=== PATIENT | female | born 1950 | race American Indian/Alaskan Native ===

== ENCOUNTER 2017-03-21 10:11 | Inpatient (IN) | payer MEDICARE ==
[~2017-03-21 10:11] MED LIST: LEVAQUIN 750MG/150ML 750 MG/150 ML BAG IV ONE
[2017-03-21] MEDS ORDERED: NORCO 5/325 PO ONE (11:21)
[2017-03-21 11:36] LABS: Basophils % (Auto) 0.8 % (0.0-1.8); Eosinophils % (Auto) 0.4 % (0.0-4.3); Hematocrit 34.4 % (30.3-42.9); Hemoglobin 10.7 gm/dl (10.1-14.3); Mean Corpuscular HGB Conc 31 % (30-34); Mean Corpuscular Hemoglobin 30 pg (28-32); Mean Corpuscular Volume 97 fl (79-97); Platelet Count 313 K/mm3 (140-440); Red Blood Count 3.55 M/mm3 (3.65-5.03); Red Cell Distribution Width 15.2 % (13.2-15.2)
[2017-03-21 11:47] LABS: INR 0.95 (0.87-1.13)
[2017-03-21 11:48] LABS: Partial Thromboplastin Time 30.9 Sec. (24.2-36.6)
[2017-03-21 11:56] LABS: Alanine Aminotransferase 14 units/L (7-56); Albumin 3.8 g/dL (3.9-5); Albumin/Globulin Ratio 1.2 %; Alkaline Phosphatase 101 units/L (35-129); Anion Gap 22 mmol/L; BUN/Creatinine Ratio 10; Blood Urea Nitrogen 46 mg/dL (7-17); Carbon Dioxide 25 mmol/L (22-30); Chloride 101.3 mmol/L (98-107); Glucose 142 mg/dL (65-100); Lipase 15 units/L (13-60); Potassium 4.8 mmol/L (3.6-5.0); Sodium 143 mmol/L (137-145)
[2017-03-21 11:59] LABS: Bilirubin,Direct < 0.2 mg/dL (0-0.2)
--- NOTE | 2017-03-21 12:02 | XRay Report ---
PORTABLE CHEST INDICATION: Hypertension. COMPARISON: 09/08/2015 FINDINGS: Portable, frontal chest radiograph now demonstrates increased hazy perihilar infiltrates bilaterally and minimal fluid or thickening along the right minor fissure. Interval right chest port removal. Mild cardiomegaly. Intact bones. CONCLUSION: New mild perihilar edema and interval central catheter removal since August 2015, as described. Thank you for the opportunity to participate in this patient's care.
--- NOTE | 2017-03-21 12:33 | Cat Scan Report ---
CT OF THE ABDOMEN AND PELVIS WITHOUT CONTRAST HISTORY: Abdominal pain. TECHNIQUE: Helical CT without contrast. Sagittal and coronal reformatted images. FINDINGS: Bilateral lung infiltrates are identified in the lower lung zones. Small to medium bilateral layering pleural effusions are also identified. Heart size is within normal limits. The liver, biliary system, pancreas, spleen, kidneys and adrenal glands are unremarkable on noncontrast CT. The aorta is normal caliber. There is a large amount of stool throughout the length of the colon and rectum. No evidence for focal inflammation or bowel obstruction. Normal appendix. The bladder is markedly distended. No bladder filling defect is appreciated. The uterus and adnexa are unremarkable. The bony structures are intact. No fracture or suspicious bony lesion. IMPRESSION: Bilateral lung infiltrates and bilateral pleural effusions. Correlate for pneumonia. CHF is thought less likely. Fecal retention. Distended bladder. Correlate for bladder outlet obstruction.
[2017-03-21] MEDS ORDERED: ROCEPHIN/NS 1 GM/50 ML 1 GM/50 ML BAG IV ONE (13:55)
[2017-03-21 13:59] LABS: Bacteria,Urine 4+ /HPF (Negative); Bilirubin,Urine NEG (Negative); Blood,Urine SM (Negative); Ketones,Urine NEG (Negative); Leukocyte Esterase,Urine LG (Negative); Nitrite,Urine NEG (Negative); Urobilinogen,Urine < 2.0 mg/dL (<2.0); WBC,Urine > 182.0 /HPF (0.0-6.0)
--- NOTE | 2017-03-21 14:02 | Emergency Department Report ---
ED General Adult HPI - General Chief complaint: Abdominal Pain Stated complaint: ABD PAIN Time Seen by Provider: 03/21/17 11:12 Source: patient Mode of arrival: Stretcher Limitations: Other - History of Present Illness Initial comments: Patient presents to the emergency room she states due to suprapubic pain and lower back pain. She states that she does not urinate. She has end-stage renal disease and today is her dialysis today. She is not complaining of fever nausea vomiting or diarrhea. She does have some occasional cough and shortness of breath. She denies chest pain. She denies any upper abdominal pain. She is in general a rather poor historian. She states that she did not go to her dialysis today but had full dialysis on Friday. She is a patient of [facility] nephrology. -: Gradual, hour(s) Location: abdomen Radiation: back (also involves the lower back perhaps the left lower flank) Quality: aching Consistency: intermittent Improves with: none Worsens with: none Associated Symptoms: denies other symptoms Treatments Prior to Arrival: none - Related Data Previous Rx's Medication Instructions Recorded Last Taken Type Aspirin [Aspirin TAB] 325 mg PO QDAY tablet 09/11/15 Unknown Rx Furosemide [Lasix TAB] 40 mg PO DAILY tablet 09/11/15 Unknown Rx Lisinopril [Zestril TAB] 20 mg PO QDAY tablet 09/11/15 Unknown Rx Simvastatin [Zocor TAB] 40 mg PO QHS tablet 09/11/15 Unknown Rx Sodium Bicarbonate 650 mg PO BID tablet 09/11/15 Unknown Rx amLODIPine [Norvasc] 10 mg PO DAILY tablet 09/11/15 Unknown Rx Allergies Allergy/AdvReac Type Severity Reaction Status Date / Time No Known Allergies Allergy Unverified 08/31/15 11:25 ED Review of Systems ROS: Stated complaint: ABD PAIN Other details as noted in HPI Constitutional: denies: chills, fever Eyes: denies: eye pain, eye discharge, vision change ENT: denies: ear pain, throat pain Respiratory: cough (very occasional), shortness of breath. denies: wheezing Cardiovascular: denies: chest pain, palpitations Endocrine: no symptoms reported Gastrointestinal: denies: abdominal pain, nausea, diarrhea Genitourinary: denies: urgency, dysuria, discharge Musculoskeletal: back pain. denies: joint swelling, arthralgia Skin: denies: rash, lesions Neurological: denies: headache, weakness, paresthesias Psychiatric: denies: anxiety, depression Hematological/Lymphatic: denies: easy bleeding, easy bruising ED Past Medical Hx - Past Medical History Hx Hypertension: Yes Hx Congestive Heart Failure: No Hx Diabetes: Yes Hx Renal Disease: Yes (MWF) Hx Asthma: No Hx COPD: No Hx Dementia: Yes Hx HIV: No - Social History Smoking Status: Never Smoker Substance Use Type: None - Medications Home Medications: Home Medications Medication Instructions Recorded Confirmed Last Taken Type Aspirin [Aspirin TAB] 325 mg PO QDAY tablet 09/11/15 Unknown Rx Furosemide [Lasix TAB] 40 mg PO DAILY tablet 09/11/15 Unknown Rx Lisinopril [Zestril TAB] 20 mg PO QDAY tablet 09/11/15 Unknown Rx Simvastatin [Zocor TAB] 40 mg PO QHS tablet 09/11/15 Unknown Rx Sodium Bicarbonate 650 mg PO BID tablet 09/11/15 Unknown Rx amLODIPine [Norvasc] 10 mg PO DAILY tablet 09/11/15 Unknown Rx ED Physical Exam - General Limitations: Other General appearance: alert, in no apparent distress - Head Head exam: Present: atraumatic, normocephalic - Eye Eye exam: Present: normal appearance, PERRL, EOMI. Absent: scleral icterus - ENT ENT exam: Present: mucous membranes moist - Neck Neck exam: Present: normal inspection. Absent: tenderness, meningismus - Respiratory Respiratory exam: Present: normal lung sounds bilaterally. Absent: respiratory distress - Cardiovascular Cardiovascular Exam: Present: regular rate, normal rhythm. Absent: systolic murmur, diastolic murmur, rubs, gallop - GI/Abdominal GI/Abdominal exam: Present: soft, distended (patient does appear to have lower abdominal distention probably secondary to a large bladder), tenderness ( minimally lower abdominal suprapubic area), normal bowel sounds, organomegaly. Absent: guarding, rebound, rigid - Extremities Exam Extremities exam: Present: normal inspection - Back Exam Back exam: Present: normal inspection, CVA tenderness (L). Absent: CVA tenderness (R), muscle spasm, paraspinal tenderness, vertebral tenderness - Neurological Exam Neurological exam: Present: alert, oriented X3, CN II-XII intact. Absent: motor sensory deficit - Psychiatric Psychiatric exam: Present: normal mood, flat affect - Skin Skin exam: Present: warm, dry, intact, normal color. Absent: rash ED Course Vital Signs 03/21/17 03/21/17 03/21/17 10:41 10:44 10:45 Temperature 99 F Pulse Rate 92 H Respiratory 16 Rate Blood Pressure 143/72 143/71 O2 Sat by Pulse 85 93 93 Oximetry 03/21/17 03/21/17 03/21/17 11:00 11:15 11:31 Temperature Pulse Rate Respiratory Rate Blood Pressure 141/78 148/88 148/88 O2 Sat by Pulse 91 91 91 Oximetry 03/21/17 03/21/17 03/21/17 11:36 11:45 12:00 Temperature Pulse Rate Respiratory 18 Rate Blood Pressure 148/88 148/88 O2 Sat by Pulse 89 88 Oximetry - Reevaluation(s) Reevaluation #1: A cath urine was ordered. This still pending. I've asked the nurse to straight cath the patient for residual volume. A CT of her abdomen showed bilateral pleural effusions. The radiologist questions whether the infiltrates are due to pneumonia or CHF. I think CHF is much more likely. I suspect the patient has bladder outlet obstruction. 03/21/17 14:02 Reevaluation #2: Patient was given ceftriaxone presumptively. Her urinalysis was consistent with UTI. Consult will be placed to [facility] nephrology 03/21/17 14:06 03/21/17 14:06 Patient was admitted by Dr. Pearson. ED Medical Decision Making - Lab Data Result diagrams: 03/21/17 11:21 03/21/17 11:21 Laboratory Results - last 24 hr 03/21/17 03/21/17 03/21/17 11:21 11:21 11:21 WBC 13.0 H RBC 3.55 L Hgb 10.7 Hct 34.4 MCV 97 MCH 30 MCHC 31 RDW 15.2 Plt Count 313 Lymph % (Auto) 13.7 [place] % (Auto) 5.2 Eos % (Auto) 0.4 Baso % (Auto) 0.8 Lymph # 1.8 Clayton # 0.7 Eos # 0.0 Baso # 0.1 Seg Neutrophils % 79.9 H Seg Neutrophils # 10.4 H PT 13.2 INR 0.95 APTT 30.9 Sodium 143 Potassium 4.8 Chloride 101.3 Carbon Dioxide 25 Anion Gap 22 BUN 46 H Creatinine 4.6 H Estimated GFR 12 BUN/Creatinine Ratio 10 Glucose 142 H Calcium 9.0 Phosphorus 3.30 Total Bilirubin 0.20 Direct Bilirubin < 0.2 Indirect Bilirubin 0.0 AST 13 ALT 14 Alkaline Phosphatase 101 NT-Pro-B Natriuret Pep 5099 H Total Protein 7.0 Albumin 3.8 L Albumin/Globulin Ratio 1.2 Lipase 15 Urine Color Urine Turbidity Urine pH Ur Specific [place] Urine Protein Urine Glucose (UA) Urine Ketones Urine Blood Urine Nitrite Urine Bilirubin Urine Urobilinogen Ur Leukocyte Esterase Urine WBC (Auto) Urine RBC (Auto) U Epithel Cells (Auto) Urine Bacteria (Auto) Urine WBC Clumps 03/21/17 12:10 WBC RBC Hgb Hct MCV MCH MCHC RDW Plt Count Lymph % (Auto) [place] % (Auto) Eos % (Auto) Baso % (Auto) Lymph # [place] # Eos # Baso # Seg Neutrophils % Seg Neutrophils # PT INR APTT Sodium Potassium Chloride Carbon Dioxide Anion Gap BUN Creatinine Estimated GFR BUN/Creatinine Ratio Glucose Calcium Phosphorus Total Bilirubin Direct Bilirubin Indirect Bilirubin AST ALT Alkaline Phosphatase NT-Pro-B Natriuret Pep Total Protein Albumin Albumin/Globulin Ratio Lipase Urine Color Yellow Urine Turbidity Clear Urine pH 5.0 Ur Specific [place] 1.011 Urine Protein 100 mg/dl Urine Glucose (UA) Neg Urine Ketones Neg Urine Blood Sm Urine Nitrite Neg Urine Bilirubin Neg Urine Urobilinogen < 2.0 Ur Leukocyte Esterase Lg Urine WBC (Auto) > 182.0 H Urine RBC (Auto) 39.0 U Epithel Cells (Auto) 3.0 Urine Bacteria (Auto) 4+ Urine WBC Clumps 3+ - EKG Data -: EKG Interpreted by Me EKG shows normal: sinus rhythm - EKG Data Interpretation: other (left axis deviation Q in V2 and poor R-wave progression) - Radiology Data Radiology results: report reviewed interpreted by me: Chest x-ray is most consistent with pulmonary edema and pneumonia. CT showed a distended bladder bilateral effusions and pulmonary infiltrates. Critical care attestation.: If time is entered above; I have spent that time in minutes in the direct care of this critically ill patient, excluding procedure time. ED Disposition Clinical Impression: Bladder outlet obstruction, End stage renal disease on dialysis Acute cystitis Qualifiers: Hematuria presence: without hematuria Qualified Code(s): N30.00 - Acute cystitis without hematuria Pulmonary edema Qualifiers: Chronicity: acute Qualified Code(s): J81.0 - Acute pulmonary edema Disposition: OP ADMIT IP TO THIS HOSP Is pt being admited?: Yes Does the pt Need Aspirin: Yes Condition: Stable Instructions: Abdominal Pain (ED), Pulmonary Edema (ED) Referrals: PRIMARY CARE, [Primary Care Provider] - 3-5 Days Time of Disposition: 14:06
[2017-03-21] MEDS ORDERED: BABY ASPIRIN PO ONE (14:07)
--- NOTE | 2017-03-21 14:20 | History and Physical Report ---
History of Present Illness Chief complaint: Im hurting, History of present illness: 66 YO Female SNF resident at [facility] with ESRD on HD (M,W,F), DM, Dementia, HTN, HLD, CVA with LHP presents to ED for evaluation. Pt unable to provide detailed history, but history taken from SNF staff, EMS, and ED staff. As per SNF staff, patient has experienced pain in her abdomen with radiation to her back over the past 24 hours, with persistent symptoms over the same time frame. No reports of fever, chills, CP,Palpitations, NVD, Syncope, Falls, Trauma , Loss of consciousness, vision loss, or recent ill contacts. Pt seen and evaluated in ED and found to have bilateral pneumonia on CXR. Pt unsure of when she last had dialysis and is unable to provide information due to confusion. Past History Past Medical History: diabetes, ESRD, hypertension, hyperlipidemia, stroke Past Surgical History: Other (LUE AVF) Social history: single. denies: smoking, alcohol abuse, prescription drug abuse , IV drug use Family history: diabetes, hypertension Medications and Allergies Allergies Allergy/AdvReac Type Severity Reaction Status Date / Time No Known Allergies Allergy Unverified 08/31/15 11:25 Home Medications Medication Instructions Recorded Confirmed Last Taken Type Aspirin [Aspirin TAB] 325 mg PO QDAY tablet 09/11/15 03/21/17 Unknown Rx Furosemide [Lasix TAB] 40 mg PO DAILY tablet 09/11/15 03/21/17 Unknown Rx Amlodipine Besylate [Norvasc] 10 mg PO DAILY 03/21/17 03/21/17 Unknown History HYDROcodone/APAP 5-325 [[place] 1 each PO Q4HR PRN 03/21/17 03/21/17 Unknown History 5/325] Insulin Aspart [NovoLOG Flexpen] See Protocol SQ PRN 03/21/17 03/21/17 Unknown History Insulin Glargine,Hum.rec.anlog 25 units SQ HS 03/21/17 03/21/17 Unknown History [Lantus] Insulin NPH/Regular [NovoLIN 70/30] 5 units SC QAM 03/21/17 03/21/17 Unknown History Latanoprost 0.005% [Xalatan 0.005%] 1 drop OP HS 03/21/17 03/21/17 Unknown History Lisinopril [Zestril] 20 mg PO DAILY 03/21/17 03/21/17 Unknown History Magnesium Hydroxide [Milk of 30 ml PO PRN PRN 03/21/17 03/21/17 Unknown History Magnesia] Nepro Carb Steady 1 can PO 4XW 03/21/17 03/21/17 Unknown History Sevelamer Carbonate [Renvela] 2 tab PO TID 03/21/17 03/21/17 Unknown History Simvastatin [Zocor] 20 mg PO HS 03/21/17 03/21/17 Unknown History Sodium Bicarbonate 650 mg PO BID 03/21/17 03/21/17 Unknown History Vit B Comp No.3/Folic/C/Biotin 1 each PO DAILY 03/21/17 03/21/17 Unknown History [Kat-Les Rx Tablet] Active Meds: Active Medications Ceftriaxone Sodium (Rocephin/Ns 1 Gm/50 Ml) 1 gm in 50 mls @ 100 mls/hr IV ONCE ONE PRN Reason: Protocol Stop: 03/21/17 14:24 Review of Systems ROS unobtainable: due to mental status Exam - Constitutional Vitals: Temp Pulse Resp BP Pulse Ox 99 F 92 H 18 148/88 88 03/21/17 10:44 03/21/17 10:44 03/21/17 11:36 03/21/17 12:00 03/21/17 12:00 General appearance: Present: mild distress, obese - EENT Eyes: Present: PERRL ENT: hearing intact, clear oral mucosa - Neck Neck: Present: supple, normal ROM - Respiratory Respiratory: bilateral: diminished - Cardiovascular Rhythm: regular Heart Sounds: Present: S1 & S2 - Extremities Extremities: pulses symmetrical, No edema Extremity abnormal: edema Peripheral Pulses: within normal limits - Abdominal General gastrointestinal: Present: soft, non-tender, non-distended, normal bowel sounds Female genitourinary: Present: normal - Integumentary Integumentary: Present: clear, warm, dry - Musculoskeletal Musculoskeletal: generalized weakness - Psychiatric Psychiatric: no intact judgment & insight, no memory intact - Neurologic Neurologic: no gait normal Results - Labs CBC & Chem 7: 03/21/17 11:21 03/21/17 11:21 Labs: Abnormal lab results 03/21/17 03/21/17 03/21/17 Range/Units 11:21 11:21 12:10 WBC 13.0 H (4.5-11.0) K/mm3 RBC 3.55 L (3.65-5.03) M/mm3 Seg Neutrophils % 79.9 H (40.0-70.0) % Seg Neutrophils # 10.4 H (1.8-7.7) K/mm3 BUN 46 H (7-17) mg/dL Creatinine 4.6 H (0.7-1.2) mg/dL Glucose 142 H (65-100) mg/dL NT-Pro-B Natriuret Pep 5099 H (0-900) pg/mL Albumin 3.8 L (3.9-5) g/dL Urine WBC (Auto) > 182.0 H (0.0-6.0) /HPF Assessment and Plan - Patient Problems (1) Pneumonia Current Visit: Yes Status: Acute Qualifiers: Pneumonia type: due to unspecified organism Aspiration pneumonia type: A Laterality: bilateral Lung location: L Plan to address problem: Pneumonia Protocol: IV abx, blood cultures, supplemental oxygen, nebs, aspiration precautions, Incentive spirometry, NIPPV as clinically indicated. (2) ESRD (end stage renal disease) on dialysis Current Visit: Yes Status: Acute Plan to address problem: Nephrology consulted in ED, Fluid restriction, dialysis as per renal team. (3) CHF (congestive heart failure) Current Visit: Yes Status: Acute Qualifiers: Congestive heart failure type: C Congestive heart failure chronicity: C Plan to address problem: Afterload reduction, fluid restriction, dialysis urgent, diuretic therapy, statin therapy, monitor uop q shift to ensure negative fluid balance. (4) Encephalopathy acute Current Visit: Yes Status: Acute Plan to address problem: Supportive care, CT head. Suspect symptoms secondary to uremia. neuro checks, (5) DVT prophylaxis Current Visit: Yes Status: Acute
[2017-03-21] MEDS ORDERED: ZOFRAN IV PRN (14:22)
[2017-03-21] MEDS ORDERED: PROVENTIL IH PRN (14:22)
[2017-03-21] MEDS ORDERED: NACL 0.9% 100 ML IV PRN (15:51)
[2017-03-21] MEDS ORDERED: LEVAQUIN 750MG/150ML 750 MG/150 ML BAG IV ONE (15:52)
[2017-03-21] MEDS ORDERED: NORCO 5/325 PO PRN (16:05)
[2017-03-21] MEDS ORDERED: MILK OF MAGNESIA PO PRN (16:05)
[2017-03-21] MEDS ORDERED: NEPRO CARB STEADY PO SCH (16:15)
[2017-03-21] MEDS ORDERED: ZESTRIL PO SCH (17:00)
[2017-03-21] MEDS ORDERED: NACL 0.9 (PRIMING MACHINE ONLY DIALYSIS) MC ONE (17:36)
[2017-03-21] MEDS: PROCRIT IV PRN (19:27)
[2017-03-21] MEDS ORDERED: NON-FORMULARY (Sevelamer Carbonate [Renvela] 2 TAB) PO SCH (20:00)
[2017-03-21] MEDS: RENVELA PO SCH (21:59)
[2017-03-21] MEDS: ZOCOR PO SCH (21:59)
[2017-03-21] MEDS: SODIUM BICARBONATE PO SCH (21:59)
[2017-03-21] MEDS ORDERED: LEVEMIR SUB-Q SCH (22:00)
[2017-03-21] MEDS ORDERED: INSULIN GLARGINE HUM REC ANLOG 25 UNIT SQ SCH (22:00)
[2017-03-22] MEDS: TYLENOL PO PRN ×2 (00:37→21:30)
[2017-03-22] MEDS ORDERED: D50W (25GM) Vial IV ONE ×2 (06:10→07:40)
[2017-03-22 06:26] LABS: Basophils % (Auto) 0.6 % (0.0-1.8); Eosinophils % (Auto) 0.2 % (0.0-4.3); Hematocrit 32.7 % (30.3-42.9); Hemoglobin 10.3 gm/dl (10.1-14.3); Mean Corpuscular HGB Conc 32 % (30-34); Mean Corpuscular Hemoglobin 30 pg (28-32); Mean Corpuscular Volume 96 fl (79-97); Platelet Count 290 K/mm3 (140-440); Red Blood Count 3.41 M/mm3 (3.65-5.03); Red Cell Distribution Width 14.7 % (13.2-15.2); White Blood Count 11.8 K/mm3 (4.5-11.0)
[2017-03-22] MEDS: LASIX IV SCH ×3 (08:02→17:18)
[2017-03-22] MEDS ORDERED: NORVASC PO SCH (10:00)
[2017-03-22] MEDS ORDERED: ROCEPHIN/NS 1 GM/50 ML 1 GM/50 ML BAG IV SCH (10:00)
[2017-03-22] MEDS: RENVELA PO SCH ×3 (11:24→17:19)
[2017-03-22] MEDS: SODIUM BICARBONATE PO SCH ×2 (11:54→22:50)
[2017-03-22] MEDS: ASPIRIN PO SCH (11:54)
[2017-03-22] MEDS: ZESTRIL PO SCH (11:55)
--- NOTE | 2017-03-22 11:59 | Consultation ---
History of Present Illness - Reason for Consult end stage renal disease Requesting physician: KENYA BOCANEGRA - History of Present Illness Patient presented to the emergency room with complaints of suprapubic pain and lower back pain. She stated that she did not urinate. She has end-stage renal disease and she undergoes dialysis at [facility] on Mondays, Wednesdays and Fridays . She is not complaining of fever nausea vomiting or diarrhea. She does have some occasional cough and shortness of breath. She denies chest pain. She denies any upper abdominal pain. She is in general a rather poor historian. She is now admitted with pneumonia. She had uneventful hemodialysis last night here Past History Past Medical History: diabetes, ESRD, hypertension, hyperlipidemia, stroke Past Surgical History: Other (LUE AVF) Social history: single. denies: smoking, alcohol abuse, prescription drug abuse , IV drug use Family history: diabetes, hypertension Medications and Allergies Allergies Allergy/AdvReac Type Severity Reaction Status Date / Time No Known Allergies Allergy Unverified 08/31/15 11:25 Home Medications Medication Instructions Recorded Confirmed Last Taken Type Aspirin [Aspirin TAB] 325 mg PO QDAY tablet 09/11/15 03/21/17 Unknown Rx Furosemide [Lasix TAB] 40 mg PO DAILY tablet 09/11/15 03/21/17 Unknown Rx Amlodipine Besylate [Norvasc] 10 mg PO DAILY 03/21/17 03/21/17 Unknown History HYDROcodone/APAP 5-325 [[place] 1 each PO Q4HR PRN 03/21/17 03/21/17 Unknown History 5/325] Insulin Aspart [NovoLOG Flexpen] See Protocol SQ PRN 03/21/17 03/21/17 Unknown History Insulin Glargine,Hum.rec.anlog 25 units SQ HS 03/21/17 03/21/17 Unknown History [Lantus] Insulin NPH/Regular [NovoLIN 70/30] 5 units SC QAM 03/21/17 03/21/17 Unknown History Latanoprost 0.005% [Xalatan 0.005%] 1 drop OP HS 03/21/17 03/21/17 Unknown History Lisinopril [Zestril] 20 mg PO DAILY 03/21/17 03/21/17 Unknown History Magnesium Hydroxide [Milk of 30 ml PO PRN PRN 03/21/17 03/21/17 Unknown History Magnesia] Nepro Carb Steady 1 can PO 4XW 03/21/17 03/21/17 Unknown History Sevelamer Carbonate [Renvela] 2 tab PO TID 03/21/17 03/21/17 Unknown History Simvastatin [Zocor] 20 mg PO HS 03/21/17 03/21/17 Unknown History Sodium Bicarbonate 650 mg PO BID 03/21/17 03/21/17 Unknown History Vit B Comp No.3/Folic/C/Biotin 1 each PO DAILY 03/21/17 03/21/17 Unknown History [Kat-Les Rx Tablet] Active Meds: Active Medications Acetaminophen (Tylenol) 650 mg PO Q4H PRN PRN Reason: Pain MILD(1-3)/Fever >100.5/HUBBARD Last Admin: 03/22/17 00:37 Dose: 650 mg Acetaminophen/Hydrocodone Bitart ([place] 5/325) 1 each PO Q4HR PRN PRN Reason: Pain Albuterol (Proventil) 2.5 mg IH Q4HRT PRN PRN Reason: Shortness Of Breath Amlodipine Besylate (Norvasc) 10 mg PO DAILY [facility] Aspirin (Aspirin) 325 mg PO QDAY [facility] Epoetin Nolan (Procrit) 10,000 unit IV HOLDEN PRN PRN Reason: hemodialysis Last Admin: 03/21/17 19:27 Dose: 10,000 unit Furosemide (Lasix) 20 mg IV 0600,1800 [facility] Last Admin: 03/22/17 11:24 Dose: Not Given Ceftriaxone Sodium (Rocephin/Ns 1 Gm/50 Ml) 1 gm in 50 mls @ 100 mls/hr IV Q24HR MARYLOU PRN Reason: Protocol Levofloxacin/Dextrose (Levaquin 500mg/100ml) 500 mg in 100 mls @ 100 mls/hr IV Q48H [facility] Sodium Chloride (Nacl 0.9%) 100 mls @ 999 mls/hr IV HOLDEN PRN PRN Reason: Hypotension Insulin Detemir (Levemir) 25 units SUB-Q QHS [facility] Last Admin: 03/21/17 23:25 Dose: 25 units Insulin Human Isoph/Insulin Regular (Novolin 70/30) 5 unit SUB-Q QAMDIAB [facility] Last Admin: 03/22/17 11:24 Dose: Not Given Lisinopril (Zestril) 20 mg PO QDAY [facility] Magnesium Hydroxide (Milk Of Magnesia) 30 ml PO PRN PRN PRN Reason: Constipation Ondansetron HCl (Zofran) 4 mg IV Q8H PRN PRN Reason: N/V unrelieved by Adina Sevelamer Carbonate (Renvela) 1,600 mg PO AC [facility] Last Admin: 03/22/17 11:24 Dose: Not Given Simvastatin (Zocor) 40 mg PO QHS [facility] Last Admin: 03/21/17 21:59 Dose: 40 mg Sodium Bicarbonate (Sodium Bicarbonate) 650 mg PO BID [facility] Last Admin: 03/21/17 21:59 Dose: 650 mg Review of Systems ROS unobtainable: due to mental status Exam - Vital Signs Vital signs: Vital Signs Pulse Ox 85 03/21/17 10:41 - General Appearance General appearance: chronically ill, frail, other (elderly -[place] female) EENT: PERRL, mucous membranes moist Neck: Present: neck supple, trachea midline Respiratory: Clear to Ascultation Heart: regular Gastrointestinal: Present: normal, normoactive bowel sounds Integumentary: no rash, other (AV fistula in her left upper arm. Good bruit and thrill) Results - Lab Results 03/22/17 04:59 03/22/17 06:06 Most recent lab results Calcium 9.0 mg/dL (8.4-10.2) 03/21/17 11:21 Phosphorus 3.30 mg/dL (2.5-4.5) 03/21/17 11:21 Assessment and Plan Impression * End-stage renal disease on maintenance hemodialysis * Pneumonia * Dementia * Hypertension * Diabetes * Anemia secondary to ESRD Recommendations * Patient had uneventful hemodialysis yesterday * Keep her on Friday, Friday and dialysis schedule for now * Antibiotic treatment as per primary team * Adjust diet and meds for ESRD state * No IV, BP venipuncture in her access arm * Procrit with dialysis * Binders with diet * Thank you very much for the consultation. Shall follow along with you
[2017-03-22] MEDS: NORVASC PO SCH (12:02)
--- NOTE | 2017-03-22 15:11 | Progress Note ---
Assessment and Plan Assessment and plan: Patient is a 66 yo woman from [facility] from ESRD on HD MWF, DM type 2, Dementia, hypertension, dyslipidemia and CVA who presented to ED with abd pains and AMS. CXR read as mild perihilar edema. CT abd/pelvis without contrast read as bilateral lung infiltrates and bilateral pleural effusions, correlate for pneumonia, CHF is less likely, fecal retention, distended bladder, correlate for bladder outlet obstruction. -Acute hypoxic respiratory failure on 3.5 liters o2: continue o2, nebs -Bilateral Aspiration pneumonia, poa: treat with abx, follow cultures -ESRD: Hemodialysis needed, renal is following -Hypoglycemia: hold insulins, given dextrose -Fecal retention: dulcolax suppository -Acute metabolic encephalopathy related to the above -Functional quadiplegia due to dementia and stroke: physical therapy -DVT prophylaxis: add sq heparin -Bladder outlet obstruction?: check bladder scan History Interval history: Patient was seen and examined. Follow-up on current diagnosis/ams. Overnight uneventful. She c/o abd pains but very vague with details. Imaging, nursing note, chart, labs and old chart reviewed. Hospitalist Physical - Physical exam Narrative exam: GEN: Thin frail chronically debilitated woman BMI 22 NAD, AWAKE, ALERT, ORIENTATED 1 HEENT: NCAT, EOMI, PERRL, OP Clear NECK: supple, no adenopathy, no thyromegaly, no JVD CVS/HEART: RRR, NORMAL S1S2, NO JVD, pulses present bilaterally CHEST/LUNGS: CTA B, Symmetrical chest expansion, good air entry bilaterally GI/Abdomen: soft, nondistended, diffuse tenderness good bowel sounds, no guarding or rebound /Bladder: no suprapubic tenderness, no CVA or paraspinal tenderness EXT/Skin: no c/c/e, no obvious rash MSK: Bilaterally is contracted Neuro: CN 2-12 grossly intact, no new focal deficits Psych: calm - Constitutional Vitals: Temp Pulse Resp BP Pulse Ox 97.7 F 76 18 178/75 100 03/22/17 12:54 03/22/17 12:51 03/22/17 12:51 03/22/17 12:51 03/22/17 12:51 General appearance: Absent: obese Results - Labs CBC & Chem 7: 03/22/17 04:59 03/22/17 06:06 Labs: Laboratory Last Values WBC 11.8 K/mm3 (4.5-11.0) H 03/22/17 04:59 RBC 3.41 M/mm3 (3.65-5.03) L 03/22/17 04:59 Hgb 10.3 gm/dl (10.1-14.3) 03/22/17 04:59 Hct 32.7 % (30.3-42.9) 03/22/17 04:59 MCV 96 fl (79-97) 03/22/17 04:59 MCH 30 pg (28-32) 03/22/17 04:59 MCHC 32 % (30-34) 03/22/17 04:59 RDW 14.7 % (13.2-15.2) 03/22/17 04:59 Plt Count 290 K/mm3 (140-440) 03/22/17 04:59 Lymph % (Auto) 25.3 % (13.4-35.0) 03/22/17 04:59 [place] % (Auto) 5.6 % (0.0-7.3) 03/22/17 04:59 Eos % (Auto) 0.2 % (0.0-4.3) 03/22/17 04:59 Baso % (Auto) 0.6 % (0.0-1.8) 03/22/17 04:59 Lymph # 3.0 K/mm3 (1.2-5.4) 03/22/17 04:59 [place] # 0.7 K/mm3 (0.0-0.8) 03/22/17 04:59 Eos # 0.0 K/mm3 (0.0-0.4) 03/22/17 04:59 Baso # 0.1 K/mm3 (0.0-0.1) 03/22/17 04:59 Seg Neutrophils % 68.3 % (40.0-70.0) 03/22/17 04:59 Seg Neutrophils # 8.1 K/mm3 (1.8-7.7) H 03/22/17 04:59 PT 13.2 Sec. (12.2-14.9) 03/21/17 11:21 INR 0.95 (0.87-1.13) 03/21/17 11:21 APTT 30.9 Sec. (24.2-36.6) 03/21/17 11:21 Sodium 143 mmol/L (137-145) 03/21/17 11:21 Potassium 4.8 mmol/L (3.6-5.0) 03/21/17 11:21 Chloride 101.3 mmol/L (98-107) 03/21/17 11:21 Carbon Dioxide 25 mmol/L (22-30) 03/21/17 11:21 Anion Gap 22 mmol/L 03/21/17 11:21 BUN 46 mg/dL (7-17) H 03/21/17 11:21 Creatinine 4.6 mg/dL (0.7-1.2) H 03/21/17 11:21 Estimated GFR 12 ml/min 03/21/17 11:21 BUN/Creatinine Ratio 10 % 03/21/17 11:21 Glucose 3 mg/dL (65-100) L* 03/22/17 06:06 POC Glucose 208 (70-105) H 03/22/17 06:12 Calcium 9.0 mg/dL (8.4-10.2) 03/21/17 11:21 Phosphorus 3.30 mg/dL (2.5-4.5) 03/21/17 11:21 Total Bilirubin 0.20 mg/dL (0.1-1.2) 03/21/17 11:21 Direct Bilirubin < 0.2 mg/dL (0-0.2) 03/21/17 11:21 Indirect Bilirubin 0.0 mg/dL 03/21/17 11:21 AST 13 units/L (5-40) 03/21/17 11:21 ALT 14 units/L (7-56) 03/21/17 11:21 Alkaline Phosphatase 101 units/L (35-129) 03/21/17 11:21 NT-Pro-B Natriuret Pep 5099 pg/mL (0-900) H 03/21/17 11:21 Total Protein 7.0 g/dL (6.3-8.2) 03/21/17 11:21 Albumin 3.8 g/dL (3.9-5) L 03/21/17 11:21 Albumin/Globulin Ratio 1.2 % 03/21/17 11:21 Lipase 15 units/L (13-60) 03/21/17 11:21 Urine Color Yellow (Yellow) 03/21/17 12:10 Urine Turbidity Clear (Clear) 03/21/17 12:10 Urine pH 5.0 (5.0-7.0) 03/21/17 12:10 Ur Specific [place] 1.011 (1.003-1.030) 03/21/17 12:10 Urine Protein 100 mg/dl mg/dL (Negative) 03/21/17 12:10 Urine Glucose (UA) Neg mg/dL (Negative) 03/21/17 12:10 Urine Ketones Neg mg/dL (Negative) 03/21/17 12:10 Urine Blood Sm (Negative) 03/21/17 12:10 Urine Nitrite Neg (Negative) 03/21/17 12:10 Urine Bilirubin Neg (Negative) 03/21/17 12:10 Urine Urobilinogen < 2.0 mg/dL (<2.0) 03/21/17 12:10 Ur Leukocyte Esterase Lg (Negative) 03/21/17 12:10 Urine WBC (Auto) > 182.0 /HPF (0.0-6.0) H 03/21/17 12:10 Urine RBC (Auto) 39.0 /HPF (0.0-6.0) 03/21/17 12:10 U Epithel Cells (Auto) 3.0 /HPF (0-13.0) 03/21/17 12:10 Urine Bacteria (Auto) 4+ /HPF (Negative) 03/21/17 12:10 Urine WBC Clumps 3+ /HPF 03/21/17 12:10
[2017-03-22] MEDS ORDERED: DULCOLAX PR ONE (16:00)
[2017-03-22] MEDS: NOVOLOG SUB-Q SCH (17:18)
[2017-03-22] MEDS ORDERED: ZOSYN/NS 4.5GM/100ML 4.5 GM/100 ML VIAL IV SCH (18:00)
[2017-03-22] MEDS: ZOCOR PO SCH (22:50)
[2017-03-23] MEDS: NOVOLOG SUB-Q SCH ×5 (00:01→22:01)
[2017-03-23] MEDS: LASIX IV SCH (06:29)
[2017-03-23 06:57] LABS: Hematocrit 28.7 % (30.3-42.9); Hemoglobin 9.3 gm/dl (10.1-14.3); Mean Corpuscular HGB Conc 32 % (30-34); Mean Corpuscular Hemoglobin 31 pg (28-32); Mean Corpuscular Volume 96 fl (79-97); Platelet Count 251 K/mm3 (140-440); Red Cell Distribution Width 15.3 % (13.2-15.2); White Blood Count 10.8 K/mm3 (4.5-11.0)
[2017-03-23 07:21] LABS: Calcium 8.4 mg/dL (8.4-10.2); Chloride 99.6 mmol/L (98-107); Potassium 4.6 mmol/L (3.6-5.0)
[2017-03-23] MEDS: NORVASC PO SCH (09:31)
[2017-03-23] MEDS: ZESTRIL PO SCH (09:32)
[2017-03-23] MEDS: ASPIRIN PO SCH (09:33)
[2017-03-23] MEDS: SODIUM BICARBONATE PO SCH ×2 (09:33→22:03)
[2017-03-23] MEDS: RENVELA PO SCH ×3 (09:33→15:56)
--- NOTE | 2017-03-23 11:52 | Progress Note ---
Assessment and Plan Impression * End-stage renal disease on maintenance hemodialysis * Pneumonia * Dementia * Hypertension * Diabetes * Anemia secondary to ESRD * Urinary retention Recommendations * Patient had uneventful hemodialysis on Friday * Keep her on Friday, Friday and dialysis schedule for now * Antibiotic treatment as per primary team * Adjust diet and meds for ESRD state * No IV, BP venipuncture in her access arm * Procrit with dialysis * Binders with diet * Approximately 250 mL of cloudy urine was collected after Churchill catheter was placed. Follow-up culture results. Patient is currently on Rocephin * Shall discontinue her Lasix Subjective Date of service: 03/23/17 Interval history: Patient is comfortable today. Appears more alert. Denies any shortness of breath. No nausea or vomiting. She currently has an indwelling Churchill catheter in place Objective - Vital Signs Vital signs: Vital Signs - 12hr 03/23/17 03/23/17 03/23/17 08:13 09:31 09:32 Temperature 97.9 F Pulse Rate 83 Respiratory 16 Rate Blood Pressure 140/63 140/63 140/63 O2 Sat by Pulse 99 Oximetry - General Appearance General appearance: well-developed, well-nourished, appears stated age EENT: PERRL, mucous membranes moist Neck: no JVD, no thyromegaly, no carotid bruit, supple Respiratory: Present: Clear to Ascultation Cardiology: regular, normal heart rate, S1S2, no murmurs Gastrointestinal: normal, normoactive bowel sounds Integumentary: no rash, other (AV fistula in her left upper arm. Good bruit and thrill) - Lab 03/23/17 06:09 03/23/17 06:09 Most recent lab results Calcium 8.4 mg/dL (8.4-10.2) 03/23/17 06:09 Phosphorus 3.30 mg/dL (2.5-4.5) 03/21/17 11:21
[2017-03-23] MEDS ORDERED: Fluarix Quad 2017-2018(36 MOS+ IM ONE (12:00)
[2017-03-23] MEDS ORDERED: PNEUMOVAX 23 IM ONE (12:00)
--- NOTE | 2017-03-23 12:06 | Progress Note ---
Assessment and Plan Assessment and plan: Patient is a 66 yo woman from [facility] from ESRD on HD MWF, DM type 2, Dementia, hypertension, dyslipidemia and CVA who presented to ED with abd pains and AMS. CXR read as mild perihilar edema. CT abd/pelvis without contrast read as bilateral lung infiltrates and bilateral pleural effusions, correlate for pneumonia, CHF is less likely, fecal retention, distended bladder, correlate for bladder outlet obstruction. -Acute hypoxic respiratory failure on 3.5 liters o2: continue o2, nebs, trying to wean o2 -Bilateral Aspiration pneumonia with sepsis, poa: treat with abx, follow cultures -ESRD: Hemodialysis needed, renal is following -Hypoglycemia, pt eats sporadically: held long acting insulins, given dextrose, now BG is very labile, add ADA -Fecal retention: dulcolax suppository -Acute metabolic encephalopathy related to the above -Functional quadiplegia due to dementia and stroke: physical therapy -DVT prophylaxis: added sq heparin -Bladder outlet obstruction: check bladder scan==>purulent drainage/Acute cystitis, poa and retention, so bonilla inserted and urine ctx sent Await urine ctx to come back, on iv rocephin for uti and renal dose Levaquin q48hr for the pneumonia History Interval history: Patient was seen and examined. Follow-up on current diagnosis/ams. Overnight uneventful. She c/o abd pains but very vague with details. Imaging, nursing note, chart, labs and old chart reviewed. Hospitalist Physical - Physical exam Narrative exam: GEN: Thin frail chronically debilitated woman BMI 22 NAD, AWAKE, ALERT, ORIENTATED 1 HEENT: NCAT, EOMI, PERRL, OP Clear NECK: supple, no adenopathy, no thyromegaly, no JVD CVS/HEART: RRR, NORMAL S1S2, NO JVD, pulses present bilaterally CHEST/LUNGS: CTA B, Symmetrical chest expansion, good air entry bilaterally GI/Abdomen: soft, nondistended, diffuse tenderness good bowel sounds, no guarding or rebound /Bladder: no suprapubic tenderness, no CVA or paraspinal tenderness EXT/Skin: no c/c/e, no obvious rash MSK: Bilaterally is contracted Neuro: CN 2-12 grossly intact, no new focal deficits Psych: calm - Constitutional Vitals: Temp Pulse Resp BP Pulse Ox 97.9 F 83 16 140/63 99 03/23/17 08:13 03/23/17 08:13 03/23/17 08:13 03/23/17 09:32 03/23/17 08:13 General appearance: Absent: obese Results - Labs CBC & Chem 7: 03/23/17 06:09 03/23/17 06:09 Labs: Laboratory Last Values WBC 10.8 K/mm3 (4.5-11.0) 03/23/17 06:09 RBC 3.00 M/mm3 (3.65-5.03) L 03/23/17 06:09 Hgb 9.3 gm/dl (10.1-14.3) L 03/23/17 06:09 Hct 28.7 % (30.3-42.9) L 03/23/17 06:09 MCV 96 fl (79-97) 03/23/17 06:09 MCH 31 pg (28-32) 03/23/17 06:09 MCHC 32 % (30-34) 03/23/17 06:09 RDW 15.3 % (13.2-15.2) H 03/23/17 06:09 Plt Count 251 K/mm3 (140-440) 03/23/17 06:09 Lymph % (Auto) 25.3 % (13.4-35.0) 03/22/17 04:59 [place] % (Auto) 5.6 % (0.0-7.3) 03/22/17 04:59 Eos % (Auto) 0.2 % (0.0-4.3) 03/22/17 04:59 Baso % (Auto) 0.6 % (0.0-1.8) 03/22/17 04:59 Lymph # 3.0 K/mm3 (1.2-5.4) 03/22/17 04:59 [place] # 0.7 K/mm3 (0.0-0.8) 03/22/17 04:59 Eos # 0.0 K/mm3 (0.0-0.4) 03/22/17 04:59 Baso # 0.1 K/mm3 (0.0-0.1) 03/22/17 04:59 Seg Neutrophils % 68.3 % (40.0-70.0) 03/22/17 04:59 Seg Neutrophils # 8.1 K/mm3 (1.8-7.7) H 03/22/17 04:59 PT 13.2 Sec. (12.2-14.9) 03/21/17 11:21 INR 0.95 (0.87-1.13) 03/21/17 11:21 APTT 30.9 Sec. (24.2-36.6) 03/21/17 11:21 Sodium 143 mmol/L (137-145) 03/23/17 06:09 Potassium 4.6 mmol/L (3.6-5.0) 03/23/17 06:09 Chloride 99.6 mmol/L (98-107) 03/23/17 06:09 Carbon Dioxide 29 mmol/L (22-30) 03/23/17 06:09 Anion Gap 19 mmol/L 03/23/17 06:09 BUN 47 mg/dL (7-17) H 03/23/17 06:09 Creatinine 4.6 mg/dL (0.7-1.2) H 03/23/17 06:09 Estimated GFR 12 ml/min 03/23/17 06:09 BUN/Creatinine Ratio 10 % 03/23/17 06:09 Glucose 86 mg/dL (65-100) 03/23/17 06:09 POC Glucose 312 (70-105) H 03/23/17 11:52 Calcium 8.4 mg/dL (8.4-10.2) 03/23/17 06:09 Phosphorus 3.30 mg/dL (2.5-4.5) 03/21/17 11:21 Total Bilirubin 0.20 mg/dL (0.1-1.2) 03/21/17 11:21 Direct Bilirubin < 0.2 mg/dL (0-0.2) 03/21/17 11:21 Indirect Bilirubin 0.0 mg/dL 03/21/17 11:21 AST 13 units/L (5-40) 03/21/17 11:21 ALT 14 units/L (7-56) 03/21/17 11:21 Alkaline Phosphatase 101 units/L (35-129) 03/21/17 11:21 NT-Pro-B Natriuret Pep 5099 pg/mL (0-900) H 03/21/17 11:21 Total Protein 7.0 g/dL (6.3-8.2) 03/21/17 11:21 Albumin 3.8 g/dL (3.9-5) L 03/21/17 11:21 Albumin/Globulin Ratio 1.2 % 03/21/17 11:21 Lipase 15 units/L (13-60) 03/21/17 11:21 Urine Color Yellow (Yellow) 03/21/17 12:10 Urine Turbidity Clear (Clear) 03/21/17 12:10 Urine pH 5.0 (5.0-7.0) 03/21/17 12:10 Ur Specific [place] 1.011 (1.003-1.030) 03/21/17 12:10 Urine Protein 100 mg/dl mg/dL (Negative) 03/21/17 12:10 Urine Glucose (UA) Neg mg/dL (Negative) 03/21/17 12:10 Urine Ketones Neg mg/dL (Negative) 03/21/17 12:10 Urine Blood Sm (Negative) 03/21/17 12:10 Urine Nitrite Neg (Negative) 03/21/17 12:10 Urine Bilirubin Neg (Negative) 03/21/17 12:10 Urine Urobilinogen < 2.0 mg/dL (<2.0) 03/21/17 12:10 Ur Leukocyte Esterase Lg (Negative) 03/21/17 12:10 Urine WBC (Auto) > 182.0 /HPF (0.0-6.0) H 03/21/17 12:10 Urine RBC (Auto) 39.0 /HPF (0.0-6.0) 03/21/17 12:10 U Epithel Cells (Auto) 3.0 /HPF (0-13.0) 03/21/17 12:10 Urine Bacteria (Auto) 4+ /HPF (Negative) 03/21/17 12:10 Urine WBC Clumps 3+ /HPF 03/21/17 12:10
[2017-03-23] MEDS: ROCEPHIN/NS 1 GM/50 ML 1 GM/50 ML BAG IV SCH (12:10)
[2017-03-23] MEDS ORDERED: LEVAQUIN 750MG/150ML 750 MG/150 ML BAG IV SCH (15:00)
[2017-03-23] MEDS: LEVAQUIN 500MG/100ML 500 MG/100 ML BAG IV SCH (15:57)
[2017-03-23] MEDS: ZOCOR PO SCH (22:03)
[2017-03-23] MEDS: HEPARIN SUB-Q SCH (22:03)
[2017-03-24 07:33] LABS: Hematocrit 28.9 % (30.3-42.9); Hemoglobin 9.7 gm/dl (10.1-14.3); Mean Corpuscular HGB Conc 34 % (30-34); Mean Corpuscular Hemoglobin 32 pg (28-32); Mean Corpuscular Volume 95 fl (79-97); Platelet Count 262 K/mm3 (140-440); Red Blood Count 3.03 M/mm3 (3.65-5.03); Red Cell Distribution Width 15.8 % (13.2-15.2); White Blood Count 7.3 K/mm3 (4.5-11.0)
[2017-03-24 07:40] LABS: Calcium 8.5 mg/dL (8.4-10.2); Chloride 97.8 mmol/L (98-107); Potassium 4.6 mmol/L (3.6-5.0)
[2017-03-24] MEDS: NOVOLOG SUB-Q SCH ×4 (07:54→23:00)
[2017-03-24] MEDS: RENVELA PO SCH ×3 (08:59→17:13)
--- NOTE | 2017-03-24 09:04 | Progress Note ---
Assessment and Plan Impression * End-stage renal disease on maintenance hemodialysis * Pneumonia * Dementia * Hypertension * Diabetes * Anemia secondary to ESRD * Urinary retention Recommendations * Patient had uneventful hemodialysis on Friday * Keep her on Friday, Friday and dialysis schedule for now * Antibiotic treatment as per primary team * Adjust diet and meds for ESRD state * No IV, BP venipuncture in her access arm * Procrit with dialysis * Binders with diet * Approximately 250 mL of cloudy urine was collected after Churchill catheter was placed. Follow-up culture results. Patient is currently on Rocephin Subjective Date of service: 03/24/17 Interval history: Patient is awake and alert. Comfortable. Denies any shortness of breath. No nausea or vomiting. No abdominal pain Objective - Vital Signs Vital signs: Vital Signs - 12hr 03/23/17 03/24/17 21:03 08:28 Temperature 98.1 F 99.4 F Pulse Rate 76 73 Respiratory 12 18 Rate Blood Pressure 150/68 146/55 O2 Sat by Pulse 93 97 Oximetry - General Appearance General appearance: chronically ill, frail, other (pleasant -[place] female) EENT: PERRL, mucous membranes moist Neck: no JVD, no thyromegaly Respiratory: Present: Clear to Ascultation Cardiology: regular, normal heart rate Gastrointestinal: normal, normoactive bowel sounds Integumentary: no rash, warm and dry, other (AV fistula in her left upper arm. Good bruit and thrill) - Lab 03/24/17 05:52 03/24/17 05:52 Most recent lab results Calcium 8.5 mg/dL (8.4-10.2) 03/24/17 05:52 Phosphorus 3.30 mg/dL (2.5-4.5) 03/21/17 11:21
[2017-03-24] MEDS: HEPARIN SUB-Q SCH ×2 (09:59→23:16)
[2017-03-24] MEDS: ZESTRIL PO SCH ×2 (09:59→15:00)
[2017-03-24] MEDS: ASPIRIN PO SCH ×2 (09:59→15:00)
[2017-03-24] MEDS: SODIUM BICARBONATE PO SCH ×2 (10:00→23:14)
[2017-03-24] MEDS: NORVASC PO SCH ×2 (10:00→15:01)
--- NOTE | 2017-03-24 10:11 | Progress Note ---
Assessment and Plan Assessment and plan: Patient is a 66 yo woman from [facility] from ESRD on HD MWF, DM type 2, Dementia, hypertension, dyslipidemia and CVA who presented to ED with abd pains and AMS. CXR read as mild perihilar edema. CT abd/pelvis without contrast read as bilateral lung infiltrates and bilateral pleural effusions, correlate for pneumonia, CHF is less likely, fecal retention, distended bladder, correlate for bladder outlet obstruction. -Acute hypoxic respiratory failure, poa on 3.5 liters o2: continue o2, nebs, trying to wean o2 -Bilateral Aspiration pneumonia with sepsis, poa: treat with abx, follow cultures -ESRD: Hemodialysis needed, renal is following -Hypoglycemia, pt eats sporadically: held long acting insulins, given dextrose, now BG is very labile, add ADA -Fecal retention: dulcolax suppository -Acute metabolic encephalopathy,poa related to the above -Functional quadiplegia due to dementia and stroke, poa: physical therapy -DVT prophylaxis: added sq heparin -Bladder outlet obstruction: check bladder scan==>purulent drainage/Acute cystitis, poa and retention, so bonilla inserted and urine ctx sent 03/22/17 18:28 - Nurse Note by ODILON ALLEN Acct Num: [id number] : 1950 Patient Age: 66 bonilla cath passed per orders , cath drained about 250ml of purulent looking urine spec, sent for culture. bladder scan done after urine passed was <10mls. Initialized on 03/22/17 18:28 - END OF NOTE Await urine ctx to come back, on iv rocephin for uti and renal dose Levaquin q48hr for the pneumonia Follow up urine ctx. I called [phone] and spoke with Tricia. Also, pt on O2 which is new, will try to wean History Interval history: Patient was seen and examined. Follow-up on current diagnosis/ams resolved. Overnight uneventful. The abd pains resolved with bonilla. Imaging, nursing note , chart, labs and old chart reviewed. Hospitalist Physical - Physical exam Narrative exam: GEN: Thin frail chronically debilitated woman BMI 22 NAD, AWAKE, ALERT, ORIENTATED 2 HEENT: NCAT, EOMI, PERRL, OP Clear NECK: supple, no adenopathy, no thyromegaly, no JVD CVS/HEART: RRR, NORMAL S1S2, NO JVD, pulses present bilaterally CHEST/LUNGS: CTA B, Symmetrical chest expansion, good air entry bilaterally GI/Abdomen: soft, nondistended, diffuse tenderness good bowel sounds, no guarding or rebound /Bladder: no suprapubic tenderness, no CVA or paraspinal tenderness EXT/Skin: no c/c/e, no obvious rash MSK: Bilaterally is contracted Neuro: CN 2-12 grossly intact, no new focal deficits Psych: calm - Constitutional Vitals: Temp Pulse Resp BP Pulse Ox 98.6 F 72 18 170/68 97 03/24/17 09:30 03/24/17 09:45 03/24/17 09:30 03/24/17 09:45 03/24/17 08:28 General appearance: Absent: obese Results - Labs CBC & Chem 7: 03/24/17 05:52 03/24/17 05:52 Labs: Laboratory Last Values WBC 7.3 K/mm3 (4.5-11.0) 03/24/17 05:52 RBC 3.03 M/mm3 (3.65-5.03) L 03/24/17 05:52 Hgb 9.7 gm/dl (10.1-14.3) L 03/24/17 05:52 Hct 28.9 % (30.3-42.9) L 03/24/17 05:52 MCV 95 fl (79-97) 03/24/17 05:52 MCH 32 pg (28-32) 03/24/17 05:52 MCHC 34 % (30-34) 03/24/17 05:52 RDW 15.8 % (13.2-15.2) H 03/24/17 05:52 Plt Count 262 K/mm3 (140-440) 03/24/17 05:52 Lymph % (Auto) 25.3 % (13.4-35.0) 03/22/17 04:59 [place] % (Auto) 5.6 % (0.0-7.3) 03/22/17 04:59 Eos % (Auto) 0.2 % (0.0-4.3) 03/22/17 04:59 Baso % (Auto) 0.6 % (0.0-1.8) 03/22/17 04:59 Lymph # 3.0 K/mm3 (1.2-5.4) 03/22/17 04:59 [place] # 0.7 K/mm3 (0.0-0.8) 03/22/17 04:59 Eos # 0.0 K/mm3 (0.0-0.4) 03/22/17 04:59 Baso # 0.1 K/mm3 (0.0-0.1) 03/22/17 04:59 Seg Neutrophils % 68.3 % (40.0-70.0) 03/22/17 04:59 Seg Neutrophils # 8.1 K/mm3 (1.8-7.7) H 03/22/17 04:59 PT 13.2 Sec. (12.2-14.9) 03/21/17 11:21 INR 0.95 (0.87-1.13) 03/21/17 11:21 APTT 30.9 Sec. (24.2-36.6) 03/21/17 11:21 Sodium 142 mmol/L (137-145) 03/24/17 05:52 Potassium 4.6 mmol/L (3.6-5.0) 03/24/17 05:52 Chloride 97.8 mmol/L (98-107) L 03/24/17 05:52 Carbon Dioxide 28 mmol/L (22-30) 03/24/17 05:52 Anion Gap 21 mmol/L 03/24/17 05:52 BUN 59 mg/dL (7-17) H 03/24/17 05:52 Creatinine 5.4 mg/dL (0.7-1.2) H 03/24/17 05:52 Estimated GFR 10 ml/min 03/24/17 05:52 BUN/Creatinine Ratio 11 % 03/24/17 05:52 Glucose 99 mg/dL (65-100) 03/24/17 05:52 POC Glucose 96 (70-105) 03/24/17 05:20 Calcium 8.5 mg/dL (8.4-10.2) 03/24/17 05:52 Phosphorus 3.30 mg/dL (2.5-4.5) 03/21/17 11:21 Total Bilirubin 0.20 mg/dL (0.1-1.2) 03/21/17 11:21 Direct Bilirubin < 0.2 mg/dL (0-0.2) 03/21/17 11:21 Indirect Bilirubin 0.0 mg/dL 03/21/17 11:21 AST 13 units/L (5-40) 03/21/17 11:21 ALT 14 units/L (7-56) 03/21/17 11:21 Alkaline Phosphatase 101 units/L (35-129) 03/21/17 11:21 NT-Pro-B Natriuret Pep 5099 pg/mL (0-900) H 03/21/17 11:21 Total Protein 7.0 g/dL (6.3-8.2) 03/21/17 11:21 Albumin 3.8 g/dL (3.9-5) L 03/21/17 11:21 Albumin/Globulin Ratio 1.2 % 03/21/17 11:21 Lipase 15 units/L (13-60) 03/21/17 11:21 Urine Color Yellow (Yellow) 03/21/17 12:10 Urine Turbidity Clear (Clear) 03/21/17 12:10 Urine pH 5.0 (5.0-7.0) 03/21/17 12:10 Ur Specific [place] 1.011 (1.003-1.030) 03/21/17 12:10 Urine Protein 100 mg/dl mg/dL (Negative) 03/21/17 12:10 Urine Glucose (UA) Neg mg/dL (Negative) 03/21/17 12:10 Urine Ketones Neg mg/dL (Negative) 03/21/17 12:10 Urine Blood Sm (Negative) 03/21/17 12:10 Urine Nitrite Neg (Negative) 03/21/17 12:10 Urine Bilirubin Neg (Negative) 03/21/17 12:10 Urine Urobilinogen < 2.0 mg/dL (<2.0) 03/21/17 12:10 Ur Leukocyte Esterase Lg (Negative) 03/21/17 12:10 Urine WBC (Auto) > 182.0 /HPF (0.0-6.0) H 03/21/17 12:10 Urine RBC (Auto) 39.0 /HPF (0.0-6.0) 03/21/17 12:10 U Epithel Cells (Auto) 3.0 /HPF (0-13.0) 03/21/17 12:10 Urine Bacteria (Auto) 4+ /HPF (Negative) 03/21/17 12:10 Urine WBC Clumps 3+ /HPF 03/21/17 12:10
[2017-03-24] MEDS ORDERED: NACL 0.9 (PRIMING MACHINE ONLY DIALYSIS) MC ONE (12:42)
[2017-03-24] MEDS: PROCRIT IV PRN (12:42)
[2017-03-24] MEDS: ROCEPHIN/NS 1 GM/50 ML 1 GM/50 ML BAG IV SCH (15:00)
[2017-03-24] MEDS: ZOCOR PO SCH (23:15)
[2017-03-25 06:08] LABS: Hematocrit 31.1 % (30.3-42.9); Hemoglobin 10.3 gm/dl (10.1-14.3); Mean Corpuscular HGB Conc 33 % (30-34); Mean Corpuscular Hemoglobin 31 pg (28-32); Mean Corpuscular Volume 95 fl (79-97); Platelet Count 269 K/mm3 (140-440); Red Blood Count 3.29 M/mm3 (3.65-5.03); Red Cell Distribution Width 15.2 % (13.2-15.2); White Blood Count 6.3 K/mm3 (4.5-11.0)
[2017-03-25 06:32] LABS: Calcium 8.8 mg/dL (8.4-10.2); Chloride 98.5 mmol/L (98-107); Potassium 4.4 mmol/L (3.6-5.0)
[2017-03-25] MEDS: NOVOLOG SUB-Q SCH ×4 (07:41→22:03)
[2017-03-25] MEDS: RENVELA PO SCH ×3 (08:23→17:33)
[2017-03-25] MEDS: ASPIRIN PO SCH (09:33)
[2017-03-25] MEDS: SODIUM BICARBONATE PO SCH ×2 (09:33→22:03)
[2017-03-25] MEDS: ZESTRIL PO SCH (09:33)
[2017-03-25] MEDS: NORVASC PO SCH (09:34)
[2017-03-25] MEDS: HEPARIN SUB-Q SCH ×2 (09:35→22:03)
--- NOTE | 2017-03-25 09:41 | Progress Note ---
Assessment and Plan Impression * End-stage renal disease on maintenance hemodialysis * Pneumonia * Dementia * Hypertension * Diabetes * Anemia secondary to ESRD * Urinary retention Recommendations * Patient had uneventful hemodialysis yesterday * Keep her on Friday, Friday and dialysis schedule for now * Antibiotic treatment as per primary team * Adjust diet and meds for ESRD state * No IV, BP venipuncture in her access arm * Procrit with dialysis * Binders with diet * Shall discontinue her Churchill catheter for now Subjective Date of service: 03/25/17 Interval history: Patient is much more alert today. Having breakfast without any difficulty. Denies any shortness of breath. No nausea or vomiting Objective - Vital Signs Vital signs: Vital Signs - 12hr 03/25/17 03/25/17 03/25/17 00:15 07:52 09:33 Temperature 97.9 F 98.0 F Pulse Rate 70 71 71 Respiratory 20 18 Rate Blood Pressure 152/73 157/67 157/67 O2 Sat by Pulse 100 100 Oximetry 03/25/17 09:34 Temperature Pulse Rate 71 Respiratory Rate Blood Pressure 157/67 O2 Sat by Pulse Oximetry - General Appearance General appearance: chronically ill, frail, other (pleasant -Portuguese female) EENT: PERRL, mucous membranes moist Neck: no JVD, no thyromegaly, no carotid bruit, supple Respiratory: Present: Clear to Ascultation Cardiology: regular, normal heart rate Gastrointestinal: normal, normoactive bowel sounds Integumentary: no rash, other (AV fistula in her left upper arm. Good bruit and thrill) - Lab 03/25/17 04:40 03/25/17 04:40 Most recent lab results Calcium 8.8 mg/dL (8.4-10.2) 03/25/17 04:40 Phosphorus 3.30 mg/dL (2.5-4.5) 03/21/17 11:21
[2017-03-25] MEDS: ROCEPHIN/NS 1 GM/50 ML 1 GM/50 ML BAG IV SCH (13:05)
[2017-03-25] MEDS: LEVAQUIN 500MG/100ML 500 MG/100 ML BAG IV SCH (14:11)
--- NOTE | 2017-03-25 16:44 | Discharge Summary ---
Providers - Providers Date of Admission: 03/21/17 14:23 Attending physician: MARICRUZ CM MD 03/22/17 15:18 Physical Therapy Evaluation and Treat [CONS] Routine Comment: Reason For Exam: limited Range of motion, cva Primary care physician: GAMING DIRECTOR Hospitalization Reason for admission: altered mental status Condition: Stable Hospital course: Patient is a 66 yo woman from [facility] from ESRD on HD MWF, DM type 2, Dementia, hypertension, dyslipidemia and CVA who presented to ED with abd pains and AMS. CXR read as mild perihilar edema. CT abd/pelvis without contrast read as bilateral lung infiltrates and bilateral pleural effusions, correlate for pneumonia, CHF is less likely, fecal retention, distended bladder, correlate for bladder outlet obstruction. Bonilla catheter was discontinued. -Acute hypoxic respiratory failure, poa on 3.5 liters o2: continue o2, nebs, this was weaned off prior to discharge. -Bilateral Aspiration pneumonia with sepsis, poa: treat with abx, follow cultures. Blood cultures were unremarkable. Patient was treated with Levaquin for total of 7 days. -ESRD: Hemodialysis needed, renal is following -Hypoglycemia, pt eats sporadically: held long acting insulins, given dextrose, now BG is very labile, add ADA -Fecal retention: dulcolax suppository -Acute metabolic encephalopathy,poa related to the above. This had resolved. Patient is conversational. She appears to be back to her baseline -Functional quadiplegia due to dementia and stroke, poa: physical therapy -Acute cystitis-secondary to enterococcus. We'll treat the patient's with nitrofurantoin 100 mg twice a day 10 days -Bladder outlet obstruction: check bladder scan==>purulent drainage/Acute cystitis, poa and retention, so bonilla inserted and now discontinued. -Secondary hyperparathyroidism -Dementia AT BASELINE -Hypertension STABLE -Diabetes: WILL DECREASE DOSE OF CORRECTION INSULIN ON DISCHARGE -Anemia secondary to ESRD [facility] Time spent for discharge: 35 MINS Core Measure Documentation - Palliative Care Palliative Care/ Comfort Measures: Not Applicable - Core Measures Any of the following diagnoses?: none - VTE Discharge Requirements Deep Vein Thrombosis/Pulmonary Embolism Present on Admission: No Exam - Physical Exam Narrative exam: GEN: Thin frail chronically debilitated woman BMI 22 NAD, AWAKE, ALERT, ORIENTATED 3 HEENT: NCAT, EOMI, PERRL, OP Clear NECK: supple, no adenopathy, no thyromegaly, no JVD CVS/HEART: RRR, NORMAL S1S2, NO JVD, pulses present bilaterally CHEST/LUNGS: CTA B, Symmetrical chest expansion, good air entry bilaterally GI/Abdomen: soft, nondistended, diffuse tenderness good bowel sounds, no guarding or rebound /Bladder: no suprapubic tenderness, no CVA or paraspinal tenderness EXT/Skin: no c/c/e, no obvious rash MSK: Bilaterally is contracted Neuro: CN 2-12 grossly intact, no new focal deficits Psych: calm - Constitutional Vitals: Temp Pulse Resp BP Pulse Ox 98.0 F 71 18 157/67 95 03/25/17 07:52 03/25/17 09:34 03/25/17 07:52 03/25/17 09:34 03/25/17 08:58 Plan Activity: advance as tolerated, fall precautions Diet: low salt Special Instructions: record daily weights, record daily BP diary Follow up with: PRIMARY CARE,MD [Primary Care Provider] - 3-5 Days Prescriptions: HYDROcodone/APAP 5-325 [[place] 5-325 mg TAB] 1 each PO Q4HR PRN #10 tablet PRN Reason: Pain Insulin Glargine,Hum.rec.anlog [Lantus] 12.5 units SQ HS 30 Days Levofloxacin [Levaquin] 750 mg PO QDAY #7 tablet Nitrofurantoin [place]/M-Cryst [Macrobid CAP] 100 mg PO Q12HR #20 capsule Sevelamer Carbonate [Renvela] 1,600 mg PO AC #30 tablet Sodium Bicarbonate 650 mg PO BID #30 tablet
--- NOTE | 2017-03-25 16:58 | Progress Note ---
Assessment and Plan Assessment and plan: Patient is a 66 yo woman from [facility] from ESRD on HD MWF, DM type 2, Dementia, hypertension, dyslipidemia and CVA who presented to ED with abd pains and AMS. CXR read as mild perihilar edema. CT abd/pelvis without contrast read as bilateral lung infiltrates and bilateral pleural effusions, correlate for pneumonia, CHF is less likely, fecal retention, distended bladder, correlate for bladder outlet obstruction. Bonilla catheter was discontinued. -Acute hypoxic respiratory failure, poa on 3.5 liters o2: continue o2, nebs, this was weaned off prior to discharge. -Bilateral Aspiration pneumonia with sepsis, poa: treat with abx, follow cultures. Blood cultures were unremarkable. Patient was treated with Levaquin for total of 7 days. -ESRD: Hemodialysis needed, renal is following -Hypoglycemia, pt eats sporadically: held long acting insulins, given dextrose, now BG is very labile, add ADA -Fecal retention: dulcolax suppository -Acute metabolic encephalopathy,poa related to the above. This had resolved today. Patient is conversational. She appears to be back to her baseline -Functional quadiplegia due to dementia and stroke, poa: physical therapy -Acute cystitis-secondary to enterococcus. We'll treat the patient's with nitrofurantoin 100 mg twice a day 10 days -Bladder outlet obstruction: check bladder scan==>purulent drainage/Acute cystitis, poa and retention, so bonilla inserted and urine ctx sent -Dementia AT BASELINE -Hypertension STABLE -Diabetes: WILL DECREASE DOSE OF SKILLED NURSING INSULIN ON DISCHARGE -Anemia secondary to ESRD Cultures just came back if we can get a hold of the admission department at the facility the patient will be able to be discharged today. History Interval history: Patient seen and examined in no acute distress. AAO X3 Hospitalist Physical - Physical exam Narrative exam: GEN: Thin frail chronically debilitated woman BMI 22 NAD, AWAKE, ALERT, ORIENTATED 3 HEENT: NCAT, EOMI, PERRL, OP Clear NECK: supple, no adenopathy, no thyromegaly, no JVD CVS/HEART: RRR, NORMAL S1S2, NO JVD, pulses present bilaterally CHEST/LUNGS: CTA B, Symmetrical chest expansion, good air entry bilaterally GI/Abdomen: soft, nondistended, diffuse tenderness good bowel sounds, no guarding or rebound /Bladder: no suprapubic tenderness, no CVA or paraspinal tenderness EXT/Skin: no c/c/e, no obvious rash MSK: Bilaterally is contracted Neuro: CN 2-12 grossly intact, no new focal deficits Psych: calm - Constitutional Vitals: Temp Pulse Resp BP Pulse Ox 98.0 F 71 18 157/67 95 03/25/17 07:52 03/25/17 09:34 03/25/17 07:52 03/25/17 09:34 03/25/17 08:58 General appearance: Absent: obese Results - Labs CBC & Chem 7: 03/25/17 04:40 03/25/17 04:40 Labs: Laboratory Last Values WBC 6.3 K/mm3 (4.5-11.0) 03/25/17 04:40 RBC 3.29 M/mm3 (3.65-5.03) L 03/25/17 04:40 Hgb 10.3 gm/dl (10.1-14.3) 03/25/17 04:40 Hct 31.1 % (30.3-42.9) 03/25/17 04:40 MCV 95 fl (79-97) 03/25/17 04:40 MCH 31 pg (28-32) 03/25/17 04:40 MCHC 33 % (30-34) 03/25/17 04:40 RDW 15.2 % (13.2-15.2) 03/25/17 04:40 Plt Count 269 K/mm3 (140-440) 03/25/17 04:40 Lymph % (Auto) 25.3 % (13.4-35.0) 03/22/17 04:59 [place] % (Auto) 5.6 % (0.0-7.3) 03/22/17 04:59 Eos % (Auto) 0.2 % (0.0-4.3) 03/22/17 04:59 Baso % (Auto) 0.6 % (0.0-1.8) 03/22/17 04:59 Lymph # 3.0 K/mm3 (1.2-5.4) 03/22/17 04:59 [place] # 0.7 K/mm3 (0.0-0.8) 03/22/17 04:59 Eos # 0.0 K/mm3 (0.0-0.4) 03/22/17 04:59 Baso # 0.1 K/mm3 (0.0-0.1) 03/22/17 04:59 Seg Neutrophils % 68.3 % (40.0-70.0) 03/22/17 04:59 Seg Neutrophils # 8.1 K/mm3 (1.8-7.7) H 03/22/17 04:59 PT 13.2 Sec. (12.2-14.9) 03/21/17 11:21 INR 0.95 (0.87-1.13) 03/21/17 11:21 APTT 30.9 Sec. (24.2-36.6) 03/21/17 11:21 Sodium 143 mmol/L (137-145) 03/25/17 04:40 Potassium 4.4 mmol/L (3.6-5.0) 03/25/17 04:40 Chloride 98.5 mmol/L (98-107) 03/25/17 04:40 Carbon Dioxide 26 mmol/L (22-30) 03/25/17 04:40 Anion Gap 23 mmol/L 03/25/17 04:40 BUN 33 mg/dL (7-17) H 03/25/17 04:40 Creatinine 3.5 mg/dL (0.7-1.2) H 03/25/17 04:40 Estimated GFR 16 ml/min 03/25/17 04:40 BUN/Creatinine Ratio 9 % 03/25/17 04:40 Glucose 86 mg/dL (65-100) 03/25/17 04:40 POC Glucose 140 (70-105) H 03/25/17 12:23 Calcium 8.8 mg/dL (8.4-10.2) 03/25/17 04:40 Phosphorus 3.30 mg/dL (2.5-4.5) 03/21/17 11:21 Total Bilirubin 0.20 mg/dL (0.1-1.2) 03/21/17 11:21 Direct Bilirubin < 0.2 mg/dL (0-0.2) 03/21/17 11:21 Indirect Bilirubin 0.0 mg/dL 03/21/17 11:21 AST 13 units/L (5-40) 03/21/17 11:21 ALT 14 units/L (7-56) 03/21/17 11:21 Alkaline Phosphatase 101 units/L (35-129) 03/21/17 11:21 NT-Pro-B Natriuret Pep 5099 pg/mL (0-900) H 03/21/17 11:21 Total Protein 7.0 g/dL (6.3-8.2) 03/21/17 11:21 Albumin 3.8 g/dL (3.9-5) L 03/21/17 11:21 Albumin/Globulin Ratio 1.2 % 03/21/17 11:21 Lipase 15 units/L (13-60) 03/21/17 11:21 Urine Color Yellow (Yellow) 03/21/17 12:10 Urine Turbidity Clear (Clear) 03/21/17 12:10 Urine pH 5.0 (5.0-7.0) 03/21/17 12:10 Ur Specific [place] 1.011 (1.003-1.030) 03/21/17 12:10 Urine Protein 100 mg/dl mg/dL (Negative) 03/21/17 12:10 Urine Glucose (UA) Neg mg/dL (Negative) 03/21/17 12:10 Urine Ketones Neg mg/dL (Negative) 03/21/17 12:10 Urine Blood Sm (Negative) 03/21/17 12:10 Urine Nitrite Neg (Negative) 03/21/17 12:10 Urine Bilirubin Neg (Negative) 03/21/17 12:10 Urine Urobilinogen < 2.0 mg/dL (<2.0) 03/21/17 12:10 Ur Leukocyte Esterase Lg (Negative) 03/21/17 12:10 Urine WBC (Auto) > 182.0 /HPF (0.0-6.0) H 03/21/17 12:10 Urine RBC (Auto) 39.0 /HPF (0.0-6.0) 03/21/17 12:10 U Epithel Cells (Auto) 3.0 /HPF (0-13.0) 03/21/17 12:10 Urine Bacteria (Auto) 4+ /HPF (Negative) 03/21/17 12:10 Urine WBC Clumps 3+ /HPF 03/21/17 12:10
[2017-03-25] MEDS: ZOCOR PO SCH (22:03)
[2017-03-26 07:36] LABS: Hematocrit 33.8 % (30.3-42.9); Hemoglobin 10.6 gm/dl (10.1-14.3); Mean Corpuscular HGB Conc 31 % (30-34); Mean Corpuscular Hemoglobin 30 pg (28-32); Mean Corpuscular Volume 95 fl (79-97); Platelet Count 284 K/mm3 (140-440); Red Blood Count 3.54 M/mm3 (3.65-5.03); Red Cell Distribution Width 15.3 % (13.2-15.2); White Blood Count 5.7 K/mm3 (4.5-11.0)
[2017-03-26 07:38] LABS: Calcium 8.9 mg/dL (8.4-10.2); Chloride 96.1 mmol/L (98-107); Potassium 4.4 mmol/L (3.6-5.0)
--- NOTE | 2017-03-26 08:58 | Progress Note ---
Assessment and Plan Assessment: * End stage renal disease * Altered mental status * UTI - Enterococcus * Anemia secondary to ESRD * Secondary hyperparathyroidism Plan: * Continue dialysis MWF * UF as tolerated * Abx per primary team - Quentin * Epogen TIW * Renal diet Subjective Date of service: 03/26/17 Interval history: Patient has no complaint today. Denies SOB. Eating well. Objective - Vital Signs Vital signs: Vital Signs - 12hr 03/25/17 03/26/17 23:17 07:23 Temperature 98.4 F 98.2 F Pulse Rate 66 69 Respiratory 18 18 Rate Blood Pressure 157/69 172/77 O2 Sat by Pulse 100 97 Oximetry - General Appearance General appearance: well-developed, well-nourished EENT: ATNC Respiratory: Present: Clear to Ascultation Cardiology: regular, S1S2 Gastrointestinal: normal, no tenderness, no distended Musculoskeletal: other (no edema) Psychiatric: cooperative - Lab 03/26/17 07:09 03/26/17 07:09 Most recent lab results Calcium 8.9 mg/dL (8.4-10.2) 03/26/17 07:09 Phosphorus 3.30 mg/dL (2.5-4.5) 03/21/17 11:21
[2017-03-26] MEDS: NOVOLOG SUB-Q SCH ×3 (09:11→20:25)
[2017-03-26] MEDS: RENVELA PO SCH ×3 (09:30→20:25)
[2017-03-26] MEDS: ROCEPHIN/NS 1 GM/50 ML 1 GM/50 ML BAG IV SCH (13:25)
[2017-03-26] MEDS ORDERED: NACL 0.9 (PRIMING MACHINE ONLY DIALYSIS) MC ONE (13:32)
[2017-03-26] MEDS: HEPARIN SUB-Q SCH (18:44)
[2017-03-26] MEDS: ASPIRIN PO SCH (18:44)
[2017-03-26] MEDS: SODIUM BICARBONATE PO SCH (18:45)
[2017-03-26] MEDS: NORVASC PO SCH (18:50)
[2017-03-26] MEDS: ZESTRIL PO SCH (18:50)
[2017-03-26 19:42] VITALS: BP 141/60
[2017-03-26] MEDS ORDERED: PRAVACHOL PO SCH (22:00)
== END 2017-03-26 21:20 | DRG 871 ==
LOC: ED 10:11 → 3A 14:23
PROVIDERS: ADMIT Internal Medicine; ATTEND Internal Medicine
PROC: 5A1D70Z Performance of Urinary Filtration, Intermittent, Less than 6 Hours Per Day (ICD-10-PCS; 2017-03-21)
PROC: 3E0234Z Introduction of Serum, Toxoid and Vaccine into Muscle, Percutaneous Approach (ICD-10-PCS; principal; 2017-03-23)
PROC: 5A1D70Z Performance of Urinary Filtration, Intermittent, Less than 6 Hours Per Day (ICD-10-PCS; 2017-03-24)
PROC: 5A1D70Z Performance of Urinary Filtration, Intermittent, Less than 6 Hours Per Day (ICD-10-PCS; 2017-03-26)
DX: A41.9 Sepsis, unspecified organism (principal); N18.6 End stage renal disease; J96.01 Acute respiratory failure with hypoxia; J69.0 Pneumonitis due to inhalation of food and vomit; G93.41 Metabolic encephalopathy; R53.2 Functional quadriplegia; I13.2 Hypertensive heart and chronic kidney disease with heart failure and with stage 5 chronic kidney disease, or end stage renal disease; N30.00 Acute cystitis without hematuria; N25.81 Secondary hyperparathyroidism of renal origin; I50.9 Heart failure, unspecified; E11.22 Type 2 diabetes mellitus with diabetic chronic kidney disease; F03.90 Unspecified dementia, unspecified severity, without behavioral disturbance, psychotic disturbance, mood disturbance, and anxiety; N32.0 Bladder-neck obstruction; D63.1 Anemia in chronic kidney disease; E78.5 Hyperlipidemia, unspecified; E11.649 Type 2 diabetes mellitus with hypoglycemia without coma; B95.2 Enterococcus as the cause of diseases classified elsewhere; K59.00 Constipation, unspecified; Z23 Encounter for immunization; Z79.899 Other long term (current) drug therapy; Z79.82 Long term (current) use of aspirin; Z86.73 Personal history of transient ischemic attack (TIA), and cerebral infarction without residual deficits; Z83.3 Family history of diabetes mellitus; Z82.49 Family history of ischemic heart disease and other diseases of the circulatory system; Z95.828 Presence of other vascular implants and grafts; Z79.4 Long term (current) use of insulin
CPT/HCPCS: 36415; 71010; 74176; 80048; 80074; 81001; 82947; 82962; 83690; 83880; 84100; 85025; 85027; 85610; 85730; 87040; 87076; 87086; 87186; 90686; 90732; 93005; 93010; 94760; 96365; 96375; G8978-GP; G8979-GP; G8980-GP; J0696; J0885; J1644; J1815; J1818; J1940; J1956; J7030

== ENCOUNTER 2017-06-23 12:37 | Outpatient (CLI) | payer MEDICARE ==
--- NOTE | 2017-06-23 14:45 | Fluoroscopy Report ---
MODIFIED BARIUM SWALLOW INDICATION: Dysphagia. COMPARISON: None similar. FINDINGS: Fluoroscopy with video provided by radiologist for speech therapist to assess the swallowing mechanism. Food items of various consistencies given. IMPRESSION: Successful modified barium swallow. Please refer to detailed report from speech pathologist. Thank you for the opportunity to participate in this patient's care.
== END 2017-06-23 12:38 | disposition home or self-care (01) ==
LOC: PT 12:37
PROVIDERS: ATTEND Internal Medicine
DX: R13.12 Dysphagia, oropharyngeal phase (principal); I12.0 Hypertensive chronic kidney disease with stage 5 chronic kidney disease or end stage renal disease; N18.6 End stage renal disease; I69.30 Unspecified sequelae of cerebral infarction; E11.9 Type 2 diabetes mellitus without complications; D64.9 Anemia, unspecified; F01.50 Vascular dementia, unspecified severity, without behavioral disturbance, psychotic disturbance, mood disturbance, and anxiety; R27.9 Unspecified lack of coordination; R26.9 Unspecified abnormalities of gait and mobility; Z99.2 Dependence on renal dialysis
CPT/HCPCS: 74230; 92611; G8996; G8997

== ENCOUNTER 2018-07-30 12:18 | Inpatient (IN) | payer MEDICARE ==
--- NOTE | 2018-07-30 14:03 | Emergency Department Report ---
ED General Adult HPI - General Chief complaint: High BP Stated complaint: HYPERTENSION Time Seen by Provider: 07/30/18 13:15 Source: EMS Mode of arrival: Stretcher Limitations: Physical Limitation - History of Present Illness Initial comments: This 70-year-old female with history of ESRD, CVA presents to ED due to elevated blood pressure during dialysis. Received 40 minutes of dialysis. Patient's blood pressure spiked to 224/105. EMS was called and patient brought to the ED. Patient is reportedly nonverbal. Home Insurance Agent: Dr Sabillon -: This afternoon Severity scale (0 -10): 0 Associated Symptoms: denies: syncope - Related Data Previous Rx's Medication Instructions Recorded Last Taken Type levETIRAcetam [Keppra TAB] 250 mg PO BID #60 tablet 01/23/18 Unknown Rx HYDROcodone/APAP 5-325 [[place] 1 each PO Q4H PRN #15 tablet 05/01/18 Unknown Rx 5-325 mg TAB] Lisinopril [Zestril TAB] 20 mg PO DAILY tablet 05/01/18 Unknown Rx levETIRAcetam [Keppra TAB] 250 mg PO BID tablet 05/01/18 Unknown Rx Aspirin [Aspirin EC] 325 mg PO DAILY #30 tablet. 05/05/18 Unknown Rx Allergies Allergy/AdvReac Type Severity Reaction Status Date / Time No Known Allergies Allergy Verified 07/30/18 12:37 ED Review of Systems ROS: Stated complaint: HYPERTENSION Other details as noted in HPI Comment: Unobtainable due to pts medical conditions (dementia, nonverbal) ED Past Medical Hx - Past Medical History Hx Hypertension: Yes Hx Heart Attack/AMI: No Hx Congestive Heart Failure: No Hx Diabetes: Yes Hx Liver Disease: No Hx Renal Disease: Yes (MWF) Hx Seizures: Yes Hx Asthma: No Hx COPD: No Hx Dementia: Yes Hx HIV: No - Social History Smoking Status: Unknown if ever smoked - Medications Home Medications: Home Medications Medication Instructions Recorded Confirmed Last Taken Type levETIRAcetam [Keppra TAB] 250 mg PO BID #60 tablet 18 04/25/18 Unknown Rx HYDROcodone/APAP 5-325 [[place] 1 each PO Q4H PRN #15 tablet 05/01/18 Unknown Rx 5-325 mg TAB] Lisinopril [Zestril TAB] 20 mg PO DAILY tablet 05/01/18 Unknown Rx levETIRAcetam [Keppra TAB] 250 mg PO BID tablet 05/01/18 Unknown Rx Aspirin [Aspirin EC] 325 mg PO DAILY #30 tablet. 05/05/18 Unknown Rx ED Physical Exam - General Limitations: Physical Limitation General appearance: alert, in no apparent distress - Head Head exam: Present: atraumatic, normocephalic - Eye Eye exam: Present: normal appearance - ENT ENT exam: Present: mucous membranes dry - Neck Neck exam: Present: normal inspection - Respiratory Respiratory exam: Present: normal lung sounds bilaterally. Absent: respiratory distress - Cardiovascular Cardiovascular Exam: Present: regular rate, normal rhythm - GI/Abdominal GI/Abdominal exam: Present: soft. Absent: distended, tenderness - Extremities Exam Extremities exam: Present: other (extremities contracted) - Neurological Exam Neurological exam: Present: alert, other (makes eye contact, looks around, nonverbal) - Psychiatric Psychiatric exam: Present: normal affect, normal mood - Skin Skin exam: Present: warm, dry, intact, normal color ED Course Vital Signs 07/30/18 07/30/18 07/30/18 12:48 12:50 13:00 Temperature 98.3 F Pulse Rate 71 69 67 Respiratory 13 12 10 L Rate Blood Pressure 186/94 198/93 O2 Sat by Pulse 100 100 99 Oximetry 07/30/18 07/30/18 07/30/18 13:16 13:30 13:46 Temperature Pulse Rate 67 69 71 Respiratory 10 L 11 L 12 Rate Blood Pressure 198/93 188/92 188/92 O2 Sat by Pulse 100 100 100 Oximetry 07/30/18 07/30/18 07/30/18 14:00 14:16 14:29 Temperature Pulse Rate 78 72 Respiratory 12 11 L 18 Rate Blood Pressure 188/92 188/92 O2 Sat by Pulse 100 100 100 Oximetry 07/30/18 07/30/18 07/30/18 14:30 14:46 14:47 Temperature Pulse Rate 72 73 74 Respiratory 12 15 Rate Blood Pressure 228/134 253/117 238/114 O2 Sat by Pulse 100 100 Oximetry - Consultations Consultation #1: 07/30/18 15:32 Spoke w/ TELEPHONE INSTALLER for Dr Sabillon's group. Will arrange dialysis. ED Medical Decision Making - Lab Data Result diagrams: 07/30/18 14:03 07/30/18 14:03 Critical care attestation.: If time is entered above; I have spent that time in minutes in the direct care of this critically ill patient, excluding procedure time. ED Disposition Clinical Impression: Hyperkalemia, ESRD (end stage renal disease) on dialysis, Hypertensive urgency Disposition: OP ADMIT IP TO THIS HOSP Is pt being admited?: Yes Condition: Stable Time of Disposition: 15:13
[2018-07-30 14:27] LABS: Basophils # (Auto) 0.1 K/mm3 (0.0-0.1); Basophils % (Auto) 1.4 % (0.0-1.8); Eosinophils # (Auto) 0.1 K/mm3 (0.0-0.4); Eosinophils % (Auto) 1.9 % (0.0-4.3); Hematocrit 45.7 % (30.3-42.9); Hemoglobin 14.5 gm/dl (10.1-14.3); Lymphocytes # (Auto) 2.3 K/mm3 (1.2-5.4); Lymphocytes % (Auto) 40.7 % (13.4-35.0); Mean Corpuscular HGB Conc 32 % (30-34); Mean Corpuscular Volume 90 fl (79-97); Monocytes # (Auto) 0.4 K/mm3 (0.0-0.8); Monocytes % (Auto) 7.1 % (0.0-7.3); Platelet Count 315 K/mm3 (140-440); Red Cell Distribution Width 16.1 % (13.2-15.2)
[2018-07-30] MEDS ORDERED: NORMODYNE IV ONE (14:38)
[2018-07-30 14:40] LABS: Calcium 9.5 mg/dL (8.4-10.2)
[2018-07-30] MEDS ORDERED: D50W (25GM) Syringe IV ONE (15:23)
[2018-07-30] MEDS ORDERED: HumuLIN R IV ONE (15:23)
[2018-07-30] MEDS ORDERED: CALCIUM CHLORIDE IV ONE (15:23)
[2018-07-30] MEDS ORDERED: ZOFRAN IV PRN (15:44)
[2018-07-30] MEDS ORDERED: PROVENTIL IH PRN (15:44)
[2018-07-30] MEDS ORDERED: SODIUM CHLORIDE FLUSH SYRINGE 10 ML IV PRN (15:44)
[2018-07-30] MEDS ORDERED: TYLENOL PO PRN (15:44)
[2018-07-30] MEDS ORDERED: MORPHINE IV PRN (15:44)
--- NOTE | 2018-07-30 15:44 | History and Physical Report ---
History of Present Illness Chief complaint: Confused History of present illness: 67 YO Female SNF resident at [facility] with ESRD on HD (M,W,F), DM, Dementia, HTN, HLD, CVA with LHP, Seizure Disorder presents to ED for evaluation. Pt is confused and unable to provide detailed history, but history taken from SNF staff, EMS, and ED staff. As per staff, the patient was undergoing routine dialysis and was found to have confusion, and elevated blood pressure (224/104). EMS notified, and upon arrival the patient was found to be in distress. The patient was transported to [facility] for further care and evaluation. Pt seen and evaluated in ED and found to have ESRD, Encephalopathy, Acidosis. No reports of fever, chills, CP,Palpitations, NVD, Syncope, Falls, Trauma, Loss of consciousness, vision loss, or recent ill contacts. Nephrology consulted in ED for urgent dialysis. Pt admitted to [facility] unit. Past History Past Medical History: diabetes, ESRD, hypertension, hyperlipidemia, stroke, other (Dementia) Past Surgical History: Other (Dialysis access) Social history: single. denies: smoking, alcohol abuse, prescription drug abuse Family history: diabetes, hypertension Medications and Allergies Allergies Allergy/AdvReac Type Severity Reaction Status Date / Time No Known Allergies Allergy Verified 07/30/18 12:37 Home Medications Medication Instructions Recorded Confirmed Last Taken Type levETIRAcetam [Keppra TAB] 250 mg PO BID #60 tablet 01/23/18 04/25/18 Unknown Rx HYDROcodone/APAP 5-325 [[place] 1 each PO Q4H PRN #15 tablet 05/01/18 Unknown Rx 5-325 mg TAB] Lisinopril [Zestril TAB] 20 mg PO DAILY tablet 05/01/18 Unknown Rx levETIRAcetam [Keppra TAB] 250 mg PO BID tablet 05/01/18 Unknown Rx Aspirin [Aspirin EC] 325 mg PO DAILY #30 tablet. 05/05/18 Unknown Rx Review of Systems ROS unobtainable: due to mental status Exam - Constitutional Vitals: Temp Pulse Resp BP Pulse Ox 98.3 F 74 15 238/114 100 07/30/18 12:50 07/30/18 14:47 07/30/18 14:46 07/30/18 14:47 07/30/18 14:46 General appearance: Present: mild distress - EENT Eyes: Present: PERRL ENT: hearing intact, clear oral mucosa - Neck Neck: Present: supple, normal ROM - Respiratory Respiratory effort: normal Respiratory: bilateral: CTA - Cardiovascular Heart Sounds: Present: S1 & S2. Absent: rub, click - Extremities Extremities: pulses symmetrical, No edema, abnormal (BUE Contracture) Peripheral Pulses: within normal limits - Abdominal General gastrointestinal: Present: soft, non-tender, non-distended, normal bowel sounds Female genitourinary: Present: normal - Integumentary Integumentary: Present: clear, dry, clammy - Musculoskeletal Musculoskeletal: generalized weakness - Psychiatric Psychiatric: no appropriate mood/affect, no intact judgment & insight, no memory intact Results - Labs CBC & Chem 7: 07/30/18 14:03 07/30/18 14:03 Labs: Abnormal lab results 07/30/18 07/30/18 Range/Units 14:03 14:03 RBC 5.10 H (3.65-5.03) M/mm3 Hgb 14.5 H (10.1-14.3) gm/dl Hct 45.7 H (30.3-42.9) % RDW 16.1 H (13.2-15.2) % Lymph % (Auto) 40.7 H (13.4-35.0) % Sodium 132 L (137-145) mmol/L Potassium 5.8 H (3.6-5.0) mmol/L Chloride 97.3 L (98-107) mmol/L Carbon Dioxide 18 L (22-30) mmol/L BUN 31 H (7-17) mg/dL Creatinine 3.4 H (0.7-1.2) mg/dL Assessment and Plan - Patient Problems (1) ESRD (end stage renal disease) on dialysis Current Visit: Yes Status: Acute Plan to address problem: Nephrology consulted in ED for urgent dialysis, strict I/O, monitor uop q shift, avoid nephrotoxic agents. (2) Severe malnutrition Current Visit: Yes Status: Acute Plan to address problem: Encourage increased protein intake. (3) Hypertensive urgency Current Visit: Yes Status: Acute Plan to address problem: IV Hydralazine prn, monitor bp q shift, continue prehospital medication (4) Encephalopathy acute Current Visit: No Status: Acute Plan to address problem: CT Head, neuro checks, seizure precautions, (5) Seizure disorder Current Visit: Yes Status: Acute Plan to address problem: Keppra level, continue scheduled keppra dosing. (6) DVT prophylaxis Current Visit: Yes Status: Acute Plan to address problem: SCD to BLE while in bed.
[2018-07-30] MEDS ORDERED: NORCO 5/325 PO PRN (16:04)
[2018-07-30] MEDS ORDERED: APRESOLINE IV PRN (16:05)
[2018-07-30] MEDS ORDERED: CATHFLO ONE (17:04)
[2018-07-30] MEDS ORDERED: WATER FOR INJ Sterile (PF) 10 ML ONE (17:05)
[2018-07-30] MEDS ORDERED: CATHFLO IV PRN (17:29)
[2018-07-30] MEDS ORDERED: NACL 0.9% 100 ML IV PRN (17:29)
--- NOTE | 2018-07-30 17:37 | Consultation ---
History of Present Illness - Reason for Consult Consult date: 07/30/18 end stage renal disease Requesting physician: KATELYN ONTIVEROS - History of Present Illness CC: ESRD /volume management /Uncontrolled HTN 67-year-old medical history significant for diabetes mellitus type 2, hypertension, dementia, end-stage renal disease on hemodialysis via a right tunneled dialysis catheter. She was transferred from [facility] dialysis units is a concern for poor responsiveness and elevated blood pressure was 200/122 dialysis staff were not able to give her oral medications today. She currently received dialysis for 15 minutes and was transferred to the hospital she received IV labetalol 20 mg IV on arrival at the emergency room. She denies any orthopnea PND doesn't have any no extremity edema she denies any fevers or chills she denies any abdominal pain. She has a history of seizure disorder. Past History Past Medical History: diabetes, ESRD, hypertension, hyperlipidemia, stroke, other (Dementia) Past Surgical History: Other (Dialysis access) Social history: single. denies: smoking, alcohol abuse, prescription drug abuse Family history: diabetes, hypertension Medications and Allergies Allergies Allergy/AdvReac Type Severity Reaction Status Date / Time No Known Allergies Allergy Verified 07/30/18 12:37 Home Medications Medication Instructions Recorded Confirmed Last Taken Type levETIRAcetam [Keppra TAB] 250 mg PO BID #60 tablet 01/23/18 07/30/18 Unknown Rx Lisinopril [Zestril TAB] 20 mg PO DAILY tablet 05/01/18 07/30/18 Unknown Rx levETIRAcetam [Keppra TAB] 250 mg PO BID tablet 05/01/18 07/30/18 Unknown Rx Aspirin [Aspirin EC] 325 mg PO DAILY #30 tablet. 05/05/18 07/30/18 Unknown Rx Acetaminophen [Tylenol] 325 mg PO Q4H PRN 07/30/18 07/30/18 Unknown History Diphenhydramine HCl [Complete 25 mg PO PRN PRN 07/30/18 07/30/18 Unknown History Allergy] Loperamide HCl [Anti-Diarrheal] 2 mg PO PRN PRN 07/30/18 07/30/18 Unknown History Nitroglycerin [Nitrostat] 0.4 mg SL PRN PRN 07/30/18 07/30/18 Unknown History Active Meds: Active Medications Acetaminophen (Tylenol) 650 mg PO Q4H PRN PRN Reason: Pain MILD(1-3)/Fever >100.5/HUBBARD Acetaminophen/Hydrocodone Bitart ([place] 5/325) 1 each PO Q4H PRN PRN Reason: Pain, Moderate (4-6) Albuterol (Proventil) 2.5 mg IH Q4HRT PRN PRN Reason: Shortness Of Breath Alteplase, Recombinant (Cathflo) 2 mg IV OHLDEN PRN PRN Reason: LINE FLUSH Aspirin (Ecotrin) 325 mg PO DAILY MARYLOU Hydralazine HCl (Apresoline) 10 mg IV Q4HR PRN PRN Reason: Hypertension Sodium Chloride (Nacl 0.9%) 100 mls @ 999 mls/hr IV HOLDEN PRN PRN Reason: Hypotension Levetiracetam (Keppra) 250 mg PO BID MARYLOU Lisinopril (Zestril) 20 mg PO DAILY MARYLOU Morphine Sulfate (Morphine) 2 mg IV Q4H PRN PRN Reason: Pain, Moderate (4-6) Ondansetron HCl (Zofran) 4 mg IV Q8H PRN PRN Reason: Nausea And Vomiting Sodium Chloride (Sodium Chloride Flush Syringe 10 Ml) 10 ml IV BID MARYLOU Sodium Chloride (Sodium Chloride Flush Syringe 10 Ml) 10 ml IV PRN PRN PRN Reason: LINE FLUSH Exam - Vital Signs Vital signs: Vital Signs Pulse Resp Pulse Ox 71 13 100 07/30/18 12:48 07/30/18 12:48 07/30/18 12:48 - General Appearance General appearance: cachectic, frail EENT: ATNC, PERRL, mucous membranes moist Neck: Present: neck supple, trachea midline Respiratory: Decreased Breath Sounds Heart: regular, S1S2 Gastrointestinal: Present: normal, normoactive bowel sounds Integumentary: no rash Neurologic: confused, other (contractures, focal weakness) Musculoskeletal: Present: deferred, other (left arm AVG. ) Psychiatric: depressed Results - Lab Results 07/30/18 14:03 07/30/18 14:03 Most recent lab results Calcium 9.5 mg/dL (8.4-10.2) 07/30/18 14:03 Assessment and Plan - Patient Problems (1) ESRD (end stage renal disease) on dialysis Current Visit: Yes Status: Acute Plan to address problem: End-stage renal disease on dialysis Has a nonfunctional left arm AV graft Has a right IJ PermCath with high alarms on dialysis machine We'll place alteplase 2 mg in each limb Ultrafiltration treatment as is tolerated (2) Hyperkalemia Current Visit: Yes Status: Acute Plan to address problem: Hyperkalemia 2/2 End stage renal disease. We'll initiate dialysis for solute clearance (3) Hypertensive urgency Current Visit: Yes Status: Acute Plan to address problem: Uncontrolled severe hypertension Received labetalol 20 mg IV and Give additional doses of labetalol 20 mg IV when necessary as needed Resume oral medications as tolerated (4) Hyponatremia Current Visit: Yes Status: Acute Plan to address problem: Hyponatremia secondary to volume overload Ultrafiltration with dialysis (5) Metabolic acidosis Current Visit: Yes Status: Acute Plan to address problem: Metabolic Acidosis secondary to renal failure We'll initiate hemodialysis as above
[2018-07-30 18:22] LABS: Hepatitis B Surface Antigen Non-Reactive (Negative); Hepatitis C Virus Antibody Non-Reactive (NonReactive)
[2018-07-30] MEDS ORDERED: NACL 0.9 (PRIMING MACHINE ONLY DIALYSIS) MC ONE ×2 (18:43→19:14)
--- NOTE | 2018-07-30 21:37 | Cat Scan Report ---
PROCEDURE: CT HEAD/BRAIN WO CON TECHNIQUE: CT images of the head were obtained without the use of IV contrast HISTORY: confusion COMPARISONS: 01/19/2018 FINDINGS: There is diffuse prominence of the ventricles and the sulci, compatible with diffuse significant invo lutional changes. Findings are similar to that seen previously. There is extensive white matter low a ttenuation, compatible with chronic microvascular ischemic changes. Intracranial arteries are symmetr ic in density. There is a small amount of fluid in the left ethmoid and right sphenoid sinuses. Masto ids are aerated IMPRESSION: Chronic microvascular ischemic changes and involutional changes. No CT evidence of acute abnormality. This document is electronically signed by Sissy Adams MD., July 30 2018 09:35:24 PM ET
[2018-07-30] MEDS ORDERED: NON-FORMULARY (Levetiracetam [Keppra Tab] 250 MG) PO SCH (22:00)
[2018-07-30] MEDS: KEPPRA PO SCH (22:56)
[2018-07-30] MEDS: SODIUM CHLORIDE FLUSH SYRINGE 10 ML IV SCH (22:56)
[2018-07-31] MEDS: KEPPRA PO SCH (10:10)
[2018-07-31] MEDS: ECOTRIN PO SCH (10:10)
--- NOTE | 2018-07-31 13:15 | Progress Note ---
Assessment and Plan - Patient Problems (1) ESRD (end stage renal disease) on dialysis Current Visit: Yes Status: Acute Plan to address problem: End-stage renal disease on dialysis Has a nonfunctional left arm AV graft Has a right IJ PermCath with high alarms on dialysis machine improved with alteplase 2 mg in each limb Ultrafiltration treatment as is tolerated Will repeat Hemodialysis in the am TTS Schedule. (2) Hyperkalemia Current Visit: Yes Status: Acute Plan to address problem: Hyperkalemia 2/2 End stage renal disease. We'll initiate dialysis for solute clearance (3) Hypertensive urgency Current Visit: Yes Status: Acute Plan to address problem: Uncontrolled severe hypertension Received labetalol 20 mg IV and Give additional doses of labetalol 20 mg IV when necessary as needed Resume oral medications as tolerated (4) Hyponatremia Current Visit: Yes Status: Acute Plan to address problem: Hyponatremia secondary to volume overload Ultrafiltration with dialysis (5) Metabolic acidosis Current Visit: Yes Status: Acute Plan to address problem: Metabolic Acidosis secondary to renal failure We'll initiate hemodialysis as above Subjective Interval history: 67-year-old medical history significant for diabetes mellitus type 2, hypertension, dementia, end-stage renal disease on hemodialysis via a right tunneled dialysis catheter. She was transferred from [facility] [place] dialysis units is a concern for poor responsiveness and elevated blood pressure was 200/122 dialysis staff were not able to give her oral medications Nephrology consulted for ESRD/volume status management Patient tolerated dialysis well yesterday 3 L fluid removed She is doing well today No complaints quite drowsy Objective - Vital Signs Vital signs: Vital Signs - 12hr 07/31/18 07/31/18 02:30 07:26 Temperature 98.4 F 99.9 F H Pulse Rate 75 75 Respiratory 18 16 Rate Blood Pressure 87/46 Blood Pressure 94/57 [Right] O2 Sat by Pulse 98 Oximetry - General Appearance General appearance: cachectic, chronically ill, frail EENT: ATNC, PERRL Neck: no JVD Respiratory: Present: Clear to Ascultation Cardiology: regular, S1S2 Gastrointestinal: normal, normoactive bowel sounds Integumentary: no rash Neurologic: confused Musculoskeletal: deferred Psychiatric: mood/affect appropriate - Lab 07/30/18 14:03 07/31/18 04:30 Most recent lab results Calcium 9.0 mg/dL (8.4-10.2) 07/31/18 04:30 Medications & Allergies - Medications Allergies/Adverse Reactions: Allergies No Known Allergies Allergy (Verified 07/30/18 12:37) Home Medications: Home Medications Medication Instructions Recorded Confirmed Last Taken Type levETIRAcetam [Keppra TAB] 250 mg PO BID #60 tablet 01/23/18 07/30/18 Unknown Rx Lisinopril [Zestril TAB] 20 mg PO DAILY tablet 05/01/18 07/30/18 Unknown Rx levETIRAcetam [Keppra TAB] 250 mg PO BID tablet 05/01/18 07/30/18 Unknown Rx Aspirin [Aspirin EC] 325 mg PO DAILY #30 tablet. 05/05/18 07/30/18 Unknown Rx Acetaminophen [Tylenol] 325 mg PO Q4H PRN 07/30/18 07/30/18 Unknown History Diphenhydramine HCl [Complete 25 mg PO PRN PRN 07/30/18 07/30/18 Unknown History Allergy] Loperamide HCl [Anti-Diarrheal] 2 mg PO PRN PRN 07/30/18 07/30/18 Unknown History Nitroglycerin [Nitrostat] 0.4 mg SL PRN PRN 07/30/18 07/30/18 Unknown History Active Medications: Generic Name Dose Route Start Last Admin Trade Name Ronalq PRN Reason Stop Dose Admin Acetaminophen 650 mg 07/30/18 15:44 07/31/18 10:10 Tylenol PO 650 mg Q4H PRN Administration Pain MILD(1-3)/Fever >100.5/HUBBARD Acetaminophen/Hydrocodone Bitart 1 each 07/30/18 16:04 [place] 5/325 PO Q4H PRN Pain, Moderate (4-6) Albuterol 2.5 mg 07/30/18 15:44 Proventil IH Q4HRT PRN Shortness Of Breath Alteplase, Recombinant 2 mg 07/30/18 17:29 Cathflo IV HOLDEN PRN LINE FLUSH Aspirin 325 mg 07/31/18 10:00 07/31/18 10:10 Ecotrin PO 325 mg DAILY MARYLOU Administration Hydralazine HCl 10 mg 07/30/18 16:05 Apresoline IV Q4HR PRN Hypertension Sodium Chloride 100 mls @ 999 mls/hr 07/30/18 17:29 Nacl 0.9% IV HOLDEN PRN Hypotension Levetiracetam 250 mg 07/30/18 22:00 07/31/18 10:10 Keppra PO 250 mg BID MARYLOU Administration Lisinopril 20 mg 07/31/18 10:00 Zestril PO DAILY MARYLOU Morphine Sulfate 2 mg 07/30/18 15:44 Morphine IV Q4H PRN Pain, Moderate (4-6) Ondansetron HCl 4 mg 07/30/18 15:44 Zofran IV Q8H PRN Nausea And Vomiting Sodium Chloride 10 ml 07/30/18 22:00 07/30/18 22:56 Sodium Chloride Flush Syringe 10 Ml IV 10 ml BID MARYLOU Administration Sodium Chloride 10 ml 07/30/18 15:44 Sodium Chloride Flush Syringe 10 Ml IV PRN PRN LINE FLUSH
--- NOTE | 2018-07-31 13:27 | Progress Note ---
Assessment and Plan Assessment and plan: 67 YO Female SNF resident at [facility] with ESRD on HD (M,W,F), DM, Dementia, HTN, HLD, CVA with LHP, Seizure Disorder presents to ED for evaluation. Pt is confused and unable to provide detailed history, but history taken from SNF staff, EMS, and ED staff. As per staff, the patient was undergoing routine dialysis and was found to have confusion, and elevated blood pressure (224/104). Per facility patient is normally able to communicate although she is bedbound. On arrival to the ED she was noted to have Hypertensive Urgency which was corrected. Imaging studies including head CT showed Chronic Microvascular changes she underwent Dialysis with 3 Liters removed. BP also improved. She had a period of documented Hypotension with SBP in the 80s but improved. Acute Metabolic Encephalopathy Seizure disorder- Pt is on Keppra outpatient. has been Unable to get medication since not eating. this morning was grinding her teeth Hypertensive urgency Hypertensive with CKD 4 DM Hyponatremia Hyperkalemia Hyponatremia Metabolic Acidosis Severe Protein Calorie Malnutrition UNSTAGEABLE SACRAL PRESSURE INJURY Plan Supportive care Aspiration precautions CHANGE KEPPRA to IV Nephrology input noted Monitor BP and avoid varied fluctuation Accucheck and insulin therapy Check MRI Brain if ABLE EEG DVT/GI prophy Rounds and discussed with Nursing staff and referring facility History Interval history: Patient admitted with AMS and Hypertensive urgency Patient seen and examined today, still non verbal which is different from her baseline of answering in one or two sentences as described by the usp. Hospitalist Physical - Physical exam Narrative exam: General appearance: Present: mild distress, non verbal, grinding her teeth - EENT Eyes: Present: PERRL ENT: hearing intact, clear oral mucosa - Neck Neck: Present: supple, normal ROM - Respiratory Respiratory effort: normal Respiratory: bilateral: CTA - Cardiovascular Heart Sounds: Present: S1 & S2. Absent: rub, click - Extremities Extremities: pulses symmetrical, No edema, abnormal (BUE Contracture) Peripheral Pulses: within normal limits - Abdominal General gastrointestinal: Present: soft, non-tender, non-distended, normal bowel sounds Female genitourinary: Present: normal - Integumentary Integumentary: Present: clear, dry, - Musculoskeletal Musculoskeletal: generalized weakness - Psychiatric Psychiatric: no appropriate mood/affect, no intact judgment & insight, no memory intact - Constitutional Vitals: Temp Pulse Resp BP Pulse Ox 99.9 F H 75 16 87/46 98 07/31/18 07:26 07/31/18 07:26 07/31/18 07:26 07/31/18 07:26 07/31/18 07:26 General appearance: Present: mild distress Results - Labs CBC & Chem 7: 07/30/18 14:03 07/31/18 04:30 Labs: Laboratory Last Values WBC 5.5 K/mm3 (4.5-11.0) 07/30/18 14:03 RBC 5.10 M/mm3 (3.65-5.03) H 07/30/18 14:03 Hgb 14.5 gm/dl (10.1-14.3) H 07/30/18 14:03 Hct 45.7 % (30.3-42.9) H 07/30/18 14:03 MCV 90 fl (79-97) 07/30/18 14:03 MCH 29 pg (28-32) 07/30/18 14:03 MCHC 32 % (30-34) 07/30/18 14:03 RDW 16.1 % (13.2-15.2) H 07/30/18 14:03 Plt Count 315 K/mm3 (140-440) 07/30/18 14:03 Lymph % (Auto) 40.7 % (13.4-35.0) H 07/30/18 14:03 [place] % (Auto) 7.1 % (0.0-7.3) 07/30/18 14:03 Eos % (Auto) 1.9 % (0.0-4.3) 07/30/18 14:03 Baso % (Auto) 1.4 % (0.0-1.8) 07/30/18 14:03 Lymph # 2.3 K/mm3 (1.2-5.4) 07/30/18 14:03 [place] # 0.4 K/mm3 (0.0-0.8) 07/30/18 14:03 Eos # 0.1 K/mm3 (0.0-0.4) 07/30/18 14:03 Baso # 0.1 K/mm3 (0.0-0.1) 07/30/18 14:03 Seg Neutrophils % 48.9 % (40.0-70.0) 07/30/18 14:03 Seg Neutrophils # 2.7 K/mm3 (1.8-7.7) 07/30/18 14:03 Sodium 134 mmol/L (137-145) L 07/31/18 04:30 Potassium 4.1 mmol/L (3.6-5.0) D 07/31/18 04:30 Chloride 96.9 mmol/L (98-107) L 07/31/18 04:30 Carbon Dioxide 20 mmol/L (22-30) L 07/31/18 04:30 Anion Gap 21 mmol/L 07/31/18 04:30 BUN 17 mg/dL (7-17) 07/31/18 04:30 Creatinine 2.2 mg/dL (0.7-1.2) H 07/31/18 04:30 Estimated GFR 27 ml/min 07/31/18 04:30 BUN/Creatinine Ratio 8 % 07/31/18 04:30 Glucose 163 mg/dL (65-100) H 07/31/18 04:30 POC Glucose 178 (70-105) H 07/31/18 11:19 Calcium 9.0 mg/dL (8.4-10.2) 07/31/18 04:30 Hepatitis A IgM Ab Non-reactive (NonReactive) 07/30/18 17:50 Hep Bs Antigen Non-reactive (Negative) 07/30/18 17:50 Hep B Core IgM Ab Non-reactive (NonReactive) 07/30/18 17:50 Hepatitis C Antibody Non-reactive (NonReactive) 07/30/18 17:50 Nutrition/Malnutrition Assess - Dietary Evaluation Nutrition/Malnutrition Findings: Nutrition Notes Start: 07/31/18 10:34 Freq: Status: Active Protocol: Document 07/31/18 10:34 SHERRY (Rec: 07/31/18 10:43 WICORINA [id number]) Nutrition Notes Need for Assessment generated from: reconciling clerk,MST Initial or Follow up Assessment Current Diagnosis CKD (stage V CKD),Diabetes, Hypertension,Stroke, Hyperlipidemia Other Pertinent Diagnosis Acute encephalopathy, hypertensive emergency, stage 3 sacral PU, Dementia Current Diet No diet ordered Labs/Tests Cr 2.2 BG 163 Pertinent Medications Reviewed Height 5 ft 5 in Weight 36.7 kg [place] Body Weight (kg) 56.81 BMI 13.4 Weight Status Underweight Subjective/Other Information Pt screened for malnutrition risk (unsure of wt loss) and low BMI. Observed breakfast tray at bedside. Per RN, pt refused to eat, but drank juice this am. RN says wants pt to receive a renal diet. Pt non-verbal. Burn Absent Trauma Absent #1 Nutrition Diagnosis Increased nutrient needs ( specify in comment below) Comments: protein Etiology increased demands of wound healing, pt is underweight As Evidenced by Signs and Symptoms pt with stage 3 PU and predicted suboptimal energy intake Is patient on ventilator? No Is Patient Ambulatory and/or Out of Bed No REE-([place]-confined to bed) 1089.444 Kcal/Kg value to use for calculation 40 Approximate Energy Requirements Using 1468 kcal/Kg Calculation Used for Recommendations Kcal/kg Additional Notes Pro needs 1.5-2g/k-73g/ day Fluid needs 1-1.5L/day Nutrition Intervention Change Diet Order: Continue Renal diet; may need mech soft or pureed restriction Goal #1 PO tolerance Goal #2 PO intakes to meet nutrient needs Goal #3 Wt maintenance and/or gain Goal #4 Wound healing Anticipated Discharge Needs: Unable to identify at this time Follow-Up By: 08/01/18 Additional Comments F/U: Diet order, PO tolerance, need for ONS
[2018-07-31] MEDS: ZESTRIL PO SCH (14:08)
[2018-07-31] MEDS: SODIUM CHLORIDE FLUSH SYRINGE 10 ML IV SCH ×2 (15:45→21:24)
[2018-07-31] MEDS: KEPPRA 750 MG in NACL 0.9% 100 ML IV SCH ×2 (15:46→21:23)
--- NOTE | 2018-08-01 09:18 | Progress Note ---
Subjective Interval history: Patient was seen today for follow-up on multiple renal related issues Events of this hospitalization noted Patient is due for dialysis today Current access is a permacath Resting comfortably in bed No acute distress Vitals labs intake output medications were reviewed Social history: Reviewed Allergies: Reviewed Family history: Reviewed Physical examination HEENT: Oral mucosa moist no pallor or icterus Neck: Supple no JVD Chest: Clear to auscultation anteriorly CVS: Regular rate and rhythm S1 and S2 heard Abdomen: Soft nontender no suprapubic masses no organomegaly appreciable Extremity: Dry skin less than 1+ peripheral edema Musculoskeletal: No joint effusion noted in knees and ankle Neurological: Alert awake Dermatology: No petechial rashes Psychiatry: No evidence of any agitation and aggression noted Assessment and plan End-stage renal disease: Patient will continue with hemodialysis treatment on Friday with a permacath She currently does have a malfunctioning AV graft in her left arm Hyperkalemia: To monitor and follow continue with hemodialysis Hypertension: Accelerated continue to monitor and adjust and follow-up on the blood pressure Secondary hyperparathyroidism: Check phosphorus and PTH level Hyponatremia mostly resulting from volume overload patient was advised to comply with treatment recommendation and fluid restriction Metabolic acidosis hemodialysis, sodium bicarbonate 39 mg twice a day while in hospital outpatient she can take quarter teaspoon of baking soda and water every day As of today, the latest labs show a hemoglobin of 14.5 potassium 4.1 BUN 17 creatinine 2.2 calcium is 9.0 blood pressure is well-controlled, We'll continue to follow and make recommendation from renal standpoint Objective - Vital Signs Vital signs: Vital Signs - 12hr 08/01/18 08/01/18 08/01/18 02:46 02:47 08:45 Temperature 98.4 F Pulse Rate 64 Pulse Rate [ 59 L Apical] Respiratory 18 18 Rate Blood Pressure 110/65 O2 Sat by Pulse 100 99 Oximetry - Lab 07/30/18 14:03 07/31/18 04:30 Most recent lab results Calcium 9.0 mg/dL (8.4-10.2) 07/31/18 04:30 Medications & Allergies - Medications Allergies/Adverse Reactions: Allergies No Known Allergies Allergy (Verified 07/30/18 12:37) Home Medications: Home Medications Medication Instructions Recorded Confirmed Last Taken Type levETIRAcetam [Keppra TAB] 250 mg PO BID #60 tablet 01/23/18 07/30/18 Unknown Rx Lisinopril [Zestril TAB] 20 mg PO DAILY tablet 05/01/18 07/30/18 Unknown Rx levETIRAcetam [Keppra TAB] 250 mg PO BID tablet 05/01/18 07/30/18 Unknown Rx Aspirin [Aspirin EC] 325 mg PO DAILY #30 tablet. 05/05/18 07/30/18 Unknown Rx Acetaminophen [Tylenol] 325 mg PO Q4H PRN 07/30/18 07/30/18 Unknown History Diphenhydramine HCl [Complete 25 mg PO PRN PRN 07/30/18 07/30/18 Unknown History Allergy] Loperamide HCl [Anti-Diarrheal] 2 mg PO PRN PRN 07/30/18 07/30/18 Unknown History Nitroglycerin [Nitrostat] 0.4 mg SL PRN PRN 07/30/18 07/30/18 Unknown History Active Medications: Generic Name Dose Route Start Last Admin Trade Name Ronalq PRN Reason Stop Dose Admin Acetaminophen 650 mg 07/30/18 15:44 07/31/18 10:10 Tylenol PO 650 mg Q4H PRN Administration Pain MILD(1-3)/Fever >100.5/HUBBARD Acetaminophen/Hydrocodone Bitart 1 each 07/30/18 16:04 [place] 5/325 PO Q4H PRN Pain, Moderate (4-6) Albuterol 2.5 mg 07/30/18 15:44 Proventil IH Q4HRT PRN Shortness Of Breath Alteplase, Recombinant 2 mg 07/30/18 17:29 Cathflo IV HOLDEN PRN LINE FLUSH Aspirin 325 mg 07/31/18 10:00 07/31/18 10:10 Ecotrin PO 325 mg DAILY MARYLOU Administration Hydralazine HCl 10 mg 07/30/18 16:05 Apresoline IV Q4HR PRN Hypertension Sodium Chloride 100 mls @ 999 mls/hr 07/30/18 17:29 Nacl 0.9% IV HOLDEN PRN Hypotension Levetiracetam 750 mg/ Sodium 107.5 mls @ 400 mls/hr 07/31/18 14:00 07/31/18 21:40 Chloride IV Infused Q12HR MARYLOU Infusion Lisinopril 20 mg 07/31/18 10:00 07/31/18 14:08 Zestril PO Not Given DAILY MARYLOU Morphine Sulfate 2 mg 07/30/18 15:44 Morphine IV Q4H PRN Pain, Moderate (4-6) Ondansetron HCl 4 mg 07/30/18 15:44 Zofran IV Q8H PRN Nausea And Vomiting Sodium Chloride 10 ml 07/30/18 22:00 07/31/18 21:24 Sodium Chloride Flush Syringe 10 Ml IV 10 ml BID MARYLOU Administration Sodium Chloride 10 ml 07/30/18 15:44 Sodium Chloride Flush Syringe 10 Ml IV PRN PRN LINE FLUSH
[2018-08-01] MEDS: KEPPRA 750 MG in NACL 0.9% 100 ML IV SCH ×2 (09:24→21:18)
[2018-08-01] MEDS: ZESTRIL PO SCH (09:27)
[2018-08-01] MEDS: SODIUM CHLORIDE FLUSH SYRINGE 10 ML IV SCH ×2 (09:27→21:18)
--- NOTE | 2018-08-01 10:54 | Progress Note ---
Assessment and Plan Assessment and plan: 67 YO Female SNF resident at [facility] with ESRD on HD (M,W,F), DM, Dementia, HTN, HLD, CVA with LHP, Seizure Disorder presents to ED for evaluation. Pt is confused and unable to provide detailed history, but history taken from SNF staff, EMS, and ED staff. As per staff, the patient was undergoing routine dialysis and was found to have confusion, and elevated blood pressure (224/104). Per facility patient is normally able to communicate although she is bedbound. On arrival to the ED she was noted to have Hypertensive Urgency which was corrected. Imaging studies including head CT showed Chronic Microvascular changes she underwent Dialysis with 3 Liters removed. BP also improved. She had a period of documented Hypotension with SBP in the 80s but improved. Acute Metabolic Encephalopathy Seizure disorder- Pt is on Keppra outpatient. Changed to IV. No further teeth grinding is noted today. Hypertensive urgency Hypertensive with CKD 4 DM Hyponatremia Hyperkalemia Hyponatremia Metabolic Acidosis Severe Protein Calorie Malnutrition UNSTAGEABLE SACRAL PRESSURE INJURY Plan Supportive care Aspiration precautions Continue Nephrology input noted Monitor BP and avoid varied fluctuation Accucheck and insulin therapy Check MRI Brain if ABLE EEG DVT/GI prophy Rounds and discussed with Nursing staff and referring facility History Interval history: Patient admitted with AMS and Hypertensive urgency Patient seen and examined today, still non verbal which is different from her baseline of answering in one or two sentences as described by the halfway. Staff been unable to get consent for MRI. Reported by nursing staff Hospitalist Physical - Physical exam Narrative exam: General appearance: Present: mild distress, non verbal, grinding her teeth - EENT Eyes: Present: PERRL ENT: hearing intact, clear oral mucosa - Neck Neck: Present: supple, normal ROM - Respiratory Respiratory effort: normal Respiratory: bilateral: CTA - Cardiovascular Heart Sounds: Present: S1 & S2. Absent: rub, click - Extremities Extremities: pulses symmetrical, No edema, abnormal (BUE Contracture) Peripheral Pulses: within normal limits - Abdominal General gastrointestinal: Present: soft, non-tender, non-distended, normal bowel sounds Female genitourinary: Present: normal - Integumentary Integumentary: Present: clear, dry, - Musculoskeletal Musculoskeletal: generalized weakness - Psychiatric Psychiatric: Limited to assess - Constitutional Vitals: Temp Pulse Resp BP Pulse Ox 98.4 F 59 L 18 91/50 99 08/01/18 02:46 08/01/18 09:27 08/01/18 08:45 08/01/18 09:27 08/01/18 08:45 General appearance: Present: mild distress Results - Labs CBC & Chem 7: 07/30/18 14:03 07/31/18 04:30 Labs: Laboratory Last Values WBC 5.5 K/mm3 (4.5-11.0) 07/30/18 14:03 RBC 5.10 M/mm3 (3.65-5.03) H 07/30/18 14:03 Hgb 14.5 gm/dl (10.1-14.3) H 07/30/18 14:03 Hct 45.7 % (30.3-42.9) H 07/30/18 14:03 MCV 90 fl (79-97) 07/30/18 14:03 MCH 29 pg (28-32) 07/30/18 14:03 MCHC 32 % (30-34) 07/30/18 14:03 RDW 16.1 % (13.2-15.2) H 07/30/18 14:03 Plt Count 315 K/mm3 (140-440) 07/30/18 14:03 Lymph % (Auto) 40.7 % (13.4-35.0) H 07/30/18 14:03 [place] % (Auto) 7.1 % (0.0-7.3) 07/30/18 14:03 Eos % (Auto) 1.9 % (0.0-4.3) 07/30/18 14:03 Baso % (Auto) 1.4 % (0.0-1.8) 07/30/18 14:03 Lymph # 2.3 K/mm3 (1.2-5.4) 07/30/18 14:03 [place] # 0.4 K/mm3 (0.0-0.8) 07/30/18 14:03 Eos # 0.1 K/mm3 (0.0-0.4) 07/30/18 14:03 Baso # 0.1 K/mm3 (0.0-0.1) 07/30/18 14:03 Seg Neutrophils % 48.9 % (40.0-70.0) 07/30/18 14:03 Seg Neutrophils # 2.7 K/mm3 (1.8-7.7) 07/30/18 14:03 Sodium 134 mmol/L (137-145) L 07/31/18 04:30 Potassium 4.1 mmol/L (3.6-5.0) D 07/31/18 04:30 Chloride 96.9 mmol/L (98-107) L 07/31/18 04:30 Carbon Dioxide 20 mmol/L (22-30) L 07/31/18 04:30 Anion Gap 21 mmol/L 07/31/18 04:30 BUN 17 mg/dL (7-17) 07/31/18 04:30 Creatinine 2.2 mg/dL (0.7-1.2) H 07/31/18 04:30 Estimated GFR 27 ml/min 07/31/18 04:30 BUN/Creatinine Ratio 8 % 07/31/18 04:30 Glucose 163 mg/dL (65-100) H 07/31/18 04:30 POC Glucose 78 (70-105) 08/01/18 08:07 Calcium 9.0 mg/dL (8.4-10.2) 07/31/18 04:30 Hepatitis A IgM Ab Non-reactive (NonReactive) 07/30/18 17:50 Hep Bs Antigen Non-reactive (Negative) 07/30/18 17:50 Hep B Core IgM Ab Non-reactive (NonReactive) 07/30/18 17:50 Hepatitis C Antibody Non-reactive (NonReactive) 07/30/18 17:50 Nutrition/Malnutrition Assess - Dietary Evaluation Nutrition/Malnutrition Findings: Nutrition Notes Start: 07/31/18 10:34 Freq: Status: Active Protocol: Document 07/31/18 10:34 SHERRY (Rec: 07/31/18 10:43 CACORINA [email or web address] [email or web address]) Nutrition Notes Need for Assessment generated from: 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 Observed breakfast tray at bedside. Per RN, pt refused to eat, but drank juice this am. RN says MD wants pt to receive a renal diet. Pt non-verbal. Burn Absent Trauma Absent #1 Nutrition Diagnosis Increased nutrient needs ( specify in comment below) Comments: protein Etiology increased demands of wound healing, pt is underweight As Evidenced by Signs and Symptoms pt with stage 3 PU and predicted suboptimal energy intake Is patient on ventilator? No Is Patient Ambulatory and/or Out of Bed No REE-([facility]-confined to bed) 1089.444 Kcal/Kg value to use for calculation 40 Approximate Energy Requirements Using 1468 kcal/Kg Calculation Used for Recommendations Kcal/kg Additional Notes Pro needs 1.5-2g/k-73g/ day Fluid needs 1-1.5L/day Nutrition Intervention Change Diet Order: Continue Renal diet; may need mech soft or pureed restriction Goal #1 PO tolerance Goal #2 PO intakes to meet nutrient needs Goal #3 Wt maintenance and/or gain Goal #4 Wound healing Anticipated Discharge Needs: Unable to identify at this time Follow-Up By: 08/01/18 Additional Comments F/U: Diet order, PO tolerance, need for ONS
[2018-08-01] MEDS ORDERED: NACL 0.9 (PRIMING MACHINE ONLY DIALYSIS) MC ONE (13:53)
[2018-08-01] MEDS: ECOTRIN PO SCH (16:34)
[2018-08-02] MEDS: ZESTRIL PO SCH (09:16)
[2018-08-02] MEDS: ECOTRIN PO SCH (09:16)
[2018-08-02] MEDS: KEPPRA 750 MG in NACL 0.9% 100 ML IV SCH ×2 (09:17→21:01)
[2018-08-02] MEDS: SODIUM CHLORIDE FLUSH SYRINGE 10 ML IV SCH ×2 (09:19→21:02)
--- NOTE | 2018-08-02 11:00 | Progress Note ---
Subjective Interval history: Patient was seen today for follow-up on multiple renal related issues Events of this hospitalization noted On hemodialysis Friday Current access is a permacath Resting comfortably in bed, has had seizure No acute distress Vitals labs intake output medications were reviewed Social history: Reviewed Allergies: Reviewed Family history: Reviewed Physical examination HEENT: Oral mucosa moist no pallor or icterus Neck: Supple no JVD Chest: Clear to auscultation anteriorly CVS: Regular rate and rhythm S1 and S2 heard Abdomen: Soft nontender no suprapubic masses no organomegaly appreciable Extremity: Dry skin less than 1+ peripheral edema Musculoskeletal: No joint effusion noted in knees and ankle Neurological: Patient is arousable Dermatology: No petechial rashes Psychiatry: No evidence of any agitation and aggression noted Assessment and plan End-stage renal disease continue with hemodialysis Friday Malfunctioning graft, patient will need to follow-up with vascular, at some point in her case Continue to monitor dialysis related labs Hyponatremia resulting from some degree of volume overload to monitor and follow Secondary hyperparathyroidism: Check phosphorus and PTH level Hyponatremia mostly resulting from volume overload patient was advised to comply with treatment recommendation and fluid restriction We'll continue to follow and make recommendation from renal standpoint Objective - Vital Signs Vital signs: Vital Signs - 12hr 08/01/18 08/02/18 08/02/18 22:00 01:16 07:32 Temperature 98.2 F 98.6 F Pulse Rate 80 69 Pulse Rate [ Apical] Respiratory 20 20 18 Rate Blood Pressure 166/83 149/68 O2 Sat by Pulse 98 100 99 Oximetry 08/02/18 08/02/18 08:18 09:16 Temperature Pulse Rate 69 Pulse Rate [ 69 Apical] Respiratory 18 Rate Blood Pressure 149/68 O2 Sat by Pulse 99 Oximetry - Lab 08/03/18 03:39 08/03/18 03:39 Most recent lab results Calcium 9.0 mg/dL (8.4-10.2) 07/31/18 04:30 Medications & Allergies - Medications Allergies/Adverse Reactions: Allergies No Known Allergies Allergy (Verified 07/30/18 12:37) Home Medications: Home Medications Medication Instructions Recorded Confirmed Last Taken Type levETIRAcetam [Keppra TAB] 250 mg PO BID #60 tablet 01/23/18 07/30/18 Unknown Rx Lisinopril [Zestril TAB] 20 mg PO DAILY tablet 05/01/18 07/30/18 Unknown Rx levETIRAcetam [Keppra TAB] 250 mg PO BID tablet 05/01/18 07/30/18 Unknown Rx Aspirin [Aspirin EC] 325 mg PO DAILY #30 tablet. 05/05/18 07/30/18 Unknown Rx Acetaminophen [Tylenol] 325 mg PO Q4H PRN 07/30/18 07/30/18 Unknown History Diphenhydramine HCl [Complete 25 mg PO PRN PRN 07/30/18 07/30/18 Unknown History Allergy] Loperamide HCl [Anti-Diarrheal] 2 mg PO PRN PRN 07/30/18 07/30/18 Unknown History Nitroglycerin [Nitrostat] 0.4 mg SL PRN PRN 07/30/18 07/30/18 Unknown History Active Medications: Generic Name Dose Route Start Last Admin Trade Name Freq PRN Reason Stop Dose Admin Acetaminophen 650 mg 07/30/18 15:44 07/31/18 10:10 Tylenol PO 650 mg Q4H PRN Administration Pain MILD(1-3)/Fever >100.5/HUBBARD Acetaminophen/Hydrocodone Bitart 1 each 07/30/18 16:04 08/02/18 09:17 [place] 5/325 PO 1 each Q4H PRN Administration Pain, Moderate (4-6) Albuterol 2.5 mg 07/30/18 15:44 Proventil IH Q4HRT PRN Shortness Of Breath Alteplase, Recombinant 2 mg 07/30/18 17:29 Cathflo IV HOLDEN PRN LINE FLUSH Aspirin 325 mg 07/31/18 10:00 08/02/18 09:16 Ecotrin PO 325 mg DAILY MARYLOU Administration Hydralazine HCl 10 mg 07/30/18 16:05 Apresoline IV Q4HR PRN Hypertension Sodium Chloride 100 mls @ 999 mls/hr 07/30/18 17:29 Nacl 0.9% IV HOLDEN PRN Hypotension Levetiracetam 750 mg/ Sodium 107.5 mls @ 400 mls/hr 07/31/18 14:00 08/02/18 09:17 Chloride IV 400 mls/hr Q12HR MARYLOU Administration Lisinopril 20 mg 07/31/18 10:00 08/02/18 09:16 Zestril PO 20 mg DAILY MARYLOU Administration Morphine Sulfate 2 mg 07/30/18 15:44 Morphine IV Q4H PRN Pain, Moderate (4-6) Ondansetron HCl 4 mg 07/30/18 15:44 Zofran IV Q8H PRN Nausea And Vomiting Sodium Chloride 10 ml 07/30/18 22:00 08/02/18 09:19 Sodium Chloride Flush Syringe 10 Ml IV 10 ml BID MARYLOU Administration Sodium Chloride 10 ml 07/30/18 15:44 Sodium Chloride Flush Syringe 10 Ml IV PRN PRN LINE FLUSH
--- NOTE | 2018-08-02 11:55 | Progress Note ---
Assessment and Plan Assessment and plan: 67 YO Female SNF resident at [facility] with ESRD on HD (M,W,F), DM, Dementia, HTN, HLD, CVA with LHP, Seizure Disorder presents to ED for evaluation. Pt is confused and unable to provide detailed history, but history taken from SNF staff, EMS, and ED staff. As per staff, the patient was undergoing routine dialysis and was found to have confusion, and elevated blood pressure (224/104). Per facility patient is normally able to communicate although she is bedbound. On arrival to the ED she was noted to have Hypertensive Urgency which was corrected. Imaging studies including head CT showed Chronic Microvascular changes she underwent Dialysis with 3 Liters removed. BP also improved. She had a period of documented Hypotension with SBP in the 80s but improved. Acute Metabolic Encephalopathy Seizure disorder- Pt is on Keppra outpatient. Changed to IV. No further teeth grinding is noted today. Hypertensive urgency Hypertensive with CKD 4 DM Hyponatremia-resolved Hyperkalemia-resolved Metabolic Acidosis-resolved Severe Protein Calorie Malnutrition UNSTAGEABLE SACRAL PRESSURE INJURY Plan Supportive care Aspiration precautions Continue Nephrology input noted, creatnine appears to be leveling off. Monitor BP and avoid varied fluctuation Accucheck and insulin therapy still awaiting MRI Brain if ABLE EEG pending DVT/GI prophy Anticipate discharge in am and continue outpatient follow up with Nephrology History Interval history: Patient admitted with AMS and Hypertensive urgency Patient seen and examined today, still non verbal which is different from her baseline of answering in one or two sentences as described by the mcc. Staff been unable to get consent for MRI. No overnight abnormalities noted. Likely remains status quo Hospitalist Physical - Physical exam Narrative exam: General appearance: Present: Mild distress chronically ill-appearing, non verbal, no further grinding her teeth - EENT Eyes: Present: PERRL ENT: hearing intact, clear oral mucosa - Neck Neck: Present: supple, normal ROM - Respiratory Respiratory effort: normal Respiratory: bilateral: CTA - Cardiovascular Heart Sounds: Present: S1 & S2. Absent: rub, click - Extremities Extremities: pulses symmetrical, No edema, abnormal (BUE Contracture) Peripheral Pulses: within normal limits - Abdominal General gastrointestinal: Present: soft, non-tender, non-distended, normal bowel sounds Female genitourinary: Present: normal - Integumentary Integumentary: Present: clear, dry, - Musculoskeletal Musculoskeletal: generalized weakness - Psychiatric Psychiatric: Limited to assess - Constitutional Vitals: Temp Pulse Resp BP Pulse Ox 98.6 F 69 18 149/68 99 08/02/18 07:32 08/02/18 10:00 08/02/18 10:00 08/02/18 09:16 08/02/18 10:00 General appearance: Present: mild distress Results - Labs CBC & Chem 7: 07/30/18 14:03 07/31/18 04:30 Labs: Laboratory Last Values WBC 5.5 K/mm3 (4.5-11.0) 07/30/18 14:03 RBC 5.10 M/mm3 (3.65-5.03) H 07/30/18 14:03 Hgb 14.5 gm/dl (10.1-14.3) H 07/30/18 14:03 Hct 45.7 % (30.3-42.9) H 07/30/18 14:03 MCV 90 fl (79-97) 07/30/18 14:03 MCH 29 pg (28-32) 07/30/18 14:03 MCHC 32 % (30-34) 07/30/18 14:03 RDW 16.1 % (13.2-15.2) H 07/30/18 14:03 Plt Count 315 K/mm3 (140-440) 07/30/18 14:03 Lymph % (Auto) 40.7 % (13.4-35.0) H 07/30/18 14:03 [place] % (Auto) 7.1 % (0.0-7.3) 07/30/18 14:03 Eos % (Auto) 1.9 % (0.0-4.3) 07/30/18 14:03 Baso % (Auto) 1.4 % (0.0-1.8) 07/30/18 14:03 Lymph # 2.3 K/mm3 (1.2-5.4) 07/30/18 14:03 [place] # 0.4 K/mm3 (0.0-0.8) 07/30/18 14:03 Eos # 0.1 K/mm3 (0.0-0.4) 07/30/18 14:03 Baso # 0.1 K/mm3 (0.0-0.1) 07/30/18 14:03 Seg Neutrophils % 48.9 % (40.0-70.0) 07/30/18 14:03 Seg Neutrophils # 2.7 K/mm3 (1.8-7.7) 07/30/18 14:03 Sodium 134 mmol/L (137-145) L 07/31/18 04:30 Potassium 4.1 mmol/L (3.6-5.0) D 07/31/18 04:30 Chloride 96.9 mmol/L (98-107) L 07/31/18 04:30 Carbon Dioxide 20 mmol/L (22-30) L 07/31/18 04:30 Anion Gap 21 mmol/L 07/31/18 04:30 BUN 17 mg/dL (7-17) 07/31/18 04:30 Creatinine 2.2 mg/dL (0.7-1.2) H 07/31/18 04:30 Estimated GFR 27 ml/min 07/31/18 04:30 BUN/Creatinine Ratio 8 % 07/31/18 04:30 Glucose 163 mg/dL (65-100) H 07/31/18 04:30 POC Glucose 85 (70-105) 08/02/18 06:35 Calcium 9.0 mg/dL (8.4-10.2) 07/31/18 04:30 Hepatitis A IgM Ab Non-reactive (NonReactive) 07/30/18 17:50 Hep Bs Antigen Non-reactive (Negative) 07/30/18 17:50 Hep B Core IgM Ab Non-reactive (NonReactive) 07/30/18 17:50 Hepatitis C Antibody Non-reactive (NonReactive) 07/30/18 17:50 Nutrition/Malnutrition Assess - Dietary Evaluation Nutrition/Malnutrition Findings: Nutrition Notes Start: 07/31/18 1 0:34 Freq: Status: Active Protocol: Document 08/01/18 13:59 SHERRY (Rec: 08/01/18 14:02 SHERRY [id number] [email or web address]) Nutrition Notes Initial or Follow up Brief Note Current Diet Renal Subjective/Other Information Pt not in room at time of visit (12:36); at HD. Per RN, pt would not wake up to eat breakfast this am. She consumed <25% of meals yesterday. Nutrition Intervention Follow-Up By: 08/03/18 Additional Comments F/U: PO intake, wt, need for ONS
[2018-08-03 04:39] LABS: Hematocrit 35.7 % (30.3-42.9); Hemoglobin 11.5 gm/dl (10.1-14.3); Mean Corpuscular HGB Conc 32 % (30-34); Mean Corpuscular Volume 91 fl (79-97); Red Blood Count 3.93 M/mm3 (3.65-5.03); Red Cell Distribution Width 15.8 % (13.2-15.2)
[2018-08-03 04:41] LABS: Platelet Count 209 K/mm3 (140-440)
[2018-08-03 05:00] LABS: Calcium 8.4 mg/dL (8.4-10.2)
--- NOTE | 2018-08-03 08:58 | Progress Note ---
Subjective Interval history: Patient was seen today for follow-up on multiple renal related issues Events of 24 hours were noted, reviewed interdisciplinary Notes Vitals labs intake output medications were reviewed Past medical history: Reviewed Allergies: Reviewed Family history/social history: Reviewed Physical examination Vitals: Reviewed HEENT: Oral mucosa moist, no pallor or icterus Neck: Supple without any thyromegaly no evidence of any JVD Chest: Essentially clear to auscultation anteriorly no crackles or wheezes Heart: Regular rate and rhythm S1 and S2 heard no S3-S4 Abdomen: Soft nontender, no organomegaly no dullness in the flank Extremity: Dry skin less than 1+ peripheral edema, pitting no peripheral discoloration or cyanosis Dermatology: No petechial rashes Psychiatric: No evidence of vegetation progression Neurological: My assessment and plan are as follows End-stage renal disease: Patient will need to continue with hemodialysis treatment 3 times a week with her right central venous catheter Continue with hemodialysis treatment on Friday, dialysis prescription was reviewed Admitted with uncontrolled hypertension continue to monitor blood pressure, blood pressure is currently well controlled to follow As far as access is concerned patient currently does have a nonfunctioning graft at some point she will benefit from seeing vascular surgery, I'm not sure currently she is a suitable candidate Continue with the hydralazine when necessary as well as lisinopril 20 mg once a day Has had seizure disorder: Currently on Keppra Nutrition: High protein diet preferably 1.5 g per KG body weight, nutritional consultation required due to dialysis status Admitted with hyperkalemia currently improved to follow Metabolic acidosis bicarbonate upon admission was 18 currently better No evidence of anemia upon admission hemoglobin was 14.5, current hemoglobin however is 11.5 story of stroke, dementia, seizure disorder currently on Keppra, workup per primary team We will continue to follow and make recommendation from renal standpoint Objective - Vital Signs Vital signs: Vital Signs - 12hr 08/03/18 08/03/18 08/03/18 02:03 07:16 08:42 Temperature 98.5 F 98.0 F Pulse Rate 65 71 Pulse Rate [ 71 Apical] Respiratory 16 20 Rate Blood Pressure 125/69 119/79 O2 Sat by Pulse 100 100 100 Oximetry - Lab 08/03/18 03:39 08/03/18 03:39 Most recent lab results Calcium 8.4 mg/dL (8.4-10.2) 08/03/18 03:39 Medications & Allergies - Medications Allergies/Adverse Reactions: Allergies No Known Allergies Allergy (Verified 07/30/18 12:37) Home Medications: Home Medications Medication Instructions Recorded Confirmed Last Taken Type levETIRAcetam [Keppra TAB] 250 mg PO BID #60 tablet 01/23/18 07/30/18 Unknown Rx Lisinopril [Zestril TAB] 20 mg PO DAILY tablet 05/01/18 07/30/18 Unknown Rx levETIRAcetam [Keppra TAB] 250 mg PO BID tablet 05/01/18 07/30/18 Unknown Rx Aspirin [Aspirin EC] 325 mg PO DAILY #30 tablet. 05/05/18 07/30/18 Unknown Rx Acetaminophen [Tylenol] 325 mg PO Q4H PRN 07/30/18 07/30/18 Unknown History Diphenhydramine HCl [Complete 25 mg PO PRN PRN 07/30/18 07/30/18 Unknown History Allergy] Loperamide HCl [Anti-Diarrheal] 2 mg PO PRN PRN 07/30/18 07/30/18 Unknown History Nitroglycerin [Nitrostat] 0.4 mg SL PRN PRN 07/30/18 07/30/18 Unknown History Active Medications: Generic Name Dose Route Start Last Admin Trade Name Ronalq PRN Reason Stop Dose Admin Acetaminophen 650 mg 07/30/18 15:44 07/31/18 10:10 Tylenol PO 650 mg Q4H PRN Administration Pain MILD(1-3)/Fever >100.5/HUBBARD Acetaminophen/Hydrocodone Bitart 1 each 07/30/18 16:04 08/02/18 09:17 [place] 5/325 PO 1 each Q4H PRN Administration Pain, Moderate (4-6) Albuterol 2.5 mg 07/30/18 15:44 Proventil IH Q4HRT PRN Shortness Of Breath Alteplase, Recombinant 2 mg 07/30/18 17:29 Cathflo IV HOLDEN PRN LINE FLUSH Aspirin 325 mg 07/31/18 10:00 08/02/18 09:16 Ecotrin PO 325 mg DAILY MARYLOU Administration Hydralazine HCl 10 mg 07/30/18 16:05 Apresoline IV Q4HR PRN Hypertension Sodium Chloride 100 mls @ 999 mls/hr 07/30/18 17:29 Nacl 0.9% IV HOLDEN PRN Hypotension Levetiracetam 750 mg/ Sodium 107.5 mls @ 400 mls/hr 07/31/18 14:00 08/02/18 21:01 Chloride IV 400 mls/hr Q12HR MARYLOU Administration Lisinopril 20 mg 07/31/18 10:00 08/02/18 09:16 Zestril PO 20 mg DAILY MARYLOU Administration Morphine Sulfate 2 mg 07/30/18 15:44 Morphine IV Q4H PRN Pain, Moderate (4-6) Ondansetron HCl 4 mg 07/30/18 15:44 Zofran IV Q8H PRN Nausea And Vomiting Sodium Chloride 10 ml 07/30/18 22:00 08/02/18 21:02 Sodium Chloride Flush Syringe 10 Ml IV 10 ml BID MARYLOU Administration Sodium Chloride 10 ml 07/30/18 15:44 Sodium Chloride Flush Syringe 10 Ml IV PRN PRN LINE FLUSH
[2018-08-03] MEDS: ECOTRIN PO SCH (09:48)
[2018-08-03] MEDS: ZESTRIL PO SCH (09:48)
[2018-08-03] MEDS: KEPPRA 750 MG in NACL 0.9% 100 ML IV SCH (09:49)
[2018-08-03] MEDS: SODIUM CHLORIDE FLUSH SYRINGE 10 ML IV SCH (09:49)
--- NOTE | 2018-08-03 10:07 | Discharge Summary ---
Providers - Providers Date of Admission: 07/30/18 15:44 Attending physician: MARICRUZ CM MD 07/30/18 15:10 Consult to Physician [CONS] Stat Comment: SPOKE TO DR. MUÑOZ/ELIECER Consulting Provider: ANYI PATRICK Physician Instructions: Reason For Exam: dialysis 07/31/18 10:19 Consult to Wound/ET Nurse [CONS] Routine Reason For Exam: wound eval 07/31/18 11:23 Physical Therapy Evaluation and Treat [CONS] Routine Comment: Reason For Exam: weakness [facility] Reason for admission: AMS Condition: Stable Hospital course: 67 YO Female SNF resident at [facility] with ESRD on HD (M,W,F), DM, Dementia, HTN, HLD, CVA with LHP, Seizure Disorder presents to ED for evaluation. Pt is confused and unable to provide detailed history, but history taken from SNF staff, EMS, and ED staff. As per staff, the patient was undergoing routine dialysis and was found to have confusion, and elevated blood pressure (224/104). Per facility patient is normally able to communicate although she is bedbound. On arrival to the ED she was noted to have Hypertensive Urgency which was corrected. Imaging studies including head CT showed Chronic Microvascular changes she underwent Dialysis with 3 Liters removed. BP also improved. She had a period of documented Hypotension with SBP in the 80s but improved. During hospitalization the patient was Started on IV keppra with slow resolution of her symptoms, today she is speaking and asking for pain medication. We will adjust her Keppra upward she was also seen by Nephrology with noted improvement of her renal function, and also with recommendation of vascular evaluation outpatient for AV Graft and fistula. Mri brain revealed no acute pathology but showed marked global cortical atrophy and ventriculomegaly. A chronic left posterior parietal lobe infarct and chronic lacunar infarts of the left taco and right cerebellum, with Moderate chronic white matter microangipathy Acute Metabolic Encephalopathy Seizure disorder- Pt is on Keppra outpatient. Changed to IV. No further teeth grinding is noted today. Hypertensive urgency Hypertensive with CKD 4 ESRD DM Hyponatremia-resolved Hyperkalemia-resolved Metabolic Acidosis-resolved Severe Protein Calorie Malnutrition UNSTAGEABLE SACRAL PRESSURE INJURY Disposition: DC/TX-03 SNF W [facility] CERT Time spent for discharge: 35 mins Core Measure Documentation - Palliative Care Palliative Care/ Comfort Measures: Not Applicable - Core Measures Any of the following diagnoses?: none - VTE Discharge Requirements Deep Vein Thrombosis/Pulmonary Embolism Present on Admission: No Exam - Physical Exam Narrative exam: General appearance: Present: Mild distress chronically ill-appearing, verbal today - EENT Eyes: Present: PERRL ENT: hearing intact, clear oral mucosa - Neck Neck: Present: supple, normal ROM - Respiratory Respiratory effort: normal Respiratory: bilateral: CTA - Cardiovascular Heart Sounds: Present: S1 & S2. Absent: rub, click - Extremities Extremities: pulses symmetrical, No edema, abnormal (BUE Contracture) Peripheral Pulses: within normal limits - Abdominal General gastrointestinal: Present: soft, non-tender, non-distended, normal bowel sounds Female genitourinary: Present: normal - Integumentary Integumentary: Present: clear, dry, - Musculoskeletal Musculoskeletal: generalized weakness - Psychiatric Psychiatric: Limited to assess - Constitutional Vitals: Temp Pulse Resp BP Pulse Ox 98.0 F 71 20 119/79 100 08/03/18 07:16 08/03/18 09:48 08/03/18 07:16 08/03/18 09:48 08/03/18 08:42 Plan Activity: advance as tolerated, fall precautions Diet: low fat, diabetic Special Instructions: record daily BP diary, record blood sugar diary Follow up with: PRIMARY CARE, [Referring] - 7 Days ANA ZHOU MD [Staff Physician] - 7 Days Prescriptions: levETIRAcetam [Keppra TAB] 500 mg PO BID #60 tablet HYDROcodone/APAP 5-325 [[place] 5-325 mg TAB] 1 each PO Q6HR PRN #14 tablet PRN Reason: Pain, Moderate (4-6)
--- NOTE | 2018-08-03 13:02 | Magnetic Resonance Report ---
MRI BRAIN WITHOUT CONTRAST: 08/03/18 CLINICAL: Altered mental status. COMPARISON: CT head 07/30/18 TECHNIQUE: Axial diffusion, T1, T2, gradient echo T2*, coronal and axial FLAIR and sagittal T1 sequences on a 1.5 [place] magnet. FINDINGS: Pronounced diffuse enlargement of sulci and ventricles. The left lateral ventricle is larger than the right. No restricted diffusion. A chronic left posterior parietal infarct with encephalomalacia. No mass or mass effect. No hemorrhage, edema or extra-axial collection. No microbleeds on the gradient echo sequence. Moderate bilateral periventricular white matter hyperintensities FLAIR and T2. The brainstem is small. A chronic left pontine lacunar infarct. A chronic lacunar infarct of the right cerebellum. Moderate cerebellar atrophy with sulcal enlargement. Intact vascular flow voids. Normal pituitary and optic chiasm. Normal sinuses. The orbits, and soft tissues are normal. Normal calvarium and skull base. IMPRESSION: 1. Marked global cortical atrophy and ventriculomegaly. 2. No evidence of acute/subacute infarct or hemorrhage. 3. A chronic left posterior parietal lobe infarct. 4. Chronic lacunar infarcts of the left taco and right cerebellum. 5. Moderate chronic white matter microangiopathy.
[2018-08-03 14:24] VITALS: BP 128/65
== END 2018-08-03 18:15 | DRG 70 ==
LOC: ED 12:18 → 2B-ACE 15:44
PROVIDERS: ADMIT Internal Medicine; ATTEND Internal Medicine
PROC: 5A1D70Z Performance of Urinary Filtration, Intermittent, Less than 6 Hours Per Day (ICD-10-PCS; principal; 2018-07-30)
PROC: 5A1D70Z Performance of Urinary Filtration, Intermittent, Less than 6 Hours Per Day (ICD-10-PCS; 2018-08-01)
DX: G93.41 Metabolic encephalopathy (principal); N18.6 End stage renal disease; E43 Unspecified severe protein-calorie malnutrition; I12.0 Hypertensive chronic kidney disease with stage 5 chronic kidney disease or end stage renal disease; E87.1 Hypo-osmolality and hyponatremia; E87.2 Acidosis; N25.81 Secondary hyperparathyroidism of renal origin; I69.354 Hemiplegia and hemiparesis following cerebral infarction affecting left non-dominant side; Z68.1 Body mass index [BMI] 19.9 or less, adult; T82.590A Other mechanical complication of surgically created arteriovenous fistula, initial encounter; E87.5 Hyperkalemia; I16.0 Hypertensive urgency; G40.909 Epilepsy, unspecified, not intractable, without status epilepticus; E11.22 Type 2 diabetes mellitus with diabetic chronic kidney disease; F03.90 Unspecified dementia, unspecified severity, without behavioral disturbance, psychotic disturbance, mood disturbance, and anxiety; L89.150 Pressure ulcer of sacral region, unstageable; Y83.2 Surgical operation with anastomosis, bypass or graft as the cause of abnormal reaction of the patient, or of later complication, without mention of misadventure at the time of the procedure; Z79.899 Other long term (current) drug therapy; Z99.2 Dependence on renal dialysis; Z79.82 Long term (current) use of aspirin; Z74.01 Bed confinement status; Z82.49 Family history of ischemic heart disease and other diseases of the circulatory system; Z83.3 Family history of diabetes mellitus; Y92.89 Other specified places as the place of occurrence of the external cause
CPT/HCPCS: 36415; 70450; 70551; 80048; 80074; 80177; 82962; 85025; 85027; 95819; 96374; G0378; J1953; J2997; J7030

== ENCOUNTER 2018-08-18 13:36 | Emergency (ER) | payer MEDICARE ==
--- NOTE | 2018-08-18 15:06 | Emergency Department Report ---
HPI - General Chief Complaint: High BP Time Seen by Provider: 08/18/18 13:49 - HPI HPI: 67-year-old female presents to the emergency department via EMS from her dialysis with complaint of very elevated blood pressure. The patient apparently got about 1 hour of dialysis completed before they stopped it and sent her in for further evaluation. The patient has a past medical history of this end-stage renal disease, CHF, hypertension and some type of CVA versus encephalopathy. The patient has some level of confusion but per EMS this is her baseline mental status. The patient says that she lives in a correction. She denies any other complaints at this time. Previous records show that the patient's retanner is Dr. Choudhury. ED Past Medical Hx - Past Medical History Previous Medical History?: Yes Hx Hypertension: Yes Hx CVA: Yes (multiple) Hx Heart Attack/AMI: No Hx Congestive Heart Failure: No Hx Diabetes: Yes Hx Liver Disease: No Hx Renal Disease: Yes (MWF) Hx Seizures: Yes Hx Asthma: No Hx COPD: No Hx Dementia: Yes Hx HIV: No - Social History Smoking Status: Unknown if ever smoked - Medications Home Medications: Home Medications Medication Instructions Recorded Confirmed Last Taken Type Lisinopril [Zestril TAB] 20 mg PO DAILY tablet 05/01/18 08/18/18 Unknown Rx Aspirin [Aspirin EC] 325 mg PO DAILY #30 tablet. 05/05/18 08/18/18 Unknown Rx Acetaminophen [Tylenol] 325 mg PO Q4H PRN 07/30/18 08/18/18 Unknown History Diphenhydramine HCl [Complete 25 mg PO PRN PRN 07/30/18 08/18/18 Unknown History Allergy] Loperamide HCl [Anti-Diarrheal] 2 mg PO PRN PRN 07/30/18 08/18/18 Unknown History Nitroglycerin [Nitrostat] 0.4 mg SL PRN PRN 07/30/18 08/18/18 Unknown History levETIRAcetam [Keppra TAB] 500 mg PO BID #60 tablet 08/03/18 08/18/18 Unknown Rx ED Review of Systems ROS: Stated complaint: BODY PAIN Other details as noted in HPI Comment: Unobtainable due to pts medical conditions Physical Exam - Physical Exam Vital Signs: Vital Signs 08/18/18 13:43 Temperature 98.6 F Pulse Rate 68 Respiratory 14 Rate Blood Pressure 175/72 O2 Sat by Pulse 99 Oximetry Physical Exam: GENERAL: The patient is well-developed well-nourished. HEENT: Normocephalic. Atraumatic. Patient has moist mucous membranes. EYES: Extraocular motions are intact. Pupils are equal and reactive to light bilaterally. NECK: Supple. Trachea is midline. CHEST/LUNGS: Clear to auscultation. There is no respiratory distress noted. Right sided chest port in place. HEART/CARDIOVASCULAR: Regular. There is no tachycardia. There is no obvious murmur. ABDOMEN: Abdomen is soft, nontender. Patient has normal bowel sounds. There is no abdominal distention. SKIN: Skin is warm and dry. NEURO: The patient is awake, alert and cooperative. AAO2 to person and place but not time. MUSCULOSKELETAL: There is no tenderness or deformity. There is no evidence of acute injury. ED Course Vital Signs 08/18/18 13:43 Temperature 98.6 F Pulse Rate 68 Respiratory 14 Rate Blood Pressure 175/72 O2 Sat by Pulse 99 Oximetry - Consultations Consultation #1: 08/18/18 16:07 I spoke with the nephrology nurse practitioner, Etelvina, on behalf of Dr. Choudhury. The patient's blood pressure is better controlled. Labs do not show any significant electrolyte abnormalities or uremia. Chest x-ray does not show any volume overload. Vital signs are stable and the patient does not have any complaints or signs of respiratory distress. Therefore the patient can be safely discharged back to her correction and continue with her normal dialysis regimen. ED Medical Decision Making - Lab Data Result diagrams: 08/18/18 15:03 08/18/18 15:03 - Radiology Data Radiology results: image reviewed - Medical Decision Making This patient was sent in from dialysis secondary to elevated blood pressure to the point where they only did one hour of dialysis for her. The patient is AAO [address] but not time, but this is her baseline mental status from some questionable previous CVA versus encephalopathy. The patient is awake and cooperative and has no current complaints. Labs were mostly unremarkable. She does have some renal insufficiency but there are no signs of any uremia and she does not have any significant electrolyte abnormalities. Her blood pressure came down to a much more reasonable level without any antihypertensive medications in the emergency department. Chest x-ray did not show any pleural effusions or signs of significant volume overload, or any other acute process. For all these reasons, I contacted nephrology who agrees that the patient appears safe for discharge home at this time and can continue outpatient dialysis regiment. - Differential Diagnosis volume overload, CHF, Pneumonia Critical Care Time: No Critical care attestation.: If time is entered above; I have spent that time in minutes in the direct care of this critically ill patient, excluding procedure time. ED Disposition Clinical Impression: ESRD (end stage renal disease) on dialysis HTN (hypertension) Qualifiers: Hypertension type: essential hypertension Qualified Code(s): I10 - Essential (primary) hypertension Disposition: DC-01 TO HOME OR SELFCARE Is pt being admited?: No Condition: Stable Instructions: Chronic Kidney Disease (ED), Hypertension (ED) Additional Instructions: Please follow-up with your retanner and continue with your normal dialysis regiment. Return to the emergency Department with any worsening of your symptoms or any acute distress. Referrals: ANYI PATRICK MD [Staff Physician] - 2-3 Days Time of Disposition: 16:09
[2018-08-18 15:26] LABS: Basophils % (Auto) 0.5 % (0.0-1.8); Eosinophils # (Auto) 0.1 K/mm3 (0.0-0.4); Eosinophils % (Auto) 1.5 % (0.0-4.3); Hematocrit 36.2 % (30.3-42.9); Hemoglobin 11.7 gm/dl (10.1-14.3); Lymphocytes # (Auto) 1.4 K/mm3 (1.2-5.4); Lymphocytes % (Auto) 24.8 % (13.4-35.0); Mean Corpuscular HGB Conc 32 % (30-34); Mean Corpuscular Volume 90 fl (79-97); Monocytes # (Auto) 0.4 K/mm3 (0.0-0.8); Monocytes % (Auto) 6.4 % (0.0-7.3); Platelet Count 359 K/mm3 (140-440); Red Blood Count 4.03 M/mm3 (3.65-5.03); Red Cell Distribution Width 16.1 % (13.2-15.2)
[2018-08-18 15:35] LABS: Calcium 8.7 mg/dL (8.4-10.2)
--- NOTE | 2018-08-18 17:14 | XRay Report ---
PROCEDURES: XR CHEST 1V AP TECHNIQUE: AP portable view of the chest. HISTORY: HTN, dialysis COMPARISON: CXR 01/19/2018 FINDINGS: Lines, tubes, and devices: Double-lumen right jugular dialysis catheter terminates in the distal supe rior vena cava Lungs and pleura: Trachea is normal in position. Lungs are clear of infiltrate, pleural effusion, vas cular congestion, or pneumothorax. Cardiomediastinal silhouette: Cardiac and mediastinal silhouettes are unremarkable. Other: Bony structures are intact. IMPRESSION: No acute cardiopulmonary process seen.No change. This document is electronically signed by Queenie Ochoa MD., August 18 2018 05:12:48 PM ET
[2018-08-18 18:01] VITALS: BP 166/74
== END 2018-08-18 18:02 | disposition home or self-care (01) ==
LOC: ED 13:36
DX: I12.0 Hypertensive chronic kidney disease with stage 5 chronic kidney disease or end stage renal disease (principal); N18.6 End stage renal disease; E11.22 Type 2 diabetes mellitus with diabetic chronic kidney disease; Z99.2 Dependence on renal dialysis; Z79.82 Long term (current) use of aspirin
CPT/HCPCS: 36415; 71045; 80048; 85025; 99284

== ENCOUNTER 2018-10-13 12:36 | Inpatient (IN) | payer MEDICARE ==
--- NOTE | 2018-10-13 13:35 | Emergency Department Report ---
ED General Adult HPI - General Chief complaint: Medical Clearance Stated complaint: VASCULAR SITE NOT WORKING Time Seen by Provider: 10/13/18 13:06 Source: EMS Mode of arrival: Stretcher Limitations: Other - History of Present Illness Initial comments: 67-year-old female sent from dialysis due to Vas-Cath not working. However patient found to be hypotensive. EMS reports patient has decubitus ulcer present. Patient is nonverbal. -: This afternoon Severity scale (0 -10): 0 - Related Data Home Medications Medication Instructions Recorded Confirmed Last Taken Loperamide HCl [Anti-Diarrheal] 2 mg PO Q6H PRN 07/30/18 10/13/18 Unknown Nitroglycerin [Nitrostat] 0.4 mg SL Q5M PRN 07/30/18 10/13/18 Unknown Acetaminophen [Tylenol] 325 mg FEEDTUBE Q6HR PRN 10/13/18 10/13/18 Unknown Carvedilol [Coreg] 25 mg FEEDTUBE BID 10/13/18 10/13/18 Unknown Esomeprazole Magnesium [NexIUM] 40 mg PO QDAY 10/13/18 10/13/18 Unknown HYDROcodone/APAP 5-325 [[place] 1 each FEEDTUBE Q6HR PRN 10/13/18 10/13/18 Unknown 5/325] Insulin Glargine,Hum.rec.anlog 15 units SUB-Q HS 10/13/18 10/13/18 Unknown [Basaglar Kwikpen U-100] Linagliptin [Tradjenta] 5 mg PO QDAY 10/13/18 10/13/18 Unknown amLODIPine [Norvasc] 10 mg FEEDTUBE DAILY 10/13/18 10/13/18 Unknown Previous Rx's Medication Instructions Recorded Last Taken Type Aspirin [Aspirin EC] 325 mg PO DAILY #30 tablet. 05/05/18 Unknown Rx levETIRAcetam [Keppra TAB] 500 mg PO BID #60 tablet 08/03/18 Unknown Rx Allergies Allergy/AdvReac Type Severity Reaction Status Date / Time No Known Allergies Allergy Verified 07/30/18 12:37 ED Review of Systems ROS: Stated complaint: VASCULAR SITE NOT WORKING Other details as noted in HPI Comment: Unobtainable due to pts medical conditions ED Past Medical Hx - Past Medical History Hx Hypertension: Yes Hx CVA: Yes (multiple) Hx Heart Attack/AMI: No Hx Congestive Heart Failure: No Hx Diabetes: Yes Hx Liver Disease: No Hx Renal Disease: Yes (MWF) Hx Seizures: Yes Hx Asthma: No Hx COPD: No Hx Dementia: Yes Hx HIV: No - Social History Smoking Status: Unknown if ever smoked - Medications Home Medications: Home Medications Medication Instructions Recorded Confirmed Last Taken Type Aspirin [Aspirin EC] 325 mg PO DAILY #30 tablet. 05/05/18 10/13/18 Unknown Rx Loperamide HCl [Anti-Diarrheal] 2 mg PO Q6H PRN 07/30/18 10/13/18 Unknown History Nitroglycerin [Nitrostat] 0.4 mg SL Q5M PRN 07/30/18 10/13/18 Unknown History levETIRAcetam [Keppra TAB] 500 mg PO BID #60 tablet 08/03/18 10/13/18 Unknown Rx Acetaminophen [Tylenol] 325 mg FEEDTUBE Q6HR PRN 10/13/18 10/13/18 Unknown Hi story Carvedilol [Coreg] 25 mg FEEDTUBE BID 10/13/18 10/13/18 Unknown History Esomeprazole Magnesium [NexIUM] 40 mg PO QDAY 10/13/18 10/13/18 Unknown History HYDROcodone/APAP 5-325 [[place] 1 each FEEDTUBE Q6HR PRN 10/13/18 10/13/18 Unknown History 5/325] Insulin Glargine,Hum.rec.anlog 15 units SUB-Q HS 10/13/18 10/13/18 Unknown History [Basaglar Kwikpen U-100] Linagliptin [Tradjenta] 5 mg PO QDAY 10/13/18 10/13/18 Unknown History amLODIPine [Norvasc] 10 mg FEEDTUBE DAILY 10/13/18 10/13/18 Unknown History ED Physical Exam - General Limitations: Other General appearance: alert - Head Head exam: Present: atraumatic, normocephalic - Eye Eye exam: Present: normal appearance - ENT ENT exam: Present: mucous membranes dry - Neck Neck exam: Present: normal inspection - Respiratory Respiratory exam: Present: normal lung sounds bilaterally, other (VasCath present right anterior chest wall). Absent: respiratory distress - Cardiovascular Cardiovascular Exam: Present: normal rhythm, bradycardia - GI/Abdominal GI/Abdominal exam: Present: soft, other (PEG tube in place). Absent: distended, tenderness - Extremities Exam Extremities exam: Present: other (contractures present) - Neurological Exam Neurological exam: Present: other (awake, looks around, nonverbal) - Psychiatric Psychiatric exam: Present: normal affect, normal mood - Skin Skin exam: Present: other (large, foul-smelling sacral decubitus ulcer with purulent discharge present) ED Course Vital Signs 10/13/18 10/13/18 10/13/18 12:59 13:38 14:46 Temperature 97.8 F 96.8 F L Pulse Rate 54 L 47 L Respiratory 18 16 Rate Blood Pressure 88/55 82/47 [Right] O2 Sat by Pulse 100 95 Oximetry 10/13/18 10/13/18 16:51 17:43 Temperature 94.1 F L Pulse Rate 48 L 51 L Respiratory 12 12 Rate Blood Pressure 103/45 103/43 [Right] O2 Sat by Pulse 100 100 Oximetry - Consultations Consultation #1: 10/13/18 15:50 Spoke w/ Etelvina Clayton NP, aware that pt is here in the ED. Consultation #2: 10/13/18 16:06 Spoke w/ MYRA Sheets for vascular. Aware of pt and vas cath complication. States will call Dr Cheng - Central Line Placement Right Femoral Consent Obtained: emergent situation Time Out Performed: Yes Patient Placed on Monitor/Pulse Ox: Yes Prep: mask, gown, gloves Central Line Prep: Chlorhexidine scrub, sterile drapes applied Local Anesthesia Used: Lidocaine 1% Amount of Anesthesia Used (mls): 3 Ultrasound Used for Placement: No Central Line Lumen Inserted: triple Bloods Obtained for Lab: No Central Line Position: good blood return, all ports aspirated, flus, sutured in place with nyl Dressing Applied: Tegaderm Patient Tolerated Procedure: well Complications: none ED Medical Decision Making - Lab Data Result diagrams: 10/13/18 13:28 10/13/18 13:28 - Radiology Data Radiology results: report reviewed, image reviewed - Medical Decision Making 67-year-old female with end-stage renal disease presents from dialysis due to vas cath not working, found to be in septic shock likely due to infected sacral decubitus ulcer. No need for emergent dialysis at this time as patient is not hypokalemia, potassium is actually 2.8, and patient is in no respiratory distress, chest x-ray shows no evidence of pulmonary edema and O2 sats are normal. Patient found to have elevated wbc's with elevated lactic acid at 2.5 patient given 30 mL/kg fluid bolus, however no response to blood pressure, so ce ntral line was placed and patient placed on Levophed. Blood cultures obtained, vancomycin and cefepime given. Nephrology and vascular surgery both consulted and are aware of the patient. Patient admitted to Dr. Quispe, hospitalist. - Differential Diagnosis sepsis, dehydration, hyperkalemia Critical Care Time: Yes (60) Critical care attestation.: If time is entered above; I have spent that time in minutes in the direct care of this critically ill patient, excluding procedure time. Critical Care Time: 60 min ED Disposition Clinical Impression: Sepsis, Infected decubitus ulcer, Dialysis catheter clot or failure, Anemia, Hypotension, Hypokalemia Disposition: 09 OP ADMIT IP TO THIS HOSP Is pt being admited?: Yes Condition: Stable Referrals: PRIMARY CARE, [Primary Care Provider] - 3-5 Days Time of Disposition: 14:44
[2018-10-13] MEDS ORDERED: NACL 0.9% 1000 ML IV ONE (13:47)
[2018-10-13 13:48] LABS: Hemoglobin 6.1 gm/dl (10.1-14.3); Mean Corpuscular HGB Conc 31 % (30-34); Mean Corpuscular Volume 86 fl (79-97); Platelet Count 469 K/mm3 (140-440)
--- NOTE | 2018-10-13 13:48 | XRay Report ---
AP CHEST: HISTORY: Sepsis alert AP view of the chest demonstrates a normal mediastinal and cardiac contour with clear lungs and normal bony and soft tissue structures. Right IJ venous catheter is unchanged since 08/18/18. IMPRESSION: Unremarkable AP chest.
[2018-10-13 13:55] LABS: Hematocrit 19.9 % (30.3-42.9)
[2018-10-13 14:11] LABS: Albumin 1.4 g/dL (3.9-5); Calcium 8.2 mg/dL (8.4-10.2)
[2018-10-13] MEDS ORDERED: MAXIPIME/NS 1 GM/100 ML 1 GM/100 ML BAG IV ONE (14:15)
[2018-10-13 14:38] LABS: Anisocytosis 1+; Basophils % (Manual) 0 % (0.0-1.8); Eosinophils % (Manual) 0 % (0.0-4.3); Monocytes % (Manual) 0 % (0.0-7.3); Platelet Estimate Consistent w Auto; Total Cells Counted 100; Toxic Granulation 1+
[2018-10-13] MEDS ORDERED: VANCOMYCIN/NS 1 GM/250 ML 1 GM/250 ML BAG IV ONE (15:00)
[2018-10-13] MEDS ORDERED: LEVOPHED DRIP 4 MG/NS 250 ML 4 MG/250 ML BAG IV ONE ×2 (15:58→21:05)
[2018-10-13] MEDS: LEVOPHED DRIP 4 MG/NS 250 ML 4 MG/250 ML BAG IV SCH ×2 (16:06→18:52)
[2018-10-13] MEDS ORDERED: K-DUR PO ONE (16:07)
--- NOTE | 2018-10-13 16:22 | Event Note ---
Date: 10/13/[address] Alvarez. catheter not working but no need for STAT intereaction. Patient is septic from decubitis.
[2018-10-13] MEDS ORDERED: NACL 0.9% 250ML 250 ML ONE (17:12)
--- NOTE | 2018-10-13 17:35 | Consultation ---
History of Present Illness - History of Present Illness 67-year-old lady with medical history significant for hypertension, end-stage renal disease from dialysis unit for malfunctioning right IJ PermCath at [facility] [place] she was found to be hypotensive in the emergency room found to also have a large decubitus ulcer has received fluid boluses, 1.3 L also found to have elevated lactic acid. She remained persistently hypotensive and was started on vasopressin support does not appear to be in any respiratory distress. She was found to be hypokalemic as well . She has been started on broad spectrum antibiotics Medications and Allergies Allergies Allergy/AdvReac Type Severity Reaction Status Date / Time No Known Allergies Allergy Verified 07/30/18 12:37 Home Medications Medication Instructions Recorded Confirmed Last Taken Type Aspirin [Aspirin EC] 325 mg PO DAILY #30 tablet. 05/05/18 10/13/18 Unknown Rx Loperamide HCl [Anti-Diarrheal] 2 mg PO Q6H PRN 07/30/18 10/13/18 Unknown History Nitroglycerin [Nitrostat] 0.4 mg SL Q5M PRN 07/30/18 10/13/18 Unknown History levETIRAcetam [Keppra TAB] 500 mg PO BID #60 tablet 08/03/18 10/13/18 Unknown Rx Acetaminophen [Tylenol] 325 mg FEEDTUBE Q6HR PRN 10/13/18 10/13/18 Unknown History Carvedilol [Coreg] 25 mg FEEDTUBE BID 10/13/18 10/13/18 Unknown History Esomeprazole Magnesium [NexIUM] 40 mg PO QDAY 10/13/18 10/13/18 Unknown History HYDROcodone/APAP 5-325 [[place] 1 each FEEDTUBE Q6HR PRN 10/13/18 10/13/18 Unknown History 5/325] Insulin Glargine,Hum.rec.anlog 15 units SUB-Q HS 10/13/18 10/13/18 Unknown History [Basaglar Kwikpen U-100] Linagliptin [Tradjenta] 5 mg PO QDAY 10/13/18 10/13/18 Unknown History amLODIPine [Norvasc] 10 mg FEEDTUBE DAILY 10/13/18 10/13/18 Unknown History Active Meds: Active Medications Norepinephrine (Levophed Drip 4 Mg/Ns 250 Ml) 4 mg in 250 mls @ 7.5 mls/hr IV TITR MARYLOU; Protocol Last Titration: 10/13/18 16:45 Dose: 25 mcg/min, 93.75 mls/hr Documented by: Review of Systems ROS unobtainable: due to mental status Exam - Vital Signs Vital signs: Vital Signs Temp Pulse Resp BP Pulse Ox 97.8 F 54 L 18 88/55 100 10/13/18 12:59 10/13/18 12:59 10/13/18 12:59 10/13/18 12:59 10/13/18 12:59 - General Appearance General appearance: cachectic, chronically ill, frail EENT: ATNC, PERRL, mucous membranes dry Neck: Present: neck supple Respiratory: Decreased Breath Sounds Heart: regular, S1S2 Gastrointestinal: Present: normal, normoactive bowel sounds Integumentary: no rash Neurologic: no focal deficit, alert and oriented x3 Psychiatric: mood/affect appropriate Results - Lab Results 10/13/18 13:28 10/13/18 13:28 Most recent lab results Calcium 8.2 mg/dL (8.4-10.2) L 10/13/18 13:28 Assessment and Plan - Patient Problems (1) End stage renal disease Current Visit: Yes Status: Acute Plan to address problem: End-stage renal disease Currently hypotensive we'll hold off hemodialysis Will need dialysis catheter exchange (2) Shock Current Visit: Yes Status: Acute Plan to address problem: Septic Shock Elevated lactic acid Received 1.3 L of fluid will give additional 500 mL bolus Fluid boluses Started on as vasopressor Continue antibiotics Source query infected decubitus ulcer (3) Anemia Current Visit: Yes Status: Acute Plan to address problem: Severe anemia Hb: 6g/dl transfuse 2 units of PRBC monitor CBC monitor for bleeding. (4) Dialysis catheter clot or failure Current Visit: Yes Status: Acute Plan to address problem: Dialysis catheter clot When needed tunneled dialysis catheter Exchange in the a.m. if the blood pressures are better Appreciated vascular surgery involvement (5) Hypokalemia Current Visit: Yes Status: Acute Plan to address problem: Hypokalemia We'll give 20 Me Q's potassium chloride IV Recheck renal function panel
[2018-10-13] MEDS ORDERED: NACL 0.9% 250ML 250 ML IV ONE (17:44)
[2018-10-13] MEDS ORDERED: NACL 0.9% 500 ML 500 ML IV NR (17:44)
[2018-10-13 18:10] LABS: Bilirubin,Urine NEG (Negative); Blood,Urine SM (Negative); Color,Urine Amber (Yellow); Urobilinogen,Urine < 2.0 mg/dL (<2.0)
[2018-10-13 18:14] LABS: Protein,Urine >500 mg/dL (Negative)
--- NOTE | 2018-10-13 19:51 | History and Physical Report ---
History of Present Illness Date of examination: 10/13/18 Date of admission: 10/13/18 Chief complaint: Hypotension and Malfunctioning Vas cath History of present illness: 67-year-old femalewith pmh of seizure disorder IDDM HTN Gerd sent from dialysis due to Vas-Cath not working.Patient found to be hypotensive. EMS reports patient has decubitus ulcer present. Patient is nonverbal.No fever or chills.Patient from [place]--[facility] .Patient not DNR.No family at bedside. Past Medical History Hypertension: Yes CVA: Yes (multiple) Diabetes: Yes Renal Disease: Yes (MWF) Seizures: Yes Dementia: Yes Past Surgical History Unavailable Social History No smoking [place] resident Family History Unavailable Medications Home Medications: Home Medications Medication Instructions Recorded Confirmed Last Taken Type Aspirin [Aspirin EC] 325 mg PO DAILY #30 tablet. 05/05/18 10/13/18 Unknown Rx Loperamide HCl [Anti-Diarrheal] 2 mg PO Q6H PRN 07/30/18 10/13/18 Unknown History Nitroglycerin [Nitrostat] 0.4 mg SL Q5M PRN 07/30/18 10/13/18 Unknown History levETIRAcetam [Keppra TAB] 500 mg PO BID #60 tablet 08/03/18 10/13/18 Unknown Rx Acetaminophen [Tylenol] 325 mg FEEDTUBE Q6HR PRN 10/13/18 10/13/18 Unknown History Carvedilol [Coreg] 25 mg FEEDTUBE BID 10/13/18 10/13/18 Unknown History Esomeprazole Magnesium [NexIUM] 40 mg PO QDAY 10/13/18 10/13/18 Unknown History HYDROcodone/APAP 5-325 [[place] 1 each FEEDTUBE Q6HR PRN 10/13/18 10/13/18 Unknown History 5/325] Insulin Glargine,Hum.rec.anlog 15 units SUB-Q HS 10/13/18 10/13/18 Unknown History [[place] U-100] Linagliptin [Tradjenta] 5 mg PO QDAY 10/13/18 10/13/18 Unknown History amLODIPine [Norvasc] 10 mg FEEDTUBE DAILY 10/13/18 10/13/18 Unknown History Review of Systems ROS: Stated complaint: VASCULAR SITE NOT WORKING Other details as noted in HPI Comment: Unobtainable due to pts medical conditions Medications and Allergies Allergies Allergy/AdvReac Type Severity Reaction Status Date / Time No Known Allergies Allergy Verified 07/30/18 12:37 Home Medications Medication Instructions Recorded Confirmed Last Taken Type Aspirin [Aspirin EC] 325 mg PO DAILY #30 tablet.dr 05/05/18 10/13/18 Unknown Rx Loperamide HCl [Anti-Diarrheal] 2 mg PO Q6H PRN 07/30/18 10/13/18 Unknown History Nitroglycerin [Nitrostat] 0.4 mg SL Q5M PRN 07/30/18 10/13/18 Unknown History levETIRAcetam [Keppra TAB] 500 mg PO BID #60 tablet 08/03/18 10/13/18 Unknown Rx Acetaminophen [Tylenol] 325 mg FEEDTUBE Q6HR PRN 10/13/18 10/13/18 Unknown History Carvedilol [Coreg] 25 mg FEEDTUBE BID 10/13/18 10/13/18 Unknown History Esomeprazole Magnesium [NexIUM] 40 mg PO QDAY 10/13/18 10/13/18 Unknown History HYDROcodone/APAP 5-325 [[place] 1 each FEEDTUBE Q6HR PRN 10/13/18 10/13/18 Unknown History 5/325] Insulin Glargine,Hum.rec.anlog 15 units SUB-Q HS 10/13/18 10/13/18 Unknown History [Basaglar Kwikpen U-100] Linagliptin [Tradjenta] 5 mg PO QDAY 10/13/18 10/13/18 Unknown History amLODIPine [Norvasc] 10 mg FEEDTUBE DAILY 10/13/18 10/13/18 Unknown History Active Meds: Active Medications Norepinephrine (Levophed Drip 4 Mg/Ns 250 Ml) 4 mg in 250 mls @ 7.5 mls/hr IV TITR MARYLOU; Protocol Last Admin: 10/13/18 18:52 Dose: 30 mcg/min, 112.5 mls/hr Documented by: Sodium Chloride (Nacl 0.9% 500 Ml) 500 mls @ 0 mls/hr IV ONCE NR Stop: 10/13/18 23:59 Cefazolin Sodium (Ancef/Sterile Water 2 Gm/20 Ml) 2 gm in 20 mls @ 80 mls/hr IV PREOP NR; Protocol Stop: 10/14/18 23:59 Exam - Constitutional Vitals: Temp Pulse Resp BP Pulse Ox 94.1 F L 50 L 12 95/32 100 10/13/18 17:43 10/13/18 18:30 10/13/18 18:30 10/13/18 18:30 10/13/18 18:30 General appearance: Present: mild distress, well-nourished - EENT Eyes: Present: PERRL ENT: hearing intact, clear oral mucosa - Neck Neck: Present: supple, normal ROM - Respiratory Respiratory effort: normal Respiratory: bilateral: CTA - Cardiovascular Heart rate: 98 Rhythm: regular Heart Sounds: Present: S1 & S2. 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.Patient very Lethargic and decreased responsiveness) - Allied Health Allied health notes reviewed: nursing, case management Results - Labs CBC & Chem 7: 10/13/18 13:28 10/13/18 13:28 Labs: Laboratory Last Values WBC 29.1 K/mm3 (4.5-11.0) H 10/13/18 13:28 RBC 2.30 M/mm3 (3.65-5.03) L 10/13/18 13:28 Hgb 6.1 gm/dl (10.1-14.3) L 10/13/18 13:28 Hct 19.9 % (30.3-42.9) L* 10/13/18 13:28 MCV 86 fl (79-97) 10/13/18 13:28 MCH 26 pg (28-32) L 10/13/18 13:28 MCHC 31 % (30-34) 10/13/18 13:28 RDW 19.0 % (13.2-15.2) H 10/13/18 13:28 Plt Count 469 K/mm3 (140-440) H 10/13/18 13:28 Add Manual Diff Complete 10/13/18 13:28 Total Counted 100 10/13/18 13:28 Seg Neutrophils % Technical Proposal Writer 10/13/18 13:28 Seg Neuts % (Manual) 96.0 % (40.0-70.0) H 10/13/18 13:28 0 % 10/13/18 13:28 4.0 % (13.4-35.0) L 10/13/18 13:28 Reactive Lymphs % (Man) 0 % 10/13/18 13:28 0 % (0.0-7.3) 10/13/18 13:28 0 % (0.0-4.3) 10/13/18 13:28 0 % (0.0-1.8) 10/13/18 13:28 0 % 10/13/18 13:28 0 % 10/13/18 13:28 0 % 10/13/18 13:28 0 % 10/13/18 13:28 Nucleated RBC % Not Reportable 10/13/18 13:28 Seg Neutrophils # Man 27.9 K/mm3 (1.8-7.7) H 10/13/18 13:28 Band Neutrophils # 0.0 K/mm3 10/13/18 13:28 1.2 K/mm3 (1.2-5.4) 10/13/18 13:28 Abs React Lymphs (Man) 0.0 K/mm3 10/13/18 13:28 0.0 K/mm3 (0.0-0.8) 10/13/18 13:28 0.0 K/mm3 (0.0-0.4) 10/13/18 13:28 0.0 K/mm3 (0.0-0.1) 10/13/18 13:28 0.0 K/mm3 10/13/18 13:28 0.0 K/mm3 10/13/18 13:28 0.0 K/mm3 10/13/18 13:28 Blast Cells # 0.0 K/mm3 10/13/18 13:28 WBC Morphology Not Reportable 10/13/18 13:28 Hypersegmented Neuts Not Reportable 10/13/18 13:28 Hyposegmented Neuts Not Reportable 10/13/18 13:28 Hypogranular Neuts Not Reportable 10/13/18 13:28 Not Reportable 10/13/18 13:28 1+ 10/13/18 13:28 Not Reportable 10/13/18 13:28 Not Reportable 10/13/18 13:28 Not Reportable 10/13/18 13:28 Not Reportable 10/13/18 13:28 Consistent w auto 10/13/18 13:28 Not Reportable 10/13/18 13:28 Plt Clumps, EDTA Not Reportable 10/13/18 13:28 Not Reportable 10/13/18 13:28 Not Reportable 10/13/18 13:28 Not Reportable 10/13/18 13:28 Plt Morphology Comment Not Reportable 10/13/18 13:28 RBC Morphology Not Reportable 10/13/18 13:28 Dimorphic RBCs Not Reportable 10/13/18 13:28 Not Reportable 10/13/18 13:28 Not Reportable 10/13/18 13:28 Not Reportable 10/13/18 13:28 1+ 10/13/18 13:28 Not Reportable 10/13/18 13:28 Not Reportable 10/13/18 13:28 Not Reportable 10/13/18 13:28 Not Reportable 10/13/18 13:28 Not Reportable 10/13/18 13:28 Not Reportable 10/13/18 13:28 Not Reportable 10/13/18 13:28 Not Reportable 10/13/18 13:28 Not Reportable 10/13/18 13:28 Not Reportable 10/13/18 13:28 Not Reportable 10/13/18 13:28 Not Reportable 10/13/18 13:28 Not Reportable 10/13/18 13:28 Not Reportable 10/13/18 13:28 Not Reportable 10/13/18 13:28 Acanthocytes (Spur) Not Reportable 10/13/18 13:28 Rouleaux Not Reportable 10/13/18 13:28 Not Reportable 10/13/18 13:28 Not Reportable 10/13/18 13:28 Not Reportable 10/13/18 13:28 Not Reportable 10/13/18 13:28 Hem Pathologist Commnt No 10/13/18 13:28 Sodium 124 mmol/L (137-145) L 10/13/18 13:28 Potassium 2.8 mmol/L (3.6-5.0) L* 10/13/18 13:28 Chloride 90.1 mmol/L (98-107) L 10/13/18 13:28 Carbon Dioxide 19 mmol/L (22-30) L 10/13/18 13:28 18 mmol/L 10/13/18 13:28 BUN 60 mg/dL (7-17) H 10/13/18 13:28 2.4 mg/dL (0.7-1.2) H 10/13/18 13:28 Estimated GFR 24 ml/min 10/13/18 13:28 25 % 10/13/18 13:28 Glucose 274 mg/dL (65-100) H 10/13/18 13:28 Lactic Acid 2.40 mmol/L (0.7-2.0) H* 10/13/18 16:59 Calcium 8.2 mg/dL (8.4-10.2) L 10/13/18 13:28 0.30 mg/dL (0.1-1.2) 10/13/18 13:28 AST 12 units/L (5-40) 10/13/18 13:28 ALT 16 units/L (7-56) 10/13/18 13:28 94 units/L (35-129) 10/13/18 13:28 5.4 g/dL (6.3-8.2) L 10/13/18 13:28 1.4 g/dL (3.9-5) L 10/13/18 13:28 0.4 % 10/13/18 13:28 Jennifer (Yellow) 10/13/18 17:43 Cloudy (Clear) 10/13/18 17:43 5.0 (5.0-7.0) 10/13/18 17:43 Ur Specific [place] 1.019 (1.003-1.030) 10/13/18 17:43 >500 mg/dL (Negative) 10/13/18 17:43 150 mg/dL (Negative) 10/13/18 17:43 Tr mg/dL (Negative) 10/13/18 17:43 Sm (Negative) 10/13/18 17:43 Neg (Negative) 10/13/18 17:43 Neg (Negative) 10/13/18 17:43 < 2.0 mg/dL (<2.0) 10/13/18 17:43 Ur Leukocyte Esterase Sm (Negative) 10/13/18 17:43 36.0 /HPF (0.0-6.0) H 10/13/18 17:43 13.0 /HPF (0.0-6.0) 10/13/18 17:43 U Epithel Cells (Auto) 81.0 /HPF (0-13.0) H 10/13/18 17:43 Blood Type A POSITIVE 10/13/18 14:50 Antibody Screen Negative 10/13/18 14:50 Crossmatch See Detail 10/13/18 14:50 - Imaging and Cardiology EKG: report reviewed (Sinus Bradycardia LVH 54/min) Chest x-ray: report reviewed (NAF) Assessment and Plan Advance Directives: Yes (Full code) VTE prophylaxis?: Chemical Plan of care discussed with patient/family: Yes - Patient Problems (1) Sepsis Current Visit: Yes Status: Acute Qualifiers: Sepsis type: sepsis due to unspecified organism Qualified Code(s): A41.9 - Sepsis, unspecified organism Plan to address problem: Patient in septic shock Vasopressors initiated IV abx in the form of Cefepime and IV Vancomycin ordered ID consult requested Blood cultures pending (2) Anemia Current Visit: Yes Status: Acute Qualifiers: Anemia type: unspecified type Qualified Code(s): D64.9 - Anemia, unspecified Plan to address problem: To transfuse 2 units of PRBC (3) Dialysis catheter clot or failure Current Visit: Yes Status: Acute Plan to address problem: Vascular surgery consulted (4) End stage renal disease Current Visit: Yes Status: Chronic Plan to address problem: COnt HD once Vascath replaced (5) Hypokalemia Current Visit: Yes Status: Acute Plan to address problem: Supplemented (6) Hypotension Current Visit: Yes Status: Acute Qualifiers: Hypotension type: unspecified hypotension type Qualified Code(s): I95.9 - Hypotension, unspecified Plan to address problem: Sec to sepsis IV FLuids and IV abx (7) Infected decubitus ulcer Current Visit: Yes Status: Chronic Qualifiers: Pressure injury stage: stage 4 Qualified Code(s): L89.94 - Pressure ulcer of unspecified site, stage 4; L08.9 - Local infection of the skin and subcutaneous tissue, unspecified Plan to address problem: Wound care nd surgery consult requested (8) Hyponatremia Current Visit: Yes Status: Acute Plan to address problem: IV NS for now Check serum osmolarity (9) IDDM (insulin dependent diabetes mellitus) Current Visit: Yes Status: Chronic Plan to address problem: Coverage for now Check A1c (10) Seizure disorder Current Visit: Yes Status: Chronic Plan to address problem: Cont Keppra in IV form Patient is NPO (11) HTN (hypertension) Current Visit: No Status: Chronic Qualifiers: Hypertension type: essential hypertension Qualified Code(s): I10 - Essential (primary) hypertension Plan to address problem: Hold antihypertensives (12) DVT prophylaxis Current Visit: No Status: Acute Plan to address problem: On Heparin and GI prophylaxis
[2018-10-13] MEDS ORDERED: ZOFRAN IV PRN (19:52)
[2018-10-13] MEDS ORDERED: SODIUM CHLORIDE FLUSH SYRINGE 10 ML IV PRN (19:52)
[2018-10-13] MEDS ORDERED: TYLENOL PO PRN (19:52)
[2018-10-13] MEDS ORDERED: NACL 0.9% 1000 ML 1,000 ML IV SCH (20:00)
[2018-10-13] MEDS ORDERED: MORPHINE IV PRN (20:03)
[2018-10-13] MEDS ORDERED: IMODIUM PO PRN (20:13)
[2018-10-13] MEDS ORDERED: TYLENOL FEEDTUBE PRN (20:13)
[2018-10-13] MEDS ORDERED: NON-FORMULARY (Esomeprazole Magnesium [Nexium] 40 MG) PO SCH (20:15)
[2018-10-13] MEDS ORDERED: HumaLOG SUB-Q ONE (20:15)
[2018-10-13] MEDS ORDERED: VANCOMYCIN PHARMACY TO DOSE IV SCH (21:00)
[2018-10-13] MEDS ORDERED: MAXIPIME/NS 1 GM/100 ML 1 GM/100 ML BAG IV SCH (22:00)
[2018-10-13] MEDS ORDERED: KEPPRA PO SCH (22:00)
[2018-10-13] MEDS: ECOTRIN PO SCH (22:56)
[2018-10-13] MEDS: PROTONIX PO SCH (22:58)
[2018-10-13] MEDS: SODIUM CHLORIDE FLUSH SYRINGE 10 ML IV SCH (22:59)
[2018-10-13] MEDS: KEPPRA 500 MG in NACL 0.9% 100 ML IV SCH (23:15)
[2018-10-14] MEDS ORDERED: LEVOPHED DRIP 4 MG/NS 250 ML 4 MG/250 ML BAG IV ONE (00:26)
[2018-10-14] MEDS: HEPARIN SUB-Q SCH ×3 (00:31→22:00)
[2018-10-14] MEDS ORDERED: HEPARIN ONE (00:32)
[2018-10-14 04:55] LABS: Mean Corpuscular HGB Conc 32 % (30-34); Mean Corpuscular Volume 85 fl (79-97); Platelet Count 450 K/mm3 (140-440); Red Blood Count 3.67 M/mm3 (3.65-5.03); Red Cell Distribution Width 17.7 % (13.2-15.2)
[2018-10-14 05:18] LABS: Albumin 1.4 g/dL (3.9-5); Calcium 7.9 mg/dL (8.4-10.2)
[2018-10-14] MEDS: LEVOPHED DRIP 4 MG/NS 250 ML 4 MG/250 ML BAG IV SCH ×2 (06:18→08:03)
[2018-10-14] MEDS: KCL 10MEQ/100ML 10 MEQ/100 ML BAG IV SCH ×4 (06:18→10:00)
[2018-10-14] MEDS ORDERED: ANCEF/STERILE WATER 2 GM/20 ML 2 GM/20 ML SYRINGE IV NR (08:00)
[2018-10-14] MEDS ORDERED: SUBLIMAZE ONE (08:24)
[2018-10-14] MEDS ORDERED: VERSED ONE (08:24)
[2018-10-14] MEDS ORDERED: ANCEF/STERILE WATER 2 GM/20 ML 0 GM/0 ML SYRINGE IV ONE ×2 (08:25→11:27)
[2018-10-14] MEDS ORDERED: NACL 0.9% 250ML 0 ML ONE (08:25)
[2018-10-14] MEDS ORDERED: HEPARIN/NS 5000 UNIT/500ML(CATH LAB) 0 ML IR ONE (08:25)
[2018-10-14] MEDS ORDERED: XYLOCAINE 2% INFILTRATI ONE (08:27)
--- NOTE | 2018-10-14 09:33 | Consultation ---
History of Present Illness - Reason for Consult Consult date: 10/14/18 Hypotension, Sepsis Requesting physician: NABEEL WOLF - History of Present Illness 67 y/o female, nonverbal, presented to ED from HD after a malfunctioning Vascath. In ED patient found to be hypotensive. Given fluid bolus but no response so central line placed and started on levophed. BP is better now. DId not get HD yesterday. No change or replacement catheter either. Renal consulted. Patient opens eyes to name call but will not speak. Past History Past Medical History: ESRD, seizures, other (unable to obtain as patient is nonverbal) Past Surgical History: Other (vascath placement, others I am not able to obtain as patient is nonverbal) Social history: other (unable to obtain) Family history: other (unable to obtain) Medications and Allergies Allergies Allergy/AdvReac Type Severity Reaction Status Date / Time No Known Allergies Allergy Verified 07/30/18 12:37 Home Medications Medication Instructions Recorded Confirmed Last Taken Type Aspirin [Aspirin EC] 325 mg PO DAILY #30 tablet. 05/05/18 10/13/18 Unknown Rx Loperamide HCl [Anti-Diarrheal] 2 mg PO Q6H PRN 07/30/18 10/13/18 Unknown History Nitroglycerin [Nitrostat] 0.4 mg SL Q5M PRN 07/30/18 10/13/18 Unknown History levETIRAcetam [Keppra TAB] 500 mg PO BID #60 tablet 08/03/18 10/13/18 Unknown Rx Acetaminophen [Tylenol] 325 mg FEEDTUBE Q6HR PRN 10/13/18 10/13/18 Unknown History Carvedilol [Coreg] 25 mg FEEDTUBE BID 10/13/18 10/13/18 Unknown History Esomeprazole Magnesium [NexIUM] 40 mg PO QDAY 10/13/18 10/13/18 Unknown History HYDROcodone/APAP 5-325 [[place] 1 each FEEDTUBE Q6HR PRN 10/13/18 10/13/18 Unknown History 5/325] Insulin Glargine,Hum.rec.anlog 15 units SUB-Q HS 10/13/18 10/13/18 Unknown History [Basaglar Kwikpen U-100] Linagliptin [Tradjenta] 5 mg PO QDAY 10/13/18 10/13/18 Unknown History amLODIPine [Norvasc] 10 mg FEEDTUBE DAILY 10/13/18 10/13/18 Unknown History Active Meds: Active Medications Acetaminophen (Tylenol) 325 mg FEEDTUBE Q6HR PRN PRN Reason: Pain, Moderate (4-6) Aspirin (Ecotrin) 325 mg PO DAILY MARYLOU Last Admin: 10/13/18 22:56 Dose: Not Given Documented by: Heparin Sodium (Porcine) (Heparin) 5,000 unit SUB-Q Q12HR MARYLOU Last Admin: 10/14/18 00:31 Dose: 5,000 unit Documented by: Norepinephrine (Levophed Drip 4 Mg/Ns 250 Ml) 4 mg in 250 mls @ 7.5 mls/hr IV TITR MARYLOU; Protocol Stop: 10/14/18 15:59 Last Titration: 10/14/18 09:18 Dose: 18 mcg/min, 67.5 mls/hr Documented by: Cefazolin Sodium (Ancef/Sterile Water 2 Gm/20 Ml) 2 gm in 20 mls @ 80 mls/hr IV PREOP NR; Protocol Stop: 10/14/18 23:59 Levetiracetam 500 mg/ Sodium (Chloride) 105 mls @ 393.75 mls/hr IV Q12HR MARYLOU Last Admin: 10/13/18 23:15 Dose: 393.75 mls/hr Documented by: Potassium Chloride (Kcl 10meq/100ml) 10 meq in 100 mls @ 100 mls/hr IV Q1H MARYLOU Stop: 10/14/18 09:59 Last Admin: 10/14/18 08:50 Dose: 100 mls/hr Documented by: Cefepime HCl (Maxipime/Ns 1 Gm/100 Ml) 1 gm in 100 mls @ 200 mls/hr IV Q24HR MARYLOU; Protocol Norepinephrine 8 mg/ Sodium (Chloride) 250 mls @ 3.75 mls/hr IV TITR MARYLOU; Protocol Insulin Human Lispro (Humalog) 0 unit SUB-Q Q6HR MARYLOU; Protocol Linagliptin (Tradjenta) 5 mg PO QDAY MARYLOU Loperamide HCl (Imodium) 2 mg PO Q6H PRN PRN Reason: Diarrhea Morphine Sulfate (Morphine) 2 mg IV Q4H PRN PRN Reason: Pain, Moderate (4-6) Ondansetron HCl (Zofran) 4 mg IV Q8H PRN PRN Reason: Nausea And Vomiting Pantoprazole Sodium (Protonix) 40 mg PO DAILY COUNT INCLUDES THE [facility] Last Admin: 10/13/18 22:58 Dose: Not Given Documented by: Sodium Chloride (Sodium Chloride Flush Syringe 10 Ml) 10 ml IV BID COUNT INCLUDES THE [facility] Last Admin: 10/13/18 22:59 Dose: 10 ml Documented by: Sodium Chloride (Sodium Chloride Flush Syringe 10 Ml) 10 ml IV PRN PRN PRN Reason: LINE FLUSH Exam - Constitutional Vitals: Temp Pulse Resp BP Pulse Ox 97.7 F 64 12 116/52 100 10/14/18 08:00 10/14/18 09:00 10/14/18 09:00 10/14/18 09:00 10/14/18 09:00 General appearance: Present: no acute distress, well-nourished - EENT Eyes: Present: EOM intact ENT: hearing intact, other (white cream on bilateral ears) - Neck Neck: Present: supple - Respiratory Respiratory effort: normal Respiratory: bilateral: CTA - Cardiovascular Rhythm: regular Heart Sounds: Present: S1 & S2 - Abdominal General gastrointestinal: Present: soft, non-tender Results - Labs CBC & Chem 7: 10/14/18 04:35 10/14/18 04:35 Labs: Abnormal lab results 10/13/18 10/13/18 10/13/18 Range/Units 13:28 13:28 13:28 WBC 29.1 H (4.5-11.0) K/mm3 RBC 2.30 L (3.65-5.03) M/mm3 Hgb 6.1 L (10.1-14.3) gm/dl Hct 19.9 L* (30.3-42.9) % MCH 26 L (28-32) pg RDW 19.0 H (13.2-15.2) % Plt Count 469 H (140-440) K/mm3 Seg Neuts % (Manual) 96.0 H (40.0-70.0) % Lymphocytes % (Manual) 4.0 L (13.4-35.0) % Seg Neutrophils # Man 27.9 H (1.8-7.7) K/mm3 Sodium 124 L (137-145) mmol/L Potassium 2.8 L* (3.6-5.0) mmol/L Chloride 90.1 L (98-107) mmol/L Carbon Dioxide 19 L (22-30) mmol/L BUN 60 H (7-17) mg/dL Creatinine 2.4 H (0.7-1.2) mg/dL Glucose 274 H (65-100) mg/dL POC Glucose (70-105) Hemoglobin A1c (4-6) % Lactic Acid 2.50 H* (0.7-2.0) mmol/L Calcium 8.2 L (8.4-10.2) mg/dL AST (5-40) units/L Total Protein 5.4 L (6.3-8.2) g/dL Albumin 1.4 L (3.9-5) g/dL Urine WBC (Auto) (0.0-6.0) /HPF U Epithel Cells (Auto) (0-13.0) /HPF Crossmatch 10/13/18 10/13/18 10/13/18 Range/Units 13:28 14:50 14:50 WBC (4.5-11.0) K/mm3 RBC (3.65-5.03) M/mm3 Hgb (10.1-14.3) gm/dl Hct (30.3-42.9) % MCH (28-32) pg RDW (13.2-15.2) % Plt Count (140-440) K/mm3 Seg Neuts % (Manual) (40.0-70.0) % Lymphocytes % (Manual) (13.4-35.0) % Seg Neutrophils # Man (1.8-7.7) K/mm3 Sodium (137-145) mmol/L Potassium (3.6-5.0) mmol/L Chloride (98-107) mmol/L Carbon Dioxide (22-30) mmol/L BUN (7-17) mg/dL Creatinine (0.7-1.2) mg/dL Glucose (65-100) mg/dL POC Glucose (70-105) Hemoglobin A1c 6.9 H (4-6) % Lactic Acid 2.30 H* (0.7-2.0) mmol/L Calcium (8.4-10.2) mg/dL AST (5-40) units/L Total Protein (6.3-8.2) g/dL Albumin (3.9-5) g/dL Urine WBC (Auto) (0.0-6.0) /HPF U Epithel Cells (Auto) (0-13.0) /HPF Crossmatch See Detail 10/13/18 10/13/18 10/13/18 Range/Units 16:59 17:43 22:12 WBC (4.5-11.0) K/mm3 RBC (3.65-5.03) M/mm3 Hgb (10.1-14.3) gm/dl Hct (30.3-42.9) % MCH (28-32) pg RDW (13.2-15.2) % Plt Count (140-440) K/mm3 Seg Neuts % (Manual) (40.0-70.0) % Lymphocytes % (Manual) (13.4-35.0) % Seg Neutrophils # Man (1.8-7.7) K/mm3 Sodium (137-145) mmol/L Potassium (3.6-5.0) mmol/L Chloride (98-107) mmol/L Carbon Dioxide (22-30) mmol/L BUN (7-17) mg/dL Creatinine (0.7-1.2) mg/dL Glucose (65-100) mg/dL POC Glucose 153 H (70-105) Hemoglobin A1c (4-6) % Lactic Acid 2.40 H* (0.7-2.0) mmol/L Calcium (8.4-10.2) mg/dL AST (5-40) units/L Total Protein (6.3-8.2) g/dL Albumin (3.9-5) g/dL Urine WBC (Auto) 36.0 H (0.0-6.0) /HPF U Epithel Cells (Auto) 81.0 H (0-13.0) /HPF Crossmatch 10/14/18 10/14/18 10/14/18 Range/Units 04:35 04:35 07:54 WBC 27.7 H (4.5-11.0) K/mm3 RBC (3.65-5.03) M/mm3 Hgb 10.0 L D (10.1-14.3) gm/dl Hct (30.3-42.9) % MCH 27 L (28-32) pg RDW 17.7 H (13.2-15.2) % Plt Count 450 H (140-440) K/mm3 Seg Neuts % (Manual) (40.0-70.0) % Lymphocytes % (Manual) (13.4-35.0) % Seg Neutrophils # Man (1.8-7.7) K/mm3 Sodium 129 L (137-145) mmol/L Potassium 3.3 L (3.6-5.0) mmol/L Chloride 96.9 L (98-107) mmol/L Carbon Dioxide 17 L (22-30) mmol/L BUN 60 H (7-17) mg/dL Creatinine 2.3 H (0.7-1.2) mg/dL Glucose 186 H (65-100) mg/dL POC Glucose 204 H (70-105) Hemoglobin A1c (4-6) % Lactic Acid (0.7-2.0) mmol/L Calcium 7.9 L (8.4-10.2) mg/dL AST 84 H (5-40) units/L Total Protein 5.8 L (6.3-8.2) g/dL Albumin 1.4 L (3.9-5) g/dL Urine WBC (Auto) (0.0-6.0) /HPF U Epithel Cells (Auto) (0-13.0) /HPF Crossmatch - Imaging and Cardiology Chest x-ray: image reviewed (clear CXR) Assessment and Plan 67 female with ESRD on HD and history of seizure disorder, nonverbal, admitted w ith hypotension, anemia and concern for sepsis from possible urinary source. 1. Will discuss on rounds but suggest that cefepime may be to broad of an abx. Will ask pharmacy their opinion 2. Will also given more normal saline boluses in an attempt to wean Vasopressor therapy 3. Patient was transfused 2 units of PRBC's on yesterday. Hemoglobin over responded which suggest that the 6 was wrong. Will continue to monitor. Hold on any further transfusion as of now. 4. Resume home medication regimen, minus any antihypertensives 5.
[2018-10-14] MEDS: SODIUM CHLORIDE FLUSH SYRINGE 10 ML IV SCH ×2 (10:00→22:01)
[2018-10-14] MEDS ORDERED: MAXIPIME/NS 1 GM/100 ML 1 GM/100 ML BAG IV SCH (10:00)
[2018-10-14] MEDS: HumaLOG SUB-Q SCH ×3 (10:00→17:47)
[2018-10-14] MEDS: KEPPRA 500 MG in NACL 0.9% 100 ML IV SCH ×2 (10:20→22:00)
[2018-10-14] MEDS: TRADJENTA PO SCH (10:20)
[2018-10-14 10:21] LABS: Basophils % (Manual) 0 % (0.0-1.8); Total Cells Counted 100
[2018-10-14 10:22] LABS: Anisocytosis 1+; Platelet Estimate Consistent w Auto
[2018-10-14] MEDS: PROTONIX PO SCH (10:27)
[2018-10-14] MEDS: ECOTRIN PO SCH (10:28)
[2018-10-14] MEDS: PREVACID SOLUTAB FEEDTUBE SCH (10:30)
[2018-10-14] MEDS: NACL 0.9% 1000 ML 1,000 ML IV SCH ×2 (10:31→12:47)
[2018-10-14] MEDS: DAKIN'S FULL STRENGTH TP SCH ×2 (11:00→22:09)
[2018-10-14] MEDS ORDERED: HEPARIN/NS 5000 UNIT/500ML(CATH LAB) 500 ML IR ONE (11:09)
[2018-10-14] MEDS ORDERED: XYLOCAINE 1%/ EPI 1:100,000 INFILTRATI ONE (11:11)
[2018-10-14] MEDS: HEPARIN 10,000 UNITS/10 ML ONE ×4 (11:30→11:36)
--- NOTE | 2018-10-14 11:34 | Consultation ---
History of Present Illness Consult date: 10/14/18 - History of present illness History of present illness: 1130am : Came to see patient, but patient is off the floor for testing/procedure. Called NOK at phone number documented in chart - goes straight to VM. Left message. Confirmed with nursing that we do not have any additional phone numbers listed and family not at bedside. Will return later today. Returned to see patient at 2pm. 67 yo F with hx of ESRD on HD presented to ER with nonfunctioning HD access. She was found to be septic and source felt to be sacral wound. The patient is nonverbal and all history is obtained from the chart. The patient was seen by wound care last on 08/01/18 at which time she had a stage 2-3 wound on the buttock. The wound has significantly broken down since then. The patient has a PEG tube. On admission she was found to be hypotensive and started on pressors. She was also found to be anemic with Hb of 6. She has since received 2 Units of PRBC. Past History Past Medical History: ESRD, seizures, other (unable to obtain as patient is nonverbal) Past Surgical History: Other (vascath placement, PEG, others I am not able to obtain as patient is nonverbal) Social history: other (unable to obtain) Family history: other (unable to obtain) Medications and Allergies Allergies Allergy/AdvReac Type Severity Reaction Status Date / Time No Known Allergies Allergy Verified 07/30/18 12:37 Home Medications Medication Instructions Recorded Confirmed Last Taken Type Aspirin [Aspirin EC] 325 mg PO DAILY #30 tablet. 05/05/18 10/13/18 Unknown Rx Loperamide HCl [Anti-Diarrheal] 2 mg PO Q6H PRN 07/30/18 10/13/18 Unknown History Nitroglycerin [Nitrostat] 0.4 mg SL Q5M PRN 07/30/18 10/13/18 Unknown History levETIRAcetam [Keppra TAB] 500 mg PO BID #60 tablet 08/03/18 10/13/18 Unknown Rx Acetaminophen [Tylenol] 325 mg FEEDTUBE Q6HR PRN 10/13/18 10/13/18 Unknown History Carvedilol [Coreg] 25 mg FEEDTUBE BID 10/13/18 10/13/18 Unknown History Esomeprazole Magnesium [NexIUM] 40 mg PO QDAY 10/13/18 10/13/18 Unknown History HYDROcodone/APAP 5-325 [[place] 1 each FEEDTUBE Q6HR PRN 10/13/18 10/13/18 Unknown History 5/325] Insulin Glargine,Hum.rec.anlog 15 units SUB-Q HS 10/13/18 10/13/18 Unknown History [Basaglar Kwikpen U-100] Linagliptin [Tradjenta] 5 mg PO QDAY 10/13/18 10/13/18 Unknown History amLODIPine [Norvasc] 10 mg FEEDTUBE DAILY 10/13/18 10/13/18 Unknown History Active Meds: Active Medications Acetaminophen (Tylenol) 325 mg FEEDTUBE Q6HR PRN PRN Reason: Pain, Moderate (4-6) Aspirin (Ecotrin) 325 mg PO DAILY MARYLOU Last Admin: 10/14/18 10:28 Dose: 325 mg Documented by: Heparin Sodium (Porcine) (Heparin) 5,000 unit SUB-Q Q12HR MARYLOU Last Admin: 10/14/18 00:31 Dose: 5,000 unit Documented by: Norepinephrine (Levophed Drip 4 Mg/Ns 250 Ml) 4 mg in 250 mls @ 7.5 mls/hr IV TITR MARYLOU; Protocol Stop: 10/14/18 15:59 Last Titration: 10/14/18 10:30 Dose: 14 mcg/min, 52.5 mls/hr Documented by: Cefazolin Sodium (Ancef/Sterile Water 2 Gm/20 Ml) 2 gm in 20 mls @ 80 mls/hr IV PREOP NR; Protocol Stop: 10/14/18 23:59 Levetiracetam 500 mg/ Sodium (Chloride) 105 mls @ 393.75 mls/hr IV Q12HR MARYLOU Last Admin: 10/14/18 10:20 Dose: 393.75 mls/hr Documented by: Cefepime HCl (Maxipime/Ns 1 Gm/100 Ml) 1 gm in 100 mls @ 200 mls/hr IV Q24HR MARYLOU; Protocol Last Admin: 10/14/18 10:20 Dose: 200 mls/hr Documented by: Norepinephrine 8 mg/ Sodium (Chloride) 250 mls @ 3.75 mls/hr IV TITR MARYLOU; Protocol Sodium Chloride (Nacl 0.9% 1000 Ml) 1,000 mls @ 999 mls/hr IV Q1H [facility] Stop: 10/14/18 12:59 Last Admin: 10/14/18 10:31 Dose: 999 mls/hr Documented by: Insulin Human Lispro (Humalog) 0 unit SUB-Q Q6HR [facility]; Protocol Last Admin: 10/14/18 10:00 Dose: 3 unit Documented by: Lansoprazole (Prevacid Solutab) 30 mg FEEDTUBE QDAY [facility] Last Admin: 10/14/18 10:30 Dose: 30 mg Documented by: Lidocaine HCl (Xylocaine Topical 4%) 2.5 ml TP ONCE ONE Stop: 10/14/18 12:01 Linagliptin (Tradjenta) 5 mg PO QDAY [facility] Last Admin: 10/14/18 10:20 Dose: 5 mg Documented by: Loperamide HCl (Imodium) 2 mg PO Q6H PRN PRN Reason: Diarrhea Morphine Sulfate (Morphine) 2 mg IV Q4H PRN PRN Reason: Pain, Moderate (4-6) Ondansetron HCl (Zofran) 4 mg IV Q8H PRN PRN Reason: Nausea And Vomiting Sodium Chloride (Sodium Chloride Flush Syringe 10 Ml) 10 ml IV BID [facility] Last Admin: 10/13/18 22:59 Dose: 10 ml Documented by: Sodium Chloride (Sodium Chloride Flush Syringe 10 Ml) 10 ml IV PRN PRN PRN Reason: LINE FLUSH Sodium Hypochlorite (Dakin's Full Strength) 1 applic TP Q12H [facility] Review of Systems ROS unobtainable: due to mental status Exam Vital Signs Temp Pulse Resp BP Pulse Ox 97.8 F 54 L 18 88/55 100 10/13/18 12:59 10/13/18 12:59 10/13/18 12:59 10/13/18 12:59 10/13/18 12:59 Narrative exam: Gen: Patient unresponsive CV: s1, s2+ resp: even and unlabored Abd: soft, NT, ND Ext: no c/c/e Sacrum: Large, extensive stage 4 sacral decubitus ulcer with necrotic, foul smelling tissue covering 100% of the wound base. +Undermining. + Purulent drainage. Necrosis of surrounding skin. Inferior portion of wound is close to rectum. Rectal: Patient with stool impaction. Disimpaction performed which yielded a large quantity of stool. Results - Labs 10/14/18 04:35 10/14/18 04:35 Abnormal lab results 10/13/18 10/13/18 10/13/18 Range/Units 13:28 13:28 13:28 WBC 29.1 H (4.5-11.0) K/mm3 RBC 2.30 L (3.65-5.03) M/mm3 Hgb 6.1 L (10.1-14.3) gm/dl Hct 19.9 L* (30.3-42.9) % MCH 26 L (28-32) pg RDW 19.0 H (13.2-15.2) % Plt Count 469 H (140-440) K/mm3 Seg Neuts % (Manual) 96.0 H (40.0-70.0) % Lymphocytes % (Manual) 4.0 L (13.4-35.0) % Seg Neutrophils # Man 27.9 H (1.8-7.7) K/mm3 Lymphocytes # (Manual) (1.2-5.4) K/mm3 Sodium 124 L (137-145) mmol/L Potassium 2.8 L* (3.6-5.0) mmol/L Chloride 90.1 L (98-107) mmol/L Carbon Dioxide 19 L (22-30) mmol/L BUN 60 H (7-17) mg/dL Creatinine 2.4 H (0.7-1.2) mg/dL Glucose 274 H (65-100) mg/dL POC Glucose (70-105) Hemoglobin A1c (4-6) % Lactic Acid 2.50 H* (0.7-2.0) mmol/L Calcium 8.2 L (8.4-10.2) mg/dL AST (5-40) units/L Total Protein 5.4 L (6.3-8.2) g/dL Albumin 1.4 L (3.9-5) g/dL Urine WBC (Auto) (0.0-6.0) /HPF U Epithel Cells (Auto) (0-13.0) /HPF Crossmatch 10/13/18 10/13/18 10/13/18 Range/Units 13:28 14:50 14:50 WBC (4.5-11.0) K/mm3 RBC (3.65-5.03) M/mm3 Hgb (10.1-14.3) gm/dl Hct (30.3-42.9) % MCH (28-32) pg RDW (13.2-15.2) % Plt Count (140-440) K/mm3 Seg Neuts % (Manual) (40.0-70.0) % Lymphocytes % (Manual) (13.4-35.0) % Seg Neutrophils # Man (1.8-7.7) K/mm3 Lymphocytes # (Manual) (1.2-5.4) K/mm3 Sodium (137-145) mmol/L Potassium (3.6-5.0) mmol/L Chloride (98-107) mmol/L Carbon Dioxide (22-30) mmol/L BUN (7-17) mg/dL Creatinine (0.7-1.2) mg/dL Glucose (65-100) mg/dL POC Glucose (70-105) Hemoglobin A1c 6.9 H (4-6) % Lactic Acid 2.30 H* (0.7-2.0) mmol/L Calcium (8.4-10.2) mg/dL AST (5-40) units/L Total Protein (6.3-8.2) g/dL Albumin (3.9-5) g/dL Urine WBC (Auto) (0.0-6.0) /HPF U Epithel Cells (Auto) (0-13.0) /HPF Crossmatch See Detail 10/13/18 10/13/18 10/13/18 Range/Units 16:59 17:43 22:12 WBC (4.5-11.0) K/mm3 RBC (3.65-5.03) M/mm3 Hgb (10.1-14.3) gm/dl Hct (30.3-42.9) % MCH (28-32) pg RDW (13.2-15.2) % Plt Count (140-440) K/mm3 Seg Neuts % (Manual) (40.0-70.0) % Lymphocytes % (Manual) (13.4-35.0) % Seg Neutrophils # Man (1.8-7.7) K/mm3 Lymphocytes # (Manual) (1.2-5.4) K/mm3 Sodium (137-145) mmol/L Potassium (3.6-5.0) mmol/L Chloride (98-107) mmol/L Carbon Dioxide (22-30) mmol/L BUN (7-17) mg/dL Creatinine (0.7-1.2) mg/dL Glucose (65-100) mg/dL POC Glucose 153 H (70-105) Hemoglobin A1c (4-6) % Lactic Acid 2.40 H* (0.7-2.0) mmol/L Calcium (8.4-10.2) mg/dL AST (5-40) units/L Total Protein (6.3-8.2) g/dL Albumin (3.9-5) g/dL Urine WBC (Auto) 36.0 H (0.0-6.0) /HPF U Epithel Cells (Auto) 81.0 H (0-13.0) /HPF Crossmatch 10/14/18 10/14/18 10/14/18 Range/Units 04:35 04:35 07:54 WBC 27.7 H (4.5-11.0) K/mm3 RBC (3.65-5.03) M/mm3 Hgb 10.0 L D (10.1-14.3) gm/dl Hct (30.3-42.9) % MCH 27 L (28-32) pg RDW 17.7 H (13.2-15.2) % Plt Count 450 H (140-440) K/mm3 Seg Neuts % (Manual) 96.0 H (40.0-70.0) % Lymphocytes % (Manual) 1.0 L (13.4-35.0) % Seg Neutrophils # Man 26.6 H (1.8-7.7) K/mm3 Lymphocytes # (Manual) 0.3 L (1.2-5.4) K/mm3 Sodium 129 L (137-145) mmol/L Potassium 3.3 L (3.6-5.0) mmol/L Chloride 96.9 L (98-107) mmol/L Carbon Dioxide 17 L (22-30) mmol/L BUN 60 H (7-17) mg/dL Creatinine 2.3 H (0.7-1.2) mg/dL Glucose 186 H (65-100) mg/dL POC Glucose 204 H (70-105) Hemoglobin A1c (4-6) % Lactic Acid (0.7-2.0) mmol/L Calcium 7.9 L (8.4-10.2) mg/dL AST 84 H (5-40) units/L Total Protein 5.8 L (6.3-8.2) g/dL Albumin 1.4 L (3.9-5) g/dL Urine WBC (Auto) (0.0-6.0) /HPF U Epithel Cells (Auto) (0-13.0) /HPF Crossmatch Diabetes panel 10/13/18 10/13/18 10/14/18 Range/Units 13:28 13:28 04:35 Sodium 124 L 129 L (137-145) mmol/L Potassium 2.8 L* 3.3 L (3.6-5.0) mmol/L Chloride 90.1 L 96.9 L (98-107) mmol/L Carbon Dioxide 19 L 17 L (22-30) mmol/L BUN 60 H 60 H (7-17) mg/dL Creatinine 2.4 H 2.3 H (0.7-1.2) mg/dL Glucose 274 H 186 H (65-100) mg/dL Hemoglobin A1c 6.9 H (4-6) % Calcium 8.2 L 7.9 L (8.4-10.2) mg/dL AST 12 84 H (5-40) units/L ALT 16 50 (7-56) units/L Alkaline Phosphatase 94 99 (35-129) units/L Total Protein 5.4 L 5.8 L (6.3-8.2) g/dL Albumin 1.4 L 1.4 L (3.9-5) g/dL Calcium panel 10/13/18 10/14/18 Range/Units 13:28 04:35 Calcium 8.2 L 7.9 L (8.4-10.2) mg/dL Albumin 1.4 L 1.4 L (3.9-5) g/dL Pituitary panel 10/13/18 10/14/18 Range/Units 13:28 04:35 Sodium 124 L 129 L (137-145) mmol/L Potassium 2.8 L* 3.3 L (3.6-5.0) mmol/L Chloride 90.1 L 96.9 L (98-107) mmol/L Carbon Dioxide 19 L 17 L (22-30) mmol/L BUN 60 H 60 H (7-17) mg/dL Creatinine 2.4 H 2.3 H (0.7-1.2) mg/dL Glucose 274 H 186 H (65-100) mg/dL Calcium 8.2 L 7.9 L (8.4-10.2) mg/dL Adrenal panel 10/13/18 10/14/18 Range/Units 13:28 04:35 Sodium 124 L 129 L (137-145) mmol/L Potassium 2.8 L* 3.3 L (3.6-5.0) mmol/L Chloride 90.1 L 96.9 L (98-107) mmol/L Carbon Dioxide 19 L 17 L (22-30) mmol/L BUN 60 H 60 H (7-17) mg/dL Creatinine 2.4 H 2.3 H (0.7-1.2) mg/dL Glucose 274 H 186 H (65-100) mg/dL Calcium 8.2 L 7.9 L (8.4-10.2) mg/dL Total Bilirubin 0.30 0.50 (0.1-1.2) mg/dL AST 12 84 H (5-40) units/L ALT 16 50 (7-56) units/L Alkaline Phosphatase 94 99 (35-129) units/L Total Protein 5.4 L 5.8 L (6.3-8.2) g/dL Albumin 1.4 L 1.4 L (3.9-5) g/dL Assessment and Plan 67 yo F with 1. infected stage 4 sacral wound 2. clinical osteomyelitis 3. septic shock 2/2 #1 4. anemia 5. malnutrition - albumin 1.4 Plan: 1. Wound will need debridement. Will attempt bedside debridement as patient is on Levophed with multiple medical comorbidities. Consent obtained from patient's son William Rodriguez over the telephone and witnessed by RN. 2. continue IV abx, ID on board 3. offloading 4. nutrition consult, resume TF once pressors are weaned 5. continue dakins packing after debridement as ordered by cell liner 6. If family wants aggressive measures, patient will likely need diverting colostomy. I believe that wound healing potential is very low. Will discuss with family. Hospice may be best alternative. Thank you, please call with questions.
--- NOTE | 2018-10-14 11:59 | Operative Report ---
Operative Report Operative Report: Date of procedure: 10/14/2018 Pre-operative diagnosis: malfunction of hemodialysis catheter Post-operative diagnosis: Same Procedure name(s): Complete replacement of tunneled centrally inserted dialysis catheter via same venous access site, fluoroscopic supervision interpretation Surgeon: Danis Castillo MD Ups Driver: None Anesthesia: Local EBL: Minimal Specimen(s): Catheter discarded Complications: None Findings: Old permacath successfully removed in toto and discarded. The catheter seated slightly deeper in the right atrium. Good function. Catheter ready for use. Procedure: Patient in the supine position with head rotated to the left the right anterior neck and chest were prepped and draped using standard sterile technique. The skin overlying the catheter exit site was palpated over the anterior chest and was anesthetized. Using a combination of blunt and sharp dissection through that anesthetized skin the subcutaneous tissue and the cuff was dissected free and the adhesions dissected free and the catheter for removal. I then advanced stiff Glidewire in each lumen of the catheter and advanced them fluoroscopically through the right atrium into the inferior vena cava. The old catheter was removed maintaining the wire access to the venous lumen. A 19 cm glidepath catheter was inserted retrograde over the wires and seated within the right atrium approximately 1-1/2-2 cm deep within the original catheter was seated. Catheter length and configuration was adjusted fluoroscopically. Both limbs were then aspirated flushed and primed using 1600 units of heparin per limb. Sterile caps were applied. A cerclage suture of 4-0 Monocryl was used to exit site and provide hemostasis and anchoring for the catheter. The exit site was dressed with a Biopatch followed by Tegaderm. Confirmatory x-ray shows good position of the catheter in it. It is ready for u se. The patient returned to the outpatient area in stable condition having tolerated the procedure well.
[2018-10-14] MEDS ORDERED: XYLOCAINE TOPICAL 4% TP ONE (12:00)
[2018-10-14] MEDS: LEVOPHED 8 MG in NACL 0.9% 250ML 242 ML IV SCH ×2 (12:30→17:46)
--- NOTE | 2018-10-14 14:16 | Progress Note ---
Assessment and Plan - Patient Problems (1) End stage renal disease Current Visit: Yes Status: Chronic Plan to address problem: End-stage renal disease Currently hypotensive we'll hold off hemodialysis again today We'll plan for hemodialysis in the a.m. hopefully hemodynamics improved (2) Shock Current Visit: Yes Status: Acute Plan to address problem: Septic Shock Elevated lactic acid now resolved Received 1.3 L of fluid will give additional 500 mL bolus Received Fluid boluses Remains on vasopressor Continue antibiotics Source query infected decubitus ulcer (3) Anemia Current Visit: Yes Status: Acute Qualifiers: Anemia type: unspecified type Qualified Code(s): D64.9 - Anemia, unspecified Plan to address problem: Severe anemia Hb: 6g/dl Received 2 units of PRBC repeat hemoglobin 10 g per DL monitor CBC monitor for bleeding. (4) Dialysis catheter clot or failure Current Visit: Yes Status: Acute Plan to address problem: Dialysis catheter clot Status post tunneled dialysis catheter Exchange Appreciated vascular surgery involvement (5) Hypokalemia Current Visit: Yes Status: Acute Plan to address problem: Hypokalemia improved We'll hold additional potassium chloride supplementation Repeat dialysis in the a.m. Subjective Interval history: 67-year-old lady with medical history significant for hypertension, end-stage renal disease from dialysis unit for malfunctioning right IJ PermCath at [facility] she was found to be hypotensive in the emergency room found to also have a large decubitus ulcer has received fluid boluses, 1.3 L also found to have elevated lactic acid. She is status post PermCath exchange today still hypotensive on pressors Received blood transfusion yesterday hemoglobin much improved Lactate levels also improved remains drowsy nonverbal Objective - Vital Signs Vital signs: Vital Signs - 12hr 10/14/18 10/14/18 10/14/18 02:20 02:30 02:40 Temperature Pulse Rate 68 68 65 Pulse Rate [ From Monitor] Pulse Rate [ Left] Pulse Rate [ Right] Respiratory 12 14 15 Rate Blood Pressure 113/45 113/45 113/45 O2 Sat by Pulse 100 100 100 Oximetry 10/14/18 10/14/18 10/14/18 02:50 03:00 03:10 Temperature Pulse Rate 67 67 67 Pulse Rate [ From Monitor] Pulse Rate [ Left] Pulse Rate [ Right] Respiratory 13 18 15 Rate Blood Pressure 113/45 121/53 113/45 O2 Sat by Pulse 100 100 100 Oximetry 10/14/18 10/14/18 10/14/18 03:20 03:30 03:40 Temperature Pulse Rate 65 67 67 Pulse Rate [ From Monitor] Pulse Rate [ Left] Pulse Rate [ Right] Respiratory 14 14 19 Rate Blood Pressure 113/45 113/45 113/45 O2 Sat by Pulse 100 100 100 Oximetry 10/14/18 10/14/18 10/14/18 03:50 04:00 04:10 Temperature 99.6 F Pulse Rate 67 65 66 Pulse Rate [ From Monitor] Pulse Rate [ Left] Pulse Rate [ Right] Respiratory 15 14 17 Rate Blood Pressure 113/45 122/55 122/55 O2 Sat by Pulse 100 100 100 Oximetry 10/14/18 10/14/18 10/14/18 04:20 04:30 04:40 Temperature Pulse Rate 65 65 66 Pulse Rate [ From Monitor] Pulse Rate [ Left] Pulse Rate [ Right] Respiratory 15 14 22 Rate Blood Pressure 122/55 122/55 122/55 O2 Sat by Pulse 100 100 100 Oximetry 10/14/18 10/14/18 10/14/18 04:50 05:00 05:10 Temperature Pulse Rate 64 65 67 Pulse Rate [ From Monitor] Pulse Rate [ Left] Pulse Rate [ Right] Respiratory 16 15 14 Rate Blood Pressure 122/55 89/41 89/41 O2 Sat by Pulse 99 99 100 Oximetry 10/14/18 10/14/18 10/14/18 05:20 05:30 05:40 Temperature Pulse Rate 66 67 66 Pulse Rate [ From Monitor] Pulse Rate [ Left] Pulse Rate [ Right] Respiratory 15 15 14 Rate Blood Pressure 122/55 122/55 122/55 O2 Sat by Pulse 99 100 100 Oximetry 10/14/18 10/14/18 10/14/18 05:50 06:00 06:10 Temperature Pulse Rate 66 65 65 Pulse Rate [ 69 From Monitor] Pulse Rate [ 69 Left] Pulse Rate [ 69 Right] Respiratory 14 13 13 Rate Blood Pressure 122/55 122/54 122/54 O2 Sat by Pulse 100 100 100 Oximetry 10/14/18 10/14/18 10/14/18 06:20 06:30 06:40 Temperature Pulse Rate 68 66 67 Pulse Rate [ From Monitor] Pulse Rate [ Left] Pulse Rate [ Right] Respiratory 15 15 10 L Rate Blood Pressure 122/54 122/54 122/54 O2 Sat by Pulse 100 100 100 Oximetry 10/14/18 10/14/18 10/14/18 06:50 07:00 07:10 Temperature Pulse Rate 67 63 63 Pulse Rate [ From Monitor] Pulse Rate [ Left] Pulse Rate [ Right] Respiratory 17 16 14 Rate Blood Pressure 122/54 82/41 82/41 O2 Sat by Pulse 100 100 99 Oximetry 10/14/18 10/14/18 10/14/18 07:20 07:30 07:40 Temperature Pulse Rate 62 65 Pulse Rate [ From Monitor] Pulse Rate [ Left] Pulse Rate [ Right] Respiratory 15 18 Rate Blood Pressure 82/41 82/41 147/63 O2 Sat by Pulse 99 100 100 Oximetry 10/14/18 10/14/18 10/14/18 07:50 08:00 08:10 Temperature 97.7 F Pulse Rate 63 66 65 Pulse Rate [ 66 From Monitor] Pulse Rate [ Left] Pulse Rate [ Right] Respiratory 20 15 14 Rate Blood Pressure 139/59 119/58 128/57 O2 Sat by Pulse 100 100 100 Oximetry 10/14/18 10/14/18 10/14/18 08:20 08:30 08:40 Temperature Pulse Rate 65 64 65 Pulse Rate [ From Monitor] Pulse Rate [ Left] Pulse Rate [ Right] Respiratory 14 13 13 Rate Blood Pressure 112/55 124/54 124/54 O2 Sat by Pulse 100 100 100 Oximetry 10/14/18 10/14/18 10/14/18 08:50 09:00 09:10 Temperature Pulse Rate 64 64 64 Pulse Rate [ From Monitor] Pulse Rate [ Left] Pulse Rate [ Right] Respiratory 16 12 13 Rate Blood Pressure 112/55 116/52 116/52 O2 Sat by Pulse 100 100 100 Oximetry 10/14/18 10/14/18 10/14/18 09:20 09:30 09:40 Temperature Pulse Rate 64 64 64 Pulse Rate [ From Monitor] Pulse Rate [ Left] Pulse Rate [ Right] Respiratory 14 13 12 Rate Blood Pressure 121/56 109/51 109/51 O2 Sat by Pulse 100 100 100 Oximetry 10/14/18 10/14/18 10/14/18 09:50 10:00 10:10 Temperature Pulse Rate 65 65 Pulse Rate [ From Monitor] Pulse Rate [ Left] Pulse Rate [ Right] Respiratory 14 16 Rate Blood Pressure 109/51 120/54 120/54 O2 Sat by Pulse 100 100 100 Oximetry 10/14/18 10/14/18 10/14/18 10:20 10:30 10:40 Temperature Pulse Rate 63 63 63 Pulse Rate [ From Monitor] Pulse Rate [ Left] Pulse Rate [ Right] Respiratory 17 14 14 Rate Blood Pressure 114/52 103/46 103/46 O2 Sat by Pulse 100 100 100 Oximetry 10/14/18 10/14/18 10/14/18 12:00 12:03 12:10 Temperature 97.5 F L Pulse Rate 57 L 56 L Pulse Rate [ From Monitor] Pulse Rate [ Left] Pulse Rate [ Right] Respiratory 13 11 L Rate Blood Pressure 104/41 O2 Sat by Pulse 100 100 Oximetry - General Appearance General appearance: chronically ill, frail EENT: ATNC, PERRL Neck: no JVD Respiratory: Present: Decreased Breath Sounds Cardiology: regular, S1S2 Gastrointestinal: normal, normoactive bowel sounds Integumentary: no rash Neurologic: no focal deficit Psychiatric: mood/affect appropriate - Lab 10/14/18 04:35 10/14/18 04:35 Most recent lab results Calcium 7.9 mg/dL (8.4-10.2) L 10/14/18 04:35 - Imaging Chest x-ray: image reviewed (I reviewed chest x-ray clear lung martinez) Medications & Allergies - Medications Allergies/Adverse Reactions: Allergies No Known Allergies Allergy (Verified 07/30/18 12:37) Home Medications: Home Medications Medication Instructions Recorded Confirmed Last Taken Type Aspirin [Aspirin EC] 325 mg PO DAILY #30 tablet. 05/05/18 10/13/18 Unknown Rx Loperamide HCl [Anti-Diarrheal] 2 mg PO Q6H PRN 07/30/18 10/13/18 Unknown History Nitroglycerin [Nitrostat] 0.4 mg SL Q5M PRN 07/30/18 10/13/18 Unknown History levETIRAcetam [Keppra TAB] 500 mg PO BID #60 tablet 08/03/18 10/13/18 Unknown Rx Acetaminophen [Tylenol] 325 mg FEEDTUBE Q6HR PRN 10/13/18 10/13/18 Unknown History Carvedilol [Coreg] 25 mg FEEDTUBE BID 10/13/18 10/13/18 Unknown History Esomeprazole Magnesium [NexIUM] 40 mg PO QDAY 10/13/18 10/13/18 Unknown History HYDROcodone/APAP 5-325 [[place] 1 each FEEDTUBE Q6HR PRN 10/13/18 10/13/18 Unknown History 5/325] Insulin Glargine,Hum.rec.anlog 15 units SUB-Q HS 10/13/18 10/13/18 Unknown History [Basaglar Kwikpen U-100] Linagliptin [Tradjenta] 5 mg PO QDAY 10/13/18 10/13/18 Unknown History amLODIPine [Norvasc] 10 mg FEEDTUBE DAILY 10/13/18 10/13/18 Unknown History Active Medications: Generic Name Dose Route Start Last Admin Trade Name Freq PRN Reason Stop Dose Admin Acetaminophen 325 mg 10/13/18 20:13 Tylenol FEEDTUBE Q6HR PRN Pain, Moderate (4-6) Aspirin 325 mg 10/13/18 21:00 10/14/18 10:28 Ecotrin PO 325 mg DAILY MARYLOU Administration Heparin Sodium (Porcine) 5,000 unit 10/13/18 22:00 10/14/18 00:31 Heparin SUB-Q 5,000 unit Q12HR MARYLOU Administration Norepinephrine 4 mg in 250 mls @ 7.5 mls/hr 10/13/18 16:00 10/14/18 12:15 Levophed Drip 4 Mg/Ns 250 Ml IV 10/14/18 15:59 Infused TITR MARYLOU Titration Protocol 2 MCG/MIN Cefazolin Sodium 2 gm in 20 mls @ 80 mls/hr 10/14/18 08:00 Ancef/Sterile Water 2 Gm/20 Ml IV 10/14/18 23:59 PREOP NR Protocol Levetiracetam 500 mg/ Sodium 105 mls @ 393.75 mls/hr 10/13/18 23:00 10/14/18 10:20 Chloride IV 393.75 mls/hr Q12HR MARYLOU Administration Cefepime HCl 1 gm in 100 mls @ 200 mls/hr 10/14/18 10:00 10/14/18 10:20 Maxipime/Ns 1 Gm/100 Ml IV 200 mls/hr Q24HR MARYLOU Administration Protocol Norepinephrine 8 mg/ Sodium 250 mls @ 3.75 mls/hr 10/14/18 08:00 10/14/18 14:04 Chloride IV 10 mcg/min TITR MARYLOU 18.75 mls/hr Titration Protocol 2 MCG/MIN Insulin Human Lispro 0 unit 10/14/18 09:00 10/14/18 12:40 Humalog SUB-Q Not Given Q6HR MARYLOU Protocol Lansoprazole 30 mg 10/14/18 11:00 10/14/18 10:30 Prevacid Solutab FEEDTUBE 30 mg QDAY MARYLOU Administration Linagliptin 5 mg 10/14/18 10:00 10/14/18 10:20 Tradjenta PO 5 mg QDAY MARYLOU Administration Loperamide HCl 2 mg 10/13/18 20:13 Imodium PO Q6H PRN Diarrhea Morphine Sulfate 2 mg 10/13/18 20:03 Morphine IV Q4H PRN Pain, Moderate (4-6) Ondansetron HCl 4 mg 10/13/18 19:52 Zofran IV Q8H PRN Nausea And Vomiting Sodium Chloride 10 ml 10/13/18 22:00 10/14/18 10:00 Sodium Chloride Flush Syringe 10 Ml IV 10 ml BID MARYLOU Administration Sodium Chloride 10 ml 10/13/18 19:52 Sodium Chloride Flush Syringe 10 Ml IV PRN PRN LINE FLUSH Sodium Hypochlorite 1 applic 10/14/18 10:00 10/14/18 11:00 Dakin's Full Strength TP 1 applicatio Q12H MARYLOU Administration
--- NOTE | 2018-10-14 14:50 | Procedure Note ---
Date of procedure: 10/14/18 Pre-op diagnosis: infected sacral wound Post-op diagnosis: same Procedure: Open excisional debridement of infected and necrotic stage 4 sacral decubitus ulcer Findings: Time out performed. Patient placed in lateral decubitus position. Lidocaine 4% topical applied to wound. Wound bed with large amount of necrotic, foul smelling tissue down to bone and purulent drainage. The wound was prepped with betadine in sterile fashion. Necrotic tissue at the wound base was debrided sharply using foreceps and scissors. There was an abscess cavity encountered at the cephalad portion of the wound at 12 oclock from which a large amount of pus was drained. Deep cultures obtained. Approximately 30% of the necrotic tissue was able to be debrided at the bedside. There was also a large amount of necrotic skin especially at the right lateral aspect of the wound. The wound was cleansed and hemostasis ensured. The wound was packed with dakins moistened kerlex x1 piece and covered with a sacral foam dressing. Due to the extensive nature of the wound, it was decided to stop debridement here and consider more debridement in the operating room if the NOK agreed. I called the patient's son William Rodriguez at [phone] to give him an update and left a voice message. Wound measurement predebridement: 33W74T7 cm Post debridement: 78T73S3.2cm The patient tolerated the procedure well. All sharps were disposed of appropriately. Anesthesia: local Surgeon: ANNA PATTEN Estimated blood loss: minimal Pathology: list (wound cultures) Specimen disposition: to lab Condition: stable Disposition: no change
--- NOTE | 2018-10-14 15:00 | Consultation ---
History of Present Illness - Reason for Consult Consult date: 10/14/18 sepsis Requesting physician: NABEEL WOLF - History of Present Illness 67 y/o female with history of ESRD on HD (M,W,F), Diabetes, Dementia with marked cortical atrophy and ventriculomegaly, HTN, HLD, CVA with LHP, Seizure Disorder, recurrent UTIs admitted on 10/13/2018 from HD center due to Vas-Cath not working. Patient found also to be hypotensive. EMS reports patient has decubitus ulcer present. Patient is nonverbal. No fever or chills reported. Patient brogught from [facility]. Of note, recently admitted in July 2018 due to confusion and elevated blood pressure found to have hypertensive urgency and seizures. She was noted to have a unstagable sacral pressure injuri. In the ED, temp 97.8, HR 54, R 18, O2 100 BP 88/55. WBC 29. Hg 6.1, Plat 469. Na 124. Creat 2.4. Lactate 2.5. UA 36 wbc, small LE. Blood cultures 10/13/2018 no growth today. CXR neg. Review of Systems: unable to obtain Past History Past Medical History: ESRD, seizures, other (unable to obtain as patient is nonverbal) Past Surgical History: Other (vascath placement, PEG, others I am not able to obtain as patient is nonverbal) Social history: other (unable to obtain) Family history: other (unable to obtain) Medications and Allergies Allergies Allergy/AdvReac Type Severity Reaction Status Date / Time No Known Allergies Allergy Verified 07/30/18 12:37 Home Medications Medication Instructions Recorded Confirmed Last Taken Type Aspirin [Aspirin EC] 325 mg PO DAILY #30 tablet. 05/05/18 10/13/18 Unknown Rx Loperamide HCl [Anti-Diarrheal] 2 mg PO Q6H PRN 07/30/18 10/13/18 Unknown History Nitroglycerin [Nitrostat] 0.4 mg SL Q5M PRN 07/30/18 10/13/18 Unknown History levETIRAcetam [Keppra TAB] 500 mg PO BID #60 tablet 08/03/18 10/13/18 Unknown Rx Acetaminophen [Tylenol] 325 mg FEEDTUBE Q6HR PRN 10/13/18 10/13/18 Unknown History Carvedilol [Coreg] 25 mg FEEDTUBE BID 10/13/18 10/13/18 Unknown History Esomeprazole Magnesium [NexIUM] 40 mg PO QDAY 10/13/18 10/13/18 Unknown History HYDROcodone/APAP 5-325 [[place] 1 each FEEDTUBE Q6HR PRN 10/13/18 10/13/18 Unknown History 5/325] Insulin Glargine,Hum.rec.anlog 15 units SUB-Q HS 10/13/18 10/13/18 Unknown History [Basaglar Kwikpen U-100] Linagliptin [Tradjenta] 5 mg PO QDAY 10/13/18 10/13/18 Unknown History amLODIPine [Norvasc] 10 mg FEEDTUBE DAILY 10/13/18 10/13/18 Unknown History Active Meds: Active Medications Acetaminophen (Tylenol) 325 mg FEEDTUBE Q6HR PRN PRN Reason: Pain, Moderate (4-6) Aspirin (Ecotrin) 325 mg PO DAILY MARYLOU Last Admin: 10/14/18 10:28 Dose: 325 mg Documented by: Heparin Sodium (Porcine) (Heparin) 5,000 unit SUB-Q Q12HR MARYLOU Last Admin: 10/14/18 00:31 Dose: 5,000 unit Documented by: Norepinephrine (Levophed Drip 4 Mg/Ns 250 Ml) 4 mg in 250 mls @ 7.5 mls/hr IV TITR MARYLOU; Protocol Stop: 10/14/18 15:59 Last Titration: 10/14/18 12:15 Dose: Infused Documented by: Cefazolin Sodium (Ancef/Sterile Water 2 Gm/20 Ml) 2 gm in 20 mls @ 80 mls/hr IV PREOP NR; Protocol Stop: 10/14/18 23:59 Levetiracetam 500 mg/ Sodium (Chloride) 105 mls @ 393.75 mls/hr IV Q12HR MARYLOU Last Admin: 10/14/18 10:20 Dose: 393.75 mls/hr Documented by: Cefepime HCl (Maxipime/Ns 1 Gm/100 Ml) 1 gm in 100 mls @ 200 mls/hr IV Q24HR MARYLOU; Protocol Last Admin: 10/14/18 10:20 Dose: 200 mls/hr Documented by: Norepinephrine 8 mg/ Sodium (Chloride) 250 mls @ 3.75 mls/hr IV TITR MARYLOU; Protocol Last Titration: 10/14/18 14:30 Dose: 8 mcg/min, 15 mls/hr Documented by: Insulin Human Lispro (Humalog) 0 unit SUB-Q Q6HR [facility]; Protocol Last Admin: 10/14/18 12:40 Dose: Not Given Documented by: Lansoprazole (Prevacid Solutab) 30 mg FEEDTUBE QDAY [facility] Last Admin: 10/14/18 10:30 Dose: 30 mg Documented by: Linagliptin (Tradjenta) 5 mg PO QDAY [facility] Last Admin: 10/14/18 10:20 Dose: 5 mg Documented by: Loperamide HCl (Imodium) 2 mg PO Q6H PRN PRN Reason: Diarrhea Morphine Sulfate (Morphine) 2 mg IV Q4H PRN PRN Reason: Pain, Moderate (4-6) Ondansetron HCl (Zofran) 4 mg IV Q8H PRN PRN Reason: Nausea And Vomiting Sodium Chloride (Sodium Chloride Flush Syringe 10 Ml) 10 ml IV BID [facility] Last Admin: 10/14/18 10:00 Dose: 10 ml Documented by: Sodium Chloride (Sodium Chloride Flush Syringe 10 Ml) 10 ml IV PRN PRN PRN Reason: LINE FLUSH Sodium Hypochlorite (Dakin's Full Strength) 1 applic TP Q12H [facility] Last Admin: 10/14/18 11:00 Dose: 1 applicatio Documented by: Physical Examination - Physical Exam Narrative exam: General appearance: somnolent non verbal Eyes: anicteric sclerae, moist conjunctivae; no lid-lag; PERRLA HENT: Atraumatic; oropharynx limited Neck: Trachea midline; supple, no thyromegaly or lymphadenopathy Lungs: CTA CV: bradycardic Abdomen: Soft, non-tender +PEG Extremities: no edema Skin: see woudn care eval Psych: no agitated Neuro: somnolent right fem TLC right SC vas cath WOUND CARE CONSULT -UNSTAGEABLE SACRAL PRESSURE ULCER. WOUND MEASURES [id number]. NECROTIC TISSUE EXTENDS ONTO THE RIGHT BUTTOCK. COVERED WITH BLACK SOFT NECROTIC TISSUE. FOUL ODOR. THERE IS A SMALL AREA OF UNDERMINING AT 30CLOCK THAT MEASURES 3CM. PERIWOUND SKIN IS DENUDED AND HAS SCATTERED DTI. ERYTHEMA NOTED. LARGE AMOUNT OF YELLOW DRAINAGE. CLEANSED WITH WOUND CLEANSER. PACKED WITH DAKINS MOISTENED GAUZE. COVERED WITH 4X4 GAUZE, THEN TELFA. - Constitutional Vitals: Vital Signs Temp Pulse Resp BP Pulse Ox 97.5 F L 52 L 12 123/59 100 10/14/18 12:00 10/14/18 14:20 10/14/18 14:20 10/14/18 14:20 10/14/18 14:20 Temperature -Last 24 Hours Temperature 97.5 F Temperature 97.7 F Temperature 99.6 F Temperature 98.9 F Temperature 98.4 F Temperature 95.9 F Temperature 95 F Temperature 94.1 F Results - Labs CBC & Chem 7: 10/14/18 04:35 10/14/18 04:35 Labs: Abnormal lab results 10/13/18 10/13/18 10/13/18 Range/Units 13:28 14:50 14:50 WBC (4.5-11.0) K/mm3 Hgb (10.1-14.3) gm/dl MCH (28-32) pg RDW (13.2-15.2) % Plt Count (140-440) K/mm3 Seg Neuts % (Manual) (40.0-70.0) % Lymphocytes % (Manual) (13.4-35.0) % Seg Neutrophils # Man (1.8-7.7) K/mm3 Lymphocytes # (Manual) (1.2-5.4) K/mm3 Sodium (137-145) mmol/L Potassium (3.6-5.0) mmol/L Chloride (98-107) mmol/L Carbon Dioxide (22-30) mmol/L BUN (7-17) mg/dL Creatinine (0.7-1.2) mg/dL Glucose (65-100) mg/dL POC Glucose (70-105) Hemoglobin A1c 6.9 H (4-6) % Lactic Acid 2.30 H* (0.7-2.0) mmol/L Calcium (8.4-10.2) mg/dL AST (5-40) units/L Total Protein (6.3-8.2) g/dL Albumin (3.9-5) g/dL Urine WBC (Auto) (0.0-6.0) /HPF U Epithel Cells (Auto) (0-13.0) /HPF Crossmatch See Detail 10/13/18 10/13/18 10/13/18 Range/Units 16:59 17:43 22:12 WBC (4.5-11.0) K/mm3 Hgb (10.1-14.3) gm/dl MCH (28-32) pg RDW (13.2-15.2) % Plt Count (140-440) K/mm3 Seg Neuts % (Manual) (40.0-70.0) % Lymphocytes % (Manual) (13.4-35.0) % Seg Neutrophils # Man (1.8-7.7) K/mm3 Lymphocytes # (Manual) (1.2-5.4) K/mm3 Sodium (137-145) mmol/L Potassium (3.6-5.0) mmol/L Chloride (98-107) mmol/L Carbon Dioxide (22-30) mmol/L BUN (7-17) mg/dL Creatinine (0.7-1.2) mg/dL Glucose (65-100) mg/dL POC Glucose 153 H (70-105) Hemoglobin A1c (4-6) % Lactic Acid 2.40 H* (0.7-2.0) mmol/L Calcium (8.4-10.2) mg/dL AST (5-40) units/L Total Protein (6.3-8.2) g/dL Albumin (3.9-5) g/dL Urine WBC (Auto) 36.0 H (0.0-6.0) /HPF U Epithel Cells (Auto) 81.0 H (0-13.0) /HPF Crossmatch 10/14/18 10/14/18 10/14/18 Range/Units 04:35 04:35 07:54 WBC 27.7 H (4.5-11.0) K/mm3 Hgb 10.0 L D (10.1-14.3) gm/dl MCH 27 L (28-32) pg RDW 17.7 H (13.2-15.2) % Plt Count 450 H (140-440) K/mm3 Seg Neuts % (Manual) 96.0 H (40.0-70.0) % Lymphocytes % (Manual) 1.0 L (13.4-35.0) % Seg Neutrophils # Man 26.6 H (1.8-7.7) K/mm3 Lymphocytes # (Manual) 0.3 L (1.2-5.4) K/mm3 Sodium 129 L (137-145) mmol/L Potassium 3.3 L (3.6-5.0) mmol/L Chloride 96.9 L (98-107) mmol/L Carbon Dioxide 17 L (22-30) mmol/L BUN 60 H (7-17) mg/dL Creatinine 2.3 H (0.7-1.2) mg/dL Glucose 186 H (65-100) mg/dL POC Glucose 204 H (70-105) Hemoglobin A1c (4-6) % Lactic Acid (0.7-2.0) mmol/L Calcium 7.9 L (8.4-10.2) mg/dL AST 84 H (5-40) units/L Total Protein 5.8 L (6.3-8.2) g/dL Albumin 1.4 L (3.9-5) g/dL Urine WBC (Auto) (0.0-6.0) /HPF U Epithel Cells (Auto) (0-13.0) /HPF Crossmatch 10/14/18 Range/Units 12:28 WBC (4.5-11.0) K/mm3 Hgb (10.1-14.3) gm/dl MCH (28-32) pg RDW (13.2-15.2) % Plt Count (140-440) K/mm3 Seg Neuts % (Manual) (40.0-70.0) % Lymphocytes % (Manual) (13.4-35.0) % Seg Neutrophils # Man (1.8-7.7) K/mm3 Lymphocytes # (Manual) (1.2-5.4) K/mm3 Sodium (137-145) mmol/L Potassium (3.6-5.0) mmol/L Chloride (98-107) mmol/L Carbon Dioxide (22-30) mmol/L BUN (7-17) mg/dL Creatinine (0.7-1.2) mg/dL Glucose (65-100) mg/dL POC Glucose 152 H (70-105) Hemoglobin A1c (4-6) % Lactic Acid (0.7-2.0) mmol/L Calcium (8.4-10.2) mg/dL AST (5-40) units/L Total Protein (6.3-8.2) g/dL Albumin (3.9-5) g/dL Urine WBC (Auto) (0.0-6.0) /HPF U Epithel Cells (Auto) (0-13.0) /HPF Crossmatch Assessment and Plan Cultures: Blood cultures 10/13/2018 no growth so far. Assessment: 67 y/o female with history of ESRD on HD (M,W,F), Diabetes, Dementia with marked cortical atrophy and ventriculomegaly, HTN, HLD, CVA with LHP, Seizure Disorder, recurrent UTIs admitted on 10/13/2018 from HD center due to Vas-Cath not working. Patient found also to be hypotensive. EMS reports patient has decubitus ulcer present. 1) Severe Sepsis with septic shock: Present on admission, manifested by tachycardia, leukocytosis, increased lactate and AMS. Etiology most likely complicated sacral pressure skin and soft tissue infection +/- UTI. Blood cultures 10/13/2018 no growth today. 2) Extensive complicated sacral pressure skin and soft tissue infection? necrotizing infection ? abscess. S/p bedside debridement. 3) Acute encephalopathy: from severe sepsis and hyponatremia. 4) ESRD: renally adjusted all antibiotics 5) Hyponatremia 6) UTI: history of recurrent UTIs, previous E faecium UTI. Recommendations: - follow-up blood cultures - CT pelvis when stable - obtain deep wound culture - Surgery on board, appreciate debridement - stop cefazolin - start meropemen renallya djusted and vacnomycin with PK consult until clinically stable - CRP - may need diverting colostomy - remove femoral TLC Will follow. Elin Garcia MD Infectious Diseases Accessories Repairer [facility] ([facility] M [phone] O [phone]
[2018-10-14] MEDS ORDERED: SODIUM BICARBONATE FEEDTUBE PRN (15:42)
[2018-10-14] MEDS ORDERED: PANCREAZE DR 10,500 UNIT FEEDTUBE PRN (15:42)
[2018-10-14] MEDS ORDERED: SIMPLE SYRUP FEEDTUBE PRN ×2 (15:42)
--- NOTE | 2018-10-14 15:54 | Progress Note ---
Assessment and Plan Assessment and plan: 1) septic shock secondary to infected decubitus ulcer versus UTI - Patient is on IV meropenem and vancomycin renally dosed - Patient is on pressors and IV fluids Leucocytosis - will follow CBC in the morning (2) Anemia - transfused 2 units of PRBC - Hemoglobin is 6.9 on admission and 10 posttransfusion - Follow H&H (3) Dialysis catheter clot or failure Vascular surgery consulted (4) End stage renal disease - Nephrology consulted (5) Hypokalemia Supplemented (6) Hypotension - Due to septic shock - Management as above (7) Infected decubitus ulcer - Status post debridement by surgery (8) Hyponatremia Current Visit: Yes Status: Acute Plan to address problem: IV NS for now Check serum osmolarity (9) IDDM (insulin dependent diabetes mellitus) - SSI coverage - hemoglobin A1c 6.9 (10) Seizure disorder - continue IV keppra (11) HTN (hypertension) Hold antihypertensives (12) DVT prophylaxis On Heparin and GI prophylaxis The high probability of a clinically significant, sudden or life threatening deterioration of the [Neurology, CV] system(s) required my full and direct attention, intervention and personal management. The aggregate critical care time was [34] minutes. This time is in addition to time spent performing reported procedures but includes the following: [x] Data Review and interpretation [x] Patient assessment and monitoring of vital signs [x] Documentation [x] Medication orders and management History Interval history: Patient was seen and evaluated as a bedside, patient is noncommunicative at baseline, extremities are contracted. Hospitalist Physical - Physical exam Narrative exam: Not in cardiopulmonary distress. Vital signs as documented. Head exam is unremarkable. No scleral icterus . Neck is without jugular venous distension, thyromegaly, or carotid bruits. Lungs are clear to auscultation. Cardiac exam reveals regular rate and Rhythm. Abdominal exam reveals normal bowel sounds. Extremities are contracted. EDUCATIONAL TECHNOLOGIST: Noncommunicative, contracted extremities. - Constitutional Vitals: Temp Pulse Resp BP Pulse Ox 97.5 F L 52 L 12 123/59 100 10/14/18 12:00 10/14/18 14:20 10/14/18 14:20 10/14/18 14:20 10/14/18 14:20 General appearance: Present: no acute distress, well-nourished Results - Labs CBC & Chem 7: 10/14/18 04:35 10/14/18 04:35 Labs: Laboratory Last Values WBC 27.7 K/mm3 (4.5-11.0) H 10/14/18 04:35 RBC 3.67 M/mm3 (3.65-5.03) 10/14/18 04:35 Hgb 10.0 gm/dl (10.1-14.3) L D 10/14/18 04:35 Hct 31.0 % (30.3-42.9) D 10/14/18 04:35 MCV 85 fl (79-97) 10/14/18 04:35 MCH 27 pg (28-32) L 10/14/18 04:35 MCHC 32 % (30-34) 10/14/18 04:35 RDW 17.7 % (13.2-15.2) H 10/14/18 04:35 Plt Count 450 K/mm3 (140-440) H 10/14/18 04:35 Add Manual Diff Complete 10/14/18 04:35 Total Counted 100 10/14/18 04:35 Seg Neutrophils % Surface Boss 10/14/18 04:35 Seg Neuts % (Manual) 96.0 % (40.0-70.0) H 10/14/18 04:35 0 % 10/14/18 04:35 1.0 % (13.4-35.0) L 10/14/18 04:35 Reactive Lymphs % (Man) 0 % 10/14/18 04:35 2.0 % (0.0-7.3) 10/14/18 04:35 1.0 % (0.0-4.3) 10/14/18 04:35 0 % (0.0-1.8) 10/14/18 04:35 0 % 10/14/18 04:35 0 % 10/14/18 04:35 0 % 10/14/18 04:35 0 % 10/14/18 04:35 Nucleated RBC % Not Reportable 10/14/18 04:35 Seg Neutrophils # Man 26.6 K/mm3 (1.8-7.7) H 10/14/18 04:35 Band Neutrophils # 0.0 K/mm3 10/14/18 04:35 0.3 K/mm3 (1.2-5.4) L 10/14/18 04:35 Abs React Lymphs (Man) 0.0 K/mm3 10/14/18 04:35 0.6 K/mm3 (0.0-0.8) 10/14/18 04:35 0.3 K/mm3 (0.0-0.4) 10/14/18 04:35 0.0 K/mm3 (0.0-0.1) 10/14/18 04:35 0.0 K/mm3 10/14/18 04:35 0.0 K/mm3 10/14/18 04:35 0.0 K/mm3 10/14/18 04:35 Blast Cells # 0.0 K/mm3 10/14/18 04:35 WBC Morphology Not Reportable 10/14/18 04:35 WBC Morphology TNR 10/14/18 04:35 Hypersegmented Neuts Not Reportable 10/14/18 04:35 Hyposegmented Neuts Not Reportable 10/14/18 04:35 Hypogranular Neuts Not Reportable 10/14/18 04:35 Not Reportable 10/14/18 04:35 Not Reportable 10/14/18 04:35 Not Reportable 10/14/18 04:35 Not Reportable 10/14/18 04:35 Not Reportable 10/14/18 04:35 Not Reportable 10/14/18 04:35 Consistent w auto 10/14/18 04:35 Not Reportable 10/14/18 04:35 Plt Clumps, EDTA Not Reportable 10/14/18 04:35 Not Reportable 10/14/18 04:35 Not Reportable 10/14/18 04:35 Not Reportable 10/14/18 04:35 Plt Morphology Comment Not Reportable 10/14/18 04:35 RBC Morphology Not Reportable 10/14/18 04:35 Dimorphic RBCs Not Reportable 10/14/18 04:35 Not Reportable 10/14/18 04:35 Not Reportable 10/14/18 04:35 Not Reportable 10/14/18 04:35 1+ 10/14/18 04:35 Not Reportable 10/14/18 04:35 Not Reportable 10/14/18 04:35 Not Reportable 10/14/18 04:35 Not Reportable 10/14/18 04:35 Not Reportable 10/14/18 04:35 Not Reportable 10/14/18 04:35 Not Reportable 10/14/18 04:35 Not Reportable 10/14/18 04:35 Not Reportable 10/14/18 04:35 Not Reportable 10/14/18 04:35 Not Reportable 10/14/18 04:35 Not Reportable 10/14/18 04:35 Not Reportable 10/14/18 04:35 Not Reportable 10/14/18 04:35 Not Reportable 10/14/18 04:35 Acanthocytes (Spur) Not Reportable 10/14/18 04:35 Rouleaux Not Reportable 10/14/18 04:35 Not Reportable 10/14/18 04:35 Not Reportable 10/14/18 04:35 Not Reportable 10/14/18 04:35 Not Reportable 10/14/18 04:35 Hem Pathologist Commnt No 10/14/18 04:35 Sodium 129 mmol/L (137-145) L 10/14/18 04:35 Potassium 3.3 mmol/L (3.6-5.0) L 10/14/18 04:35 Chloride 96.9 mmol/L (98-107) L 10/14/18 04:35 Carbon Dioxide 17 mmol/L (22-30) L 10/14/18 04:35 18 mmol/L 10/14/18 04:35 BUN 60 mg/dL (7-17) H 10/14/18 04:35 2.3 mg/dL (0.7-1.2) H 10/14/18 04:35 Estimated GFR 26 ml/min 10/14/18 04:35 26 % 10/14/18 04:35 Glucose 186 mg/dL (65-100) H 10/14/18 04:35 POC Glucose 152 (70-105) H 10/14/18 12:28 6.9 % (4-6) H 10/13/18 13:28 288 Mosm/kg 10/14/18 07:30 Lactic Acid 1.60 mmol/L (0.7-2.0) 10/13/18 19:44 Calcium 7.9 mg/dL (8.4-10.2) L 10/14/18 04:35 0.50 mg/dL (0.1-1.2) 10/14/18 04:35 AST 84 units/L (5-40) H 10/14/18 04:35 ALT 50 units/L (7-56) 10/14/18 04:35 99 units/L (35-129) 10/14/18 04:35 5.8 g/dL (6.3-8.2) L 10/14/18 04:35 1.4 g/dL (3.9-5) L 10/14/18 04:35 0.3 % 10/14/18 04:35 Jennifer (Yellow) 10/13/18 17:43 Cloudy (Clear) 10/13/18 17:43 5.0 (5.0-7.0) 10/13/18 17:43 Ur Specific [place] 1.019 (1.003-1.030) 10/13/18 17:43 >500 mg/dL (Negative) 10/13/18 17:43 150 mg/dL (Negative) 10/13/18 17:43 Tr mg/dL (Negative) 10/13/18 17:43 Sm (Negative) 10/13/18 17:43 Neg (Negative) 10/13/18 17:43 Neg (Negative) 10/13/18 17:43 < 2.0 mg/dL (<2.0) 10/13/18 17:43 Ur Leukocyte Esterase Sm (Negative) 10/13/18 17:43 36.0 /HPF (0.0-6.0) H 10/13/18 17:43 13.0 /HPF (0.0-6.0) 10/13/18 17:43 U Epithel Cells (Auto) 81.0 /HPF (0-13.0) H 10/13/18 17:43 Blood Type A POSITIVE 10/13/18 14:50 Antibody Screen Negative 10/13/18 14:50 Crossmatch See Detail 10/13/18 14:50 Active Medications - Current Medications Current Medications: Generic Name Dose Route Start Last Admin Trade Name Freq PRN Reason Stop Dose Admin Acetaminophen 325 mg 10/13/18 20:13 Tylenol FEEDTUBE Q6HR PRN Pain, Moderate (4-6) Lipase/Protease/Amylase 1 each 10/14/18 15:[address] 10,500 Unit FEEDTUBE PRN PRN For Clogged Feeding Tube Aspirin 325 mg 10/13/18 21:00 10/14/18 10:28 Ecotrin PO 325 mg DAILY MARYLOU Administration Heparin Sodium (Porcine) 5,000 unit 10/13/18 22:00 10/14/18 00:31 Heparin SUB-Q 5,000 unit Q12HR MARYLOU Administration Norepinephrine 4 mg in 250 mls @ 7.5 mls/hr 10/13/18 16:00 10/14/18 12:15 Levophed Drip 4 Mg/Ns 250 Ml IV 10/14/18 15:59 Infused TITR MARYLOU Titration Protocol 2 MCG/MIN Cefazolin Sodium 2 gm in 20 mls @ 80 mls/hr 10/14/18 08:00 Ancef/Sterile Water 2 Gm/20 Ml IV 10/14/18 23:59 PREOP NR Protocol Levetiracetam 500 mg/ Sodium 105 mls @ 393.75 mls/hr 10/13/18 23:00 10/14/18 10:20 Chloride IV 393.75 mls/hr Q12HR MARYLOU Administration Cefepime HCl 1 gm in 100 mls @ 200 mls/hr 10/14/18 10:00 10/14/18 10:20 Maxipime/Ns 1 Gm/100 Ml IV 200 mls/hr Q24HR MARYLOU Administration Protocol Norepinephrine 8 mg/ Sodium 250 mls @ 3.75 mls/hr 10/14/18 08:00 10/14/18 15:45 Chloride IV 6 mcg/min TITR MARYLOU 11.25 mls/hr Titration Protocol 2 MCG/MIN Insulin Human Lispro 0 unit 10/14/18 09:00 10/14/18 12:40 Humalog SUB-Q Not Given Q6HR MARYLOU Protocol Lansoprazole 30 mg 10/14/18 11:00 10/14/18 10:30 Prevacid Solutab FEEDTUBE 30 mg QDAY MARYLOU Administration Linagliptin 5 mg 10/14/18 10:00 10/14/18 10:20 Tradjenta PO 5 mg QDAY MARYLOU Administration Loperamide HCl 2 mg 10/13/18 20:13 Imodium PO Q6H PRN Diarrhea Morphine Sulfate 2 mg 10/13/18 20:03 Morphine IV Q4H PRN Pain, Moderate (4-6) Ondansetron HCl 4 mg 10/13/18 19:52 Zofran IV Q8H PRN Nausea And Vomiting Simple Syrup 15 ml 10/14/18 15:42 Simple Syrup FEEDTUBE PRN PRN Hypoglycemia Simple Syrup 30 ml 10/14/18 15:42 Simple Syrup FEEDTUBE PRN PRN Hypoglycemia Sodium Bicarbonate 325 mg 10/14/18 15:42 Sodium Bicarbonate FEEDTUBE PRN PRN For Clogged Feeding Tube Sodium Chloride 10 ml 10/13/18 22:00 10/14/18 10:00 Sodium Chloride Flush Syringe 10 Ml IV 10 ml BID MARYLOU Administration Sodium Chloride 10 ml 10/13/18 19:52 Sodium Chloride Flush Syringe 10 Ml IV PRN PRN LINE FLUSH Sodium Hypochlorite 1 applic 10/14/18 10:00 10/14/18 11:00 Dakin's Full Strength TP 1 applicatio Q12H MARYLOU Administration Nutrition/Malnutrition Assess - Dietary Evaluation Nutrition/Malnutrition Findings: Nutrition Notes Start: 10/14/18 15:30 Freq: Status: Active Protocol: Document 10/14/18 15:30 RM (Rec: 10/14/18 15:41 RM [id number]) Nutrition Notes Need for Assessment generated from: MD Order Initial or Follow up Assessment Current Diagnosis Sepsis,Hypertension Other Pertinent Diagnosis ESRD on HD,PEG,GERD, Hx CVA, infected PU Current Diet Renal diet Labs/Tests Reviewed Pertinent Medications Levophed Height 5 ft Weight 54.431 kg Nutrioso Body Weight (kg) 45.45 BMI 23.4 Subjective/Other Information Consulted for TF recommendation. Burn Absent Trauma Absent Nutrition Diagnosis Inadequate oral intake Etiology Hx CVA As Evidenced by Signs and Symptoms pt requiring enteral nutrition to meet nutritional needs Is patient on ventilator? No Is Patient Ambulatory and/or Out of Bed No REE-([facility]-confined to bed) 1206.756 Calculation Used for Recommendations [facility] Additional Notes Protein Need:65-109g (1.2-2g/ kg) Fluid Needs: 1 ml/kcal Nutrition Intervention Nutrition Support: Nepro at 30 ml/hr. Water flush of 150 mls q 4 hrs . Kcal 1,296 Protein (gm) 58 Fluid (mL) 523 Goal #1 TF tolerance Goal #2 Meet at least 80% of calorie and protein needs via TF Anticipated Discharge Needs: TF Follow-Up By: 10/16/18 Additional Comments Follow for new TF
[2018-10-15] MEDS: HumaLOG SUB-Q SCH ×3 (00:49→11:16)
[2018-10-15] MEDS: LEVOPHED 8 MG in NACL 0.9% 250ML 242 ML IV SCH (02:36)
--- NOTE | 2018-10-15 08:06 | Progress Note ---
Assessment and Plan Cultures: Blood cultures 10/13/2018 no growth so far. Assessment: 67 y/o female with history of ESRD on HD (M,W,F), Diabetes, Dementia with marked cortical atrophy and ventriculomegaly, HTN, HLD, CVA with LHP, Seizure Disorder, recurrent UTIs admitted on 10/13/2018 from HD center due to Vas-Cath not working. Patient found also to be hypotensive. EMS reports patient has decubitus ulcer present. 1) Severe Sepsis with septic shock: still on levophed. Etiology most likely complicated sacral pressure skin and soft tissue infection +/- UTI. Blood cultures 10/13/2018 no growth today. 2) Extensive complicated sacral pressure skin and soft tissue infection? necrotizing infection ? abscess. S/p bedside debridement. 3) Acute encephalopathy: from severe sepsis and hyponatremia. 4) ESRD: renally adjusted all antibiotics 5) Hyponatremia 6) UTI: history of recurrent UTIs, previous E faecium UTI. Recommendations: - follow-up blood cultures, urine and wound cultures - CT pelvis when stable - Surgery on board, appreciate debridement - continue meropemen renally adjusted and vancomycin with PK consult until clinically stable - may need diverting colostomy - remove femoral TLC and OK to place a PICC Will follow. Elin Garcia MD Infectious Diseases Radar Operator [facility] ([facility]) M [phone] O [phone] Subjective Date of service: 10/15/18 Principal diagnosis: septic shock Interval history: Remains on pressors levophed at 2, no fever. Still somnolent ROS unable to obtain Objective - Exam Narrative Exam: General appearance: somnolent non verbal Eyes: anicteric sclerae, moist conjunctivae; no lid-lag; PERRLA HENT: Atraumatic; oropharynx limited Neck: Trachea midline; supple, no thyromegaly or lymphadenopathy Lungs: CTA CV: bradycardic Abdomen: Soft, non-tender +PEG Extremities: no edema Skin: see woudn care eval Psych: no agitated Neuro: somnolent right fem TLC right SC vas cath WOUND CARE CONSULT -UNSTAGEABLE SACRAL PRESSURE ULCER. WOUND MEASURES [id number]. NECROTIC TISSUE EXTENDS ONTO THE RIGHT BUTTOCK. COVERED WITH BLACK SOFT NECROTIC TISSUE. FOUL ODOR. THERE IS A SMALL AREA OF UNDERMINING AT 30CLOCK THAT MEASURES 3CM. PERIWOUND SKIN IS DENUDED AND HAS SCATTERED DTI. ERYTHEMA NOTED. LARGE AMOUNT OF YELLOW DRAINAGE. CLEANSED WITH WOUND CLEANSER. PACKED WITH DAKINS MOISTENED GAUZE. COVERED WITH 4X4 GAUZE, THEN TELFA. - Constitutional Vitals: Vital Signs Temp Pulse Resp BP Pulse Ox 98.8 F 61 22 98/47 100 10/15/18 04:00 10/15/18 07:30 10/15/18 07:30 10/15/18 07:30 10/15/18 07:30 Temperature -Last 24 Hours Temperature 98.8 F Temperature 98.6 F Temperature 98.6 F Temperature 98.7 F Temperature 98.0 F Temperature 97.5 F - Labs CBC & Chem 7: 10/14/18 04:35 10/14/18 04:35 Labs: Abnormal lab results 10/14/18 10/14/18 10/14/18 Range/Units 04:35 12:28 16:38 Seg Neuts % (Manual) 96.0 H (40.0-70.0) % Lymphocytes % (Manual) 1.0 L (13.4-35.0) % Seg Neutrophils # Man 26.6 H (1.8-7.7) K/mm3 Lymphocytes # (Manual) 0.3 L (1.2-5.4) K/mm3 POC Glucose 152 H 121 H (70-105) 10/14/18 10/15/18 Range/Units 23:29 06:19 Seg Neuts % (Manual) (40.0-70.0) % Lymphocytes % (Manual) (13.4-35.0) % Seg Neutrophils # Man (1.8-7.7) K/mm3 Lymphocytes # (Manual) (1.2-5.4) K/mm3 POC Glucose 126 H 153 H (70-105)
[2018-10-15 08:25] LABS: Hematocrit 26.6 % (30.3-42.9); Hemoglobin 8.5 gm/dl (10.1-14.3); Mean Corpuscular HGB Conc 32 % (30-34); Mean Corpuscular Volume 84 fl (79-97); Platelet Count 353 K/mm3 (140-440); Red Blood Count 3.16 M/mm3 (3.65-5.03); Red Cell Distribution Width 17.8 % (13.2-15.2)
[2018-10-15 08:42] LABS: Albumin 1.4 g/dL (3.9-5); C-Reactive Protein 26.4 mg/dL (0.00-1.30); Calcium 7.3 mg/dL (8.4-10.2)
[2018-10-15] MEDS: LACTATED RINGERS 1,000 ML IV SCH (08:47)
[2018-10-15] MEDS: KEPPRA 500 MG in NACL 0.9% 100 ML IV SCH ×2 (09:24→23:00)
[2018-10-15] MEDS: ECOTRIN PO SCH (09:26)
[2018-10-15] MEDS: HEPARIN SUB-Q SCH ×2 (09:26→23:00)
[2018-10-15] MEDS: PREVACID SOLUTAB FEEDTUBE SCH (09:26)
[2018-10-15] MEDS: TRADJENTA PO SCH (09:27)
[2018-10-15] MEDS: SODIUM CHLORIDE FLUSH SYRINGE 10 ML IV SCH ×2 (09:27→23:09)
[2018-10-15] MEDS: DAKIN'S FULL STRENGTH TP SCH ×2 (09:27→23:10)
[2018-10-15] MEDS ORDERED: NACL 0.9% 1000 ML 1,000 ML IV SCH (10:00)
[2018-10-15] MEDS ORDERED: SODIUM BICARBONATE ONE (10:20)
[2018-10-15 10:32] LABS: Anisocytosis 1+; Basophils % (Manual) 0 % (0.0-1.8); Eosinophils % (Manual) 0 % (0.0-4.3); Platelet Estimate Consistent w Auto; Poikilocytosis 1+; Total Cells Counted 100
--- NOTE | 2018-10-15 11:14 | Progress Note ---
Assessment and Plan 67 female with ESRD on HD and history of seizure disorder, nonverbal, admitted with hypotension, anemia and concern for sepsis from possible urinary source. 1. ID following and reviewed their note. Patient unfortunately is not a candidate for picc line secondary to her contractures. Fem line is the only access we have at this point. 2. Spoke with renal at bedside, they are ok with a MAP of 60 and wish for no further fluid boluses. They will attempt HD today. 3. Renal will decide if they want to transfuse more blood. Levo remains at bedside in case it is needed during HD 4. Resume home medication regimen, minus any antihypertensives 5. If patient tolerates HD and does not require pressors during or after, will transfer out of unit. [facility]. 6. If unable to declog peg tube, patient will need GI consult for replacement tube. CCT 31 minutes. Subjective Date of service: 10/15/18 Principal diagnosis: septic shock Interval history: Had wound debrided yesterday. Also had new vascath placed on yesterday. Sche duled for HD today. Remains on room air. Still on low dose levo at 2mcgs this am. No family present. Renal at bedside. Objective - Constitutional Vitals: Vital Signs - 12hr 10/14/18 10/14/18 10/14/18 23:10 23:20 23:30 Temperature Pulse Rate 57 L 57 L 57 L Pulse Rate [ From Monitor] Respiratory 18 18 19 Rate Blood Pressure 103/50 99/51 95/51 O2 Sat by Pulse 100 100 100 Oximetry O2 Sat by Pulse Oximetry [ Bilateral Throughout] 10/14/18 10/14/18 10/15/18 23:40 23:50 00:00 Temperature 98.6 F Pulse Rate 57 L 57 L 58 L Pulse Rate [ From Monitor] Respiratory 18 19 18 Rate Blood Pressure 95/51 97/51 97/47 O2 Sat by Pulse 100 100 100 Oximetry O2 Sat by Pulse Oximetry [ Bilateral Throughout] 10/15/18 10/15/18 10/15/18 00:10 00:20 00:28 Temperature Pulse Rate 57 L 57 L Pulse Rate [ 57 L From Monitor] Respiratory 17 15 16 Rate Blood Pressure 97/47 95/52 O2 Sat by Pulse 100 100 100 Oximetry O2 Sat by Pulse Oximetry [ Bilateral Throughout] 05/10/15/18 10/15/18 00:30 00:40 00:50 Temperature Pulse Rate 57 L 57 L 57 L Pulse Rate [ From Monitor] Respiratory 18 16 15 Rate Blood Pressure 96/50 96/50 92/46 O2 Sat by Pulse 100 100 100 Oximetry O2 Sat by Pulse Oximetry [ Bilateral Throughout] 10/15/18 10/15/18 10/15/18 01:00 01:10 01:20 Temperature Pulse Rate 57 L 55 L 57 L Pulse Rate [ From Monitor] Respiratory 17 14 16 Rate Blood Pressure 91/49 91/49 101/48 O2 Sat by Pulse 100 100 100 Oximetry O2 Sat by Pulse Oximetry [ Bilateral Throughout] 10/15/18 10/15/18 10/15/18 01:30 01:40 01:50 Temperature Pulse Rate 55 L 55 L 55 L Pulse Rate [ From Monitor] Respiratory 13 14 13 Rate Blood Pressure 94/47 94/47 94/49 O2 Sat by Pulse 99 100 100 Oximetry O2 Sat by Pulse Oximetry [ Bilateral Throughout] 10/15/18 10/15/18 10/15/18 02:00 02:10 02:20 Temperature Pulse Rate 55 L 54 L 56 L Pulse Rate [ From Monitor] Respiratory 12 17 15 Rate Blood Pressure 103/49 103/49 93/49 O2 Sat by Pulse 100 100 100 Oximetry O2 Sat by Pulse Oximetry [ Bilateral Throughout] 10/15/18 10/15/18 10/15/18 02:30 02:40 02:50 Temperature Pulse Rate 57 L 57 L 58 L Pulse Rate [ From Monitor] Respiratory 18 13 19 Rate Blood Pressure 96/49 96/49 91/44 O2 Sat by Pulse 100 100 100 Oximetry O2 Sat by Pulse Oximetry [ Bilateral Throughout] 10/15/18 10/15/18 10/15/18 03:00 03:10 03:20 Temperature Pulse Rate 63 61 57 L Pulse Rate [ From Monitor] Respiratory 19 19 13 Rate Blood Pressure 118/58 118/58 109/52 O2 Sat by Pulse 100 100 100 Oximetry O2 Sat by Pulse Oximetry [ Bilateral Throughout] 10/15/18 10/15/18 10/15/18 03:30 03:40 03:50 Temperature Pulse Rate 57 L 57 L 63 Pulse Rate [ From Monitor] Respiratory 19 20 19 Rate Blood Pressure 113/47 113/47 116/44 O2 Sat by Pulse 100 100 97 Oximetry O2 Sat by Pulse Oximetry [ Bilateral Throughout] 10/15/18 10/15/18 10/15/18 04:00 04:10 04:20 Temperature 98.8 F Pulse Rate 63 58 L 67 Pulse Rate [ From Monitor] Respiratory 15 19 21 Rate Blood Pressure 122/52 122/52 116/44 O2 Sat by Pulse 100 97 99 Oximetry O2 Sat by Pulse Oximetry [ Bilateral Throughout] 10/15/18 10/15/18 10/15/18 04:30 04:40 04:50 Temperature Pulse Rate 66 53 L 63 Pulse Rate [ From Monitor] Respiratory 22 17 17 Rate Blood Pressure 102/49 102/49 96/46 O2 Sat by Pulse 98 98 99 Oximetry O2 Sat by Pulse Oximetry [ Bilateral Throughout] 10/15/18 10/15/18 10/15/18 05:00 05:10 05:20 Temperature Pulse Rate 61 59 L 58 L Pulse Rate [ 58 L From Monitor] Respiratory 16 17 17 Rate Blood Pressure 87/39 87/39 87/39 O2 Sat by Pulse 100 99 99 Oximetry O2 Sat by Pulse Oximetry [ Bilateral Throughout] 10/15/18 10/15/18 10/15/18 05:30 05:40 05:50 Temperature Pulse Rate 57 L 57 L 57 L Pulse Rate [ From Monitor] Respiratory 16 15 14 Rate Blood Pressure 78/40 79/43 78/40 O2 Sat by Pulse 100 100 100 Oximetry O2 Sat by Pulse Oximetry [ Bilateral Throughout] 10/15/18 10/15/18 10/15/18 06:00 06:10 06:20 Temperature Pulse Rate 57 L 58 L 60 Pulse Rate [ From Monitor] Respiratory 11 L 14 17 Rate Blood Pressure 100/48 100/48 108/53 O2 Sat by Pulse 100 100 98 Oximetry O2 Sat by Pulse Oximetry [ Bilateral Throughout] 10/15/18 10/15/18 10/15/18 06:30 06:40 06:50 Temperature Pulse Rate 59 L 58 L 61 Pulse Rate [ From Monitor] Respiratory 16 15 13 Rate Blood Pressure 111/52 111/52 111/52 O2 Sat by Pulse 100 100 100 Oximetry O2 Sat by Pulse Oximetry [ Bilateral Throughout] 10/15/18 10/15/18 10/15/18 07:00 07:10 07:20 Temperature Pulse Rate 61 61 59 L Pulse Rate [ From Monitor] Respiratory 15 17 14 Rate Blood Pressure 98/47 98/47 94/46 O2 Sat by Pulse 100 99 100 Oximetry O2 Sat by Pulse Oximetry [ Bilateral Throughout] 10/15/18 10/15/18 10/15/18 07:30 07:40 07:50 Temperature Pulse Rate 61 57 L 59 L Pulse Rate [ From Monitor] Respiratory 22 12 15 Rate Blood Pressure 98/47 98/47 99/54 O2 Sat by Pulse 100 100 100 Oximetry O2 Sat by Pulse Oximetry [ Bilateral Throughout] 10/15/18 10/15/18 10/15/18 08:00 08:10 08:20 Temperature 95.5 F L Pulse Rate 65 69 70 Pulse Rate [ 69 From Monitor] Respiratory 18 15 16 Rate Blood Pressure 104/52 104/52 110/51 O2 Sat by Pulse 100 100 99 Oximetry O2 Sat by Pulse Oximetry [ Bilateral Throughout] 10/15/18 10/15/18 10/15/18 08:30 08:40 08:50 Temperature Pulse Rate 68 67 67 Pulse Rate [ From Monitor] Respiratory 16 18 16 Rate Blood Pressure 115/52 115/52 91/35 O2 Sat by Pulse 100 100 99 Oximetry O2 Sat by Pulse Oximetry [ Bilateral Throughout] 10/15/18 10/15/18 10/15/18 09:00 09:10 09:20 Temperature Pulse Rate 64 56 L 66 Pulse Rate [ From Monitor] Respiratory 11 L 17 16 Rate Blood Pressure 91/35 105/39 99/52 O2 Sat by Pulse 99 99 100 Oximetry O2 Sat by Pulse Oximetry [ Bilateral Throughout] 10/15/18 10/15/18 10/15/18 09:30 09:40 09:50 Temperature Pulse Rate 65 62 60 Pulse Rate [ From Monitor] Respiratory 17 14 16 Rate Blood Pressure 92/53 88/46 91/44 O2 Sat by Pulse 98 100 99 Oximetry O2 Sat by Pulse Oximetry [ Bilateral Throughout] 10/15/18 10/15/18 10/15/18 10:00 10:10 10:20 Temperature Pulse Rate 63 59 L 58 L Pulse Rate [ From Monitor] Respiratory 18 18 15 Rate Blood Pressure 91/44 101/69 110/85 O2 Sat by Pulse 99 98 100 Oximetry O2 Sat by Pulse Oximetry [ Bilateral Throughout] 10/15/18 10/15/18 10/15/18 10:30 10:40 10:45 Temperature 98.5 F Pulse Rate 57 L 57 L 61 Pulse Rate [ From Monitor] Respiratory 16 Rate Blood Pressure 99/55 99/55 109/58 O2 Sat by Pulse Oximetry O2 Sat by Pulse 100 Oximetry [ Bilateral Throughout] 10/15/18 11:00 Temperature Pulse Rate 64 Pulse Rate [ From Monitor] Respiratory Rate Blood Pressure 114/51 O2 Sat by Pulse Oximetry O2 Sat by Pulse Oximetry [ Bilateral Throughout] General appearance: Present: no acute distress, other (nonverbal) - EENT ENT: hearing intact - Neck Neck: supple, normal ROM - Respiratory Respiratory effort: normal Respiratory: bilateral: CTA - Breasts Breasts: deferred - Cardiovascular Rhythm: regular Heart Sounds: Present: S1 & S2 - Gastrointestinal General gastrointestinal: Present: soft, other (peg in place but clogged at the moment) - Labs CBC & Chem 7: 10/15/18 08:00 10/15/18 08:00 Labs: Abnormal lab results 10/14/18 10/14/18 10/14/18 Range/Units 12:28 16:38 23:29 WBC (4.5-11.0) K/mm3 RBC (3.65-5.03) M/mm3 Hgb (10.1-14.3) gm/dl Hct (30.3-42.9) % MCH (28-32) pg RDW (13.2-15.2) % Seg Neuts % (Manual) (40.0-70.0) % Lymphocytes % (Manual) (13.4-35.0) % Seg Neutrophils # Man (1.8-7.7) K/mm3 Lymphocytes # (Manual) (1.2-5.4) K/mm3 Sodium (137-145) mmol/L Potassium (3.6-5.0) mmol/L Carbon Dioxide (22-30) mmol/L BUN (7-17) mg/dL Creatinine (0.7-1.2) mg/dL Glucose (65-100) mg/dL POC Glucose 152 H 121 H 126 H (70-105) Calcium (8.4-10.2) mg/dL C-Reactive Protein (0.00-1.30) mg/dL Total Protein (6.3-8.2) g/dL Albumin (3.9-5) g/dL 10/15/18 10/15/18 10/15/18 Range/Units 06:19 08:00 08:00 WBC 23.4 H (4.5-11.0) K/mm3 RBC 3.16 L (3.65-5.03) M/mm3 Hgb 8.5 L (10.1-14.3) gm/dl Hct 26.6 L (30.3-42.9) % MCH 27 L (28-32) pg RDW 17.8 H (13.2-15.2) % Seg Neuts % (Manual) 98.0 H (40.0-70.0) % Lymphocytes % (Manual) 1.0 L (13.4-35.0) % Seg Neutrophils # Man 22.9 H (1.8-7.7) K/mm3 Lymphocytes # (Manual) 0.2 L (1.2-5.4) K/mm3 Sodium 129 L (137-145) mmol/L Potassium 3.5 L (3.6-5.0) mmol/L Carbon Dioxide 15 L (22-30) mmol/L BUN 63 H (7-17) mg/dL Creatinine 2.4 H (0.7-1.2) mg/dL Glucose 152 H (65-100) mg/dL POC Glucose 153 H (70-105) Calcium 7.3 L (8.4-10.2) mg/dL C-Reactive Protein 26.40 H (0.00-1.30) mg/dL Total Protein 5.1 L (6.3-8.2) g/dL Albumin 1.4 L (3.9-5) g/dL Medications & Allergies - Medications Allergies/Adverse Reactions: Allergies No Known Allergies Allergy (Verified 07/30/18 12:37) Home Medications: Home Medications Medication Instructions Recorded Confirmed Last Taken Type Aspirin [Aspirin EC] 325 mg PO DAILY #30 tablet. 05/05/18 10/13/18 Unknown Rx Loperamide HCl [Anti-Diarrheal] 2 mg PO Q6H PRN 07/30/18 10/13/18 Unknown History Nitroglycerin [Nitrostat] 0.4 mg SL Q5M PRN 07/30/18 10/13/18 Unknown History levETIRAcetam [Keppra TAB] 500 mg PO BID #60 tablet 08/03/18 10/13/18 Unknown Rx Acetaminophen [Tylenol] 325 mg FEEDTUBE Q6HR PRN 10/13/18 10/13/18 Unknown History Carvedilol [Coreg] 25 mg FEEDTUBE BID 10/13/18 10/13/18 Unknown History Esomeprazole Magnesium [NexIUM] 40 mg PO QDAY 10/13/18 10/13/18 Unknown History HYDROcodone/APAP 5-325 [[place] 1 each FEEDTUBE Q6HR PRN 10/13/18 10/13/18 Unknown History 5/325] Insulin Glargine,Hum.rec.anlog 15 units SUB-Q HS 10/13/18 10/13/18 Unknown History [Basaglar Kwikpen U-100] Linagliptin [Tradjenta] 5 mg PO QDAY 10/13/18 10/13/18 Unknown History amLODIPine [Norvasc] 10 mg FEEDTUBE DAILY 10/13/18 10/13/18 Unknown History Active Medications: Generic Name Dose Route Start Last Admin Trade Name Freq PRN Reason Stop Dose Admin Acetaminophen 325 mg 10/13/18 20:13 Tylenol FEEDTUBE Q6HR PRN Pain, Moderate (4-6) Lipase/Protease/Amylase 1 each 10/14/18 15:42 10/15/18 10:19 Pancreazjane Jiang 10,500 Unit FEEDTUBE 1 each PRN PRN Administration For Clogged Feeding Tube Aspirin 325 mg 10/13/18 21:00 10/15/18 09:26 Ecotrin PO 325 mg DAILY MARYLOU Administration Heparin Sodium (Porcine) 5,000 unit 10/13/18 22:00 10/15/18 09:26 Heparin SUB-Q 5,000 unit Q12HR MARYLOU Administration Levetiracetam 500 mg/ Sodium 105 mls @ 393.75 mls/hr 10/13/18 23:00 10/15/18 09:24 Chloride IV 393.75 mls/hr Q12HR MARYLOU Administration Norepinephrine 8 mg/ Sodium 250 mls @ 3.75 mls/hr 10/14/18 08:00 10/15/18 08:30 Chloride IV 0 mcg/min TITR MARYLOU 0 mls/hr Titration Protocol 2 MCG/MIN Lactated Ringer's 1,000 mls @ 999 mls/hr 10/15/18 09:00 10/15/18 08:47 Lactated Ringers IV 10/16/18 10:01 999 mls/hr DIRECT MARYLOU Administration Vancomycin HCl 1 gm in 250 mls @ 167.007 mls/hr 10/15/18 16:00 Vancomycin/Ns 1 Gm/250 Ml IV 10/15/18 17:29 ONCE ONE Meropenem 500 mg in 50 mls @ 50 mls/hr 10/15/18 14:00 Merrem/Ns 500 Mg/50 Ml IV QPM MARYLOU Sodium Chloride 1,000 mls @ 0 mls/hr 10/15/18 10:00 Nacl 0.9% 1000 Ml IV 10/16/18 10:01 ONCE MARYLOU As Directed Insulin Human Lispro 0 unit 10/14/18 09:00 10/15/18 06:40 Humalog SUB-Q 2 unit Q6HR MARYLOU Administration Protocol Lansoprazole 30 mg 10/14/18 11:00 10/15/18 09:26 Prevacid Solutab FEEDTUBE 30 mg QDAY MARYLOU Administration Linagliptin 5 mg 10/14/18 10:00 10/15/18 09:27 Tradjenta PO 5 mg QDAY MARYLOU Administration Loperamide HCl 2 mg 10/13/18 20:13 Imodium PO Q6H PRN Diarrhea Morphine Sulfate 2 mg 10/13/18 20:03 10/15/18 08:46 Morphine IV 2 mg Q4H PRN Administration Pain, Moderate (4-6) Ondansetron HCl 4 mg 10/13/18 19:52 Zofran IV Q8H PRN Nausea And Vomiting Simple Syrup 15 ml 10/14/18 15:42 Simple Syrup FEEDTUBE PRN PRN Hypoglycemia Simple Syrup 30 ml 10/14/18 15:42 Simple Syrup FEEDTUBE PRN PRN Hypoglycemia Sodium Bicarbonate 325 mg 10/14/18 15:42 10/15/18 10:19 Sodium Bicarbonate FEEDTUBE 325 mg PRN PRN Administration For Clogged Feeding Tube Sodium Chloride 10 ml 10/13/18 22:00 10/15/18 09:27 Sodium Chloride Flush Syringe 10 Ml IV 10 ml BID MARYLOU Administration Sodium Chloride 10 ml 10/13/18 19:52 Sodium Chloride Flush Syringe 10 Ml IV PRN PRN LINE FLUSH Sodium Hypochlorite 1 applic 10/14/18 10:00 10/15/18 09:27 Dakin's Full Strength TP 1 applicatio Q12H MARYLOU Administration
--- NOTE | 2018-10-15 11:59 | Event Note ---
Date: 10/15/18 Pt admitted with malfunctioning RIJ PC, and sepsis from sacral wound abscess. S/p bedside debridement by Gen Surg/wound care surgeon. RIJ PC exchanged by Dr Castillo, POD 1. Pt on HD currently. Catheter is functioning adequately without issue. No signs of bleeding from catheter exit site. No obvious erythema or induration appreciated. Supportive care/Medical management per the other services. No vascular surgery intervention recommended at this time.
[2018-10-15] MEDS ORDERED: MERREM/NS 500 MG/50 ML 500 MG/50 ML BAG IV SCH ×2 (14:00→18:00)
--- NOTE | 2018-10-15 14:50 | Progress Note ---
Assessment and Plan - Patient Problems (1) End stage renal disease Current Visit: Yes Status: Chronic Plan to address problem: End-stage renal disease Hemodynamics improved Will plan for hemodialysis today. (2) Shock Current Visit: Yes Status: Acute Plan to address problem: Septic Shock Elevated lactic acid now resolved Received over 2L on admission wean off vasopressor Goal MAP 60 Continue antibiotics Would avoid further IVF given anarsaca. Source query infected decubitus ulcer (3) Anemia Current Visit: Yes Status: Acute Qualifiers: Anemia type: unspecified type Qualified Code(s): D64.9 - Anemia, unspecified Plan to address problem: Severe anemia Hb: 6g/dl Received 2 units of PRBC repeat hemoglobin 10 g per DL recheck today ; 8.5g/dl monitor CBC monitor for bleeding. (4) Dialysis catheter clot or failure Current Visit: Yes Status: Acute Plan to address problem: Dialysis catheter clot Status post tunneled dialysis catheter Exchange Appreciated vascular surgery involvement (5) Hypokalemia Current Visit: Yes Status: Acute Plan to address problem: Hypokalemia improved We'll hold additional potassium chloride supplementation Subjective Principal diagnosis: septic shock Interval history: 67-year-old lady with medical history significant for hypertension, end-stage renal disease from dialysis unit for malfunctioning right IJ PermCath at [facility] she was found to be hypotensive in the emergency room found to also have a large decubitus ulcer has received fluid boluses, 1.3 L also found to have elevated lactic acid. She is status post PermCath exchange Discussed with nursing staff , plan to wean off levophed today Would avoid further IVF. Lactate levels also improved remains drowsy nonverbal Objective - Vital Signs Vital signs: Vital Signs - 12hr 10/15/18 10/15/18 10/15/18 02:50 03:00 03:10 Temperature Pulse Rate 58 L 63 61 Pulse Rate [ From Monitor] Respiratory 19 19 19 Rate Blood Pressure 91/44 118/58 118/58 O2 Sat by Pulse 100 100 100 Oximetry O2 Sat by Pulse Oximetry [ Bilateral Throughout] 10/15/18 10/15/18 10/15/18 03:20 03:30 03:40 Temperature Pulse Rate 57 L 57 L 57 L Pulse Rate [ From Monitor] Respiratory 13 19 20 Rate Blood Pressure 109/52 113/47 113/47 O2 Sat by Pulse 100 100 100 Oximetry O2 Sat by Pulse Oximetry [ Bilateral Throughout] 10/15/18 10/15/18 10/15/18 03:50 04:00 04:10 Temperature 98.8 F Pulse Rate 63 63 58 L Pulse Rate [ From Monitor] Respiratory 19 15 19 Rate Blood Pressure 116/44 122/52 122/52 O2 Sat by Pulse 97 100 97 Oximetry O2 Sat by Pulse Oximetry [ Bilateral Throughout] 10/15/18 10/15/18 10/15/18 04:20 04:30 04:40 Temperature Pulse Rate 67 66 53 L Pulse Rate [ From Monitor] Respiratory 21 22 17 Rate Blood Pressure 116/44 102/49 102/49 O2 Sat by Pulse 99 98 98 Oximetry O2 Sat by Pulse Oximetry [ Bilateral Throughout] 10/15/18 10/15/18 10/15/18 04:50 05:00 05:10 Temperature Pulse Rate 63 61 59 L Pulse Rate [ 58 L From Monitor] Respiratory 17 16 17 Rate Blood Pressure 96/46 87/39 87/39 O2 Sat by Pulse 99 100 99 Oximetry O2 Sat by Pulse Oximetry [ Bilateral Throughout] 10/15/18 10/15/18 10/15/18 05:20 05:30 05:40 Temperature Pulse Rate 58 L 57 L 57 L Pulse Rate [ From Monitor] Respiratory 17 16 15 Rate Blood Pressure 87/39 78/40 79/43 O2 Sat by Pulse 99 100 100 Oximetry O2 Sat by Pulse Oximetry [ Bilateral Throughout] 10/15/18 10/15/18 10/15/18 05:50 06:00 06:10 Temperature Pulse Rate 57 L 57 L 58 L Pulse Rate [ From Monitor] Respiratory 14 11 L 14 Rate Blood Pressure 78/40 100/48 100/48 O2 Sat by Pulse 100 100 100 Oximetry O2 Sat by Pulse Oximetry [ Bilateral Throughout] 10/15/18 10/15/18 10/15/18 06:20 06:30 06:40 Temperature Pulse Rate 60 59 L 58 L Pulse Rate [ From Monitor] Respiratory 17 16 15 Rate Blood Pressure 108/53 111/52 111/52 O2 Sat by Pulse 98 100 100 Oximetry O2 Sat by Pulse Oximetry [ Bilateral Throughout] 10/15/18 10/15/18 10/15/18 06:50 07:00 07:10 Temperature Pulse Rate 61 61 61 Pulse Rate [ From Monitor] Respiratory 13 15 17 Rate Blood Pressure 111/52 98/47 98/47 O2 Sat by Pulse 100 100 99 Oximetry O2 Sat by Pulse Oximetry [ Bilateral Throughout] 10/15/18 10/15/18 10/15/18 07:20 07:30 07:40 Temperature Pulse Rate 59 L 61 57 L Pulse Rate [ From Monitor] Respiratory 14 22 12 Rate Blood Pressure 94/46 98/47 98/47 O2 Sat by Pulse 100 100 100 Oximetry O2 Sat by Pulse Oximetry [ Bilateral Throughout] 10/15/18 10/15/18 10/15/18 07:50 08:00 08:10 Temperature 95.5 F L Pulse Rate 59 L 65 69 Pulse Rate [ 69 From Monitor] Respiratory 15 18 15 Rate Blood Pressure 99/54 104/52 104/52 O2 Sat by Pulse 100 100 100 Oximetry O2 Sat by Pulse Oximetry [ Bilateral Throughout] 10/15/18 10/15/18 10/15/18 08:20 08:30 08:40 Temperature Pulse Rate 70 68 67 Pulse Rate [ From Monitor] Respiratory 16 16 18 Rate Blood Pressure 110/51 115/52 115/52 O2 Sat by Pulse 99 100 100 Oximetry O2 Sat by Pulse Oximetry [ Bilateral Throughout] 10/15/18 10/15/18 10/15/18 08:50 09:00 09:10 Temperature Pulse Rate 67 64 56 L Pulse Rate [ From Monitor] Respiratory 16 11 L 17 Rate Blood Pressure 91/35 91/35 105/39 O2 Sat by Pulse 99 99 99 Oximetry O2 Sat by Pulse Oximetry [ Bilateral Throughout] 10/15/18 10/15/18 10/15/18 09:20 09:30 09:40 Temperature Pulse Rate 66 65 62 Pulse Rate [ From Monitor] Respiratory 16 17 14 Rate Blood Pressure 99/52 92/53 88/46 O2 Sat by Pulse 100 98 100 Oximetry O2 Sat by Pulse Oximetry [ Bilateral Throughout] 10/15/18 10/15/18 10/15/18 09:50 10:00 10:10 Temperature Pulse Rate 60 63 59 L Pulse Rate [ From Monitor] Respiratory 16 18 18 Rate Blood Pressure 91/44 91/44 101/69 O2 Sat by Pulse 99 99 98 Oximetry O2 Sat by Pulse Oximetry [ Bilateral Throughout] 10/15/18 10/15/18 10/15/18 10:20 10:30 10:40 Temperature 98.5 F Pulse Rate 58 L 58 L 58 L Pulse Rate [ From Monitor] Respiratory 15 14 16 Rate Blood Pressure 110/85 88/47 99/55 O2 Sat by Pulse 100 100 100 Oximetry O2 Sat by Pulse 100 Oximetry [ Bilateral Throughout] 10/15/18 10/15/18 10/15/18 10:45 10:50 11:00 Temperature Pulse Rate 61 61 64 Pulse Rate [ From Monitor] Respiratory 14 15 Rate Blood Pressure 109/58 109/58 114/51 O2 Sat by Pulse 100 100 Oximetry O2 Sat by Pulse Oximetry [ Bilateral Throughout] 10/15/18 10/15/18 10/15/18 11:10 11:15 11:20 Temperature Pulse Rate 65 63 64 Pulse Rate [ From Monitor] Respiratory 16 14 Rate Blood Pressure 114/51 102/51 102/51 O2 Sat by Pulse 100 100 Oximetry O2 Sat by Pulse Oximetry [ Bilateral Throughout] 10/15/18 10/15/18 10/15/18 11:30 11:35 11:40 Temperature Pulse Rate 61 59 L 59 L Pulse Rate [ From Monitor] Respiratory 11 L 11 L Rate Blood Pressure 94/46 103/52 103/52 O2 Sat by Pulse 100 100 Oximetry O2 Sat by Pulse Oximetry [ Bilateral Throughout] 10/15/18 10/15/18 10/15/18 11:43 11:50 11:55 Temperature Pulse Rate 59 L 59 L 59 L Pulse Rate [ From Monitor] Respiratory 17 Rate Blood Pressure 82/62 96/54 96/54 O2 Sat by Pulse 100 Oximetry O2 Sat by Pulse Oximetry [ Bilateral Throughout] 10/15/18 10/15/18 10/15/18 12:00 12:10 12:15 Temperature Pulse Rate 58 L 57 L 58 L Pulse Rate [ From Monitor] Respiratory 15 13 Rate Blood Pressure 101/56 101/56 102/52 O2 Sat by Pulse 100 100 Oximetry O2 Sat by Pulse Oximetry [ Bilateral Throughout] 10/15/18 10/15/18 10/15/18 12:20 12:30 12:31 Temperature Pulse Rate 57 L 55 L 64 Pulse Rate [ From Monitor] Respiratory 13 16 Rate Blood Pressure 102/52 105/50 105/50 O2 Sat by Pulse 100 100 Oximetry O2 Sat by Pulse Oximetry [ Bilateral Throughout] 10/15/18 10/15/18 10/15/18 12:40 12:45 12:50 Temperature Pulse Rate 62 64 64 Pulse Rate [ From Monitor] Respiratory 13 15 Rate Blood Pressure 105/50 126/61 126/61 O2 Sat by Pulse 100 100 Oximetry O2 Sat by Pulse Oximetry [ Bilateral Throughout] 10/15/18 10/15/18 10/15/18 13:00 13:15 13:30 Temperature Pulse Rate 64 64 66 Pulse Rate [ From Monitor] Respiratory 15 Rate Blood Pressure 130/60 104/53 115/46 O2 Sat by Pulse 100 Oximetry O2 Sat by Pulse Oximetry [ Bilateral Throughout] 10/15/18 10/15/18 13:45 14:00 Temperature Pulse Rate 67 67 Pulse Rate [ From Monitor] Respiratory Rate Blood Pressure 126/54 116/55 O2 Sat by Pulse Oximetry O2 Sat by Pulse Oximetry [ Bilateral Throughout] - General Appearance General appearance: well-developed, well-nourished EENT: ATNC, PERRL, mucous membranes moist Neck: no JVD, JVD Respiratory: Present: Clear to Ascultation Cardiology: regular, S1S2 Gastrointestinal: normal, normoactive bowel sounds Integumentary: no rash Neurologic: no focal deficit, CN 3-12 intact Psychiatric: mood/affect appropriate - Lab 10/15/18 08:00 10/15/18 08:00 Most recent lab results Calcium 7.3 mg/dL (8.4-10.2) L 10/15/18 08:00 Medications & Allergies - Medications Allergies/Adverse Reactions: Allergies No Known Allergies Allergy (Verified 07/30/18 12:37) Home Medications: Home Medications Medication Instructions Recorded Confirmed Last Taken Type Aspirin [Aspirin EC] 325 mg PO DAILY #30 tablet. 05/05/18 10/13/18 Unknown Rx Loperamide HCl [Anti-Diarrheal] 2 mg PO Q6H PRN 07/30/18 10/13/18 Unknown History Nitroglycerin [Nitrostat] 0.4 mg SL Q5M PRN 07/30/18 10/13/18 Unknown History levETIRAcetam [Keppra TAB] 500 mg PO BID #60 tablet 08/03/18 10/13/18 Unknown Rx Acetaminophen [Tylenol] 325 mg FEEDTUBE Q6HR PRN 10/13/18 10/13/18 Unknown History Carvedilol [Coreg] 25 mg FEEDTUBE BID 10/13/18 10/13/18 Unknown History Esomeprazole Magnesium [NexIUM] 40 mg PO QDAY 10/13/18 10/13/18 Unknown History HYDROcodone/APAP 5-325 [[place] 1 each FEEDTUBE Q6HR PRN 10/13/18 10/13/18 Unknown History 5/325] Insulin Glargine,Hum.rec.anlog 15 units SUB-Q HS 10/13/18 10/13/18 Unknown History [Basaglar Kwikpen U-100] Linagliptin [Tradjenta] 5 mg PO QDAY 10/13/18 10/13/18 Unknown History amLODIPine [Norvasc] 10 mg FEEDTUBE DAILY 10/13/18 10/13/18 Unknown History Active Medications: Generic Name Dose Route Start Last Admin Trade Name Freq PRN Reason Stop Dose Admin Acetaminophen 325 mg 10/13/18 20:13 Tylenol FEEDTUBE Q6HR PRN Pain, Moderate (4-6) Lipase/Protease/Amylase 1 each 10/14/18 15:42 10/15/18 10:19 Pancrenereida Jiang 10,500 Unit FEEDTUBE 1 each PRN PRN Administration For Clogged Feeding Tube Aspirin 325 mg 10/13/18 21:00 10/15/18 09:26 Ecotrin PO 325 mg DAILY MARYLOU Administration Heparin Sodium (Porcine) 5,000 unit 10/13/18 22:00 10/15/18 09:26 Heparin SUB-Q 5,000 unit Q12HR MARYLOU Administration Levetiracetam 500 mg/ Sodium 105 mls @ 393.75 mls/hr 10/13/18 23:00 10/15/18 09:24 Chloride IV 393.75 mls/hr Q12HR MARYLOU Administration Norepinephrine 8 mg/ Sodium 250 mls @ 3.75 mls/hr 10/14/18 08:00 10/15/18 08:30 Chloride IV 0 mcg/min TITR MARYLOU 0 mls/hr Titration Protocol 2 MCG/MIN Lactated Ringer's 1,000 mls @ 999 mls/hr 10/15/18 09:00 10/15/18 08:47 Lactated Ringers IV 10/16/18 10:01 999 mls/hr DIRECT MARYLOU Administration Vancomycin HCl 1 gm in 250 mls @ 167.007 mls/hr 10/15/18 16:00 Vancomycin/Ns 1 Gm/250 Ml IV 10/15/18 17:29 ONCE ONE Meropenem 500 mg in 50 mls @ 50 mls/hr 10/15/18 14:00 Merrem/Ns 500 Mg/50 Ml IV QPM MARYLOU Sodium Chloride 1,000 mls @ 0 mls/hr 10/15/18 10:00 Nacl 0.9% 1000 Ml IV 10/16/18 10:01 ONCE MARYLOU As Directed Insulin Human Lispro 0 unit 10/14/18 09:00 10/15/18 11:16 Humalog SUB-Q Not Given Q6HR [facility] Protocol Lansoprazole 30 mg 10/14/18 11:00 10/15/18 09:26 Prevacid Solutab FEEDTUBE 30 mg QDAY AMRYLOU Administration Linagliptin 5 mg 10/14/18 10:00 10/15/18 09:27 Tradjenta PO 5 mg QDAY MARYLOU Administration Loperamide HCl 2 mg 10/13/18 20:13 Imodium PO Q6H PRN Diarrhea Morphine Sulfate 2 mg 10/13/18 20:03 10/15/18 08:46 Morphine IV 2 mg Q4H PRN Administration Pain, Moderate (4-6) Ondansetron HCl 4 mg 10/13/18 19:52 Zofran IV Q8H PRN Nausea And Vomiting Simple Syrup 15 ml 10/14/18 15:42 Simple Syrup FEEDTUBE PRN PRN Hypoglycemia Simple Syrup 30 ml 10/14/18 15:42 Simple Syrup FEEDTUBE PRN PRN Hypoglycemia Sodium Bicarbonate 325 mg 10/14/18 15:42 10/15/18 10:19 Sodium Bicarbonate FEEDTUBE 325 mg PRN PRN Administration For Clogged Feeding Tube Sodium Chloride 10 ml 10/13/18 22:00 10/15/18 09:27 Sodium Chloride Flush Syringe 10 Ml IV 10 ml BID MARYLOU Administration Sodium Chloride 10 ml 10/13/18 19:52 Sodium Chloride Flush Syringe 10 Ml IV PRN PRN LINE FLUSH Sodium Hypochlorite 1 applic 10/14/18 10:00 10/15/18 09:27 Dakin's Full Strength TP 1 applicatio Q12H MARYLOU Administration
--- NOTE | 2018-10-15 15:01 | Event Note ---
Date: 10/15/18 Spoke with patient's son William Rodriguez regarding sacral wound. I explained to him that the wound is very extensive, goes to the bone, and infected. I explained that if we were to proceed with aggressive wound care, she would need a wide debridement which would significantly increase size of the wound. Also, she would need a diverting colostomy because the wound is very close to the rectum. Due to the patient's comorbid conditions, bedbound status, and very poor nutrition I explained to him that I do not feel the wound will ever heal. He understands. I recommend hospice. He will speak with his aunt and call back tomorrow.
--- NOTE | 2018-10-15 15:21 | Progress Note ---
Assessment and Plan Assessment and plan: 1) septic shock secondary to infected decubitus ulcer versus UTI - Patient is on IV meropenem and vancomycin renally dosed - Patient is off pressors and blood pressure is holding - Septic shock resolving Leucocytosis - will follow CBC in the morning (2) Anemia - transfused 2 units of PRBC - Hemoglobin is 6.9 on admission and 10 posttransfusion, the latest one was 8.5 - Follow H&H (3) Dialysis catheter clot or failure Vascular surgery consulted (4) End stage renal disease - Nephrology consulted (5) Hypokalemia Supplemented (6) Hypotension - Due to septic shock - Management as above (7) Infected decubitus ulcer - Status post debridement by surgery (8) Hyponatremia Current Visit: Yes Status: Acute Plan to address problem: IV NS for now Check serum osmolarity (9) IDDM (insulin dependent diabetes mellitus) - SSI coverage - hemoglobin A1c 6.9 (10) Seizure disorder - continue IV keppra (11) HTN (hypertension) Hold antihypertensives (12) DVT prophylaxis On Heparin and GI prophylaxis Disposition; transfer to MICU History Interval history: Patient was seen and evaluated as a bedside, patient is noncommunicative at baseline, extremities are contracted. Hospitalist Physical - Physical exam Narrative exam: Not in cardiopulmonary distress. Vital signs as documented. Head exam is unremarkable. No scleral icterus . Neck is without jugular venous distension, thyromegaly, or carotid bruits. Lungs are clear to auscultation. Cardiac exam reveals regular rate and Rhythm. Abdominal exam reveals normal bowel sounds. Extremities are contracted. SOLUTION COORDINATOR: Noncommunicative, contracted extremities. - Constitutional Vitals: Temp Pulse Resp BP Pulse Ox 98.5 F 68 14 117/55 100 10/15/18 14:54 10/15/18 14:54 10/15/18 14:54 10/15/18 14:54 10/15/18 14:54 General appearance: Present: no acute distress, other (nonverbal) Results - Labs CBC & Chem 7: 10/15/18 08:00 10/15/18 08:00 Labs: Laboratory Last Values WBC 23.4 K/mm3 (4.5-11.0) H 10/15/18 08:00 RBC 3.16 M/mm3 (3.65-5.03) L 10/15/18 08:00 Hgb 8.5 gm/dl (10.1-14.3) L 10/15/18 08:00 Hct 26.6 % (30.3-42.9) L 10/15/18 08:00 MCV 84 fl (79-97) 10/15/18 08:00 MCH 27 pg (28-32) L 10/15/18 08:00 MCHC 32 % (30-34) 10/15/18 08:00 RDW 17.8 % (13.2-15.2) H 10/15/18 08:00 Plt Count 353 K/mm3 (140-440) 10/15/18 08:00 Add Manual Diff Complete 10/15/18 08:00 Total Counted 100 10/15/18 08:00 Seg Neutrophils % Supervisor Residential 10/15/18 08:00 Seg Neuts % (Manual) 98.0 % (40.0-70.0) H 10/15/18 08:00 0 % 10/15/18 08:00 1.0 % (13.4-35.0) L 10/15/18 08:00 Reactive Lymphs % (Man) 0 % 10/15/18 08:00 1.0 % (0.0-7.3) 10/15/18 08:00 0 % (0.0-4.3) 10/15/18 08:00 0 % (0.0-1.8) 10/15/18 08:00 0 % 10/15/18 08:00 0 % 10/15/18 08:00 0 % 10/15/18 08:00 0 % 10/15/18 08:00 Nucleated RBC % Not Reportable 10/15/18 08:00 Seg Neutrophils # Man 22.9 K/mm3 (1.8-7.7) H 10/15/18 08:00 Band Neutrophils # 0.0 K/mm3 10/15/18 08:00 0.2 K/mm3 (1.2-5.4) L 10/15/18 08:00 Abs React Lymphs (Man) 0.0 K/mm3 10/15/18 08:00 0.2 K/mm3 (0.0-0.8) 10/15/18 08:00 0.0 K/mm3 (0.0-0.4) 10/15/18 08:00 0.0 K/mm3 (0.0-0.1) 10/15/18 08:00 0.0 K/mm3 10/15/18 08:00 0.0 K/mm3 10/15/18 08:00 0.0 K/mm3 10/15/18 08:00 Blast Cells # 0.0 K/mm3 10/15/18 08:00 WBC Morphology Not Reportable 10/15/18 08:00 Hypersegmented Neuts Not Reportable 10/15/18 08:00 Hyposegmented Neuts Not Reportable 10/15/18 08:00 Hypogranular Neuts Not Reportable 10/15/18 08:00 Not Reportable 10/15/18 08:00 Not Reportable 10/15/18 08:00 Not Reportable 10/15/18 08:00 Not Reportable 10/15/18 08:00 Not Reportable 10/15/18 08:00 Not Reportable 10/15/18 08:00 Consistent w auto 10/15/18 08:00 Not Reportable 10/15/18 08:00 Plt Clumps, EDTA Not Reportable 10/15/18 08:00 Not Reportable 10/15/18 08:00 Not Reportable 10/15/18 08:00 Not Reportable 10/15/18 08:00 Plt Morphology Comment Not Reportable 10/15/18 08:00 RBC Morphology Not Reportable 10/15/18 08:00 Dimorphic RBCs Not Reportable 10/15/18 08:00 Not Reportable 10/15/18 08:00 Not Reportable 10/15/18 08:00 1+ 10/15/18 08:00 1+ 10/15/18 08:00 Not Reportable 10/15/18 08:00 Not Reportable 10/15/18 08:00 Not Reportable 10/15/18 08:00 Not Reportable 10/15/18 08:00 Not Reportable 10/15/18 08:00 Not Reportable 10/15/18 08:00 Not Reportable 10/15/18 08:00 Not Reportable 10/15/18 08:00 Not Reportable 10/15/18 08:00 Not Reportable 10/15/18 08:00 Not Reportable 10/15/18 08:00 Not Reportable 10/15/18 08:00 Not Reportable 10/15/18 08:00 Not Reportable 10/15/18 08:00 Not Reportable 10/15/18 08:00 Acanthocytes (Spur) Not Reportable 10/15/18 08:00 Rouleaux Not Reportable 10/15/18 08:00 Not Reportable 10/15/18 08:00 Not Reportable 10/15/18 08:00 Not Reportable 10/15/18 08:00 Not Reportable 10/15/18 08:00 Hem Pathologist Commnt No 10/15/18 08:00 Sodium 129 mmol/L (137-145) L 10/15/18 08:00 Potassium 3.5 mmol/L (3.6-5.0) L 10/15/18 08:00 Chloride 98.9 mmol/L (98-107) 10/15/18 08:00 Carbon Dioxide 15 mmol/L (22-30) L 10/15/18 08:00 19 mmol/L 10/15/18 08:00 BUN 63 mg/dL (7-17) H 10/15/18 08:00 2.4 mg/dL (0.7-1.2) H 10/15/18 08:00 Estimated GFR 24 ml/min 10/15/18 08:00 26 % 10/15/18 08:00 Glucose 152 mg/dL (65-100) H 10/15/18 08:00 POC Glucose 127 (70-105) H 10/15/18 10:51 6.9 % (4-6) H 10/13/18 13:28 288 Mosm/kg 10/14/18 07:30 Lactic Acid 1.60 mmol/L (0.7-2.0) 10/13/18 19:44 Calcium 7.3 mg/dL (8.4-10.2) L 10/15/18 08:00 0.30 mg/dL (0.1-1.2) 10/15/18 08:00 AST 26 units/L (5-40) 10/15/18 08:00 ALT 36 units/L (7-56) 10/15/18 08:00 96 units/L (35-129) 10/15/18 08:00 26.40 mg/dL (0.00-1.30) H 10/15/18 08:00 5.1 g/dL (6.3-8.2) L 10/15/18 08:00 1.4 g/dL (3.9-5) L 10/15/18 08:00 0.4 % 10/15/18 08:00 Jennifer (Yellow) 10/13/18 17:43 Cloudy (Clear) 10/13/18 17:43 5.0 (5.0-7.0) 10/13/18 17:43 Ur Specific [place] 1.019 (1.003-1.030) 10/13/18 17:43 >500 mg/dL (Negative) 10/13/18 17:43 150 mg/dL (Negative) 10/13/18 17:43 Tr mg/dL (Negative) 10/13/18 17:43 Sm (Negative) 10/13/18 17:43 Neg (Negative) 10/13/18 17:43 Neg (Negative) 10/13/18 17:43 < 2.0 mg/dL (<2.0) 10/13/18 17:43 Ur Leukocyte Esterase Sm (Negative) 10/13/18 17:43 36.0 /HPF (0.0-6.0) H 10/13/18 17:43 13.0 /HPF (0.0-6.0) 10/13/18 17:43 U Epithel Cells (Auto) 81.0 /HPF (0-13.0) H 10/13/18 17:43 Random Vancomycin 9.4 ug/mL (0-40.0) 10/15/18 06:20 Blood Type A POSITIVE 10/13/18 14:50 Antibody Screen Negative 10/13/18 14:50 Crossmatch See Detail 10/13/18 14:50 Active Medications - Current Medications Current Medications: Generic Name Dose Route Start Last Admin Trade Name Freq PRN Reason Stop Dose Admin Acetaminophen 325 mg 10/13/18 20:13 Tylenol FEEDTUBE Q6HR PRN Pain, Moderate (4-6) Lipase/Protease/Amylase 1 each 10/14/18 15:42 10/15/18 10:19 Pancreaze 10,500 Unit FEEDTUBE 1 each PRN PRN Administration For Clogged Feeding Tube Aspirin 325 mg 10/13/18 21:00 10/15/18 09:26 Ecotrin PO 325 mg DAILY MARYLOU Administration Heparin Sodium (Porcine) 5,000 unit 10/13/18 22:00 10/15/18 09:26 Heparin SUB-Q 5,000 unit Q12HR MARYLOU Administration Levetiracetam 500 mg/ Sodium 105 mls @ 393.75 mls/hr 10/13/18 23:00 10/15/18 09:24 Chloride IV 393.75 mls/hr Q12HR MARYLOU Administration Norepinephrine 8 mg/ Sodium 250 mls @ 3.75 mls/hr 10/14/18 08:00 10/15/18 08:30 Chloride IV 0 mcg/min TITR MARYLOU 0 mls/hr Titration Protocol 2 MCG/MIN Lactated Ringer's 1,000 mls @ 999 mls/hr 10/15/18 09:00 10/15/18 08:47 Lactated Ringers IV 10/16/18 10:01 999 mls/hr DIRECT MARYLOU Administration Vancomycin HCl 1 gm in 250 mls @ 167.007 mls/hr 10/15/18 16:00 Vancomycin/Ns 1 Gm/250 Ml IV 10/15/18 17:29 ONCE ONE Meropenem 500 mg in 50 mls @ 50 mls/hr 10/15/18 14:00 Merrem/Ns 500 Mg/50 Ml IV QPM MARYLOU Sodium Chloride 1,000 mls @ 0 mls/hr 10/15/18 10:00 Nacl 0.9% 1000 Ml IV 10/16/18 10:01 ONCE MARYLOU As Directed Insulin Human Lispro 0 unit 10/14/18 09:00 10/15/18 11:16 Humalog SUB-Q Not Given Q6HR [facility] Protocol Lansoprazole 30 mg 10/14/18 11:00 10/15/18 09:26 Prevacid Solutab FEEDTUBE 30 mg QDAY MARYLOU Administration Linagliptin 5 mg 10/14/18 10:00 10/15/18 09:27 Tradjenta PO 5 mg QDAY MARYLOU Administration Loperamide HCl 2 mg 10/13/18 20:13 Imodium PO Q6H PRN Diarrhea Morphine Sulfate 2 mg 10/13/18 20:03 10/15/18 08:46 Morphine IV 2 mg Q4H PRN Administration Pain, Moderate (4-6) Ondansetron HCl 4 mg 10/13/18 19:52 Zofran IV Q8H PRN Nausea And Vomiting Simple Syrup 15 ml 10/14/18 15:42 Simple Syrup FEEDTUBE PRN PRN Hypoglycemia Simple Syrup 30 ml 10/14/18 15:42 Simple Syrup FEEDTUBE PRN PRN Hypoglycemia Sodium Bicarbonate 325 mg 10/14/18 15:42 10/15/18 10:19 Sodium Bicarbonate FEEDTUBE 325 mg PRN PRN Administration For Clogged Feeding Tube Sodium Chloride 10 ml 10/13/18 22:00 10/15/18 09:27 Sodium Chloride Flush Syringe 10 Ml IV 10 ml BID MARYLOU Administration Sodium Chloride 10 ml 10/13/18 19:52 Sodium Chloride Flush Syringe 10 Ml IV PRN PRN LINE FLUSH Sodium Hypochlorite 1 applic 10/14/18 10:00 10/15/18 09:27 Dakin's Full Strength TP 1 applicatio Q12H MARYLOU Administration Nutrition/Malnutrition Assess - Dietary Evaluation Nutrition/Malnutrition Findings: Nutrition Notes Start: 10/14/18 15:30 Freq: Status: Active Protocol: Document 10/14/18 15:30 RM (Rec: 10/14/18 15:41 RM [id number]) Nutrition Notes Need for Assessment generated from: MD Order Initial or Follow up Assessment Current Diagnosis Sepsis,Hypertension Other Pertinent Diagnosis ESRD on HD,PEG,GERD, Hx CVA, infected PU Current Diet Renal diet Labs/Tests Reviewed Pertinent Medications Levophed Height 5 ft Weight 54.431 kg [place] Body Weight (kg) 45.45 BMI 23.4 Subjective/Other Information Consulted for TF recommendation. Burn Absent Trauma Absent #1 Nutrition Diagnosis Inadequate oral intake Etiology Hx CVA As Evidenced by Signs and Symptoms pt requiring enteral nutrition to meet nutritional needs Is patient on ventilator? No Is Patient Ambulatory and/or Out of Bed No REE-([facility]-confined to bed) 1206.756 Calculation Used for Recommendations [facility] Additional Notes Protein Need:65-109g (1.2-2g/ kg) Fluid Needs: 1 ml/kcal Nutrition Intervention Nutrition Support: Nepro at 30 ml/hr. Water flush of 150 mls q 4 hrs . Kcal 1,296 Protein (gm) 58 Fluid (mL) 523 Goal #1 TF tolerance Goal #2 Meet at least 80% of calorie and protein needs via TF Anticipated Discharge Needs: TF Follow-Up By: 10/16/18 Additional Comments Follow for new TF
[2018-10-15] MEDS ORDERED: VANCOMYCIN/NS 1 GM/250 ML 1 GM/250 ML BAG IV ONE (16:00)
[2018-10-16] MEDS: HumaLOG SUB-Q SCH ×4 (00:30→18:30)
[2018-10-16] MEDS: LACTATED RINGERS 1,000 ML IV SCH (00:41)
[2018-10-16 05:20] LABS: Hematocrit 25.2 % (30.3-42.9); Mean Corpuscular HGB Conc 32 % (30-34); Mean Corpuscular Volume 84 fl (79-97); Platelet Count 285 K/mm3 (140-440)
[2018-10-16 05:47] LABS: Calcium 7.1 mg/dL (8.4-10.2)
[2018-10-16 06:55] LABS: Basophils % (Manual) 0 % (0.0-1.8); Eosinophils % (Manual) 0 % (0.0-4.3); Total Cells Counted 100
[2018-10-16 06:56] LABS: Anisocytosis 1+; Large Platelets 1+; Ovalocytes Few; Target Cells 1+
[2018-10-16 06:58] LABS: Hypochromasia 1+; Platelet Clumps 1+; Platelet Estimate Consistent w Auto
[2018-10-16] MEDS: HEPARIN SUB-Q SCH ×2 (10:08→21:27)
[2018-10-16] MEDS: SODIUM CHLORIDE FLUSH SYRINGE 10 ML IV SCH ×2 (10:30→21:25)
[2018-10-16] MEDS: ECOTRIN PO SCH (10:30)
[2018-10-16] MEDS: TRADJENTA PO SCH (10:30)
[2018-10-16] MEDS: PREVACID SOLUTAB FEEDTUBE SCH (10:30)
[2018-10-16] MEDS: DAKIN'S FULL STRENGTH TP SCH ×2 (10:45→21:26)
[2018-10-16] MEDS: KEPPRA 500 MG in NACL 0.9% 100 ML IV SCH ×2 (11:00→22:49)
--- NOTE | 2018-10-16 11:17 | Progress Note ---
Assessment and Plan Cultures: Blood cultures 10/13/2018 no growth so far. Urine cultures 10/13/2018 no growth so far. Assessment: 67 y/o female with history of ESRD on HD (M,W,F), Diabetes, Dementia with marked cortical atrophy and ventriculomegaly, HTN, HLD, CVA with LHP, Seizure Disorder, recurrent UTIs admitted on 10/13/2018 from HD center due to Vas-Cath not working. Patient found also to be hypotensive. EMS reports patient has decubitus ulcer present. 1) Severe Sepsis with septic shock: off pressors, leukocytosis better. Etiology most likely complicated sacral pressure skin and soft tissue infection +/- UTI. Blood cultures 10/13/2018 no growth today. 2) Extensive complicated sacral pressure skin and soft tissue infection? necrotizing infection ? abscess. S/p bedside debridement. No wound cultures available. 3) Acute encephalopathy: from severe sepsis and hyponatremia. Some better. 4) ESRD: renally adjusted all antibiotics 5) Hyponatremia: improving. 6) UTI: history of recurrent UTIs, previous E faecium UTI. Recommendations: - Surgery discussed with family about considering hospice as patient's comorbid conditions, bedbound status, and very poor nutrition needing extensive debridement and diverting colostomy with no possibility of healing. I agree with hospice. - follow-up blood cultures, urine and wound cultures - CT pelvis if family wants aggressive management - stop meropemen D3 - start cefepime renally adjusted, falgyl IV and continue vancomycin with PK consult - remove femoral TLC and OK to place a PICC Will follow. Dr Mejia will be covering this weekend Elin Garcia MD Infectious Diseases Product Delivery Specialist [facility] [phone] O [phone] Subjective Date of service: 10/16/18 Principal diagnosis: septic shock Interval history: Patient is more alert, now in IMCU no pressors for over 24h, no fever. ROS unable to obtain Objective - Exam Narrative Exam: General appearance: somnolent non verbal Eyes: anicteric sclerae, moist conjunctivae; no lid-lag; PERRLA HENT: Atraumatic; oropharynx limited Neck: Trachea midline; supple, no thyromegaly or lymphadenopathy Lungs: CTA CV: bradycardic Abdomen: Soft, non-tender +PEG Extremities: no edema Skin: see wound care eval Psych: no agitated Neuro: somnolent right fem TLC right SC vas cath WOUND CARE CONSULT -UNSTAGEABLE SACRAL PRESSURE ULCER. WOUND MEASURES [id number]. NECROTIC TISSUE EXTENDS ONTO THE RIGHT BUTTOCK. COVERED WITH BLACK SOFT NECROTIC TISSUE. FOUL ODOR. THERE IS A SMALL AREA OF UNDERMINING AT 30CLOCK THAT MEASURES 3CM. PERIWOUND SKIN IS DENUDED AND HAS SCATTERED DTI. ERYTHEMA NOTED. LARGE AMOUNT OF YELLOW DRAINAGE. CLEANSED WITH WOUND CLEANSER. PACKED WITH DAKINS MOISTENED GAUZE. COVERED WITH 4X4 GAUZE, THEN TELFA. - Constitutional Vitals: Vital Signs Temp Pulse Resp BP Pulse Ox 98.3 F 65 17 100/46 100 10/16/18 08:00 10/16/18 09:00 10/16/18 09:00 10/16/18 09:00 10/16/18 09:00 Temperature -Last 24 Hours Temperature 98.3 F Temperature 97.8 F Temperature 97.5 F Temperature 97.8 F Temperature 96.1 F Temperature 98.5 F Temperature 96 F - Labs CBC & Chem 7: 10/16/18 04:43 10/16/18 04:43 Labs: Abnormal lab results 10/15/18 10/15/18 10/15/18 Range/Units 10:51 18:29 23:27 WBC (4.5-11.0) K/mm3 RBC (3.65-5.03) M/mm3 Hgb (10.1-14.3) gm/dl Hct (30.3-42.9) % MCH (28-32) pg RDW (13.2-15.2) % Seg Neuts % (Manual) (40.0-70.0) % Lymphocytes % (Manual) (13.4-35.0) % Seg Neutrophils # Man (1.8-7.7) K/mm3 Lymphocytes # (Manual) (1.2-5.4) K/mm3 Sodium (137-145) mmol/L Carbon Dioxide (22-30) mmol/L BUN (7-17) mg/dL Creatinine (0.7-1.2) mg/dL Glucose (65-100) mg/dL POC Glucose 127 H 123 H 114 H (70-105) Calcium (8.4-10.2) mg/dL 10/16/18 10/16/18 10/16/18 Range/Units 04:43 04:43 06:36 WBC 20.2 H (4.5-11.0) K/mm3 RBC 3.00 L (3.65-5.03) M/mm3 Hgb 8.0 L (10.1-14.3) gm/dl Hct 25.2 L (30.3-42.9) % MCH 27 L (28-32) pg RDW 18.0 H (13.2-15.2) % Seg Neuts % (Manual) 95.0 H (40.0-70.0) % Lymphocytes % (Manual) 3.0 L (13.4-35.0) % Seg Neutrophils # Man 19.2 H (1.8-7.7) K/mm3 Lymphocytes # (Manual) 0.6 L (1.2-5.4) K/mm3 Sodium 134 L (137-145) mmol/L Carbon Dioxide 19 L (22-30) mmol/L BUN 26 H (7-17) mg/dL Creatinine 1.4 H (0.7-1.2) mg/dL Glucose 106 H (65-100) mg/dL POC Glucose 135 H (70-105) Calcium 7.1 L (8.4-10.2) mg/dL
--- NOTE | 2018-10-16 11:37 | Progress Note ---
Assessment and Plan 67 female with ESRD on HD and history of seizure disorder, nonverbal, admitted with hypotension, anemia and concern for sepsis from possible urinary source. 1. ID following and reviewed their note. Patient unfortunately is not a candidate for picc line secondary to her contractures. Fem line is the only access we have at this point. 2. Spoke with renal at bedside. Suggested that the given blood tomorrow during HD or else she may require pressors again. They were in agreement. 3. Will not take off list in case she does need to come back to unit but other kaye, following from a distance. CCT 31 minutes. Subjective Date of service: 10/16/18 Principal diagnosis: septic shock Interval history: Patient transferred out of ICU. She did require pressors during HD but these were weaned off when HD was complete. Objective - Constitutional Vitals: Vital Signs - 12hr 10/15/18 10/15/18 10/16/18 23:40 23:50 00:00 Temperature Pulse Rate 65 65 65 Pulse Rate [ 65 From Monitor] Respiratory 17 19 18 Rate Blood Pressure 105/50 105/50 96/50 O2 Sat by Pulse 100 100 100 Oximetry 10/16/18 10/16/18 10/16/18 00:10 00:20 00:30 Temperature 97.5 F L Pulse Rate 65 66 64 Pulse Rate [ From Monitor] Respiratory 17 17 17 Rate Blood Pressure 96/50 96/50 96/50 O2 Sat by Pulse 100 99 100 Oximetry 10/16/18 10/16/18 10/16/18 00:40 00:50 01:00 Temperature Pulse Rate 65 66 65 Pulse Rate [ From Monitor] Respiratory 17 18 18 Rate Blood Pressure 96/50 96/50 96/50 O2 Sat by Pulse 100 100 99 Oximetry 10/16/18 10/16/18 10/16/18 01:10 01:20 01:30 Temperature Pulse Rate 64 64 66 Pulse Rate [ From Monitor] Respiratory 17 17 17 Rate Blood Pressure 100/46 100/46 100/46 O2 Sat by Pulse 100 100 100 Oximetry 10/16/18 10/16/18 10/16/18 01:40 01:50 02:00 Temperature Pulse Rate 64 65 65 Pulse Rate [ From Monitor] Respiratory 17 17 17 Rate Blood Pressure 100/46 100/46 99/47 O2 Sat by Pulse 100 100 99 Oximetry 10/16/18 10/16/18 10/16/18 02:10 02:20 02:30 Temperature Pulse Rate 64 64 64 Pulse Rate [ From Monitor] Respiratory 16 16 18 Rate Blood Pressure 99/47 99/47 99/47 O2 Sat by Pulse 100 99 100 Oximetry 10/16/18 10/16/18 10/16/18 02:40 02:50 03:00 Temperature Pulse Rate 65 65 66 Pulse Rate [ From Monitor] Respiratory 14 17 17 Rate Blood Pressure 99/47 99/47 99/47 O2 Sat by Pulse 100 100 100 Oximetry 10/16/18 10/16/18 10/16/18 03:10 03:20 03:22 Temperature Pulse Rate 64 64 66 Pulse Rate [ From Monitor] Respiratory 19 17 Rate Blood Pressure 99/47 99/47 O2 Sat by Pulse 100 99 Oximetry 10/16/18 10/16/18 10/16/18 03:30 03:40 03:50 Temperature Pulse Rate 65 66 65 Pulse Rate [ From Monitor] Respiratory 16 16 17 Rate Blood Pressure 99/47 99/47 99/47 O2 Sat by Pulse 100 100 100 Oximetry 10/16/18 10/16/18 10/16/18 04:00 04:10 04:20 Temperature 97.8 F Pulse Rate 66 64 64 Pulse Rate [ 66 From Monitor] Respiratory 18 16 16 Rate Blood Pressure 99/47 104/52 104/52 O2 Sat by Pulse 100 100 100 Oximetry 10/16/18 10/16/18 10/16/18 04:30 04:40 04:50 Temperature Pulse Rate 64 66 65 Pulse Rate [ From Monitor] Respiratory 16 16 16 Rate Blood Pressure 104/52 99/47 99/47 O2 Sat by Pulse 100 100 100 Oximetry 10/16/18 10/16/18 10/16/18 05:00 05:10 05:20 Temperature Pulse Rate 66 65 64 Pulse Rate [ From Monitor] Respiratory 17 16 17 Rate Blood Pressure 101/51 101/51 101/51 O2 Sat by Pulse 100 100 100 Oximetry 10/16/18 10/16/18 10/16/18 05:30 05:40 05:50 Temperature Pulse Rate 65 66 65 Pulse Rate [ From Monitor] Respiratory 18 16 16 Rate Blood Pressure 101/51 101/51 101/51 O2 Sat by Pulse 100 100 100 Oximetry 10/16/18 10/16/18 10/16/18 06:00 06:10 06:20 Temperature Pulse Rate 63 65 65 Pulse Rate [ From Monitor] Respiratory 15 15 16 Rate Blood Pressure 102/47 101/51 101/51 O2 Sat by Pulse 100 99 100 Oximetry 10/16/18 10/16/18 10/16/18 07:00 08:00 09:00 Temperature 98.3 F Pulse Rate 63 65 65 Pulse Rate [ 64 From Monitor] Respiratory 17 16 17 Rate Blood Pressure 102/47 100/46 100/46 O2 Sat by Pulse 100 100 100 Oximetry 10/16/18 10/16/18 10:00 11:00 Temperature Pulse Rate 65 66 Pulse Rate [ From Monitor] Respiratory 16 15 Rate Blood Pressure 107/51 107/51 O2 Sat by Pulse 100 99 Oximetry - Labs CBC & Chem 7: 10/16/18 04:43 10/16/18 04:43 Labs: Abnormal lab results 10/15/18 10/15/18 10/15/18 Range/Units 10:51 18:29 23:27 WBC (4.5-11.0) K/mm3 RBC (3.65-5.03) M/mm3 Hgb (10.1-14.3) gm/dl Hct (30.3-42.9) % MCH (28-32) pg RDW (13.2-15.2) % Seg Neuts % (Manual) (40.0-70.0) % Lymphocytes % (Manual) (13.4-35.0) % Seg Neutrophils # Man (1.8-7.7) K/mm3 Lymphocytes # (Manual) (1.2-5.4) K/mm3 Sodium (137-145) mmol/L Carbon Dioxide (22-30) mmol/L BUN (7-17) mg/dL Creatinine (0.7-1.2) mg/dL Glucose (65-100) mg/dL POC Glucose 127 H 123 H 114 H (70-105) Calcium (8.4-10.2) mg/dL 10/16/18 10/16/18 10/16/18 Range/Units 04:43 04:43 06:36 WBC 20.2 H (4.5-11.0) K/mm3 RBC 3.00 L (3.65-5.03) M/mm3 Hgb 8.0 L (10.1-14.3) gm/dl Hct 25.2 L (30.3-42.9) % MCH 27 L (28-32) pg RDW 18.0 H (13.2-15.2) % Seg Neuts % (Manual) 95.0 H (40.0-70.0) % Lymphocytes % (Manual) 3.0 L (13.4-35.0) % Seg Neutrophils # Man 19.2 H (1.8-7.7) K/mm3 Lymphocytes # (Manual) 0.6 L (1.2-5.4) K/mm3 Sodium 134 L (137-145) mmol/L Carbon Dioxide 19 L (22-30) mmol/L BUN 26 H (7-17) mg/dL Creatinine 1.4 H (0.7-1.2) mg/dL Glucose 106 H (65-100) mg/dL POC Glucose 135 H (70-105) Calcium 7.1 L (8.4-10.2) mg/dL Medications & Allergies - Medications Allergies/Adverse Reactions: Allergies No Known Allergies Allergy (Verified 07/30/18 12:37) Home Medications: Home Medications Medication Instructions Recorded Confirmed Last Taken Type Aspirin [Aspirin EC] 325 mg PO DAILY #30 tablet. 05/05/18 10/13/18 Unknown Rx Loperamide HCl [Anti-Diarrheal] 2 mg PO Q6H PRN 07/30/18 10/13/18 Unknown History Nitroglycerin [Nitrostat] 0.4 mg SL Q5M PRN 07/30/18 10/13/18 Unknown History levETIRAcetam [Keppra TAB] 500 mg PO BID #60 tablet 08/03/18 10/13/18 Unknown Rx Acetaminophen [Tylenol] 325 mg FEEDTUBE Q6HR PRN 10/13/18 10/13/18 Unknown Hist ory Carvedilol [Coreg] 25 mg FEEDTUBE BID 10/13/18 10/13/18 Unknown History Esomeprazole Magnesium [NexIUM] 40 mg PO QDAY 10/13/18 10/13/18 Unknown History HYDROcodone/APAP 5-325 [[place] 1 each FEEDTUBE Q6HR PRN 10/13/18 10/13/18 Unknown History 5/325] Insulin Glargine,Hum.rec.anlog 15 units SUB-Q HS 10/13/18 10/13/18 Unknown History [[place] U-100] Linagliptin [Tradjenta] 5 mg PO QDAY 10/13/18 10/13/18 Unknown History amLODIPine [Norvasc] 10 mg FEEDTUBE DAILY 10/13/18 10/13/18 Unknown History Active Medications: Generic Name Dose Route Start Last Admin Trade Name Freq PRN Reason Stop Dose Admin Acetaminophen 325 mg 10/13/18 20:13 Tylenol FEEDTUBE Q6HR PRN Pain, Moderate (4-6) Lipase/Protease/Amylase 1 each 10/14/18 15:42 10/15/18 10:[address] 10,500 Unit FEEDTUBE 1 each PRN PRN Administration For Clogged Feeding Tube Aspirin 325 mg 10/13/18 21:00 10/15/18 09:26 Ecotrin PO 325 mg DAILY MARYLOU Administration Heparin Sodium (Porcine) 5,000 unit 10/13/18 22:00 10/16/18 10:08 Heparin SUB-Q 5,000 unit Q12HR MARYLOU Administration Levetiracetam 500 mg/ Sodium 105 mls @ 393.75 mls/hr 10/13/18 23:00 10/15/18 23:00 Chloride IV 393.75 mls/hr Q12HR MARYLOU Administration Cefepime HCl 1 gm in 100 mls @ 200 mls/hr 10/16/18 12:00 Maxipime/Ns 1 Gm/100 Ml IV Q24HR MARYLOU Protocol Metronidazole 500 mg in 100 mls @ 100 mls/hr 10/16/18 14:00 Flagyl 500 Mg/100 Ml IV Q8HR MARYLOU Protocol Insulin Human Lispro 0 unit 10/14/18 09:00 10/16/18 06:32 Humalog SUB-Q Not Given Q6HR MARYLOU Protocol Lansoprazole 30 mg 10/14/18 11:00 10/15/18 09:26 Prevacid Solutab FEEDTUBE 30 mg QDAY MARYLOU Administration Linagliptin 5 mg 10/14/18 10:00 10/15/18 09:27 Tradjenta PO 5 mg QDAY MARYLOU Administration Loperamide HCl 2 mg 10/13/18 20:13 Imodium PO Q6H PRN Diarrhea Morphine Sulfate 2 mg 10/13/18 20:03 10/15/18 08:46 Morphine IV 2 mg Q4H PRN Administration Pain, Moderate (4-6) Ondansetron HCl 4 mg 10/13/18 19:52 Zofran IV Q8H PRN Nausea And Vomiting Simple Syrup 15 ml 10/14/18 15:42 Simple Syrup FEEDTUBE PRN PRN Hypoglycemia Simple Syrup 30 ml 10/14/18 15:42 Simple Syrup FEEDTUBE PRN PRN Hypoglycemia Sodium Bicarbonate 325 mg 10/14/18 15:42 10/15/18 10:19 Sodium Bicarbonate FEEDTUBE 325 mg PRN PRN Administration For Clogged Feeding Tube Sodium Chloride 10 ml 10/13/18 22:00 10/15/18 23:09 Sodium Chloride Flush Syringe 10 Ml IV 10 ml BID MARYLOU Administration Sodium Chloride 10 ml 10/13/18 19:52 Sodium Chloride Flush Syringe 10 Ml IV PRN PRN LINE FLUSH Sodium Hypochlorite 1 applic 10/14/18 10:00 10/15/18 23:10 Sharonin's Full Strength TP 1 applicatio Q12H MARYLOU Administration
[2018-10-16] MEDS ORDERED: MAXIPIME/NS 1 GM/100 ML 1 GM/100 ML BAG IV SCH (12:00)
--- NOTE | 2018-10-16 14:04 | Progress Note ---
Assessment and Plan Assessment and plan: 1) septic shock secondary to infected decubitus ulcer versus UTI - Patient is on IV meropenem and vancomycin renally dosed - Patient is off pressors and blood pressure is holding - Septic shock resolving Leucocytosis - will follow CBC in the morning (2) Anemia - transfused 2 units of PRBC - Hemoglobin is 6.9 on admission and 10 posttransfusion, the latest one was 8.5 - Follow H&H (3) Dialysis catheter clot or failure Vascular surgery consulted (4) End stage renal disease - Nephrology consulted (5) Hypokalemia Supplemented (6) Hypotension - Due to septic shock - Management as above (7) Infected decubitus ulcer - Status post debridement by surgery (8) Hyponatremia Current Visit: Yes Status: Acute Plan to address problem: IV NS for now Check serum osmolarity (9) IDDM (insulin dependent diabetes mellitus) - SSI coverage - hemoglobin A1c 6.9 (10) Seizure disorder - continue IV keppra (11) HTN (hypertension) Hold antihypertensives PEG tube malfunction - GI consulted (12) DVT prophylaxis On Heparin and GI prophylaxis Disposition; transfer to MICU History Interval history: Patient was seen and evaluated at the bedside, patient is noncommunicative at baseline, extremities are contracted. Hospitalist Physical - Physical exam Narrative exam: Not in cardiopulmonary distress. Vital signs as documented. Head exam is unremarkable. No scleral icterus . Neck is without jugular venous distension, thyromegaly, or carotid bruits. Lungs are clear to auscultation. Cardiac exam reveals regular rate and Rhythm. Abdominal exam reveals normal bowel sounds. Extremities are contracted. 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 - Constitutional Vitals: Temp Pulse Resp BP Pulse Ox 98.0 F 66 15 107/51 99 10/16/18 11:44 10/16/18 11:00 10/16/18 11:00 10/16/18 11:00 10/16/18 11:00 General appearance: Present: no acute distress, other (nonverbal) Results - Labs CBC & Chem 7: 10/16/18 04:43 10/16/18 04:43 Labs: Laboratory Last Values WBC 20.2 K/mm3 (4.5-11.0) H 10/16/18 04:43 RBC 3.00 M/mm3 (3.65-5.03) L 10/16/18 04:43 Hgb 8.0 gm/dl (10.1-14.3) L 10/16/18 04:43 Hct 25.2 % (30.3-42.9) L 10/16/18 04:43 MCV 84 fl (79-97) 10/16/18 04:43 MCH 27 pg (28-32) L 10/16/18 04:43 MCHC 32 % (30-34) 10/16/18 04:43 RDW 18.0 % (13.2-15.2) H 10/16/18 04:43 Plt Count 285 K/mm3 (140-440) 10/16/18 04:43 Add Manual Diff Complete 10/16/18 04:43 Total Counted 100 10/16/18 04:43 Seg Neutrophils % Perioperative Tech 10/16/18 04:43 Seg Neuts % (Manual) 95.0 % (40.0-70.0) H 10/16/18 04:43 0 % 10/16/18 04:43 3.0 % (13.4-35.0) L 10/16/18 04:43 Reactive Lymphs % (Man) 0 % 10/16/18 04:43 2.0 % (0.0-7.3) 10/16/18 04:43 0 % (0.0-4.3) 10/16/18 04:43 0 % (0.0-1.8) 10/16/18 04:43 0 % 10/16/18 04:43 0 % 10/16/18 04:43 0 % 10/16/18 04:43 0 % 10/16/18 04:43 Nucleated RBC % Not Reportable 10/16/18 04:43 Seg Neutrophils # Man 19.2 K/mm3 (1.8-7.7) H 10/16/18 04:43 Band Neutrophils # 0.0 K/mm3 10/16/18 04:43 0.6 K/mm3 (1.2-5.4) L 10/16/18 04:43 Abs React Lymphs (Man) 0.0 K/mm3 10/16/18 04:43 0.4 K/mm3 (0.0-0.8) 10/16/18 04:43 0.0 K/mm3 (0.0-0.4) 10/16/18 04:43 0.0 K/mm3 (0.0-0.1) 10/16/18 04:43 0.0 K/mm3 10/16/18 04:43 0.0 K/mm3 10/16/18 04:43 0.0 K/mm3 10/16/18 04:43 Blast Cells # 0.0 K/mm3 10/16/18 04:43 WBC Morphology Not Reportable 10/16/18 04:43 WBC Morphology TNR 10/16/18 04:43 Hypersegmented Neuts Not Reportable 10/16/18 04:43 Hyposegmented Neuts Not Reportable 10/16/18 04:43 Hypogranular Neuts Not Reportable 10/16/18 04:43 Not Reportable 10/16/18 04:43 Not Reportable 10/16/18 04:43 Not Reportable 10/16/18 04:43 Not Reportable 10/16/18 04:43 Not Reportable 10/16/18 04:43 Not Reportable 10/16/18 04:43 Consistent w auto 10/16/18 04:43 1+ 10/16/18 04:43 Plt Clumps, EDTA Not Reportable 10/16/18 04:43 1+ 10/16/18 04:43 Not Reportable 10/16/18 04:43 Not Reportable 10/16/18 04:43 Plt Morphology Comment Not Reportable 10/16/18 04:43 RBC Morphology Not Reportable 10/16/18 04:43 Dimorphic RBCs Not Reportable 10/16/18 04:43 Not Reportable 10/16/18 04:43 1+ 10/16/18 04:43 Not Reportable 10/16/18 04:43 1+ 10/16/18 04:43 Not Reportable 10/16/18 04:43 Not Reportable 10/16/18 04:43 Not Reportable 10/16/18 04:43 Not Reportable 10/16/18 04:43 Not Reportable 10/16/18 04:43 1+ 10/16/18 04:43 Not Reportable 10/16/18 04:43 Few 10/16/18 04:43 Not Reportable 10/16/18 04:43 Not Reportable 10/16/18 04:43 Not Reportable 10/16/18 04:43 Not Reportable 10/16/18 04:43 Not Reportable 10/16/18 04:43 Not Reportable 10/16/18 04:43 Not Reportable 10/16/18 04:43 Acanthocytes (Spur) Not Reportable 10/16/18 04:43 Rouleaux Not Reportable 10/16/18 04:43 Not Reportable 10/16/18 04:43 Not Reportable 10/16/18 04:43 Not Reportable 10/16/18 04:43 Not Reportable 10/16/18 04:43 Hem Pathologist Commnt No 10/16/18 04:43 Sodium 134 mmol/L (137-145) L 10/16/18 04:43 Potassium 3.9 mmol/L (3.6-5.0) 10/16/18 04:43 Chloride 101.1 mmol/L (98-107) 10/16/18 04:43 Carbon Dioxide 19 mmol/L (22-30) L 10/16/18 04:43 18 mmol/L 10/16/18 04:43 BUN 26 mg/dL (7-17) H 10/16/18 04:43 1.4 mg/dL (0.7-1.2) H 10/16/18 04:43 Estimated GFR 45 ml/min 10/16/18 04:43 19 % 10/16/18 04:43 Glucose 106 mg/dL (65-100) H 10/16/18 04:43 POC Glucose 127 (70-105) H 10/16/18 11:44 6.9 % (4-6) H 10/13/18 13:28 288 Mosm/kg 10/14/18 07:30 Lactic Acid 1.60 mmol/L (0.7-2.0) 10/13/18 19:44 Calcium 7.1 mg/dL (8.4-10.2) L 10/16/18 04:43 0.30 mg/dL (0.1-1.2) 10/15/18 08:00 AST 26 units/L (5-40) 10/15/18 08:00 ALT 36 units/L (7-56) 10/15/18 08:00 96 units/L (35-129) 10/15/18 08:00 26.40 mg/dL (0.00-1.30) H 10/15/18 08:00 5.1 g/dL (6.3-8.2) L 10/15/18 08:00 1.4 g/dL (3.9-5) L 10/15/18 08:00 0.4 % 10/15/18 08:00 Jennifer (Yellow) 10/13/18 17:43 Cloudy (Clear) 10/13/18 17:43 5.0 (5.0-7.0) 10/13/18 17:43 Ur Specific [place] 1.019 (1.003-1.030) 10/13/18 17:43 >500 mg/dL (Negative) 10/13/18 17:43 150 mg/dL (Negative) 10/13/18 17:43 Tr mg/dL (Negative) 10/13/18 17:43 Sm (Negative) 10/13/18 17:43 Neg (Negative) 10/13/18 17:43 Neg (Negative) 10/13/18 17:43 < 2.0 mg/dL (<2.0) 10/13/18 17:43 Ur Leukocyte Esterase Sm (Negative) 10/13/18 17:43 36.0 /HPF (0.0-6.0) H 10/13/18 17:43 13.0 /HPF (0.0-6.0) 10/13/18 17:43 U Epithel Cells (Auto) 81.0 /HPF (0-13.0) H 10/13/18 17:43 Random Vancomycin 9.4 ug/mL (0-40.0) 10/15/18 06:20 Blood Type A POSITIVE 10/13/18 14:50 Antibody Screen Negative 10/13/18 14:50 Crossmatch See Detail 10/13/18 14:50 Active Medications - Current Medications Current Medications: Generic Name Dose Route Start Last Admin Trade Name Freq PRN Reason Stop Dose Admin Acetaminophen 325 mg 10/13/18 20:13 Tylenol FEEDTUBE Q6HR PRN Pain, Moderate (4-6) Lipase/Protease/Amylase 1 each 10/14/18 15:42 10/15/18 10:[address] 10,500 Unit FEEDTUBE 1 each PRN PRN Administration For Clogged Feeding Tube Aspirin 325 mg 10/13/18 21:00 05/23/19 09:26 Ecotrin PO 325 mg DAILY MARYLOU Administration Heparin Sodium (Porcine) 5,000 unit 10/13/18 22:00 10/16/18 10:08 Heparin SUB-Q 5,000 unit Q12HR MARYLOU Administration Levetiracetam 500 mg/ Sodium 105 mls @ 393.75 mls/hr 10/13/18 23:00 10/15/18 23:00 Chloride IV 393.75 mls/hr Q12HR MARYLOU Administration Metronidazole 500 mg in 100 mls @ 100 mls/hr 10/16/18 14:00 Flagyl 500 Mg/100 Ml IV Q8H [facility] Protocol Cefepime HCl 1 gm in 100 mls @ 200 mls/hr 10/16/18 14:00 Maxipime/Ns 1 Gm/100 Ml IV Q24H [facility] Protocol Insulin Human Lispro 0 unit 10/14/18 09:00 10/16/18 12:00 Humalog SUB-Q Not Given Q6HR [facility] Protocol Lansoprazole 30 mg 10/14/18 11:00 10/15/18 09:26 Prevacid Solutab FEEDTUBE 30 mg QDAY MARYLOU Administration Linagliptin 5 mg 10/14/18 10:00 10/15/18 09:27 Tradjenta PO 5 mg QDAY MARYLOU Administration Loperamide HCl 2 mg 10/13/18 20:13 Imodium PO Q6H PRN Diarrhea Morphine Sulfate 2 mg 10/13/18 20:03 10/15/18 08:46 Morphine IV 2 mg Q4H PRN Administration Pain, Moderate (4-6) Ondansetron HCl 4 mg 10/13/18 19:52 Zofran IV Q8H PRN Nausea And Vomiting Simple Syrup 15 ml 10/14/18 15:42 Simple Syrup FEEDTUBE PRN PRN Hypoglycemia Simple Syrup 30 ml 10/14/18 15:42 Simple Syrup FEEDTUBE PRN PRN Hypoglycemia Sodium Bicarbonate 325 mg 10/14/18 15:42 10/15/18 10:19 Sodium Bicarbonate FEEDTUBE 325 mg PRN PRN Administration For Clogged Feeding Tube Sodium Chloride 10 ml 10/13/18 22:00 10/15/18 23:09 Sodium Chloride Flush Syringe 10 Ml IV 10 ml BID MARYLOU Administration Sodium Chloride 10 ml 10/13/18 19:52 Sodium Chloride Flush Syringe 10 Ml IV PRN PRN LINE FLUSH Sodium Hypochlorite 1 applic 10/14/18 10:00 10/15/18 23:10 Dakin's Full Strength TP 1 applicatio Q12H MARYLOU Administration Nutrition/Malnutrition Assess - Dietary Evaluation Nutrition/Malnutrition Findings: Nutrition Notes Start: 10/14/18 1 5:30 Freq: Status: Active Protocol: Document 10/14/18 15:30 RM (Rec: 10/14/18 15:41 RM [id number]) Nutrition Notes Need for Assessment generated from: MD Order Initial or Follow up Assessment Current Diagnosis Sepsis,Hypertension Other Pertinent Diagnosis ESRD on HD,PEG,GERD, Hx CVA, infected PU Current Diet Renal diet Labs/Tests Reviewed Pertinent Medications Levophed Height 5 ft Weight 54.431 kg [place] Body Weight (kg) 45.45 BMI 23.4 Subjective/Other Information Consulted for TF recommendation. Burn Absent Trauma Absent #1 Nutrition Diagnosis Inadequate oral intake Etiology Hx CVA As Evidenced by Signs and Symptoms pt requiring enteral nutrition to meet nutritional needs Is patient on ventilator? No Is Patient Ambulatory and/or Out of Bed No REE-([facility]-confined to bed) 1206.756 [facility] Additional Notes Protein Need:65-109g (1.2-2g/ kg) Fluid Needs: 1 ml/kcal Nutrition Intervention Nutrition Support: Nepro at 30 ml/hr. Water flush of 150 mls q 4 hrs . Kcal 1,296 Protein (gm) 58 Fluid (mL) 523 Goal #1 TF tolerance Goal #2 Meet at least 80% of calorie and protein needs via TF Anticipated Discharge Needs: TF Follow-Up By: 10/16/18 Additional Comments Follow for new TF
[2018-10-16] MEDS: FLAGYL 500 MG/100 ML 500 MG/100 ML BAG IV SCH ×2 (14:42→21:23)
[2018-10-16] MEDS: MAXIPIME/NS 1 GM/100 ML 1 GM/100 ML BAG IV SCH (14:42)
--- NOTE | 2018-10-16 14:50 | Progress Note ---
Assessment and Plan - Patient Problems (1) End stage renal disease Current Visit: Yes Status: Chronic Plan to address problem: End-stage renal disease Hemodynamics improved Will plan for hemodialysis tomorrow. (2) Shock Current Visit: Yes Status: Acute Plan to address problem: Septic Shock Elevated lactic acid now resolved Received over 2L on admission wean off vasopressor Goal MAP 60 Continue antibiotics Would avoid further IVF given anarsaca. Source query infected decubitus ulcer okay to transfuse 1 unit of PRBC with hemodialysis. (3) Anemia Current Visit: Yes Status: Acute Qualifiers: Anemia type: unspecified type Qualified Code(s): D64.9 - Anemia, unspecified Plan to address problem: Severe anemia Hb: 6g/dl Received 2 units of PRBC repeat hemoglobin 10 g per DL recheck today ; 8g/dl monitor CBC monitor for bleeding. (4) Dialysis catheter clot or failure Current Visit: Yes Status: Acute Plan to address problem: Dialysis catheter clot Status post tunneled dialysis catheter Exchange Appreciated vascular surgery involvement Subjective Principal diagnosis: septic shock Interval history: 67-year-old lady with medical history significant for hypertension, end-stage renal disease from dialysis unit for malfunctioning right IJ PermCath at [facility] she was found to be hypotensive in the emergency room found to also have a large decubitus ulcer has received fluid boluses, 1.3 L also found to have elevated lactic acid. She is status post PermCath exchange off pressors today tolerated dialysis yesterday No orthopnea or PND. Objective - Vital Signs Vital signs: Vital Signs - 12hr 10/16/18 10/16/18 10/16/18 02:50 03:00 03:10 Temperature Pulse Rate 65 66 64 Pulse Rate [ From Monitor] Respiratory 17 17 19 Rate Blood Pressure 99/47 99/47 99/47 O2 Sat by Pulse 100 100 100 Oximetry 10/16/18 10/16/18 10/16/18 03:20 03:22 03:30 Temperature Pulse Rate 64 66 65 Pulse Rate [ From Monitor] Respiratory 17 16 Rate Blood Pressure 99/47 99/47 O2 Sat by Pulse 99 100 Oximetry 10/16/18 10/16/18 10/16/18 03:40 03:50 04:00 Temperature 97.8 F Pulse Rate 66 65 66 Pulse Rate [ 66 From Monitor] Respiratory 16 17 18 Rate Blood Pressure 99/47 99/47 99/47 O2 Sat by Pulse 100 100 100 Oximetry 10/16/18 10/16/18 10/16/18 04:10 04:20 04:30 Temperature Pulse Rate 64 64 64 Pulse Rate [ From Monitor] Respiratory 16 16 16 Rate Blood Pressure 104/52 104/52 104/52 O2 Sat by Pulse 100 100 100 Oximetry 10/16/18 10/16/18 10/16/18 04:40 04:50 05:00 Temperature Pulse Rate 66 65 66 Pulse Rate [ From Monitor] Respiratory 16 16 17 Rate Blood Pressure 99/47 99/47 101/51 O2 Sat by Pulse 100 100 100 Oximetry 10/16/18 10/16/18 10/16/18 05:10 05:20 05:30 Temperature Pulse Rate 65 64 65 Pulse Rate [ From Monitor] Respiratory 16 17 18 Rate Blood Pressure 101/51 101/51 101/51 O2 Sat by Pulse 100 100 100 Oximetry 10/16/18 10/16/18 10/16/18 05:40 05:50 06:00 Temperature Pulse Rate 66 65 63 Pulse Rate [ From Monitor] Respiratory 16 16 15 Rate Blood Pressure 101/51 101/51 102/47 O2 Sat by Pulse 100 100 100 Oximetry 10/16/18 10/16/18 10/16/18 06:10 06:20 07:00 Temperature Pulse Rate 65 65 63 Pulse Rate [ From Monitor] Respiratory 15 16 17 Rate Blood Pressure 101/51 101/51 102/47 O2 Sat by Pulse 99 100 100 Oximetry 10/16/18 10/16/18 10/16/18 08:00 09:00 10:00 Temperature 98.3 F Pulse Rate 65 65 65 Pulse Rate [ 64 From Monitor] Respiratory 16 17 16 Rate Blood Pressure 100/46 100/46 107/51 O2 Sat by Pulse 100 100 100 Oximetry 10/16/18 10/16/18 11:00 11:44 Temperature 98.0 F Pulse Rate 66 Pulse Rate [ From Monitor] Respiratory 15 Rate Blood Pressure 107/51 O2 Sat by Pulse 99 Oximetry - General Appearance General appearance: well-developed, well-nourished EENT: ATNC, PERRL, mucous membranes moist Neck: JVD Respiratory: Present: Clear to Ascultation Cardiology: regular, S1S2 Gastrointestinal: normal, normoactive bowel sounds Integumentary: no rash Neurologic: no focal deficit, alert and oriented x3 Psychiatric: mood/affect appropriate - Lab 10/16/18 04:43 10/16/18 04:43 Most recent lab results Calcium 7.1 mg/dL (8.4-10.2) L 10/16/18 04:43 - Imaging Chest x-ray: image reviewed (I reviewed Chest x ray without overt edema. ) Medications & Allergies - Medications Allergies/Adverse Reactions: Allergies No Known Allergies Allergy (Verified 07/30/18 12:37) Home Medications: Home Medications Medication Instructions Recorded Confirmed Last Taken Type Aspirin [Aspirin EC] 325 mg PO DAILY #30 tablet. 05/05/18 10/13/18 Unknown Rx Loperamide HCl [Anti-Diarrheal] 2 mg PO Q6H PRN 07/30/18 10/13/18 Unknown History Nitroglycerin [Nitrostat] 0.4 mg SL Q5M PRN 07/30/18 10/13/18 Unknown History levETIRAcetam [Keppra TAB] 500 mg PO BID #60 tablet 08/03/18 10/13/18 Unknown Rx Acetaminophen [Tylenol] 325 mg FEEDTUBE Q6HR PRN 10/13/18 10/13/18 Unknown History Carvedilol [Coreg] 25 mg FEEDTUBE BID 10/13/18 10/13/18 Unknown History Esomeprazole Magnesium [NexIUM] 40 mg PO QDAY 10/13/18 10/13/18 Unknown History HYDROcodone/APAP 5-325 [[place] 1 each FEEDTUBE Q6HR PRN 10/13/18 10/13/18 Unknown History 5/325] Insulin Glargine,Hum.rec.anlog 15 units SUB-Q HS 10/13/18 10/13/18 Unknown History [Basaglar Kwikpen U-100] Linagliptin [Tradjenta] 5 mg PO QDAY 10/13/18 10/13/18 Unknown History amLODIPine [Norvasc] 10 mg FEEDTUBE DAILY 10/13/18 10/13/18 Unknown History Active Medications: Generic Name Dose Route Start Last Admin Trade Name Freq PRN Reason Stop Dose Admin Acetaminophen 325 mg 10/13/18 20:13 Tylenol FEEDTUBE Q6HR PRN Pain, Moderate (4-6) Lipase/Protease/Amylase 1 each 10/14/18 15:42 10/15/18 10:19 Bradley Jiang 10,500 Unit FEEDTUBE 1 each PRN PRN Administration For Clogged Feeding Tube Aspirin 325 mg 10/13/18 21:00 10/15/18 09:26 Ecotrin PO 325 mg DAILY MARYLOU Administration Heparin Sodium (Porcine) 5,000 unit 10/13/18 22:00 10/16/18 10:08 Heparin SUB-Q 5,000 unit Q12HR MARYLOU Administration Levetiracetam 500 mg/ Sodium 105 mls @ 393.75 mls/hr 10/13/18 23:00 10/15/18 23:00 Chloride IV 393.75 mls/hr Q12HR MARYLOU Administration Metronidazole 500 mg in 100 mls @ 100 mls/hr 10/16/18 14:00 10/16/18 14:42 Flagyl 500 Mg/100 Ml IV 100 mls/hr Q8H MARYLOU Administration Protocol Cefepime HCl 1 gm in 100 mls @ 200 mls/hr 10/16/18 14:00 10/16/18 14:42 Maxipime/Ns 1 Gm/100 Ml IV 200 mls/hr Q24H MARYLOU Administration Protocol Insulin Human Lispro 0 unit 10/14/18 09:00 10/16/18 12:00 Humalog SUB-Q Not Given Q6HR [facility] Protocol Lansoprazole 30 mg 10/14/18 11:00 10/15/18 09:26 Prevacid Solutab FEEDTUBE 30 mg QDAY MARYLOU Administration Linagliptin 5 mg 10/14/18 10:00 10/15/18 09:27 Tradjenta PO 5 mg QDAY MARYLOU Administration Loperamide HCl 2 mg 10/13/18 20:13 Imodium PO Q6H PRN Diarrhea Morphine Sulfate 2 mg 10/13/18 20:03 10/15/18 08:46 Morphine IV 2 mg Q4H PRN Administration Pain, Moderate (4-6) Ondansetron HCl 4 mg 10/13/18 19:52 Zofran IV Q8H PRN Nausea And Vomiting Simple Syrup 15 ml 10/14/18 15:42 Simple Syrup FEEDTUBE PRN PRN Hypoglycemia Simple Syrup 30 ml 10/14/18 15:42 Simple Syrup FEEDTUBE PRN PRN Hypoglycemia Sodium Bicarbonate 325 mg 10/14/18 15:42 10/15/18 10:19 Sodium Bicarbonate FEEDTUBE 325 mg PRN PRN Administration For Clogged Feeding Tube Sodium Chloride 10 ml 10/13/18 22:00 10/15/18 23:09 Sodium Chloride Flush Syringe 10 Ml IV 10 ml BID MARYLOU Administration Sodium Chloride 10 ml 10/13/18 19:52 Sodium Chloride Flush Syringe 10 Ml IV PRN PRN LINE FLUSH Sodium Hypochlorite 1 applic 10/14/18 10:00 10/16/18 10:45 Dakin's Full Strength TP 1 applicatio Q12H MARYLOU Administration
--- NOTE | 2018-10-16 15:37 | Event Note ---
Date: 10/16/18 Spoke with William Rodriguez (patient's son) over the telephone to give him an update on patient and answer any other questions he had. He requested that I speak with his aunt Viry Canela [phone]. I spoke with Ms. Canela and explained to her the patient's condition and my recommendations about further care. I explained that the patient has a very large and infected sacral wound which will require extensive debridement, diverting colostomy, and aggressive nutrition to have any chance to heal. Even with those aggressive measures, I do not feel the wound will heal. She understood. I advised her to consider hospice. She had some questions regarding hospice that I was unable to answer. I informed her that I would have social services call her. I spoke with Orin, social services, and asked her to provide the hospice information to the family. She will call Mr. Rodriguez and if permitted speak with Ms. Canela. Will await family decision.
[2018-10-17 05:10] LABS: Hemoglobin 8.2 gm/dl (10.1-14.3); Mean Corpuscular HGB Conc 33 % (30-34); Mean Corpuscular Volume 84 fl (79-97); Platelet Count 377 K/mm3 (140-440); Red Blood Count 2.97 M/mm3 (3.65-5.03); Red Cell Distribution Width 17.8 % (13.2-15.2)
[2018-10-17] MEDS: HumaLOG SUB-Q SCH ×4 (05:12→18:41)
[2018-10-17] MEDS: FLAGYL 500 MG/100 ML 500 MG/100 ML BAG IV SCH ×3 (05:16→22:05)
[2018-10-17 05:31] LABS: Calcium 7.8 mg/dL (8.4-10.2)
[2018-10-17 08:40] LABS: Band Neutrophils # (Manual) 0.6 K/mm3; Basophils % (Manual) 0 % (0.0-1.8); Eosinophils % (Manual) 0 % (0.0-4.3); Total Cells Counted 100
[2018-10-17 08:41] LABS: Anisocytosis 1+; Hypochromasia 1+; Ovalocytes Few
[2018-10-17] MEDS: DAKIN'S FULL STRENGTH TP SCH ×2 (09:54→22:04)
[2018-10-17] MEDS: PREVACID SOLUTAB FEEDTUBE SCH (09:55)
[2018-10-17] MEDS: ECOTRIN PO SCH (09:55)
[2018-10-17] MEDS: HEPARIN SUB-Q SCH ×2 (09:55→22:05)
[2018-10-17] MEDS: SODIUM CHLORIDE FLUSH SYRINGE 10 ML IV SCH ×2 (09:56→22:05)
[2018-10-17] MEDS: TRADJENTA PO SCH (09:56)
[2018-10-17] MEDS: KEPPRA 500 MG in NACL 0.9% 100 ML IV SCH ×4 (10:30→21:48)
--- NOTE | 2018-10-17 11:50 | Progress Note ---
Assessment and Plan 67 female with ESRD on HD and history of seizure disorder, nonverbal, admitted with hypotension, anemia and concern for sepsis from possible urinary source. Spoke with my ICU charge to be aware in the event that patient drops BP on HD. I would suggest to just stop HD and not transfer to unit as BP would likely come up but the charge will call if level of care needs to change. I do agree with surgery in regards to hospice recommendation. Otherwise, same recs as below from yesterday 10/16 note. 1. ID following and reviewed their note. Patient unfortunately is not a candidate for picc line secondary to her contractures. Fem line is the only access we have at this point. 2. Spoke with renal at bedside. Suggested that the given blood tomorrow during HD or else she may require pressors again. They were in agreement. 3. Will not take off list in case she does need to come back to unit but other kaye, following from a distance. CCT 31 minutes. Subjective Date of service: 10/17/18 Principal diagnosis: septic shock Interval history: Stable BP but on the low side for ESRD. Reviewed surgery note from yesterday. Patient is still scheduled for HD today. No blood transfusion appears to be ordered. Objective - Constitutional Vitals: Vital Signs - 12hr 10/17/18 10/17/18 10/17/18 00:00 01:00 02:00 Temperature Pulse Rate 68 68 68 Pulse Rate [ 67 From Monitor] Respiratory 17 17 16 Rate Blood Pressure 127/46 136/43 126/51 O2 Sat by Pulse 100 99 100 Oximetry 10/17/18 10/17/18 10/17/18 03:00 03:47 04:00 Temperature 100.2 F H Pulse Rate 68 71 Pulse Rate [ 70 From Monitor] Respiratory 16 16 Rate Blood Pressure 114/46 114/46 O2 Sat by Pulse 100 100 Oximetry 10/17/18 10/17/18 10/17/18 05:00 06:00 07:00 Temperature Pulse Rate 69 67 68 Pulse Rate [ From Monitor] Respiratory 20 18 17 Rate Blood Pressure 124/55 109/49 107/48 O2 Sat by Pulse 99 98 99 Oximetry 10/17/18 10/17/18 10/17/18 08:00 09:00 10:00 Temperature 99 F Pulse Rate 69 70 71 Pulse Rate [ 69 From Monitor] Respiratory 14 18 18 Rate Blood Pressure 116/46 116/46 116/50 O2 Sat by Pulse 98 98 98 Oximetry - Labs CBC & Chem 7: 10/17/18 04:51 10/17/18 04:51 Labs: Abnormal lab results 10/17/18 10/17/18 10/17/18 Range/Units 04:51 04:51 05:14 WBC 19.5 H (4.5-11.0) K/mm3 RBC 2.97 L (3.65-5.03) M/mm3 Hgb 8.2 L (10.1-14.3) gm/dl Hct 25.0 L (30.3-42.9) % RDW 17.8 H (13.2-15.2) % Seg Neuts % (Manual) 93.0 H (40.0-70.0) % Lymphocytes % (Manual) 3.0 L (13.4-35.0) % Seg Neutrophils # Man 18.1 H (1.8-7.7) K/mm3 Lymphocytes # (Manual) 0.6 L (1.2-5.4) K/mm3 Potassium 3.5 L (3.6-5.0) mmol/L Carbon Dioxide 20 L (22-30) mmol/L BUN 33 H (7-17) mg/dL Creatinine 1.8 H (0.7-1.2) mg/dL Glucose 150 H (65-100) mg/dL POC Glucose 143 H (70-105) Calcium 7.8 L (8.4-10.2) mg/dL Medications & Allergies - Medications Allergies/Adverse Reactions: Allergies No Known Allergies Allergy (Verified 07/30/18 12:37) Home Medications: Home Medications Medication Instructions Recorded Confirmed Last Taken Type Aspirin [Aspirin EC] 325 mg PO DAILY #30 tablet. 05/05/18 10/13/18 Unknown Rx Loperamide HCl [Anti-Diarrheal] 2 mg PO Q6H PRN 07/30/18 10/13/18 Unknown History Nitroglycerin [Nitrostat] 0.4 mg SL Q5M PRN 07/30/18 10/13/18 Unknown History levETIRAcetam [Keppra TAB] 500 mg PO BID #60 tablet 08/03/18 10/13/18 Unknown Rx Acetaminophen [Tylenol] 325 mg FEEDTUBE Q6HR PRN 10/13/18 10/13/18 Unknown History Carvedilol [Coreg] 25 mg FEEDTUBE BID 10/13/18 10/13/18 Unknown History Esomeprazole Magnesium [NexIUM] 40 mg PO QDAY 10/13/18 10/13/18 Unknown History HYDROcodone/APAP 5-325 [[place] 1 each FEEDTUBE Q6HR PRN 10/13/18 10/13/18 Unknown History 5/325] Insulin Glargine,Hum.rec.anlog 15 units SUB-Q HS 10/13/18 10/13/18 Unknown History [Basaglar Kwikpen U-100] Linagliptin [Tradjenta] 5 mg PO QDAY 10/13/18 10/13/18 Unknown History amLODIPine [Norvasc] 10 mg FEEDTUBE DAILY 10/13/18 10/13/18 Unknown History Active Medications: Generic Name Dose Route Start Last Admin Trade Name Freq PRN Reason Stop Dose Admin Acetaminophen 325 mg 10/13/18 20:13 Tylenol FEEDTUBE Q6HR PRN Pain, Moderate (4-6) Lipase/Protease/Amylase 1 each 10/14/18 15:42 10/15/18 10:[address] 10,500 Unit FEEDTUBE 1 each PRN PRN Administration For Clogged Feeding Tube Aspirin 325 mg 10/13/18 21:00 10/17/18 09:55 Ecotrin PO 325 mg DAILY MARYLOU Administration Heparin Sodium (Porcine) 5,000 unit 10/13/18 22:00 10/17/18 09:55 Heparin SUB-Q 5,000 unit Q12HR MARYLOU Administration Levetiracetam 500 mg/ Sodium 105 mls @ 393.75 mls/hr 10/13/18 23:00 10/17/18 10:30 Chloride IV 393.75 mls/hr Q12HR MARYLOU Administration Metronidazole 500 mg in 100 mls @ 100 mls/hr 10/16/18 14:00 10/17/18 05:16 Flagyl 500 Mg/100 Ml IV 100 mls/hr Q8H MARYLOU Administration Protocol Cefepime HCl 1 gm in 100 mls @ 200 mls/hr 10/16/18 14:00 10/16/18 14:42 Maxipime/Ns 1 Gm/100 Ml IV 200 mls/hr Q24H MARYLOU Administration Protocol Insulin Human Lispro 0 unit 10/14/18 09:00 10/17/18 05:13 Humalog SUB-Q Not Given Q6HR MARYLOU Protocol Lansoprazole 30 mg 10/14/18 11:00 10/17/18 09:55 Prevacid Solutab FEEDTUBE 30 mg QDAY MARYLOU Administration Linagliptin 5 mg 10/14/18 10:00 10/17/18 09:56 Tradjenta PO 5 mg QDAY MARYLOU Administration Loperamide HCl 2 mg 10/13/18 20:13 Imodium PO Q6H PRN Diarrhea Morphine Sulfate 2 mg 10/13/18 20:03 10/15/18 08:46 Morphine IV 2 mg Q4H PRN Administration Pain, Moderate (4-6) Ondansetron HCl 4 mg 10/13/18 19:52 Zofran IV Q8H PRN Nausea And Vomiting Simple Syrup 15 ml 10/14/18 15:42 Simple Syrup FEEDTUBE PRN PRN Hypoglycemia Simple Syrup 30 ml 10/14/18 15:42 Simple Syrup FEEDTUBE PRN PRN Hypoglycemia Sodium Bicarbonate 325 mg 10/14/18 15:42 10/15/18 10:19 Sodium Bicarbonate FEEDTUBE 325 mg PRN PRN Administration For Clogged Feeding Tube Sodium Chloride 10 ml 10/13/18 22:00 10/17/18 09:56 Sodium Chloride Flush Syringe 10 Ml IV 10 ml BID MARYLOU Administration Sodium Chloride 10 ml 10/13/18 19:52 Sodium Chloride Flush Syringe 10 Ml IV PRN PRN LINE FLUSH Sodium Hypochlorite 1 applic 10/14/18 10:00 10/17/18 09:54 Dakin's Full Strength TP 1 applicatio Q12H MARYLOU Administration
[2018-10-17] MEDS ORDERED: NACL 0.9 (PRIMING MACHINE ONLY DIALYSIS) MC ONE (12:48)
--- NOTE | 2018-10-17 13:36 | Progress Note ---
Assessment and Plan Impression * End-stage renal disease on maintenance hemodialysis * Sepsis * Sacral decubitus * Dialysis catheter malfunction * Diabetes Recommendations * Patient is currently undergoing hemodialysis. Tolerating well. * Continue dialysis on TTS schedule as outpatient * Surgical notes appreciated * Continue local wound care and antibiotics * Adjust diet and meds for ESRD state * Avoid nephrotoxins Subjective Date of service: 10/17/18 Principal diagnosis: septic shock Interval history: Patient is currently undergoing dialysis. She is not verbal and not answering any questions Objective - Vital Signs Vital signs: Vital Signs - 12hr 10/17/18 10/17/18 10/17/18 02:00 03:00 03:47 Temperature 100.2 F H Pulse Rate 68 68 Pulse Rate [ From Monitor] Respiratory 16 16 Rate Blood Pressure 126/51 114/46 O2 Sat by Pulse 100 100 Oximetry 10/17/18 10/17/18 10/17/18 04:00 05:00 06:00 Temperature Pulse Rate 71 69 67 Pulse Rate [ 70 From Monitor] Respiratory 16 20 18 Rate Blood Pressure 114/46 124/55 109/49 O2 Sat by Pulse 100 99 98 Oximetry 10/17/18 10/17/18 10/17/18 07:00 08:00 09:00 Temperature 99 F Pulse Rate 68 69 70 Pulse Rate [ 69 From Monitor] Respiratory 17 14 18 Rate Blood Pressure 107/48 116/46 116/46 O2 Sat by Pulse 99 98 98 Oximetry 10/17/18 10/17/18 10/17/18 10:00 11:00 12:00 Temperature 98.5 F Pulse Rate 71 74 71 Pulse Rate [ 68 From Monitor] Respiratory 18 16 14 Rate Blood Pressure 116/50 116/50 103/46 O2 Sat by Pulse 98 99 99 Oximetry - General Appearance General appearance: chronically ill, frail EENT: PERRL, mucous membranes moist Neck: no JVD, no thyromegaly, other (right IJ PermCath in place) Respiratory: Present: Clear to Ascultation Cardiology: regular, normal heart rate, S1S2, no murmurs Gastrointestinal: normal, normoactive bowel sounds, other (PEG tube in place) - Lab 10/17/18 04:51 10/17/18 04:51 Most recent lab results Calcium 7.8 mg/dL (8.4-10.2) L 10/17/18 04:51 Medications & Allergies - Medications Allergies/Adverse Reactions: Allergies No Known Allergies Allergy (Verified 07/30/18 12:37) Home Medications: Home Medications Medication Instructions Recorded Confirmed Last Taken Type Aspirin [Aspirin EC] 325 mg PO DAILY #30 tablet. 05/05/18 10/13/18 Unknown Rx Loperamide HCl [Anti-Diarrheal] 2 mg PO Q6H PRN 07/30/18 10/13/18 Unknown History Nitroglycerin [Nitrostat] 0.4 mg SL Q5M PRN 07/30/18 10/13/18 Unknown History levETIRAcetam [Keppra TAB] 500 mg PO BID #60 tablet 08/03/18 10/13/18 Unknown Rx Acetaminophen [Tylenol] 325 mg FEEDTUBE Q6HR PRN 10/13/18 10/13/18 Unknown History Carvedilol [Coreg] 25 mg FEEDTUBE BID 10/13/18 10/13/18 Unknown History Esomeprazole Magnesium [NexIUM] 40 mg PO QDAY 10/13/18 10/13/18 Unknown History HYDROcodone/APAP 5-325 [[place] 1 each FEEDTUBE Q6HR PRN 10/13/18 10/13/18 Unknown History 5/325] Insulin Glargine,Hum.rec.anlog 15 units SUB-Q HS 10/13/18 10/13/18 Unknown History [Basaglar Kwikpen U-100] Linagliptin [Tradjenta] 5 mg PO QDAY 10/13/18 10/13/18 Unknown History amLODIPine [Norvasc] 10 mg FEEDTUBE DAILY 10/13/18 10/13/18 Unknown History Active Medications: Generic Name Dose Route Start Last Admin Trade Name Freq PRN Reason Stop Dose Admin Acetaminophen 325 mg 10/13/18 20:13 Tylenol FEEDTUBE Q6HR PRN Pain, Moderate (4-6) Lipase/Protease/Amylase 1 each 10/14/18 15:42 10/15/18 10:19 Pancreaze 10,500 Unit FEEDTUBE 1 each PRN PRN Administration For Clogged Feeding Tube Aspirin 325 mg 10/13/18 21:00 10/17/18 09:55 Ecotrin PO 325 mg DAILY MARYLOU Administration Heparin Sodium (Porcine) 5,000 unit 10/13/18 22:00 10/17/18 09:55 Heparin SUB-Q 5,000 unit Q12HR MARYLOU Administration Levetiracetam 500 mg/ Sodium 105 mls @ 393.75 mls/hr 10/13/18 23:00 10/17/18 10:30 Chloride IV 393.75 mls/hr Q12HR MARYLOU Administration Metronidazole 500 mg in 100 mls @ 100 mls/hr 10/16/18 14:00 10/17/18 05:16 Flagyl 500 Mg/100 Ml IV 100 mls/hr Q8H MARYLOU Administration Protocol Cefepime HCl 1 gm in 100 mls @ 200 mls/hr 10/16/18 14:00 10/16/18 14:42 Maxipime/Ns 1 Gm/100 Ml IV 200 mls/hr Q24H MARYLOU Administration Protocol Insulin Human Lispro 0 unit 10/14/18 09:00 10/17/18 05:13 Humalog SUB-Q Not Given Q6HR [facility] Protocol Lansoprazole 30 mg 10/14/18 11:00 10/17/18 09:55 Prevacid Solutab FEEDTUBE 30 mg QDAY MARYLOU Administration Linagliptin 5 mg 10/14/18 10:00 10/17/18 09:56 Tradjenta PO 5 mg QDAY MARYLOU Administration Loperamide HCl 2 mg 10/13/18 20:13 Imodium PO Q6H PRN Diarrhea Morphine Sulfate 2 mg 10/13/18 20:03 10/15/18 08:46 Morphine IV 2 mg Q4H PRN Administration Pain, Moderate (4-6) Ondansetron HCl 4 mg 10/13/18 19:52 Zofran IV Q8H PRN Nausea And Vomiting Simple Syrup 15 ml 10/14/18 15:42 Simple Syrup FEEDTUBE PRN PRN Hypoglycemia Simple Syrup 30 ml 10/14/18 15:42 Simple Syrup FEEDTUBE PRN PRN Hypoglycemia Sodium Bicarbonate 325 mg 10/14/18 15:42 10/15/18 10:19 Sodium Bicarbonate FEEDTUBE 325 mg PRN PRN Administration For Clogged Feeding Tube Sodium Chloride 10 ml 10/13/18 22:00 10/17/18 09:56 Sodium Chloride Flush Syringe 10 Ml IV 10 ml BID MARYLOU Administration Sodium Chloride 10 ml 10/13/18 19:52 Sodium Chloride Flush Syringe 10 Ml IV PRN PRN LINE FLUSH Sodium Hypochlorite 1 applic 10/14/18 10:00 10/17/18 09:54 Skip's Full Strength TP 1 applicatio Q12H MARYLOU Administration
--- NOTE | 2018-10-17 14:10 | Progress Note ---
Assessment and Plan Assessment and plan: 1) septic shock secondary to infected decubitus ulcer versus UTI - Patient was on IV meropenem and vancomycin renally dosed, now changed to cefepime and flagyl per ID - Patient is off pressors and blood pressure is holding - Septic shock resolved Leucocytosis - tresnding down (2) Anemia - transfused 2 units of PRBC - Hemoglobin is 6.9 on admission and 10 posttransfusion, the latest one was 8.5 - Follow H&H (3) Dialysis catheter clot or failure Vascular surgery consulted (4) End stage renal disease - Nephrology consulted (5) Hypokalemia Supplemented (6) Hypotension - Due to septic shock - Management as above (7) Infected decubitus ulcer - Status post debridement by surgery (8) Hyponatremia Current Visit: Yes Status: Acute Plan to address problem: IV NS for now Check serum osmolarity (9) IDDM (insulin dependent diabetes mellitus) - SSI coverage - hemoglobin A1c 6.9 (10) Seizure disorder - continue IV keppra (11) HTN (hypertension) Hold antihypertensives PEG tube malfunction - GI consulted - working now, on PEG tube feeding (12) DVT prophylaxis Families are not interested in hospice care. Given the patient's comorbid conditions Surgery recommend Hospice care but families are not interested. On Heparin and GI prophylaxis Disposition; transfer to MICU History Interval history: Patient was seen and evaluated at the bedside, patient is noncommunicative at baseline, extremities are contracted. Hospitalist Physical - Physical exam Narrative exam: Not in cardiopulmonary distress. Vital signs as documented. Head exam is unremarkable. No scleral icterus . Neck is without jugular venous distension, thyromegaly, or carotid bruits. Lungs are clear to auscultation. Cardiac exam reveals regular rate and Rhythm. Abdominal exam reveals normal bowel sounds. Extremities are contracted. DIRECTOR OF BUSINESS CONTINUITY: Noncommunicative, contracted extremities. - Constitutional Vitals: Temp Pulse Resp BP Pulse Ox 98.5 F 68 16 103/46 98 10/17/18 12:00 10/17/18 12:00 10/17/18 12:00 10/17/18 12:00 10/17/18 12:00 General appearance: Present: no acute distress, other (nonverbal) Results - Labs CBC & Chem 7: 10/17/18 04:51 10/17/18 04:51 Labs: Laboratory Last Values WBC 19.5 K/mm3 (4.5-11.0) H 10/17/18 04:51 RBC 2.97 M/mm3 (3.65-5.03) L 10/17/18 04:51 Hgb 8.2 gm/dl (10.1-14.3) L 10/17/18 04:51 Hct 25.0 % (30.3-42.9) L 10/17/18 04:51 MCV 84 fl (79-97) 10/17/18 04:51 MCH 28 pg (28-32) 10/17/18 04:51 MCHC 33 % (30-34) 10/17/18 04:51 RDW 17.8 % (13.2-15.2) H 10/17/18 04:51 Plt Count 377 K/mm3 (140-440) 10/17/18 04:51 Add Manual Diff Complete 10/17/18 04:51 Total Counted 100 10/17/18 04:51 Seg Neutrophils % [facility] Sheriff 10/17/18 04:51 Seg Neuts % (Manual) 93.0 % (40.0-70.0) H 10/17/18 04:51 3.0 % 10/17/18 04:51 3.0 % (13.4-35.0) L 10/17/18 04:51 Reactive Lymphs % (Man) 0 % 10/17/18 04:51 1.0 % (0.0-7.3) 10/17/18 04:51 0 % (0.0-4.3) 10/17/18 04:51 0 % (0.0-1.8) 10/17/18 04:51 0 % 10/17/18 04:51 0 % 10/17/18 04:51 0 % 10/17/18 04:51 0 % 10/17/18 04:51 Nucleated RBC % Not Reportable 10/17/18 04:51 Seg Neutrophils # Man 18.1 K/mm3 (1.8-7.7) H 10/17/18 04:51 Band Neutrophils # 0.6 K/mm3 10/17/18 04:51 0.6 K/mm3 (1.2-5.4) L 10/17/18 04:51 Abs React Lymphs (Man) 0.0 K/mm3 10/17/18 04:51 0.2 K/mm3 (0.0-0.8) 10/17/18 04:51 0.0 K/mm3 (0.0-0.4) 10/17/18 04:51 0.0 K/mm3 (0.0-0.1) 10/17/18 04:51 0.0 K/mm3 10/17/18 04:51 0.0 K/mm3 10/17/18 04:51 0.0 K/mm3 10/17/18 04:51 Blast Cells # 0.0 K/mm3 10/17/18 04:51 WBC Morphology Not Reportable 10/17/18 04:51 Hypersegmented Neuts Not Reportable 10/17/18 04:51 Hyposegmented Neuts Not Reportable 10/17/18 04:51 Hypogranular Neuts Not Reportable 10/17/18 04:51 Not Reportable 10/17/18 04:51 Not Reportable 10/17/18 04:51 Not Reportable 10/17/18 04:51 Not Reportable 10/17/18 04:51 Not Reportable 10/17/18 04:51 Not Reportable 10/17/18 04:51 Appears normal 10/17/18 04:51 Not Reportable 10/17/18 04:51 Plt Clumps, EDTA Not Reportable 10/17/18 04:51 Not Reportable 10/17/18 04:51 Not Reportable 10/17/18 04:51 Not Reportable 10/17/18 04:51 Plt Morphology Comment Not Reportable 10/17/18 04:51 RBC Morphology Not Reportable 10/17/18 04:51 Dimorphic RBCs Not Reportable 10/17/18 04:51 Not Reportable 10/17/18 04:51 1+ 10/17/18 04:51 Not Reportable 10/17/18 04:51 1+ 10/17/18 04:51 Not Reportable 10/17/18 04:51 Not Reportable 10/17/18 04:51 Not Reportable 10/17/18 04:51 Not Reportable 10/17/18 04:51 Not Reportable 10/17/18 04:51 Not Reportable 10/17/18 04:51 Not Reportable 10/17/18 04:51 Few 10/17/18 04:51 Not Reportable 10/17/18 04:51 Not Reportable 10/17/18 04:51 Not Reportable 10/17/18 04:51 Not Reportable 10/17/18 04:51 Not Reportable 10/17/18 04:51 Not Reportable 10/17/18 04:51 Not Reportable 10/17/18 04:51 Acanthocytes (Spur) Not Reportable 10/17/18 04:51 Rouleaux Not Reportable 10/17/18 04:51 Not Reportable 10/17/18 04:51 Not Reportable 10/17/18 04:51 Not Reportable 10/17/18 04:51 Not Reportable 10/17/18 04:51 Hem Pathologist Commnt No 10/17/18 04:51 Sodium 137 mmol/L (137-145) 10/17/18 04:51 Potassium 3.5 mmol/L (3.6-5.0) L 10/17/18 04:51 Chloride 100.4 mmol/L (98-107) 10/17/18 04:51 Carbon Dioxide 20 mmol/L (22-30) L 10/17/18 04:51 20 mmol/L 10/17/18 04:51 BUN 33 mg/dL (7-17) H 10/17/18 04:51 1.8 mg/dL (0.7-1.2) H 10/17/18 04:51 Estimated GFR 34 ml/min 10/17/18 04:51 18 % 10/17/18 04:51 Glucose 150 mg/dL (65-100) H 10/17/18 04:51 POC Glucose 204 (70-105) H 10/17/18 11:43 6.9 % (4-6) H 10/13/18 13:28 288 Mosm/kg 10/14/18 07:30 Lactic Acid 1.60 mmol/L (0.7-2.0) 10/13/18 19:44 Calcium 7.8 mg/dL (8.4-10.2) L 10/17/18 04:51 0.30 mg/dL (0.1-1.2) 10/15/18 08:00 AST 26 units/L (5-40) 10/15/18 08:00 ALT 36 units/L (7-56) 10/15/18 08:00 96 units/L (35-129) 10/15/18 08:00 26.40 mg/dL (0.00-1.30) H 10/15/18 08:00 5.1 g/dL (6.3-8.2) L 10/15/18 08:00 1.4 g/dL (3.9-5) L 10/15/18 08:00 0.4 % 10/15/18 08:00 Jennifer (Yellow) 10/13/18 17:43 Cloudy (Clear) 10/13/18 17:43 5.0 (5.0-7.0) 10/13/18 17:43 Ur Specific [place] 1.019 (1.003-1.030) 10/13/18 17:43 >500 mg/dL (Negative) 10/13/18 17:43 150 mg/dL (Negative) 10/13/18 17:43 Tr mg/dL (Negative) 10/13/18 17:43 Sm (Negative) 10/13/18 17:43 Neg (Negative) 10/13/18 17:43 Neg (Negative) 10/13/18 17:43 < 2.0 mg/dL (<2.0) 10/13/18 17:43 Ur Leukocyte Esterase Sm (Negative) 10/13/18 17:43 36.0 /HPF (0.0-6.0) H 10/13/18 17:43 13.0 /HPF (0.0-6.0) 10/13/18 17:43 U Epithel Cells (Auto) 81.0 /HPF (0-13.0) H 10/13/18 17:43 Random Vancomycin 9.4 ug/mL (0-40.0) 10/15/18 06:20 Blood Type A POSITIVE 10/13/18 14:50 Antibody Screen Negative 10/13/18 14:50 Crossmatch See Detail 10/13/18 14:50 Active Medications - Current Medications Current Medications: Generic Name Dose Route Start Last Admin Trade Name Freq PRN Reason Stop Dose Admin Acetaminophen 325 mg 10/13/18 20:13 Tylenol FEEDTUBE Q6HR PRN Pain, Moderate (4-6) Lipase/Protease/Amylase 1 each 10/14/18 15:42 10/15/18 10:[address] 10,500 Unit FEEDTUBE 1 each PRN PRN Administration For Clogged Feeding Tube Aspirin 325 mg 10/13/18 21:00 10/17/18 09:55 Ecotrin PO 325 mg DAILY MARYLOU Administration Heparin Sodium (Porcine) 5,000 unit 10/13/18 22:00 10/17/18 09:55 Heparin SUB-Q 5,000 unit Q12HR MARYLOU Administration Levetiracetam 500 mg/ Sodium 105 mls @ 393.75 mls/hr 10/13/18 23:00 10/17/18 10:30 Chloride IV 393.75 mls/hr Q12HR MARYLOU Administration Metronidazole 500 mg in 100 mls @ 100 mls/hr 10/16/18 14:00 10/17/18 05:16 Flagyl 500 Mg/100 Ml IV 100 mls/hr Q8H MARYLOU Administration Protocol Cefepime HCl 1 gm in 100 mls @ 200 mls/hr 10/16/18 14:00 10/16/18 14:42 Maxipime/Ns 1 Gm/100 Ml IV 200 mls/hr Q24H MARYLOU Administration Protocol Insulin Human Lispro 0 unit 10/14/18 09:00 10/17/18 05:13 Humalog SUB-Q Not Given Q6HR [facility] Protocol Lansoprazole 30 mg 10/14/18 11:00 10/17/18 09:55 Prevacid Solutab FEEDTUBE 30 mg QDAY MARYLOU Administration Linagliptin 5 mg 10/14/18 10:00 10/17/18 09:56 Tradjenta PO 5 mg QDAY MARYLOU Administration Loperamide HCl 2 mg 10/13/18 20:13 Imodium PO Q6H PRN Diarrhea Morphine Sulfate 2 mg 10/13/18 20:03 10/15/18 08:46 Morphine IV 2 mg Q4H PRN Administration Pain, Moderate (4-6) Ondansetron HCl 4 mg 10/13/18 19:52 Zofran IV Q8H PRN Nausea And Vomiting Simple Syrup 15 ml 10/14/18 15:42 Simple Syrup FEEDTUBE PRN PRN Hypoglycemia Simple Syrup 30 ml 10/14/18 15:42 Simple Syrup FEEDTUBE PRN PRN Hypoglycemia Sodium Bicarbonate 325 mg 10/14/18 15:42 10/15/18 10:19 Sodium Bicarbonate FEEDTUBE 325 mg PRN PRN Administration For Clogged Feeding Tube Sodium Chloride 10 ml 10/13/18 22:00 10/17/18 09:56 Sodium Chloride Flush Syringe 10 Ml IV 10 ml BID MARYLOU Administration Sodium Chloride 10 ml 10/13/18 19:52 Sodium Chloride Flush Syringe 10 Ml IV PRN PRN LINE FLUSH Sodium Hypochlorite 1 applic 10/14/18 10:00 10/17/18 09:54 Dakin's Full Strength TP 1 applicatio Q12H MARYLOU Administration Nutrition/Malnutrition Assess - Dietary Evaluation Nutrition/Malnutrition Findings: Nutrition Notes Start: 10/14/18 15:30 Freq: Status: Active Protocol: Document 10/16/18 16:12 SHERRY (Rec: 10/16/18 16:18 SHERRY [email or web address]) Nutrition Notes Initial or Follow up Reassessment Current Diagnosis CKD (stage V CKD),Diabetes, Sepsis,Hypertension Other Pertinent Diagnosis Infected decubitus ulcer vs UTI Current Diet TF - Nepro at 30ml/hr Labs/Tests Na 134 BUN 26 Cr 1.4 Pertinent Medications Reviewed Height 5 ft Weight 61.15 kg [place] Body Weight (kg) 45.45 BMI 26.3 Weight change and time frame Wt change noted Subjective/Other Information Observed no TF infusing at time of visit (12:23). Per RN , PEG tube clogged with multiple failed attempts to de -clot. MD consulted to address clogged PEG tube. Burn Absent Trauma Absent #1 Nutrition Diagnosis Inadequate oral intake Diagnosis Progress(for reassessment Continues documentation) Is patient on ventilator? No Is Patient Ambulatory and/or Out of Bed No REE-([place]. Jeor-confined to bed) [phone] Calculation Used for Recommendations [facility] Additional Notes Pro needs 1.2-1.4g/k-86g/ day Fluid needs 1-1.5L/day Nutrition Intervention Nutrition Support: Resume Nepro at 30ml/hr when PEG tube unclogged. Provide 150ml water flush q4h. Kcal 1,296 Protein (gm) 58 Fluid (mL) 523 Goal #1 Resume TF Goal #2 TF to meet at least 75% energy and pro needs Follow-Up By: 10/19/18 Additional Comments F/U: TF restart, tolerance
[2018-10-17] MEDS: MAXIPIME/NS 1 GM/100 ML 1 GM/100 ML BAG IV SCH (17:15)
[2018-10-18] MEDS: FLAGYL 500 MG/100 ML 500 MG/100 ML BAG IV SCH ×3 (05:17→21:24)
[2018-10-18] MEDS: HumaLOG SUB-Q SCH ×4 (05:17→17:20)
[2018-10-18] MEDS ORDERED: VANCOMYCIN/NS 1 GM/250 ML 1 GM/250 ML BAG IV ONE (10:00)
[2018-10-18] MEDS: DAKIN'S FULL STRENGTH TP SCH ×2 (10:06→22:40)
[2018-10-18] MEDS: KEPPRA 500 MG in NACL 0.9% 100 ML IV SCH ×3 (10:10→21:24)
[2018-10-18] MEDS: SODIUM CHLORIDE FLUSH SYRINGE 10 ML IV SCH ×2 (10:18→21:25)
[2018-10-18] MEDS: ECOTRIN PO SCH (10:20)
[2018-10-18] MEDS: TRADJENTA PO SCH (10:20)
[2018-10-18] MEDS: HEPARIN SUB-Q SCH ×2 (10:20→22:21)
[2018-10-18] MEDS: PREVACID SOLUTAB FEEDTUBE SCH (10:20)
--- NOTE | 2018-10-18 11:34 | Progress Note ---
Assessment and Plan Impression * End-stage renal disease on maintenance hemodialysis * Sepsis * Sacral decubitus * Dialysis catheter malfunction * Diabetes Recommendations * Patient had uneventful hemodialysis yesterday `. * Continue dialysis on TTS schedule as outpatient * Surgical notes appreciated * Continue local wound care and antibiotics * Adjust diet and meds for ESRD state * Avoid nephrotoxins Subjective Date of service: 10/18/18 Principal diagnosis: septic shock Interval history: Patient is comfortable today. Nonverbal. Not answering any questions. Uneventful hemodialysis yesterday Objective - Vital Signs Vital signs: Vital Signs - 12hr 10/18/18 10/18/18 10/18/18 00:00 01:00 02:00 Temperature 99.1 F Pulse Rate 75 73 72 Pulse Rate [ 72 From Monitor] Respiratory 21 17 20 Rate Blood Pressure 117/51 117/51 107/54 O2 Sat by Pulse 98 98 97 Oximetry 10/18/18 10/18/18 10/18/18 03:00 04:00 05:00 Temperature 100.0 F H Pulse Rate 73 72 70 Pulse Rate [ 73 From Monitor] Respiratory 19 18 17 Rate Blood Pressure 118/53 118/53 116/52 O2 Sat by Pulse 98 97 97 Oximetry 10/18/18 10/18/18 10/18/18 06:00 07:00 08:00 Temperature 98.8 F 99 F Pulse Rate 88 65 65 Pulse Rate [ 66 From Monitor] Respiratory 21 17 17 Rate Blood Pressure 118/47 118/47 98/44 O2 Sat by Pulse 93 97 100 Oximetry 10/18/18 10/18/18 10/18/18 09:00 10:00 11:00 Temperature Pulse Rate 65 64 62 Pulse Rate [ From Monitor] Respiratory 18 14 16 Rate Blood Pressure 107/46 107/46 102/49 O2 Sat by Pulse 100 97 99 Oximetry - General Appearance General appearance: chronically ill, frail EENT: PERRL, mucous membranes moist Neck: no JVD, no thyromegaly, no carotid bruit, supple, other (right IJ PermCath in place) Respiratory: Present: Clear to Ascultation Cardiology: regular, normal heart rate, S1S2, no murmurs Gastrointestinal: normal, normoactive bowel sounds, other (PEG tube in place) Integumentary: other (trace edema) - Lab 10/17/18 04:51 10/17/18 04:51 Most recent lab results Calcium 7.8 mg/dL (8.4-10.2) L 10/17/18 04:51 Medications & Allergies - Medications Allergies/Adverse Reactions: Allergies No Known Allergies Allergy (Verified 07/30/18 12:37) Home Medications: Home Medications Medication Instructions Recorded Confirmed Last Taken Type Aspirin [Aspirin EC] 325 mg PO DAILY #30 tablet. 05/05/18 10/13/18 Unknown Rx Loperamide HCl [Anti-Diarrheal] 2 mg PO Q6H PRN 07/30/18 10/13/18 Unknown History Nitroglycerin [Nitrostat] 0.4 mg SL Q5M PRN 07/30/18 10/13/18 Unknown History levETIRAcetam [Keppra TAB] 500 mg PO BID #60 tablet 08/03/18 10/13/18 Unknown Rx Acetaminophen [Tylenol] 325 mg FEEDTUBE Q6HR PRN 10/13/18 10/13/18 Unknown History Carvedilol [Coreg] 25 mg FEEDTUBE BID 10/13/18 10/13/18 Unknown History Esomeprazole Magnesium [NexIUM] 40 mg PO QDAY 10/13/18 10/13/18 Unknown History HYDROcodone/APAP 5-325 [[place] 1 each FEEDTUBE Q6HR PRN 10/13/18 10/13/18 Unknown History 5/325] Insulin Glargine,Hum.rec.anlog 15 units SUB-Q HS 10/13/18 10/13/18 Unknown History [Basaglar Kwikpen U-100] Linagliptin [Tradjenta] 5 mg PO QDAY 10/13/18 10/13/18 Unknown History amLODIPine [Norvasc] 10 mg FEEDTUBE DAILY 10/13/18 10/13/18 Unknown History Active Medications: Generic Name Dose Route Start Last Admin Trade Name Freq PRN Reason Stop Dose Admin Acetaminophen 325 mg 10/13/18 20:13 10/18/18 04:15 Tylenol FEEDTUBE 325 mg Q6HR PRN Administration Pain, Moderate (4-6) Lipase/Protease/Amylase 1 each 10/14/18 15:42 10/15/18 10:19 Pancreaze 10,500 Unit FEEDTUBE 1 each PRN PRN Administration For Clogged Feeding Tube Aspirin 325 mg 10/13/18 21:00 10/18/18 10:20 Ecotrin PO 325 mg DAILY MARYLOU Administration Heparin Sodium (Porcine) 5,000 unit 10/13/18 22:00 10/18/18 10:20 Heparin SUB-Q 5,000 unit Q12HR MARYLOU Administration Levetiracetam 500 mg/ Sodium 105 mls @ 393.75 mls/hr 10/13/18 23:00 10/18/18 10:11 Chloride IV 393.75 mls/hr Q12HR MARYLOU Administration Metronidazole 500 mg in 100 mls @ 100 mls/hr 10/16/18 14:00 10/18/18 05:17 Flagyl 500 Mg/100 Ml IV 100 mls/hr Q8H MARYLOU Administration Protocol Cefepime HCl 1 gm in 100 mls @ 200 mls/hr 10/16/18 14:00 10/17/18 17:15 Maxipime/Ns 1 Gm/100 Ml IV 200 mls/hr Q24H MARYLOU Administration Protocol Insulin Human Lispro 0 unit 10/14/18 09:00 10/18/18 06:40 Humalog SUB-Q 2 unit Q6HR MARYLOU Administration Protocol Lansoprazole 30 mg 10/14/18 11:00 10/18/18 10:20 Prevacid Solutab FEEDTUBE 30 mg QDAY MARYLOU Administration Linagliptin 5 mg 10/14/18 10:00 10/18/18 10:20 Tradjenta PO 5 mg QDAY MARYLOU Administration Loperamide HCl 2 mg 10/13/18 20:13 Imodium PO Q6H PRN Diarrhea Morphine Sulfate 2 mg 10/13/18 20:03 10/15/18 08:46 Morphine IV 2 mg Q4H PRN Administration Pain, Moderate (4-6) Ondansetron HCl 4 mg 10/13/18 19:52 Zofran IV Q8H PRN Nausea And Vomiting Simple Syrup 15 ml 10/14/18 15:42 Simple Syrup FEEDTUBE PRN PRN Hypoglycemia Simple Syrup 30 ml 10/14/18 15:42 Simple Syrup FEEDTUBE PRN PRN Hypoglycemia Sodium Bicarbonate 325 mg 10/14/18 15:42 10/15/18 10:19 Sodium Bicarbonate FEEDTUBE 325 mg PRN PRN Administration For Clogged Feeding Tube Sodium Chloride 10 ml 10/13/18 22:00 10/18/18 10:18 Sodium Chloride Flush Syringe 10 Ml IV 10 ml BID MARYLOU Administration Sodium Chloride 10 ml 10/13/18 19:52 Sodium Chloride Flush Syringe 10 Ml IV PRN PRN LINE FLUSH Sodium Hypochlorite 1 applic 10/14/18 10:00 10/18/18 10:06 Dakin's Full Strength TP 1 applicatio Q12H MARYLOU Administration
--- NOTE | 2018-10-18 11:57 | Progress Note ---
Assessment and Plan 67 female with ESRD on HD and history of seizure disorder, nonverbal, admitted with hypotension, anemia and concern for sepsis from possible urinary source. Will sign off, call if questions Subjective Date of service: 10/18/18 Principal diagnosis: septic shock Interval history: Patient tolerated HD yesterday. No calls about hypotension. Pulm status remains unchanged and stable. Objective - Constitutional Vitals: Vital Signs - 12hr 10/18/18 10/18/18 10/18/18 00:00 01:00 02:00 Temperature 99.1 F Pulse Rate 75 73 72 Pulse Rate [ 72 From Monitor] Respiratory 21 17 20 Rate Blood Pressure 117/51 117/51 107/54 O2 Sat by Pulse 98 98 97 Oximetry 10/18/18 10/18/18 10/18/18 03:00 04:00 05:00 Temperature 100.0 F H Pulse Rate 73 72 70 Pulse Rate [ 73 From Monitor] Respiratory 19 18 17 Rate Blood Pressure 118/53 118/53 116/52 O2 Sat by Pulse 98 97 97 Oximetry 10/18/18 10/18/18 10/18/18 06:00 07:00 08:00 Temperature 98.8 F 99 F Pulse Rate 88 65 65 Pulse Rate [ 66 From Monitor] Respiratory 21 17 17 Rate Blood Pressure 118/47 118/47 98/44 O2 Sat by Pulse 93 97 100 Oximetry 10/18/18 10/18/18 10/18/18 09:00 10:00 11:00 Temperature Pulse Rate 65 64 62 Pulse Rate [ From Monitor] Respiratory 18 14 16 Rate Blood Pressure 107/46 107/46 102/49 O2 Sat by Pulse 100 97 99 Oximetry 10/18/18 11:49 Temperature 97.8 F Pulse Rate Pulse Rate [ From Monitor] Respiratory Rate Blood Pressure O2 Sat by Pulse Oximetry - Labs CBC & Chem 7: 10/17/18 04:51 10/17/18 04:51 Labs: Abnormal lab results 10/17/18 10/17/18 10/18/18 Range/Units 18:17 23:40 06:18 POC Glucose 188 H 144 H 176 H (70-105) 10/18/18 Range/Units 11:47 POC Glucose 153 H (70-105) Medications & Allergies - Medications Allergies/Adverse Reactions: Allergies No Known Allergies Allergy (Verified 07/30/18 12:37) Home Medications: Home Medications Medication Instructions Recorded Confirmed Last Taken Type Aspirin [Aspirin EC] 325 mg PO DAILY #30 tablet. 05/05/18 10/13/18 Unknown Rx Loperamide HCl [Anti-Diarrheal] 2 mg PO Q6H PRN 07/30/18 10/13/18 Unknown History Nitroglycerin [Nitrostat] 0.4 mg SL Q5M PRN 07/30/18 10/13/18 Unknown History levETIRAcetam [Keppra TAB] 500 mg PO BID #60 tablet 08/03/18 10/13/18 Unknown Rx Acetaminophen [Tylenol] 325 mg FEEDTUBE Q6HR PRN 10/13/18 10/13/18 Unknown History Carvedilol [Coreg] 25 mg FEEDTUBE BID 10/13/18 10/13/18 Unknown History Esomeprazole Magnesium [NexIUM] 40 mg PO QDAY 10/13/18 10/13/18 Unknown History HYDROcodone/APAP 5-325 [[place] 1 each FEEDTUBE Q6HR PRN 10/13/18 10/13/18 Unknown History 5/325] Insulin Glargine,Hum.rec.anlog 15 units SUB-Q HS 10/13/18 10/13/18 Unknown History [Basaglar Kwikpen U-100] Linagliptin [Tradjenta] 5 mg PO QDAY 10/13/18 10/13/18 Unknown History amLODIPine [Norvasc] 10 mg FEEDTUBE DAILY 10/13/18 10/13/18 Unknown History Active Medications: Generic Name Dose Route Start Last Admin Trade Name Freq PRN Reason Stop Dose Admin Acetaminophen 325 mg 10/13/18 20:13 10/18/18 04:15 Tylenol FEEDTUBE 325 mg Q6HR PRN Administration Pain, Moderate (4-6) Lipase/Protease/Amylase 1 each 10/14/18 15:42 10/15/18 10:19 Pancreaze 10,500 Unit FEEDTUBE 1 each PRN PRN Administration For Clogged Feeding Tube Aspirin 325 mg 10/13/18 21:00 10/18/18 10:20 Ecotrin PO 325 mg DAILY MARYLOU Administration Heparin Sodium (Porcine) 5,000 unit 10/13/18 22:00 10/18/18 10:20 Heparin SUB-Q 5,000 unit Q12HR MARYLOU Administration Levetiracetam 500 mg/ Sodium 105 mls @ 393.75 mls/hr 10/13/18 23:00 10/18/18 10:11 Chloride IV 393.75 mls/hr Q12HR MARYLOU Administration Metronidazole 500 mg in 100 mls @ 100 mls/hr 10/16/18 14:00 10/18/18 05:17 Flagyl 500 Mg/100 Ml IV 100 mls/hr Q8H MARYLOU Administration Protocol Cefepime HCl 1 gm in 100 mls @ 200 mls/hr 10/16/18 14:00 10/17/18 17:15 Maxipime/Ns 1 Gm/100 Ml IV 200 mls/hr Q24H MARYLOU Administration Protocol Insulin Human Lispro 0 unit 10/14/18 09:00 10/18/18 06:40 Humalog SUB-Q 2 unit Q6HR MARYLOU Administration Protocol Lansoprazole 30 mg 10/14/18 11:00 10/18/18 10:20 Prevacid Solutab FEEDTUBE 30 mg QDAY MARYLOU Administration Linagliptin 5 mg 10/14/18 10:00 10/18/18 10:20 Tradjenta PO 5 mg QDAY MARYLOU Administration Loperamide HCl 2 mg 10/13/18 20:13 Imodium PO Q6H PRN Diarrhea Morphine Sulfate 2 mg 10/13/18 20:03 10/15/18 08:46 Morphine IV 2 mg Q4H PRN Administration Pain, Moderate (4-6) Ondansetron HCl 4 mg 10/13/18 19:52 Zofran IV Q8H PRN Nausea And Vomiting Simple Syrup 15 ml 10/14/18 15:42 Simple Syrup FEEDTUBE PRN PRN Hypoglycemia Simple Syrup 30 ml 10/14/18 15:42 Simple Syrup FEEDTUBE PRN PRN Hypoglycemia Sodium Bicarbonate 325 mg 10/14/18 15:42 10/15/18 10:19 Sodium Bicarbonate FEEDTUBE 325 mg PRN PRN Administration For Clogged Feeding Tube Sodium Chloride 10 ml 10/13/18 22:00 10/18/18 10:18 Sodium Chloride Flush Syringe 10 Ml IV 10 ml BID MARYLOU Administration Sodium Chloride 10 ml 10/13/18 19:52 Sodium Chloride Flush Syringe 10 Ml IV PRN PRN LINE FLUSH Sodium Hypochlorite 1 applic 10/14/18 10:00 10/18/18 10:06 Skip's Full Strength TP 1 applicatio Q12H MARYLOU Administration
--- NOTE | 2018-10-18 12:38 | Progress Note ---
Assessment and Plan Cultures: Blood cultures 10/13/2018 no growth so far. Urine cultures 10/13/2018 no growth so far. Assessment: 67 y/o female with history of ESRD on HD (M,W,F), Diabetes, Dementia with marked cortical atrophy and ventriculomegaly, HTN, HLD, CVA with LHP, Seizure Disorder, recurrent UTIs admitted on 10/13/2018 from HD center due to Vas-Cath not working. Patient found also to be hypotensive. EMS reports patient has decubitus ulcer present. 1) Severe Sepsis with septic shock: shock has improved, WBC still elevated. Etiology most likely complicated sacral pressure skin and soft tissue infection. 2) Extensive complicated sacral pressure skin and soft tissue infection? necrotizing infection ? abscess. S/p bedside debridement. No wound cultures available. Treat empirically for 2 weeks with abx. Prolonged abx futile. Prognosis remains poor. 3) Acute encephalopathy: from severe sepsis and hyponatremia. 4) ESRD: renally adjusted all antibiotics. 5) Hyponatremia: improved. 6) UTI: history of recurrent UTIs, previous E faecium UTI. Difficult to interpret in ESRD patient. Recommendations: - family declined hospice - continue wound care, offloading which is the mainstay of therapy - prolonged antibiotics are going to be futile, complete total 2 weeks of IV cefepime renally adjusted, Flagyl and Vancomycin with PK consult - prognosis remains poor Dr. Dayne navas tomorrow. Cedric Mejia MD [facility] C: [phone] O: [phone] F: [phone] Subjective Date of service: 10/18/18 Principal diagnosis: septic shock Interval history: Low grade temperature. Otherwise stable. History and ROS limited due to non verbal status. Discussed wt RN. Objective - Exam Narrative Exam: Physical Exam: Constitutional: non verbal, sleeping. Head, Ears, Nose: Normocephalic, atraumatic. External ears, nose normal Eyes: Conjunctivae/corneas clear. No icterus. No ptosis. Neck: Supple, no meningeal signs Oral: unable to examine Cardiovascular: S1, S2 normal. Respiratory: Good air entry, clear to auscultation bilaterally GI: Soft, non-tender; bowel sounds normal. No peritoneal signs. G-tube Musculoskeletal: No pedal edema, no cyanosis. right chest HD cath + Skin: Large sacral decubitus ulcer with dressing, foul smell +. Hem/Lymphatic: No palpable cervical or supraclavicular nodes. No lymphangitis Psych: no agitation Neurological: non verbal. - Constitutional Vitals: Vital Signs Temp Pulse Resp BP Pulse Ox 97.8 F 63 11 L 99/49 96 10/18/18 12:00 10/18/18 12:00 10/18/18 12:00 10/18/18 12:00 10/18/18 12:00 Temperature -Last 24 Hours Temperature 97.8 F Temperature 97.8 F Temperature 99 F Temperature 98.8 F Temperature 100.0 F Temperature 99.1 F Temperature 99.1 F Temperature 98.9 F Temperature 98.7 F Temperature 98.9 F Temperature 97.2 F - Labs CBC & Chem 7: 10/17/18 04:51 10/17/18 04:51 Labs: Abnormal lab results 10/17/18 10/17/18 10/18/18 Range/Units 18:17 23:40 06:18 POC Glucose 188 H 144 H 176 H (70-105) 10/18/18 Range/Units 11:47 POC Glucose 153 H (70-105)
--- NOTE | 2018-10-18 13:10 | Progress Note ---
Assessment and Plan Assessment and plan: 67-year-old femalewith pmh of seizure disorder IDDM HTN Gerd sent from dialysis due to Vas-Cath not working.Patient found to be hypotensive. EMS reports patient has decubitus ulcer present. Patient is nonverbal.No fever or chills.Patient from [place] .Patient not DNR.No family at bedside. Past Medical History ; htn, multiple cva, dm, esrd on hd mwf, seizure, dementia septic shock secondary to infected decubitus ulcer, POA Severe sepsis uti ruled out, u cx neg cont abx per ID, was initially treated with pressors, has been weaned off pressors Status post debridement by general surgery- -per ID, "prolonged antibiotics are going to be futile, complete total 2 weeks of IV cefepime renally adjusted, Flagyl and Vancomycin with PK consult" cont wound care Anemia sp 2 units of prbc, aocd and anemia due to sepsis Dialysis catheter clot or failure 10/14; Complete replacement of tunneled centrally inserted dialysis catheter via same venous access site, fluoroscopic supervision interpretation Vascular surgery input appreciated End stage renal disease - Nephrology input appreciated, continue dialysis Hypokalemia; replaced Hyponatremia; improved with IV fluids IDDM (insulin dependent diabetes mellitus) - SSI coverage - hemoglobin A1c 6.9 Seizure disorder - continue IV keppra HTN (hypertension), antihypertensives on hold PEG tube malfunction, resolved GI input appreciated, continue tube feeding DVT prophylaxis; heparin Advanced health planning was done by Dr. Reid, family was not interested in hospice care for comfort. They want to continue aggressive management History Interval history: The patient remains confused, nonverbal, opens eyes, noncommunicative No vomiting, no seizures, no diarrhea, no evidence of discomfort Hospitalist Physical - Physical exam Narrative exam: Not in cardiopulmonary distress. Vital signs as documented. Head exam is unremarkable. No scleral icterus . Neck is without jugular venous distension, thyromegaly, or carotid bruits. Lungs are clear to auscultation. Cardiac exam reveals regular rate and Rhythm. Abdominal exam reveals normal bowel sounds. Extremities are contracted. 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 - Constitutional Vitals: Temp Pulse Resp BP Pulse Ox 97.8 F 63 11 L 99/49 96 10/18/18 12:00 10/18/18 12:00 10/18/18 12:10/18/18 12:00 10/18/18 12:00 General appearance: Present: no acute distress, other (nonverbal) Results - Labs CBC & Chem 7: 10/17/18 04:51 10/17/18 04:51 Labs: Laboratory Last Values WBC 19.5 K/mm3 (4.5-11.0) H 10/17/18 04:51 RBC 2.97 M/mm3 (3.65-5.03) L 10/17/18 04:51 Hgb 8.2 gm/dl (10.1-14.3) L 10/17/18 04:51 Hct 25.0 % (30.3-42.9) L 10/17/18 04:51 MCV 84 fl (79-97) 10/17/18 04:51 MCH 28 pg (28-32) 10/17/18 04:51 MCHC 33 % (30-34) 10/17/18 04:51 RDW 17.8 % (13.2-15.2) H 10/17/18 04:51 Plt Count 377 K/mm3 (140-440) 10/17/18 04:51 Add Manual Diff Complete 10/17/18 04:51 Total Counted 100 10/17/18 04:51 Seg Neutrophils % [employer] 10/17/18 04:51 Seg Neuts % (Manual) 93.0 % (40.0-70.0) H 10/17/18 04:51 3.0 % 10/17/18 04:51 3.0 % (13.4-35.0) L 10/17/18 04:51 Reactive Lymphs % (Man) 0 % 10/17/18 04:51 1.0 % (0.0-7.3) 10/17/18 04:51 0 % (0.0-4.3) 10/17/18 04:51 0 % (0.0-1.8) 10/17/18 04:51 0 % 10/17/18 04:51 0 % 10/17/18 04:51 0 % 10/17/18 04:51 0 % 10/17/18 04:51 Nucleated RBC % Not Reportable 10/17/18 04:51 Seg Neutrophils # Man 18.1 K/mm3 (1.8-7.7) H 10/17/18 04:51 Band Neutrophils # 0.6 K/mm3 10/17/18 04:51 0.6 K/mm3 (1.2-5.4) L 10/17/18 04:51 Abs React Lymphs (Man) 0.0 K/mm3 10/17/18 04:51 0.2 K/mm3 (0.0-0.8) 10/17/18 04:51 0.0 K/mm3 (0.0-0.4) 10/17/18 04:51 0.0 K/mm3 (0.0-0.1) 10/17/18 04:51 0.0 K/mm3 10/17/18 04:51 0.0 K/mm3 10/17/18 04:51 0.0 K/mm3 10/17/18 04:51 Blast Cells # 0.0 K/mm3 10/17/18 04:51 WBC Morphology Not Reportable 10/17/18 04:51 Hypersegmented Neuts Not Reportable 10/17/18 04:51 Hyposegmented Neuts Not Reportable 10/17/18 04:51 Hypogranular Neuts Not Reportable 10/17/18 04:51 Not Reportable 10/17/18 04:51 Not Reportable 10/17/18 04:51 Not Reportable 10/17/18 04:51 Not Reportable 10/17/18 04:51 Not Reportable 10/17/18 04:51 Not Reportable 10/17/18 04:51 Appears normal 10/17/18 04:51 Not Reportable 10/17/18 04:51 Plt Clumps, EDTA Not Reportable 10/17/18 04:51 Not Reportable 10/17/18 04:51 Not Reportable 10/17/18 04:51 Not Reportable 10/17/18 04:51 Plt Morphology Comment Not Reportable 10/17/18 04:51 RBC Morphology Not Reportable 10/17/18 04:51 Dimorphic RBCs Not Reportable 10/17/18 04:51 Not Reportable 10/17/18 04:51 1+ 10/17/18 04:51 Not Reportable 10/17/18 04:51 1+ 10/17/18 04:51 Not Reportable 10/17/18 04:51 Not Reportable 10/17/18 04:51 Not Reportable 10/17/18 04:51 Not Reportable 10/17/18 04:51 Not Reportable 10/17/18 04:51 Not Reportable 10/17/18 04:51 Not Reportable 10/17/18 04:51 Few 10/17/18 04:51 Not Reportable 10/17/18 04:51 Not Reportable 10/17/18 04:51 Not Reportable 10/17/18 04:51 Not Reportable 10/17/18 04:51 Not Reportable 10/17/18 04:51 Not Reportable 10/17/18 04:51 Not Reportable 10/17/18 04:51 Acanthocytes (Spur) Not Reportable 10/17/18 04:51 Rouleaux Not Reportable 10/17/18 04:51 Not Reportable 10/17/18 04:51 Not Reportable 10/17/18 04:51 Not Reportable 10/17/18 04:51 Not Reportable 10/17/18 04:51 Hem Pathologist Commnt No 10/17/18 04:51 Sodium 137 mmol/L (137-145) 10/17/18 04:51 Potassium 3.5 mmol/L (3.6-5.0) L 10/17/18 04:51 Chloride 100.4 mmol/L (98-107) 10/17/18 04:51 Carbon Dioxide 20 mmol/L (22-30) L 10/17/18 04:51 20 mmol/L 10/17/18 04:51 BUN 33 mg/dL (7-17) H 10/17/18 04:51 1.8 mg/dL (0.7-1.2) H 10/17/18 04:51 Estimated GFR 34 ml/min 10/17/18 04:51 18 % 10/17/18 04:51 Glucose 150 mg/dL (65-100) H 10/17/18 04:51 POC Glucose 153 (70-105) H 10/18/18 11:47 6.9 % (4-6) H 10/13/18 13:28 288 Mosm/kg 10/14/18 07:30 Lactic Acid 1.60 mmol/L (0.7-2.0) 10/13/18 19:44 Calcium 7.8 mg/dL (8.4-10.2) L 10/17/18 04:51 0.30 mg/dL (0.1-1.2) 10/15/18 08:00 AST 26 units/L (5-40) 10/15/18 08:00 ALT 36 units/L (7-56) 10/15/18 08:00 96 units/L (35-129) 10/15/18 08:00 26.40 mg/dL (0.00-1.30) H 10/15/18 08:00 5.1 g/dL (6.3-8.2) L 10/15/18 08:00 1.4 g/dL (3.9-5) L 10/15/18 08:00 0.4 % 10/15/18 08:00 Jennifer (Yellow) 10/13/18 17:43 Cloudy (Clear) 10/13/18 17:43 5.0 (5.0-7.0) 10/13/18 17:43 Ur Specific Henderson 1.019 (1.003-1.030) 10/13/18 17:43 >500 mg/dL (Negative) 10/13/18 17:43 150 mg/dL (Negative) 10/13/18 17:43 Tr mg/dL (Negative) 10/13/18 17:43 Sm (Negative) 10/13/18 17:43 Neg (Negative) 10/13/18 17:43 Neg (Negative) 10/13/18 17:43 < 2.0 mg/dL (<2.0) 10/13/18 17:43 Ur Leukocyte Esterase Sm (Negative) 10/13/18 17:43 36.0 /HPF (0.0-6.0) H 10/13/18 17:43 13.0 /HPF (0.0-6.0) 10/13/18 17:43 U Epithel Cells (Auto) 81.0 /HPF (0-13.0) H 10/13/18 17:43 Random Vancomycin 9.4 ug/mL (0-40.0) 10/15/18 06:20 Blood Type A POSITIVE 10/13/18 14:50 Antibody Screen Negative 10/13/18 14:50 Crossmatch See Detail 10/13/18 14:50 Active Medications - Current Medications Current Medications: Generic Name Dose Route Start Last Admin Trade Name Freq PRN Reason Stop Dose Admin Acetaminophen 325 mg 10/13/18 20:13 10/18/18 04:15 Tylenol FEEDTUBE 325 mg Q6HR PRN Administration Pain, Moderate (4-6) Lipase/Protease/Amylase 1 each 10/14/18 15:42 10/15/18 10:19 Pancreazjane Jiang 10,500 Unit FEEDTUBE 1 each PRN PRN Administration For Clogged Feeding Tube Aspirin 325 mg 10/13/18 21:00 10/18/18 10:20 Ecotrin PO 325 mg DAILY MARYLOU Administration Heparin Sodium (Porcine) 5,000 unit 10/13/18 22:00 10/18/18 10:20 Heparin SUB-Q 5,000 unit Q12HR MARYLOU Administration Levetiracetam 500 mg/ Sodium 105 mls @ 393.75 mls/hr 10/13/18 23:00 10/18/18 10:11 Chloride IV 393.75 mls/hr Q12HR MARYLOU Administration Metronidazole 500 mg in 100 mls @ 100 mls/hr 10/16/18 14:00 10/18/18 05:17 Flagyl 500 Mg/100 Ml IV 100 mls/hr Q8H MARYLOU Administration Protocol Cefepime HCl 1 gm in 100 mls @ 200 mls/hr 10/16/18 14:00 10/17/18 17:15 Maxipime/Ns 1 Gm/100 Ml IV 200 mls/hr Q24H MARYLOU Administration Protocol Insulin Human Lispro 0 unit 10/14/18 09:00 10/18/18 12:20 Humalog SUB-Q 2 unit Q6HR MARYLOU Administration Protocol Lansoprazole 30 mg 10/14/18 11:00 10/18/18 10:20 Prevacid Solutab FEEDTUBE 30 mg QDAY MARYLOU Administration Linagliptin 5 mg 10/14/18 10:00 10/18/18 10:20 Tradjenta PO 5 mg QDAY MARYLOU Administration Loperamide HCl 2 mg 10/13/18 20:13 Imodium PO Q6H PRN Diarrhea Morphine Sulfate 2 mg 10/13/18 20:03 10/15/18 08:46 Morphine IV 2 mg Q4H PRN Administration Pain, Moderate (4-6) Ondansetron HCl 4 mg 10/13/18 19:52 Zofran IV Q8H PRN Nausea And Vomiting Simple Syrup 15 ml 10/14/18 15:42 Simple Syrup FEEDTUBE PRN PRN Hypoglycemia Simple Syrup 30 ml 10/14/18 15:42 Simple Syrup FEEDTUBE PRN PRN Hypoglycemia Sodium Bicarbonate 325 mg 10/14/18 15:42 10/15/18 10:19 Sodium Bicarbonate FEEDTUBE 325 mg PRN PRN Administration For Clogged Feeding Tube Sodium Chloride 10 ml 10/13/18 22:00 10/18/18 10:18 Sodium Chloride Flush Syringe 10 Ml IV 10 ml BID MARYLOU Administration Sodium Chloride 10 ml 10/13/18 19:52 Sodium Chloride Flush Syringe 10 Ml IV PRN PRN LINE FLUSH Sodium Hypochlorite 1 applic 10/14/18 10:00 10/18/18 10:06 Dakin's Full Strength TP 1 applicatio Q12H MARYLOU Administration Nutrition/Malnutrition Assess - Dietary Evaluation Nutrition/Malnutrition Findings: Nutrition Notes Start: 10/14/18 15:30 Freq: Status: Active Protocol: Document 10/16/18 16:12 SHERRY (Rec: 10/16/18 16:18 MECORINA SRW- [email or web address]) Nutrition Notes Initial or Follow up Reassessment Current Diagnosis CKD (stage V CKD),Diabetes, Sepsis,Hypertension Other Pertinent Diagnosis Infected decubitus ulcer vs UTI Current Diet TF - Nepro at 30ml/hr Labs/Tests Na 134 BUN 26 Cr 1.4 Pertinent Medications Reviewed Height 5 ft Weight 61.15 kg [place] Body Weight (kg) 45.45 BMI 26.3 Weight change and time frame Wt change noted Subjective/Other Information Observed no TF infusing at time of visit (12:23). Per RN , PEG tube clogged with multiple failed attempts to de -clot. MD consulted to address clogged PEG tube. Burn Absent Trauma Absent #1 Nutrition Diagnosis Inadequate oral intake Diagnosis Progress(for reassessment Continues documentation) Is patient on ventilator? No Is Patient Ambulatory and/or Out of Bed No REE-([facility]-confined to bed) [phone] Calculation Used for Recommendations [facility] Additional Notes Pro needs 1.2-1.4g/k-86g/ day Fluid needs 1-1.5L/day Nutrition Intervention Nutrition Support: Resume Nepro at 30ml/hr when PEG tube unclogged. Provide 150ml water flush q4h. Kcal 1,296 Protein (gm) 58 Fluid (mL) 523 Goal #1 Resume TF Goal #2 TF to meet at least 75% energy and pro needs Follow-Up By: 10/19/18 Additional Comments F/U: TF restart, tolerance
[2018-10-18] MEDS: MAXIPIME/NS 1 GM/100 ML 1 GM/100 ML BAG IV SCH (13:58)
[2018-10-19] MEDS: HumaLOG SUB-Q SCH ×4 (00:08→19:10)
[2018-10-19] MEDS: FLAGYL 500 MG/100 ML 500 MG/100 ML BAG IV SCH ×3 (05:39→21:47)
[2018-10-19] MEDS: DAKIN'S FULL STRENGTH TP SCH ×2 (09:19→21:47)
[2018-10-19] MEDS: ECOTRIN PO SCH (09:21)
[2018-10-19] MEDS: HEPARIN SUB-Q SCH ×2 (09:22→21:46)
[2018-10-19] MEDS: PREVACID SOLUTAB FEEDTUBE SCH (09:22)
[2018-10-19] MEDS: TRADJENTA PO SCH (09:23)
[2018-10-19] MEDS: SODIUM CHLORIDE FLUSH SYRINGE 10 ML IV SCH ×2 (09:23→21:47)
[2018-10-19] MEDS: KEPPRA 500 MG in NACL 0.9% 100 ML IV SCH ×2 (10:07→21:48)
--- NOTE | 2018-10-19 11:40 | Progress Note ---
Assessment and Plan Impression * End-stage renal disease on maintenance hemodialysis * Sepsis * Sacral decubitus * Dialysis catheter malfunction * Diabetes Recommendations * Continue dialysis on TTS schedule as outpatient * Surgical notes appreciated * Continue local wound care and antibiotics * Adjust diet and meds for ESRD state * Avoid nephrotoxins * Overall prognosis appears to be poor Subjective Date of service: 10/19/18 Principal diagnosis: septic shock Interval history: Patient is comfortable today. Nonverbal. Not answering any questions. Objective - Vital Signs Vital signs: Vital Signs - 12hr 10/18/18 10/19/18 10/19/18 23:46 00:00 01:00 Temperature Pulse Rate 59 L 60 60 Pulse Rate [ From Monitor] Respiratory 16 16 17 Rate Blood Pressure 101/47 107/51 107/51 O2 Sat by Pulse 98 99 99 Oximetry 10/19/18 10/19/18 10/19/18 02:00 03:00 03:45 Temperature 98.9 F Pulse Rate 61 61 Pulse Rate [ From Monitor] Respiratory 17 15 Rate Blood Pressure 103/45 101/49 O2 Sat by Pulse 99 99 Oximetry 10/19/18 10/19/18 10/19/18 04:00 05:00 05:10 Temperature 98.8 F Pulse Rate 61 61 Pulse Rate [ 61 From Monitor] Respiratory 17 21 Rate Blood Pressure 110/47 119/52 O2 Sat by Pulse 99 97 Oximetry 10/19/18 10/19/18 10/19/18 06:00 07:00 08:00 Temperature 97.7 F Pulse Rate 62 62 62 Pulse Rate [ 59 L From Monitor] Respiratory 19 18 20 Rate Blood Pressure 124/61 124/61 118/52 O2 Sat by Pulse 98 98 98 Oximetry 10/19/18 10/19/18 09:00 10:00 Temperature Pulse Rate 59 L 60 Pulse Rate [ From Monitor] Respiratory 16 12 Rate Blood Pressure 115/56 117/53 O2 Sat by Pulse 98 98 Oximetry - General Appearance General appearance: chronically ill, frail EENT: PERRL, mucous membranes moist Neck: no JVD, no thyromegaly, no carotid bruit, supple, other (right IJ PermCath in place) Respiratory: Present: Clear to Ascultation Cardiology: regular, normal heart rate Gastrointestinal: normal, normoactive bowel sounds, other (PICC tube in place) Integumentary: other (trace edema) - Lab 10/17/18 04:51 10/17/18 04:51 Most recent lab results Calcium 7.8 mg/dL (8.4-10.2) L 10/17/18 04:51 Medications & Allergies - Medications Allergies/Adverse Reactions: Allergies No Known Allergies Allergy (Verified 07/30/18 12:37) Home Medications: Home Medications Medication Instructions Recorded Confirmed Last Taken Type Aspirin [Aspirin EC] 325 mg PO DAILY #30 tablet. 05/05/18 10/13/18 Unknown Rx Loperamide HCl [Anti-Diarrheal] 2 mg PO Q6H PRN 07/30/18 10/13/18 Unknown History Nitroglycerin [Nitrostat] 0.4 mg SL Q5M PRN 07/30/18 10/13/18 Unknown History levETIRAcetam [Keppra TAB] 500 mg PO BID #60 tablet 08/03/18 10/13/18 Unknown Rx Acetaminophen [Tylenol] 325 mg FEEDTUBE Q6HR PRN 10/13/18 10/13/18 Unknown History Carvedilol [Coreg] 25 mg FEEDTUBE BID 10/13/18 10/13/18 Unknown History Esomeprazole Magnesium [NexIUM] 40 mg PO QDAY 10/13/18 10/13/18 Unknown History HYDROcodone/APAP 5-325 [Satartia 1 each FEEDTUBE Q6HR PRN 10/13/18 10/13/18 Unknown History 5/325] Insulin Glargine,Hum.rec.anlog 15 units SUB-Q HS 10/13/18 10/13/18 Unknown History [Basaglar Kwikpen U-100] Linagliptin [Tradjenta] 5 mg PO QDAY 10/13/18 10/13/18 Unknown History amLODIPine [Norvasc] 10 mg FEEDTUBE DAILY 10/13/18 10/13/18 Unknown History Active Medications: Generic Name Dose Route Start Last Admin Trade Name Freq PRN Reason Stop Dose Admin Acetaminophen 325 mg 10/13/18 20:13 10/18/18 04:15 Tylenol FEEDTUBE 325 mg Q6HR PRN Administration Pain, Moderate (4-6) Lipase/Protease/Amylase 1 each 10/14/18 15:42 10/15/18 10:19 Pancrenereida Jiang 10,500 Unit FEEDTUBE 1 each PRN PRN Administration For Clogged Feeding Tube Aspirin 325 mg 10/13/18 21:00 10/19/18 09:21 Ecotrin PO 325 mg DAILY MARYLOU Administration Heparin Sodium (Porcine) 5,000 unit 10/13/18 22:00 10/19/18 09:22 Heparin SUB-Q 5,000 unit Q12HR MARYLOU Administration Levetiracetam 500 mg/ Sodium 105 mls @ 393.75 mls/hr 10/13/18 23:00 10/19/18 10:07 Chloride IV 393.75 mls/hr Q12HR MARYLOU Administration Metronidazole 500 mg in 100 mls @ 100 mls/hr 10/16/18 14:00 10/19/18 05:39 Flagyl 500 Mg/100 Ml IV 100 mls/hr Q8H MARYLOU Administration Protocol Cefepime HCl 1 gm in 100 mls @ 200 mls/hr 10/16/18 14:00 10/18/18 13:58 Maxipime/Ns 1 Gm/100 Ml IV 200 mls/hr Q24H MARYLOU Administration Protocol Insulin Human Lispro 0 unit 10/14/18 09:00 10/19/18 05:43 Humalog SUB-Q Not Given Q6HR [facility] Protocol Lansoprazole 30 mg 10/14/18 11:00 10/19/18 09:22 Prevacid Solutab FEEDTUBE 30 mg QDAY MARYLOU Administration Linagliptin 5 mg 10/14/18 10:00 10/19/18 09:23 Tradjenta PO 5 mg QDAY MARYLOU Administration Loperamide HCl 2 mg 10/13/18 20:13 Imodium PO Q6H PRN Diarrhea Morphine Sulfate 2 mg 10/13/18 20:03 10/15/18 08:46 Morphine IV 2 mg Q4H PRN Administration Pain, Moderate (4-6) Ondansetron HCl 4 mg 10/13/18 19:52 Zofran IV Q8H PRN Nausea And Vomiting Simple Syrup 15 ml 10/14/18 15:42 Simple Syrup FEEDTUBE PRN PRN Hypoglycemia Simple Syrup 30 ml 10/14/18 15:42 Simple Syrup FEEDTUBE PRN PRN Hypoglycemia Sodium Bicarbonate 325 mg 10/14/18 15:42 10/15/18 10:19 Sodium Bicarbonate FEEDTUBE 325 mg PRN PRN Administration For Clogged Feeding Tube Sodium Chloride 10 ml 10/13/18 22:00 10/19/18 09:23 Sodium Chloride Flush Syringe 10 Ml IV 10 ml BID MARYLOU Administration Sodium Chloride 10 ml 10/13/18 19:52 Sodium Chloride Flush Syringe 10 Ml IV PRN PRN LINE FLUSH Sodium Hypochlorite 1 applic 10/14/18 10:00 10/19/18 09:19 Dakin's Full Strength TP 1 applicatio Q12H MARYLOU Administration
--- NOTE | 2018-10-19 12:28 | Event Note ---
Date: 10/19/18 Spoke with patient's sister Ms. Canela after speaking with psychiatric social worker supervisor Orin. I once again explained my recommendation for hospice as the patient has an extensive wound which has a very poor chance of healing. The family's main concern is that if the patient goes to hospice, the dialysis will be discontinued and I confirmed this with psychiatric social worker supervisor. Ms. Canela asked me if the patient was in pain. I explained that the patient did moan and display discomfort upon being turned and wound being manipulated. I explained that the combination of severe malnutrition, comorbid conditions, pressure from being bedbound, and infection has significantly worsened the wound and the wound will likely continue to get worse. If they wanted to pursue aggressive measures, we would need to debride the wound in the OR and perform a diverting colostomy. She was very appreciative of the information and states she will speak with her nephew, the patient's son William Rodriguez. They are not ready to make any decisions at this time and need a few more days.
[2018-10-19] MEDS: MAXIPIME/NS 1 GM/100 ML 1 GM/100 ML BAG IV SCH (13:10)
--- NOTE | 2018-10-19 14:17 | Progress Note ---
Assessment and Plan Assessment and plan: 67-year-old femalewith pmh of seizure disorder IDDM HTN Gerd sent from dialysis due to Vas-Cath not working.Patient found to be hypotensive. EMS reports patient has decubitus ulcer present. Patient is nonverbal.No fever or chills.Patient from [place]--[facility] .Patient not DNR.No family at bedside. Past Medical History ; htn, multiple cva, dm, esrd on hd mwf, seizure, dementia septic shock secondary to infected decubitus ulcer, POA Severe sepsis uti ruled out, u cx neg cont abx per ID, was initially treated with pressors, has been weaned off pressors Status post debridement by general surgery- -per ID, "prolonged antibiotics are going to be futile, complete total 2 weeks of IV cefepime renally adjusted, Flagyl and Vancomycin with PK consult" cont wound care Anemia sp 2 units of prbc, aocd and anemia due to sepsis Dialysis catheter clot or failure 10/14; Complete replacement of tunneled centrally inserted dialysis catheter via same venous access site, fluoroscopic supervision interpretation Vascular surgery input appreciated End stage renal disease - Nephrology input appreciated, continue dialysis Hypokalemia; replaced Hyponatremia; improved with IV fluids IDDM (insulin dependent diabetes mellitus) - SSI coverage - hemoglobin A1c 6.9 Seizure disorder - continue IV keppra HTN (hypertension), antihypertensives on hold PEG tube malfunction, resolved GI input appreciated, continue tube feeding DVT prophylaxis; heparin Advanced health planning was done by Dr. Reid, family was not interested in hospice care for comfort. They want to continue aggressive management History Interval history: The patient remains confused, nonverbal, opens eyes, noncommunicative No vomiting, no seizures, no diarrhea, no evidence of discomfort Hospitalist Physical - Physical exam Narrative exam: Not in cardiopulmonary distress. Vital signs as documented. Head exam is unremarkable. No scleral icterus . Neck is without jugular venous distension, thyromegaly, or carotid bruits. Lungs are clear to auscultation. Cardiac exam reveals regular rate and Rhythm. Abdominal exam reveals normal bowel sounds. Extremities are contracted. STUNNER AND SHACKLER: Noncommunicative, contracted extremities. - Constitutional Vitals: Temp Pulse Resp BP Pulse Ox 97.9 F 61 14 119/54 95 10/19/18 12:00 10/19/18 12:07 10/19/18 12:07 10/19/18 12:07 10/19/18 12:00 General appearance: Present: no acute distress, other (nonverbal) Results - Labs CBC & Chem 7: 10/17/18 04:51 10/17/18 04:51 Labs: Laboratory Last Values WBC 19.5 K/mm3 (4.5-11.0) H 10/17/18 04:51 RBC 2.97 M/mm3 (3.65-5.03) L 10/17/18 04:51 Hgb 8.2 gm/dl (10.1-14.3) L 10/17/18 04:51 Hct 25.0 % (30.3-42.9) L 10/17/18 04:51 MCV 84 fl (79-97) 10/17/18 04:51 MCH 28 pg (28-32) 10/17/18 04:51 MCHC 33 % (30-34) 10/17/18 04:51 RDW 17.8 % (13.2-15.2) H 10/17/18 04:51 Plt Count 377 K/mm3 (140-440) 10/17/18 04:51 Add Manual Diff Complete 10/17/18 04:51 Total Counted 100 10/17/18 04:51 Seg Neutrophils % Wafer Line Worker 10/17/18 04:51 Seg Neuts % (Manual) 93.0 % (40.0-70.0) H 10/17/18 04:51 3.0 % 10/17/18 04:51 3.0 % (13.4-35.0) L 10/17/18 04:51 Reactive Lymphs % (Man) 0 % 10/17/18 04:51 1.0 % (0.0-7.3) 10/17/18 04:51 0 % (0.0-4.3) 10/17/18 04:51 0 % (0.0-1.8) 10/17/18 04:51 0 % 10/17/18 04:51 0 % 10/17/18 04:51 0 % 10/17/18 04:51 0 % 10/17/18 04:51 Nucleated RBC % Not Reportable 10/17/18 04:51 Seg Neutrophils # Man 18.1 K/mm3 (1.8-7.7) H 10/17/18 04:51 Band Neutrophils # 0.6 K/mm3 10/17/18 04:51 0.6 K/mm3 (1.2-5.4) L 10/17/18 04:51 Abs React Lymphs (Man) 0.0 K/mm3 10/17/18 04:51 0.2 K/mm3 (0.0-0.8) 10/17/18 04:51 0.0 K/mm3 (0.0-0.4) 10/17/18 04:51 0.0 K/mm3 (0.0-0.1) 10/17/18 04:51 0.0 K/mm3 10/17/18 04:51 0.0 K/mm3 10/17/18 04:51 0.0 K/mm3 10/17/18 04:51 Blast Cells # 0.0 K/mm3 10/17/18 04:51 WBC Morphology Not Reportable 10/17/18 04:51 Hypersegmented Neuts Not Reportable 10/17/18 04:51 Hyposegmented Neuts Not Reportable 10/17/18 04:51 Hypogranular Neuts Not Reportable 10/17/18 04:51 Not Reportable 10/17/18 04:51 Not Reportable 10/17/18 04:51 Not Reportable 10/17/18 04:51 Not Reportable 10/17/18 04:51 Not Reportable 10/17/18 04:51 Not Reportable 10/17/18 04:51 Appears normal 10/17/18 04:51 Not Reportable 10/17/18 04:51 Plt Clumps, EDTA Not Reportable 10/17/18 04:51 Not Reportable 10/17/18 04:51 Not Reportable 10/17/18 04:51 Not Reportable 10/17/18 04:51 Plt Morphology Comment Not Reportable 10/17/18 04:51 RBC Morphology Not Reportable 10/17/18 04:51 Dimorphic RBCs Not Reportable 10/17/18 04:51 Not Reportable 10/17/18 04:51 1+ 10/17/18 04:51 Not Reportable 10/17/18 04:51 1+ 10/17/18 04:51 Not Reportable 10/17/18 04:51 Not Reportable 10/17/18 04:51 Not Reportable 10/17/18 04:51 Not Reportable 10/17/18 04:51 Not Reportable 10/17/18 04:51 Not Reportable 10/17/18 04:51 Not Reportable 10/17/18 04:51 Few 10/17/18 04:51 Not Reportable 10/17/18 04:51 Not Reportable 10/17/18 04:51 Not Reportable 10/17/18 04:51 Not Reportable 10/17/18 04:51 Not Reportable 10/17/18 04:51 Not Reportable 10/17/18 04:51 Not Reportable 10/17/18 04:51 Acanthocytes (Spur) Not Reportable 10/17/18 04:51 Rouleaux Not Reportable 10/17/18 04:51 Not Reportable 10/17/18 04:51 Not Reportable 10/17/18 04:51 Not Reportable 10/17/18 04:51 Not Reportable 10/17/18 04:51 Hem Pathologist Commnt No 10/17/18 04:51 Sodium 137 mmol/L (137-145) 10/17/18 04:51 Potassium 3.5 mmol/L (3.6-5.0) L 10/17/18 04:51 Chloride 100.4 mmol/L (98-107) 10/17/18 04:51 Carbon Dioxide 20 mmol/L (22-30) L 10/17/18 04:51 20 mmol/L 10/17/18 04:51 BUN 33 mg/dL (7-17) H 10/17/18 04:51 1.8 mg/dL (0.7-1.2) H 10/17/18 04:51 Estimated GFR 34 ml/min 10/17/18 04:51 18 % 10/17/18 04:51 Glucose 150 mg/dL (65-100) H 10/17/18 04:51 POC Glucose 125 (70-105) H 10/19/18 12:10 6.9 % (4-6) H 10/13/18 13:28 288 Mosm/kg 10/14/18 07:30 Lactic Acid 1.60 mmol/L (0.7-2.0) 10/13/18 19:44 Calcium 7.8 mg/dL (8.4-10.2) L 10/17/18 04:51 0.30 mg/dL (0.1-1.2) 10/15/18 08:00 AST 26 units/L (5-40) 10/15/18 08:00 ALT 36 units/L (7-56) 10/15/18 08:00 96 units/L (35-129) 10/15/18 08:00 26.40 mg/dL (0.00-1.30) H 10/15/18 08:00 5.1 g/dL (6.3-8.2) L 10/15/18 08:00 1.4 g/dL (3.9-5) L 10/15/18 08:00 0.4 % 10/15/18 08:00 Jennifer (Yellow) 10/13/18 17:43 Cloudy (Clear) 10/13/18 17:43 5.0 (5.0-7.0) 10/13/18 17:43 Ur Specific [place] 1.019 (1.003-1.030) 10/13/18 17:43 >500 mg/dL (Negative) 10/13/18 17:43 150 mg/dL (Negative) 10/13/18 17:43 Tr mg/dL (Negative) 10/13/18 17:43 Sm (Negative) 10/13/18 17:43 Neg (Negative) 10/13/18 17:43 Neg (Negative) 10/13/18 17:43 < 2.0 mg/dL (<2.0) 10/13/18 17:43 Ur Leukocyte Esterase Sm (Negative) 10/13/18 17:43 36.0 /HPF (0.0-6.0) H 10/13/18 17:43 13.0 /HPF (0.0-6.0) 10/13/18 17:43 U Epithel Cells (Auto) 81.0 /HPF (0-13.0) H 10/13/18 17:43 Random Vancomycin 9.4 ug/mL (0-40.0) 10/15/18 06:20 Blood Type A POSITIVE 10/13/18 14:50 Antibody Screen Negative 10/13/18 14:50 Crossmatch See Detail 10/13/18 14:50 Active Medications - Current Medications Current Medications: Generic Name Dose Route Start Last Admin Trade Name Freq PRN Reason Stop Dose Admin Acetaminophen 325 mg 10/13/18 20:13 10/18/18 04:15 Tylenol FEEDTUBE 325 mg Q6HR PRN Administration Pain, Moderate (4-6) Lipase/Protease/Amylase 1 each 10/14/18 15:42 10/15/18 10:19 Pancrenereida Jiang 10,500 Unit FEEDTUBE 1 each PRN PRN Administration For Clogged Feeding Tube Aspirin 325 mg 10/13/18 21:00 10/19/18 09:21 Ecotrin PO 325 mg DAILY MARYLOU Administration Heparin Sodium (Porcine) 5,000 unit 10/13/18 22:00 10/19/18 09:22 Heparin SUB-Q 5,000 unit Q12HR MARYLOU Administration Levetiracetam 500 mg/ Sodium 105 mls @ 393.75 mls/hr 10/13/18 23:00 10/19/18 10:07 Chloride IV 393.75 mls/hr Q12HR MARYLOU Administration Metronidazole 500 mg in 100 mls @ 100 mls/hr 10/16/18 14:00 10/19/18 13:10 Flagyl 500 Mg/100 Ml IV 100 mls/hr Q8H MARYLOU Administration Protocol Cefepime HCl 1 gm in 100 mls @ 200 mls/hr 10/16/18 14:00 10/19/18 13:10 Maxipime/Ns 1 Gm/100 Ml IV 200 mls/hr Q24H MARYLOU Administration Protocol Insulin Human Lispro 0 unit 10/14/18 09:00 10/19/18 12:30 Humalog SUB-Q Not Given Q6HR MARYLOU Protocol Lansoprazole 30 mg 10/14/18 11:00 10/19/18 09:22 Prevacid Solutab FEEDTUBE 30 mg QDAY AMRYLOU Administration Linagliptin 5 mg 10/14/18 10:00 10/19/18 09:23 Tradjenta PO 5 mg QDAY MARYLOU Administration Loperamide HCl 2 mg 10/13/18 20:13 Imodium PO Q6H PRN Diarrhea Morphine Sulfate 2 mg 10/13/18 20:03 10/15/18 08:46 Morphine IV 2 mg Q4H PRN Administration Pain, Moderate (4-6) Ondansetron HCl 4 mg 10/13/18 19:52 Zofran IV Q8H PRN Nausea And Vomiting Simple Syrup 15 ml 10/14/18 15:42 Simple Syrup FEEDTUBE PRN PRN Hypoglycemia Simple Syrup 30 ml 10/14/18 15:42 Simple Syrup FEEDTUBE PRN PRN Hypoglycemia Sodium Bicarbonate 325 mg 10/14/18 15:42 10/15/18 10:19 Sodium Bicarbonate FEEDTUBE 325 mg PRN PRN Administration For Clogged Feeding Tube Sodium Chloride 10 ml 10/13/18 22:00 10/19/18 09:23 Sodium Chloride Flush Syringe 10 Ml IV 10 ml BID MARYLOU Administration Sodium Chloride 10 ml 10/13/18 19:52 Sodium Chloride Flush Syringe 10 Ml IV PRN PRN LINE FLUSH Sodium Hypochlorite 1 applic 10/14/18 10:00 10/19/18 09:19 Dakin's Full Strength TP 1 applicatio Q12H MARYLOU Administration Nutrition/Malnutrition Assess - Dietary Evaluation Nutrition/Malnutrition Findings: Nutrition Notes Start: 10/14/18 15:30 Freq: Status: Active Protocol: Document 10/16/18 16:12 SHERRY (Rec: 10/16/18 16:18 [facility] [id number]) Nutrition Notes Initial or Follow up Reassessment Current Diagnosis CKD (stage V CKD),Diabetes, Sepsis,Hypertension Other Pertinent Diagnosis Infected decubitus ulcer vs UTI Current Diet TF - Nepro at 30ml/hr Labs/Tests Na 134 BUN 26 Cr 1.4 Pertinent Medications Reviewed Height 5 ft Weight 61.15 kg [place] Body Weight (kg) 45.45 BMI 26.3 Weight change and time frame Wt change noted Subjective/Other Information Observed no TF infusing at time of visit (12:23). Per RN , PEG tube clogged with multiple failed attempts to de -clot. MD consulted to address clogged PEG tube. Burn Absent Trauma Absent #1 Nutrition Diagnosis Inadequate oral intake Diagnosis Progress(for reassessment Continues documentation) Is patient on ventilator? No Is Patient Ambulatory and/or Out of Bed No REE-([facility]-confined to bed) [phone] Calculation Used for Recommendations [facility] Additional Notes Pro needs 1.2-1.4g/k-86g/ day Fluid needs 1-1.5L/day Nutrition Intervention Nutrition Support: Resume Nepro at 30ml/hr when PEG tube unclogged. Provide 150ml water flush q4h. Kcal 1,296 Protein (gm) 58 Fluid (mL) 523 Goal #1 Resume TF Goal #2 TF to meet at least 75% energy and pro needs Follow-Up By: 10/19/18 Additional Comments F/U: TF restart, tolerance
--- NOTE | 2018-10-19 17:52 | Progress Note ---
Assessment and Plan Cultures: Blood cultures 10/13/2018 no growth so far. Urine cultures 10/13/2018 no growth so far. Assessment: 67 y/o female with history of ESRD on HD (M,W,F), Diabetes, Dementia with marked cortical atrophy and ventriculomegaly, HTN, HLD, CVA with LHP, Seizure Disorder, recurrent UTIs admitted on 10/13/2018 from HD center due to Vas-Cath not working. Patient found also to be hypotensive. EMS reports patient has decubitus ulcer present. 1) Severe Sepsis with septic shock: off pressors, leukocytosis better. Etiology most likely complicated sacral pressure skin and soft tissue infection +/- UTI. Blood cultures 10/13/2018 no growth today. 2) Extensive complicated sacral pressure skin and soft tissue infection? necrotizing infection ? abscess. S/p bedside debridement. No wound cultures available. 3) Acute encephalopathy: from severe sepsis and hyponatremia. Some better. 4) ESRD: renally adjusted all antibiotics 5) Hyponatremia: improving. 6) UTI: history of recurrent UTIs, previous E faecium UTI. Recommendations: - Family still discussing hospice. - continue cefepime, flagyl IV and vancomycin with PK consult - remove femoral TLC taylor Will follow. Elin Garcia MD Infectious Diseases Bilingual Teacher Aide [facility] M [phone] O [phone] Subjective Date of service: 10/19/18 Principal diagnosis: septic shock Interval history: Patient is somonlent non verbal no fever. ROS unable to obtain Objective - Exam Narrative Exam: General appearance: somnolent non verbal Eyes: anicteric sclerae, moist conjunctivae; no lid-lag; PERRLA HENT: Atraumatic; oropharynx limited Neck: Trachea midline; supple, no thyromegaly or lymphadenopathy Lungs: CTA CV: bradycardic Abdomen: Soft, non-tender +PEG Extremities: no edema Skin: see wound care eval Psych: no agitated Neuro: somnolent right fem TLC right SC vas cath WOUND CARE CONSULT -UNSTAGEABLE SACRAL PRESSURE ULCER. WOUND MEASURES [id number]. NECROTIC TISSUE EXTENDS ONTO THE RIGHT BUTTOCK. COVERED WITH BLACK SOFT NECROTIC TISSUE. FOUL ODOR. THERE IS A SMALL AREA OF UNDERMINING AT 30CLOCK THAT MEASURES 3CM. PERIWOUND SKIN IS DENUDED AND HAS SCATTERED DTI. ERYTHEMA NOTED. LARGE AMOUNT OF YELLOW DRAINAGE. CLEANSED WITH WOUND CLEANSER. PACKED WITH DAKINS MOISTENED GAUZE. COVERED WITH 4X4 GAUZE, THEN TELFA. - Constitutional Vitals: Vital Signs Temp Pulse Resp BP Pulse Ox 97.9 F 63 20 147/62 98 10/19/18 16:00 10/19/18 16:01 10/19/18 16:01 10/19/18 16:01 10/19/18 16:00 Temperature -Last 24 Hours Temperature 97.9 F Temperature 97.9 F Temperature 97.9 F Temperature 97.9 F Temperature 97.7 F Temperature 98.8 F Temperature 98.9 F Temperature 98.4 F Temperature 97.7 F - Labs CBC & Chem 7: 10/17/18 04:51 10/17/18 04:51 Labs: Abnormal lab results 10/18/18 10/19/18 Range/Units 23:31 12:10 POC Glucose 156 H 125 H (70-105)
[2018-10-20] MEDS: HumaLOG SUB-Q SCH ×3 (02:02→11:30)
[2018-10-20] MEDS: FLAGYL 500 MG/100 ML 500 MG/100 ML BAG IV SCH ×2 (05:19→18:28)
[2018-10-20] MEDS: HEPARIN SUB-Q SCH (09:00)
[2018-10-20] MEDS: ECOTRIN PO SCH (09:00)
[2018-10-20] MEDS: TRADJENTA PO SCH (10:00)
[2018-10-20] MEDS: PREVACID SOLUTAB FEEDTUBE SCH (10:00)
[2018-10-20] MEDS: KEPPRA 500 MG in NACL 0.9% 100 ML IV SCH (10:00)
[2018-10-20] MEDS: SODIUM CHLORIDE FLUSH SYRINGE 10 ML IV SCH (10:00)
--- NOTE | 2018-10-20 10:15 | Progress Note ---
Assessment and Plan Impression * End-stage renal disease on maintenance hemodialysis * Sepsis * Sacral decubitus * Dialysis catheter malfunction * Diabetes Recommendations * Continue dialysis on TTS schedule as outpatient * Surgical notes appreciated * Continue local wound care and antibiotics * Adjust diet and meds for ESRD state * Avoid nephrotoxins * Overall prognosis appears to be poor, hospice considered Subjective Date of service: 10/20/18 Principal diagnosis: septic shock Interval history: events noted Objective - Exam Narrative Exam: General appearance: chronically ill, frail EENT: PERRL, mucous membranes moist Neck: no JVD, no thyromegaly, no carotid bruit, supple, other (right IJ PermCath in place) Respiratory: Present: Clear to Ascultation Cardiology: regular, normal heart rate Gastrointestinal: normal, normoactive bowel sounds, other (PICC tube in place) Integumentary: other (trace edema) - Vital Signs Vital signs: Vital Signs - 12hr 10/19/18 10/20/18 10/20/18 23:00 00:00 00:01 Temperature 99.1 F Pulse Rate 61 61 62 Pulse Rate [ 61 From Monitor] Respiratory 17 16 17 Rate Blood Pressure 101/41 113/44 O2 Sat by Pulse 99 99 99 Oximetry 10/20/18 10/20/18 10/20/18 01:00 02:00 03:01 Temperature Pulse Rate 61 64 65 Pulse Rate [ From Monitor] Respiratory 13 17 16 Rate Blood Pressure 108/47 110/55 126/48 O2 Sat by Pulse 99 99 98 Oximetry 10/20/18 10/20/18 10/20/18 04:00 05:00 06:01 Temperature 98.8 F Pulse Rate 63 61 62 Pulse Rate [ 64 From Monitor] Respiratory 17 15 20 Rate Blood Pressure 115/50 106/46 117/45 O2 Sat by Pulse 98 97 95 Oximetry 10/20/18 10/20/18 07:01 08:00 Temperature 97.2 F L Pulse Rate 65 63 Pulse Rate [ 64 From Monitor] Respiratory 19 16 Rate Blood Pressure 127/52 117/50 O2 Sat by Pulse 96 97 Oximetry - Lab 10/17/18 04:51 10/17/18 04:51 Most recent lab results Calcium 7.8 mg/dL (8.4-10.2) L 10/17/18 04:51 Medications & Allergies - Medications Allergies/Adverse Reactions: Allergies No Known Allergies Allergy (Verified 07/30/18 12:37) Home Medications: Home Medications Medication Instructions Recorded Confirmed Last Taken Type Aspirin [Aspirin EC] 325 mg PO DAILY #30 tablet. 05/05/18 10/13/18 Unknown Rx Loperamide HCl [Anti-Diarrheal] 2 mg PO Q6H PRN 07/30/18 10/13/18 Unknown History Nitroglycerin [Nitrostat] 0.4 mg SL Q5M PRN 07/30/18 10/13/18 Unknown History levETIRAcetam [Keppra TAB] 500 mg PO BID #60 tablet 08/03/18 10/13/18 Unknown Rx Acetaminophen [Tylenol] 325 mg FEEDTUBE Q6HR PRN 10/13/18 10/13/18 Unknown History Carvedilol [Coreg] 25 mg FEEDTUBE BID 10/13/18 10/13/18 Unknown History Esomeprazole Magnesium [NexIUM] 40 mg PO QDAY 10/13/18 10/13/18 Unknown History HYDROcodone/APAP 5-325 [[place] 1 each FEEDTUBE Q6HR PRN 10/13/18 10/13/18 Unknown History 5/325] Insulin Glargine,Hum.rec.anlog 15 units SUB-Q HS 10/13/18 10/13/18 Unknown History [Basaglar Kwikpen U-100] Linagliptin [Tradjenta] 5 mg PO QDAY 10/13/18 10/13/18 Unknown History amLODIPine [Norvasc] 10 mg FEEDTUBE DAILY 10/13/18 10/13/18 Unknown History Active Medications: Generic Name Dose Route Start Last Admin Trade Name Ronalq PRN Reason Stop Dose Admin Acetaminophen 325 mg 10/13/18 20:13 10/18/18 04:15 Tylenol FEEDTUBE 325 mg Q6HR PRN Administration Pain, Moderate (4-6) Lipase/Protease/Amylase 1 each 10/14/18 15:42 10/15/18 10:19 Pancreaze 10,500 Unit FEEDTUBE 1 each PRN PRN Administration For Clogged Feeding Tube Aspirin 325 mg 10/13/18 21:00 10/19/18 09:21 Ecotrin PO 325 mg DAILY MARYLOU Administration Heparin Sodium (Porcine) 5,000 unit 10/13/18 22:00 10/19/18 21:46 Heparin SUB-Q 5,000 unit Q12HR MARYLOU Administration Levetiracetam 500 mg/ Sodium 105 mls @ 393.75 mls/hr 10/13/18 23:00 10/19/18 21:48 Chloride IV 393.75 mls/hr Q12HR MARYLOU Administration Metronidazole 500 mg in 100 mls @ 100 mls/hr 10/16/18 14:00 10/20/18 05:19 Flagyl 500 Mg/100 Ml IV 100 mls/hr Q8H MARYLOU Administration Protocol Cefepime HCl 1 gm in 100 mls @ 200 mls/hr 10/16/18 14:00 10/19/18 13:10 Maxipime/Ns 1 Gm/100 Ml IV 200 mls/hr Q24H MARYLOU Administration Protocol Insulin Human Lispro 0 unit 10/14/18 09:00 10/20/18 06:08 Humalog SUB-Q Not Given Q6HR [facility] Protocol Lansoprazole 30 mg 10/14/18 11:00 10/19/18 09:22 Prevacid Solutab FEEDTUBE 30 mg QDAY MARYLOU Administration Linagliptin 5 mg 10/14/18 10:00 10/19/18 09:23 Tradjenta PO 5 mg QDAY MARYLOU Administration Loperamide HCl 2 mg 10/13/18 20:13 Imodium PO Q6H PRN Diarrhea Morphine Sulfate 2 mg 10/13/18 20:03 10/15/18 08:46 Morphine IV 2 mg Q4H PRN Administration Pain, Moderate (4-6) Ondansetron HCl 4 mg 10/13/18 19:52 Zofran IV Q8H PRN Nausea And Vomiting Simple Syrup 15 ml 10/14/18 15:42 Simple Syrup FEEDTUBE PRN PRN Hypoglycemia Simple Syrup 30 ml 10/14/18 15:42 Simple Syrup FEEDTUBE PRN PRN Hypoglycemia Sodium Bicarbonate 325 mg 10/14/18 15:42 10/15/18 10:19 Sodium Bicarbonate FEEDTUBE 325 mg PRN PRN Administration For Clogged Feeding Tube Sodium Chloride 10 ml 10/13/18 22:00 10/19/18 21:47 Sodium Chloride Flush Syringe 10 Ml IV 10 ml BID MARYLOU Administration Sodium Chloride 10 ml 10/13/18 19:52 Sodium Chloride Flush Syringe 10 Ml IV PRN PRN LINE FLUSH Sodium Hypochlorite 1 applic 10/14/18 10:00 10/19/18 21:47 Skip's Full Strength TP 1 applicatio Q12H MARYLOU Administration
--- NOTE | 2018-10-20 14:48 | Progress Note ---
Hospitalist Physical - Constitutional Vitals: Temp Pulse Resp BP Pulse Ox 98.2 F 64 16 120/53 98 10/20/18 13:15 10/20/18 14:00 10/20/18 14:00 10/20/18 14:00 10/20/18 14:00 General appearance: Present: no acute distress, other (nonverbal) Results - Labs CBC & Chem 7: 10/17/18 04:51 10/17/18 04:51 Labs: Laboratory Last Values WBC 19.5 K/mm3 (4.5-11.0) H 10/17/18 04:51 RBC 2.97 M/mm3 (3.65-5.03) L 10/17/18 04:51 Hgb 8.2 gm/dl (10.1-14.3) L 10/17/18 04:51 Hct 25.0 % (30.3-42.9) L 10/17/18 04:51 MCV 84 fl (79-97) 10/17/18 04:51 MCH 28 pg (28-32) 10/17/18 04:51 MCHC 33 % (30-34) 10/17/18 04:51 RDW 17.8 % (13.2-15.2) H 10/17/18 04:51 Plt Count 377 K/mm3 (140-440) 10/17/18 04:51 Add Manual Diff Complete 10/17/18 04:51 Total Counted 100 10/17/18 04:51 Seg Neutrophils % Rules Examiner 10/17/18 04:51 Seg Neuts % (Manual) 93.0 % (40.0-70.0) H 10/17/18 04:51 3.0 % 10/17/18 04:51 3.0 % (13.4-35.0) L 10/17/18 04:51 Reactive Lymphs % (Man) 0 % 10/17/18 04:51 1.0 % (0.0-7.3) 10/17/18 04:51 0 % (0.0-4.3) 10/17/18 04:51 0 % (0.0-1.8) 10/17/18 04:51 0 % 10/17/18 04:51 0 % 10/17/18 04:51 0 % 10/17/18 04:51 0 % 10/17/18 04:51 Nucleated RBC % Not Reportable 10/17/18 04:51 Seg Neutrophils # Man 18.1 K/mm3 (1.8-7.7) H 10/17/18 04:51 Band Neutrophils # 0.6 K/mm3 10/17/18 04:51 0.6 K/mm3 (1.2-5.4) L 10/17/18 04:51 Abs React Lymphs (Man) 0.0 K/mm3 10/17/18 04:51 0.2 K/mm3 (0.0-0.8) 10/17/18 04:51 0.0 K/mm3 (0.0-0.4) 10/17/18 04:51 0.0 K/mm3 (0.0-0.1) 10/17/18 04:51 0.0 K/mm3 10/17/18 04:51 0.0 K/mm3 10/17/18 04:51 0.0 K/mm3 10/17/18 04:51 Blast Cells # 0.0 K/mm3 10/17/18 04:51 WBC Morphology Not Reportable 10/17/18 04:51 Hypersegmented Neuts Not Reportable 10/17/18 04:51 Hyposegmented Neuts Not Reportable 10/17/18 04:51 Hypogranular Neuts Not Reportable 10/17/18 04:51 Not Reportable 10/17/18 04:51 Not Reportable 10/17/18 04:51 Not Reportable 10/17/18 04:51 Not Reportable 10/17/18 04:51 Not Reportable 10/17/18 04:51 Not Reportable 10/17/18 04:51 Appears normal 10/17/18 04:51 Not Reportable 10/17/18 04:51 Plt Clumps, EDTA Not Reportable 10/17/18 04:51 Not Reportable 10/17/18 04:51 Not Reportable 10/17/18 04:51 Not Reportable 10/17/18 04:51 Plt Morphology Comment Not Reportable 10/17/18 04:51 RBC Morphology Not Reportable 10/17/18 04:51 Dimorphic RBCs Not Reportable 10/17/18 04:51 Not Reportable 10/17/18 04:51 1+ 10/17/18 04:51 Not Reportable 10/17/18 04:51 1+ 10/17/18 04:51 Not Reportable 10/17/18 04:51 Not Reportable 10/17/18 04:51 Not Reportable 10/17/18 04:51 Not Reportable 10/17/18 04:51 Not Reportable 10/17/18 04:51 Not Reportable 10/17/18 04:51 Not Reportable 10/17/18 04:51 Few 10/17/18 04:51 Not Reportable 10/17/18 04:51 Not Reportable 10/17/18 04:51 Not Reportable 10/17/18 04:51 Not Reportable 10/17/18 04:51 Not Reportable 10/17/18 04:51 Not Reportable 10/17/18 04:51 Not Reportable 10/17/18 04:51 Acanthocytes (Spur) Not Reportable 10/17/18 04:51 Rouleaux Not Reportable 10/17/18 04:51 Not Reportable 10/17/18 04:51 Not Reportable 10/17/18 04:51 Not Reportable 10/17/18 04:51 Not Reportable 10/17/18 04:51 Hem Pathologist Commnt No 10/17/18 04:51 Sodium 137 mmol/L (137-145) 10/17/18 04:51 Potassium 3.5 mmol/L (3.6-5.0) L 10/17/18 04:51 Chloride 100.4 mmol/L (98-107) 10/17/18 04:51 Carbon Dioxide 20 mmol/L (22-30) L 10/17/18 04:51 20 mmol/L 10/17/18 04:51 BUN 33 mg/dL (7-17) H 10/17/18 04:51 1.8 mg/dL (0.7-1.2) H 10/17/18 04:51 Estimated GFR 34 ml/min 10/17/18 04:51 18 % 10/17/18 04:51 Glucose 150 mg/dL (65-100) H 10/17/18 04:51 POC Glucose 131 (70-105) H 10/20/18 06:09 6.9 % (4-6) H 10/13/18 13:28 288 Mosm/kg 10/14/18 07:30 Lactic Acid 1.60 mmol/L (0.7-2.0) 10/13/18 19:44 Calcium 7.8 mg/dL (8.4-10.2) L 10/17/18 04:51 0.30 mg/dL (0.1-1.2) 10/15/18 08:00 AST 26 units/L (5-40) 10/15/18 08:00 ALT 36 units/L (7-56) 10/15/18 08:00 96 units/L (35-129) 10/15/18 08:00 26.40 mg/dL (0.00-1.30) H 10/15/18 08:00 5.1 g/dL (6.3-8.2) L 10/15/18 08:00 1.4 g/dL (3.9-5) L 10/15/18 08:00 0.4 % 10/15/18 08:00 Jennifer (Yellow) 10/13/18 17:43 Cloudy (Clear) 10/13/18 17:43 5.0 (5.0-7.0) 10/13/18 17:43 Ur Specific [place] 1.019 (1.003-1.030) 10/13/18 17:43 >500 mg/dL (Negative) 10/13/18 17:43 150 mg/dL (Negative) 10/13/18 17:43 Tr mg/dL (Negative) 10/13/18 17:43 Sm (Negative) 10/13/18 17:43 Neg (Negative) 10/13/18 17:43 Neg (Negative) 10/13/18 17:43 < 2.0 mg/dL (<2.0) 10/13/18 17:43 Ur Leukocyte Esterase Sm (Negative) 10/13/18 17:43 36.0 /HPF (0.0-6.0) H 10/13/18 17:43 13.0 /HPF (0.0-6.0) 10/13/18 17:43 U Epithel Cells (Auto) 81.0 /HPF (0-13.0) H 10/13/18 17:43 Random Vancomycin 9.4 ug/mL (0-40.0) 10/15/18 06:20 Blood Type A POSITIVE 10/13/18 14:50 Antibody Screen Negative 10/13/18 14:50 Crossmatch See Detail 10/13/18 14:50 Active Medications - Current Medications Current Medications: Generic Name Dose Route Start Last Admin Trade Name Freq PRN Reason Stop Dose Admin Acetaminophen 325 mg 10/13/18 20:13 10/18/18 04:15 Tylenol FEEDTUBE 325 mg Q6HR PRN Administration Pain, Moderate (4-6) Lipase/Protease/Amylase 1 each 10/14/18 15:42 10/15/18 10:19 Pancreaze 10,500 Unit FEEDTUBE 1 each PRN PRN Administration For Clogged Feeding Tube Aspirin 325 mg 10/13/18 21:00 10/19/18 09:21 Ecotrin PO 325 mg DAILY MARYLOU Administration Heparin Sodium (Porcine) 5,000 unit 10/13/18 22:00 10/19/18 21:46 Heparin SUB-Q 5,000 unit Q12HR MARYLOU Administration Levetiracetam 500 mg/ Sodium 105 mls @ 393.75 mls/hr 10/13/18 23:00 10/19/18 21:48 Chloride IV 393.75 mls/hr Q12HR MARYLOU Administration Metronidazole 500 mg in 100 mls @ 100 mls/hr 10/16/18 14:00 10/20/18 05:19 Flagyl 500 Mg/100 Ml IV 100 mls/hr Q8H MARYLOU Administration Protocol Cefepime HCl 1 gm in 100 mls @ 200 mls/hr 10/16/18 14:00 10/19/18 13:10 Maxipime/Ns 1 Gm/100 Ml IV 200 mls/hr Q24H MARYLOU Administration Protocol Insulin Human Lispro 0 unit 10/14/18 09:00 10/20/18 06:08 Humalog SUB-Q Not Given Q6HR MARYLOU Protocol Lansoprazole 30 mg 10/14/18 11:00 10/19/18 09:22 Prevacid Solutab FEEDTUBE 30 mg QDAY MARYLOU Administration Linagliptin 5 mg 10/14/18 10:00 10/19/18 09:23 Tradjenta PO 5 mg QDAY MARYLOU Administration Loperamide HCl 2 mg 10/13/18 20:13 Imodium PO Q6H PRN Diarrhea Morphine Sulfate 2 mg 10/13/18 20:03 10/15/18 08:46 Morphine IV 2 mg Q4H PRN Administration Pain, Moderate (4-6) Ondansetron HCl 4 mg 10/13/18 19:52 Zofran IV Q8H PRN Nausea And Vomiting Simple Syrup 15 ml 10/14/18 15:42 Simple Syrup FEEDTUBE PRN PRN Hypoglycemia Simple Syrup 30 ml 10/14/18 15:42 Simple Syrup FEEDTUBE PRN PRN Hypoglycemia Sodium Bicarbonate 325 mg 10/14/18 15:42 10/15/18 10:19 Sodium Bicarbonate FEEDTUBE 325 mg PRN PRN Administration For Clogged Feeding Tube Sodium Chloride 10 ml 10/13/18 22:00 10/19/18 21:47 Sodium Chloride Flush Syringe 10 Ml IV 10 ml BID MARYLOU Administration Sodium Chloride 10 ml 10/13/18 19:52 Sodium Chloride Flush Syringe 10 Ml IV PRN PRN LINE FLUSH Sodium Hypochlorite 1 applic 10/14/18 10:00 10/19/18 21:47 Dakin's Full Strength TP 1 applicatio Q12H MARYLUO Administration Nutrition/Malnutrition Assess - Dietary Evaluation Nutrition/Malnutrition Findings: Nutrition Notes Start: 10/14/18 15:30 Freq: Status: Active Protocol: Document 10/19/18 16:03 SHERRY (Rec: 10/19/18 16:04 SHERRY [id number] [id number]) Nutrition Notes Initial or Follow up Brief Note Subjective/Other Information PEG unclogged on 10/17. Observed TF infusing at goal rate. Per RN, pt tolerating TF with no gastric residuals. Nutrition Intervention Follow-Up By: 10/26/18 Additional Comments F/U: stable TF, wt
--- NOTE | 2018-10-20 15:17 | Discharge Summary ---
Providers - Providers Date of Admission: 10/13/18 19:52 Attending physician: BERTHA CASTRO MD 10/13/18 14:45 Consult to Physician [CONS] Stat Comment: Consulting Provider: SHANNON MUÑOZ Physician Instructions: Reason For Exam: esrd 10/13/18 16:05 Consult to Physician [CONS] Stat Comment: Consulting Provider: DIMITRY BYRNE Physician Instructions: Reason For Exam: vas cath complication 10/13/18 20:18 Consult to Wound/ET Nurse [CONS] Routine Reason For Exam: wound eval 10/14/18 05:26 Consult to Physician [CONS] Routine Comment: Consulting Provider: ALY HARRIS Physician Instructions: Reason For Exam: sepsis 10/14/18 05:27 Consult to Physician [CONS] Routine Comment: Consulting Provider: ANNA PATTEN Physician Instructions: Reason For Exam: decubitus ulcer 10/14/18 09:58 Consult to Physician [CONS] Urgent Comment: Consulting Provider: ANNA PATTEN Physician Instructions: PLEASE EVALUATE FOR DEBRIDEMENT Reason For Exam: SACRAL WOUND 10/14/18 13:13 Consult to Dietitian/Nutrition [CONS] Routine Physician Instructions: Reason For Exam: Tube feeding Reason for Consult: Write/Manage Tube Feeding 10/15/18 15:17 Consult to Physician [CONS] Routine Comment: Consulting Provider: SERGEY ARENAS Physician Instructions: Reason For Exam: malfunctioning PEG tube Primary care physician: MANAGER [facility] Hospitalization Condition: Stable Hospital course: 67-year-old femalewith pmh of seizure disorder IDDM HTN Gerd sent from dialysis due to Vas-Cath not working.Patient found to be hypotensive. EMS reports patient has decubitus ulcer present. Patient is nonverbal.No fever or chills.Patient from [place] .Patient not DNR.No family at bedside. Past Medical History ; htn, multiple cva, dm, esrd on hd mwf, seizure, dementia septic shock secondary to infected decubitus ulcer, POA Severe sepsis * She was treated with IV fluids pressors and antibiotics. She was weaned off pressors. Extensive debridements and colostomy was recommended, but the family could not decide if he wanted such a big surgery for the patient's. Hospice was recommended. Her son and family members are still in the process of deciding if they wants such a major surgery as the patient is currently nonverbal and has very poor quality of life. Anemia sp 2 units of prbc, aocd and anemia due to sepsis Dialysis catheter clot or failure 10/14; Complete replacement of tunneled centrally inserted dialysis catheter via same venous access site, fluoroscopic supervision interpretation Vascular surgery input appreciated End stage renal disease She was continued on dialysis per nephrology Hypokalemia; replaced Hyponatremia; improved with IV fluids IDDM (insulin dependent diabetes mellitus) - SSI coverage - hemoglobin A1c 6.9 Seizure disorder - continue IV keppra PEG tube malfunction, resolved GI input appreciated, continue tube feeding DVT prophylaxis; heparin Disposition: [id number] SNF W [facility] Time spent for discharge: 33 mins Core Measure Documentation - Palliative Care Palliative Care/ Comfort Measures: Hospice Care - Core Measures Any of the following diagnoses?: none Exam - Physical Exam Narrative exam: Not in cardiopulmonary distress. Vital signs as documented. Head exam is unremarkable. No scleral icterus . Neck is without jugular venous distension, thyromegaly, or carotid bruits. Lungs are clear to auscultation. Cardiac exam reveals regular rate and Rhythm. Abdominal exam reveals normal bowel sounds. Extremities are contracted. CARE MANAGER: Noncommunicative, contracted extremities. - Constitutional Vitals: Temp Pulse Resp BP Pulse Ox 98.2 F 64 16 120/53 98 10/20/18 13:15 10/20/18 14:00 10/20/18 14:00 10/20/18 14:00 10/20/18 14:00 Plan Follow up with: PRIMARY CARE, [Primary Care Provider] - 3-5 Days Prescriptions: HYDROcodone/APAP 5-325 [Tad 5-325 mg TAB] 1 each FEEDTUBE Q6HR PRN #7 tablet PRN Reason: Pain , Severe (7-10)
--- NOTE | 2018-10-20 15:50 | Event Note ---
Date: 10/20/18 Dr Sarah informed me about family decision to send the patient to hospice. Patient would be discharged to SNF on hospice today. Her infection is incurable as she has a very extensive wound and she is not a candidate for surgical debridement due to severe malnutrition, multiple comorbid conditions and pressure from being bedbound. I would not recommend further systemic antibiotics at this point.
[2018-10-20] MEDS: MAXIPIME/NS 1 GM/100 ML 1 GM/100 ML BAG IV SCH (16:02)
[2018-10-20 18:22] VITALS: BP 109/47
== END 2018-10-20 19:11 | DRG 853 ==
LOC: ED 12:36 → CC1 19:52 → IMCU 10-15 20:56
PROVIDERS: ADMIT Internal Medicine; ATTEND Internal Medicine
PROC: 06HY33Z Insertion of Infusion Device into Lower Vein, Percutaneous Approach (ICD-10-PCS; 2018-10-13)
PROC: 30233N1 Transfusion of Nonautologous Red Blood Cells into Peripheral Vein, Percutaneous Approach (ICD-10-PCS; 2018-10-13)
PROC: 0JB70ZZ Excision of Back Subcutaneous Tissue and Fascia, Open Approach (ICD-10-PCS; principal; 2018-10-14)
PROC: 0J2TXYZ Change Other Device in Trunk Subcutaneous Tissue and Fascia, External Approach (ICD-10-PCS; 2018-10-14)
PROC: 5A1D70Z Performance of Urinary Filtration, Intermittent, Less than 6 Hours Per Day (ICD-10-PCS; 2018-10-15)
PROC: 5A1D70Z Performance of Urinary Filtration, Intermittent, Less than 6 Hours Per Day (ICD-10-PCS; 2018-10-17)
PROC: 5A1D70Z Performance of Urinary Filtration, Intermittent, Less than 6 Hours Per Day (ICD-10-PCS; 2018-10-20)
DX: A41.9 Sepsis, unspecified organism (principal); L89.154 Pressure ulcer of sacral region, stage 4; N18.6 End stage renal disease; R65.21 Severe sepsis with septic shock; G93.41 Metabolic encephalopathy; E43 Unspecified severe protein-calorie malnutrition; T82.49XA Other complication of vascular dialysis catheter, initial encounter; I12.0 Hypertensive chronic kidney disease with stage 5 chronic kidney disease or end stage renal disease; I69.354 Hemiplegia and hemiparesis following cerebral infarction affecting left non-dominant side; E87.1 Hypo-osmolality and hyponatremia; K94.23 Gastrostomy malfunction; F03.90 Unspecified dementia, unspecified severity, without behavioral disturbance, psychotic disturbance, mood disturbance, and anxiety; D63.8 Anemia in other chronic diseases classified elsewhere; Y83.3 Surgical operation with formation of external stoma as the cause of abnormal reaction of the patient, or of later complication, without mention of misadventure at the time of the procedure; Y83.8 Other surgical procedures as the cause of abnormal reaction of the patient, or of later complication, without mention of misadventure at the time of the procedure; E87.6 Hypokalemia; G40.909 Epilepsy, unspecified, not intractable, without status epilepticus; K21.9 Gastro-esophageal reflux disease without esophagitis; E11.22 Type 2 diabetes mellitus with diabetic chronic kidney disease; Z99.2 Dependence on renal dialysis; Z79.82 Long term (current) use of aspirin; Z79.4 Long term (current) use of insulin; Z79.899 Other long term (current) drug therapy; Z68.26 Body mass index [BMI] 26.0-26.9, adult; Y92.098 Other place in other non-institutional residence as the place of occurrence of the external cause; Z74.01 Bed confinement status
CPT/HCPCS: 36415; 36581; 71045; 77001; 80048; 80053; 80202; 81001; 82140; 82962; 83036; 83930; 85007; 85025; 86140; 86850; 86900; 86901; 86920; 87040; 87086; 93005; 93010; G0378; C1750; C1769; J0690; J0692; J1644; J1815; J1953; J2185; J2250; J2270; J3010; J3370; J3480; J7030; J7040; J7050; J7120; P9016